=== PATIENT | female | born 1945 | race Caucasian/White ===

== ENCOUNTER → 2020-08-26 02:07 | Outpatient (CLI) | payer MEDICARE, SELFPAY ==
[2020-08-26 19:34] LABS: SARS-CoV-2 RNA PCR Negative
== END ==
PROVIDERS: PCP Internal Medicine; Visit Provider Internal Medicine Gastroenterology
DX: Z01.812 Encounter for preprocedural laboratory examination (principal); Z20.822 Contact with and (suspected) exposure to COVID-19
CPT/HCPCS: C9803; U0003; U0005

== ENCOUNTER 2020-08-30 01:25 | Day surgery (SDC) | payer MEDICARE, SELFPAY ==
[2020-08-25 10:15] VITALS: BMI 32.5
[2020-08-30 09:11] VITALS: BP 139/65; PULSE 84; RESP 20; TEMP 36.4; O2SAT 98; BMI 33.3
[2020-08-30] MEDS: LACTATED RINGERS 1,000 ML 150 ML IV CONT (09:20)
[2020-08-30] MEDS: AMPICILLIN 2 GM/NS 100 ML 2 GM/100 ML BAG IVPB (09:21)
--- NOTE | 2020-08-30 09:25 | P.PNAN_ITS ---
Anes - Initial Pre Proc Eval Procedure: Operation Date: 08/30/20 10:00 Proposed Procedures p Esophagogastroduodenoscopy & Screening Colonoscopy - Jacob Espinoza MD Date/Time: 08/30/20 09:25 Surgeon: Jacob Espinoza MD Pre Op Diagnosis: GI bleed, neoplasm screening Patient Data Age: 74 Gender: F Height: 4 ft 11 in Weight: 74.7 kg Last Vital Signs Temp 97.5 F L 08/30/20 09:11 Pulse 84 08/30/20 09:11 Resp 20 08/30/20 09:11 BP 139/65 08/30/20 09:11 Pulse Ox 98 08/30/20 09:11 Allergies Allergy/AdvReac Type Severity Reaction Status Date / Time adhesive tape Allergy Intermediate Rash Verified 08/30/20 09:09 Home Medications Medication Instructions Recorded Confirmed Type L. gasseri-B. bifidum-B longum 1 cap PO DAILY 08/25/20 08/30/20 History [[facility]] alprazolam 0.25 mg PO TID PRN 08/25/20 08/30/20 History amiloride-hydrochlorothiazide 1 tablet PO DAILY 08/25/20 08/30/20 History atorvastatin 40 mg PO BID 08/25/20 08/30/20 History bupropion HCl 300 mg PO DAILY 08/25/20 08/30/20 History cholecalciferol (vitamin D3) 50 mcg PO DAILY 08/25/20 08/30/20 History [Vitamin D3] whwsuozbfpna-Je-clju-minerals 1 tablet PO DAILY 08/25/20 08/30/20 History [[facility]] omeprazole 20 mg PO BID 08/25/20 08/30/20 History Patient hx anesthesia problems: none Family hx anesthesia problems: none PMFSH Past Medical History Medical History (Updated 08/30/20 @ 09:24 by Shady Call MD) Anxiety CVA (cerebral vascular accident) no residual symptoms GERD (gastroesophageal reflux disease) Hyperlipidemia Hypertension Social History Social History Smoking status: Never smoker Alcohol intake: never Substance use: never Substance use type: does not use Living arrangements: with family Spiritual care concerns: No Anes - Eval Final PreProcedure Day of Procedure 08/30/20 09:25 Patient weight: overweight Heart: regular rate and rhythm Lungs: clear to auscultation Airway: Mallampati scale class II Neurological: alert and oriented Last oral intake: >/= 8 hours ASA classification: III Emergent: no Anesthetic plan: proceed Anesthesia type and monitoring: general GIVS and standard monitoring Informed Consent: The patient's anesthetic plan and its attendant risks and benefits were discussed with the patient/family/POA. Questions were solicited and answers provided to the satisfaction of the patient/family/POA.
--- NOTE | 2020-08-30 09:47 | PM.HPGS ---
History of Present Illness History of Present Illness Consent: Risks, benefits, and alternatives have been discussed and questions answered. Patient agrees to proceed with procedure. Chief complaint: GI bleed, neoplasm screening Narrative: Dipti Núñez is a 74 year old female who had recent knee surgery and then developed melanotic stools and epigastric pain. She is due for colon cancer screening Review of Systems Review of Systems: All systems reviewed & are unremarkable except as noted in HPI and below PMFSH Past Medical History Medical History Anxiety CVA (cerebral vascular accident) no residual symptoms GERD (gastroesophageal reflux disease) Hyperlipidemia Hypertension Social History Social History Smoking status: Never smoker Alcohol intake: never Substance use: never Substance use type: does not use Living arrangements: with family Spiritual care concerns: No Meds Home Medications and Allergies Home Medications Medication Instructions Recorded Confirmed Type L. gasseri-B. bifidum-B longum 1 cap PO DAILY 08/25/20 08/30/20 [facility] alprazolam 0.25 mg PO TID PRN 08/25/20 08/30/20 History amiloride-hydrochlorothiazide 1 tablet PO DAILY 08/25/20 08/30/20 History atorvastatin 40 mg PO BID 08/25/20 08/30/20 History bupropion HCl 300 mg PO DAILY 08/25/20 08/30/20 History cholecalciferol (vitamin D3) 50 mcg PO DAILY 08/25/20 08/30/20 History [Vitamin D3] ssbiyvwfsldq-Vu-klnu-minerals 1 tablet PO DAILY 08/25/20 08/30/20 History [[facility] Multiple [facility]] omeprazole 20 mg PO BID 08/25/20 08/30/20 History Allergies Allergy/AdvReac Type Severity Reaction Status Date / Time adhesive tape Allergy Intermediate Rash Verified 08/30/20 09:09 Vital Signs Vital Signs - 24 hr 08/30/20 09:11 Temperature 36.4 C L Pulse Rate 84 Respiratory Rate 20 Blood Pressure 139/65 Pulse Oximetry 98 Exam Const: General: alert Orientation/consciousness: patient oriented x3 Resp: Auscultation: clear to auscultation bilaterally Cardio: Rhythm: regular rhythm GI: GI Palp: Yes Soft to palpation and No Tenderness to palpation present (GI) Neuro: General: patient oriented x3 Assessment and Plan Assessment and plan (1) Epigastric pain: Code(s): R10.13 - Epigastric pain Status: Acute Assessment and Plan: EGD with possible biopsy or dilatation or cautery. (2) Colon cancer screening: Code(s): Z12.11 - Encounter for screening for malignant neoplasm of colon Status: Acute Assessment and Plan: Colonoscopy with possible biopsy or polypectomy or cautery or injection of substances.
[2020-08-30 10:25] VITALS: BP 102/49; PULSE 77; RESP 20; O2SAT 93
[2020-08-30 10:34] VITALS: BP 98/50; PULSE 78; RESP 20; O2SAT 97
[2020-08-30 10:45] VITALS: BP 128/66; PULSE 76; RESP 20; O2SAT 97
== END 2020-08-30 11:00 | disposition home or self-care (01) ==
PROVIDERS: PCP Internal Medicine; Visit Provider Internal Medicine Gastroenterology
PROC: 0DJ08ZZ Inspection of Upper Intestinal Tract, Via Natural or Artificial Opening Endoscopic (ICD-10-PCS; CPT 43235; principal; 2020-08-30 10:00)
DX: Z12.11 Encounter for screening for malignant neoplasm of colon (principal); R10.13 Epigastric pain; K44.9 Diaphragmatic hernia without obstruction or gangrene; I10 Essential (primary) hypertension; E78.5 Hyperlipidemia, unspecified; K21.9 Gastro-esophageal reflux disease without esophagitis; F41.9 Anxiety disorder, unspecified; Z86.73 Personal history of transient ischemic attack (TIA), and cerebral infarction without residual deficits
CPT/HCPCS: 43235; G0121; J0290; J2704; J7120

== ENCOUNTER → 2020-12-19 10:44 | Outpatient (CLI) | payer MEDICARE, SELFPAY ==
--- NOTE | ~2020-12-19 | MM_ITS ---
EXAMINATION: MM screening angeline BI w beto HISTORY: Screening mammogram TECHNIQUE: Craniocaudal and mediolateral oblique 3-D tomosynthesis images were obtained and synthetic 2-D images were generated. CAD analysis was submitted and interpreted. COMPARISON: 08/10/2018, 06/25/2017, 05/23/2016 bilateral digital screening mammogram examinations BREAST PARENCHYMAL COMPOSITION: The breasts are almost entirely fatty. FINDINGS: There is no evidence of suspicious mass, calcification, or architectural distortion to sugg est malignancy in either breast. There has been no suspicious interval change. IMPRESSION: 1. No mammographic evidence of malignancy. 2. Recommend routine screening mammography in one year. BI-RADS Category 1: Negative Reviewed, dictated and finalized at location A.
== END ==
PROVIDERS: PCP Internal Medicine; Visit Provider Internal Medicine
DX: Z12.31 Encounter for screening mammogram for malignant neoplasm of breast (principal)
CPT/HCPCS: 77063; 77067

== ENCOUNTER 2021-05-14 11:12 | Outpatient (CLI) | payer MEDICARE, SELFPAY ==
[2021-05-14 11:52] LABS: Anion Gap 10 mmol/L (8-16); Blood Urea Nitrogen 19 mg/dL (7-17); Carbon Dioxide 28 mmol/L (22-30); Chloride 102 mmol/L (98-107); Estimated Glomerular Filt Rate 40; Glucose 125 mg/dL (65-110); Potassium 4.2 mmol/L (3.4-5.0); Sodium 140 mmol/L (137-145)
== END 2021-05-14 11:13 | disposition home or self-care (01) ==
LOC: ANHSURGERY 11:16
PROVIDERS: Anesthesiology; PCP Internal Medicine; Visit Provider Plastic Surgery
DX: Z01.812 Encounter for preprocedural laboratory examination (principal); Z51.81 Encounter for therapeutic drug level monitoring; Z79.899 Other long term (current) drug therapy
CPT/HCPCS: 36415; 80048

== ENCOUNTER 2021-05-17 02:24 | Day surgery (SDC) | payer MEDICARE, SELFPAY ==
[2021-05-10 12:03] VITALS: BMI 33.3
--- NOTE | 2021-05-10 12:13 | PC.NURSE ---
Report to the Outpatient Waiting Room, entrance under the green pavilion located off [facility], at time __0600__ on date _05/17/21__. OR Time: __0730 AM__. - You and your visitor will be asked a series of questions to screen for COVID 19 for your protection. - A mask is required within the hospital. - Only one visitor is allowed at this time. Patient visitors will be guided where to wait when not with patient. Preoperative COVID Testing Requirements: No COVID Test needed if: (proof is required; if not received patient will have Rapid Test prior to entry) - Patient has received COVID Vaccine at least 14 days prior to procedure date or - Patient has positive COVID test result within last 90 days of surgery date. COVID Test needed if above criteria is not met If not COVID vaccinated a COVID test must be conducted within 72 hours of surgery and patient is asked to isolate self from time of testing until procedure. You will go to the [facility] for your COVID testing. The [facility] is located at the corner of [address] [facility]. You will only be called if COVID results are positive and your surgeon may reschedule your elective surgery date. Patients may have clear liquids (water, carbonated beverages, clear teas, apple juice) until 3 hours prior to surgery (0430 AM) with a maximum of 20 ounces. - No food from midnight until time of surgery - Infants may have breast milk until 4 hours before surgery, infant formula 6 hours prior to surgery. - Children will be allowed to drink immediately following surgery. If applicable, please bring a bottle or sippy cup to assist with drinking. Juice, water, soda, and popsicles are readily available. For infants on formula, please bring formula the day of surgery. Pacifiers are allowed. Take the following medications with a SIP of water the morning of surgery: __ALPRAZOLAM, BUPROPION____ Medications to discontinue per physician __MULTIVITAMIN Date to take last dose___05/13/21 Please no make-up, nail prydeinig, hairspray, perfume, deodorant, or body powder the day of surgery. No jewelry (including any body piercings) or valuables the day of surgery, leave them at home. Please take a shower or bath the night before, or the morning of, surgery with an antibacterial soap. Wear comfortable, loose fitting clothing. Children are encouraged to wear pajamas. - Jewelry must be removed prior to entering the operating room. Rings and piercings that are not removed may be cut off. - The hospital will not accept responsibility for valuables. - Please leave all valuables, including medications, at home the day of surgery. If you are going home after surgery, a licensed vibratory pile driver must drive you home. - NO public transportation without another adult. - We recommend that an adult stay with you for 24 hours following discharge. - We also recommend that you do not drive, make important decision, drink alcoholic beverages, or take any drugs that were not prescribed by your health care provider for at least 24 hours after your discharge time. For Pediatric surgeries, we recommend two adults accompany the child home (only one inside the building at this time). Follow any additional instructions given to you from your surgeon. Telephone instructions given to ___PT and asked if any additional questions and then verbalized understanding. Patient advised to call surgeon office or pre surgery nurse liaison [phone] if any additional questions.
--- NOTE | 2021-05-16 15:18 | WPDANESEPPF ---
Anes - Initial Pre Proc Eval Procedure: Operation Date: 05/17/21 07:30 Proposed Procedures p Left Open Carpal Tunnel Release, and Excision of Left Volar Wrist Ganglion Cyst - Jan Perez MD Date/Time: 05/16/21 15:18 Surgeon: Jan Perez MD Pre Op Diagnosis: lft carpal tunnel syndrome, left volar wrist gang Patient Data Age: 75 Gender: F Height: 1.5 m Weight: 75 kg Allergies Allergy/AdvReac Type Severity Reaction Status Date / Time adhesive tape Allergy Intermediate Rash Verified 05/10/21 12:00 Home Medications Medication Instructions Recorded Confirmed Type [facility] 1 cap PO DAILY 08/25/20 05/17/21 History alprazolam 0.25 mg PO TID PRN 08/25/20 05/17/21 History amiloride-hydrochlorothiazide 1 tablet PO DAILY 08/25/20 05/17/21 History atorvastatin 40 mg PO BID 08/25/20 05/17/21 History bupropion HCl 300 mg PO DAILY 08/25/20 05/17/21 History axaubuksajzh-Zh-uavt-minerals 1 tablet PO DAILY 08/25/20 05/17/21 History omeprazole 20 mg PO BID 08/25/20 05/17/21 History aspirin [Adult Aspirin EC Low 81 mg PO DAILY 05/17/21 05/17/21 History Strength] Patient hx anesthesia problems: none Family hx anesthesia problems: none Results Review: All pre-operative results and documents have been reviewed as part of the pre-operative evaluation. [facility] Past Medical History Medical History (Updated 05/16/21 @ 15:19 by Josh Giron MD) Anxiety CVA (cerebral vascular accident) no residual symptoms GERD (gastroesophageal reflux disease) Hyperlipidemia Hypertension Obesity Osteoarthritis Ulcerative colitis Social History Social History Smoking status: Never smoker Second hand tobacco smoke exposure: No Alcohol intake: never Substance use: never Substance use type: does not use Living arrangements: with family Spiritual care concerns: No Anes - Eval Final PreProcedure Day of Procedure 05/16/21 15:18 Patient weight: obese Heart: regular rate and rhythm Lungs: clear to auscultation and normal air movement Airway: Mallampati scale class II Neurological: alert and oriented Last oral intake: >/= 8 hours ASA classification: III Emergent: no Anesthetic plan: proceed Anesthesia type and monitoring: general GIVS and LMA Results Review: All pre-operative results and documents have been reviewed as part of the pre-operative evaluation. Informed Consent: The patient's anesthetic plan and its attendant risks and benefits were discussed with the patient/family/POA. Questions were solicited and answers provided to the satisfaction of the patient/family/POA.
[2021-05-17 06:11] VITALS: BP 120/77; PULSE 73; RESP 16; TEMP 36.1; O2SAT 100
[2021-05-17] MEDS: LACTATED RINGERS 1,000 ML 30 ML IV CONT (06:35)
--- NOTE | 2021-05-17 07:08 | WPDHPUPDATE1 ---
History and Physical Update Update Date/Time: 05/17/21 07:08 History and Physical has been reviewed, including an updated exam of the patient. There are NO changes in the patient's condition. Risks, benefits, and alternatives have been discussed and questions answered. Patient agrees to proceed with procedure.
[2021-05-17] MEDS: LIDO 1%/EPINEPHRINE 1:100,000 50 ML VIAL 12 ML INFILTRATE (07:24)
[2021-05-17] MEDS: BACITRACIN OINTMENT 15 GM TUBE 1 APPLIC TOPICAL (07:55)
[2021-05-17 08:23] VITALS: BP 99/45; PULSE 73; RESP 18; O2SAT 93
--- NOTE | 2021-05-17 08:35 | W.PM.PROC2 ---
Procedure Note - Detailed Date of Procedure 05/17/21 Pre-op Diagnosis lft carpal tunnel syndrome, left volar wrist gang Post-op Diagnosis same Procedure Performed Left open carpal tunnel release. Excision of left volar wrist ganglion cyst Surgeon Jan Perez MD Research Recruiter Shyann Theodore Anesthesia MAC Findings As expected Description of Procedure The 2 sites on the patient's left wrist were marked in the holding area she consented. She to the operating placed supine operating table time-out was held confirmed. She was given IV sedation. The left extremity was prepped and draped in usual fashion. The sites were remarked and locally infiltrated with 1% lidocaine with epinephrine. The tourniquet was also inflated to 250 mmHg. The incision was made in the palm 1st blunt dissection through the subcutaneous tissue revealed the palmar aponeurosis. This was divided with scissors and 15 blade. The volar retinaculum was also incised opening the canal. The ligament was divided distally and proximally to completely release it. There was no unusual anatomy noted.. A dog leg incision was then made extending radially over the subcutaneous mass presumed to be a lobulated ganglion cyst. The diagnosis was confirmed. The multiple lobules were carefully dissected off the flexor carpi radialis and followed to the origin at the radiocarpal joint. The entire cyst was removed. A 3-0 Ethibond hpwbkj-xj-xkvni suture was placed at the opening through the capsule. The radial artery was not visualized in this part of the procedure. Did explore adjacent to the site to confirm the presence of the artery. The tourniquet was released and the skin was closed with a running 5 0 nylon after cauterizing bleeding sites. The carpal tunnel incision was closed with interrupted 5 0 nylon. The usual bandage was applied. She is discharged home with instructions care follow-up. She is script for hydrocodone/325 6. Estimated Blood Loss 1 Drains No Packing No Pathology none sent Complications No immediate complications Condition stable Disposition same day
[2021-05-17 08:55] VITALS: BP 123/50; PULSE 69; RESP 16; O2SAT 97
--- NOTE | 2021-05-17 09:07 | SUR.PHASEII ---
0845; PT AWAKE AND ALERT. UP TO RECLINER. GAIT STEADY. DENIES PAIN OR NAUSEA. 0900; PT EATING AND DRINKING
[2021-05-17 09:22] VITALS: BP 128/62; PULSE 68; RESP 18
== END 2021-05-17 09:37 | disposition home or self-care (01) ==
PROVIDERS: PCP Internal Medicine; Visit Provider Plastic Surgery
PROC: (CPT 64721; principal; 2021-05-17 07:30)
DX: G56.02 Carpal tunnel syndrome, left upper limb (principal); M67.432 Ganglion, left wrist; I10 Essential (primary) hypertension; E78.5 Hyperlipidemia, unspecified; K21.9 Gastro-esophageal reflux disease without esophagitis; F41.9 Anxiety disorder, unspecified; Z86.73 Personal history of transient ischemic attack (TIA), and cerebral infarction without residual deficits; M19.90 Unspecified osteoarthritis, unspecified site; Z79.82 Long term (current) use of aspirin; E66.9 Obesity, unspecified; Z68.34 Body mass index [BMI] 34.0-34.9, adult
CPT/HCPCS: 64721; 25111; A9270; J2704; J3010; J7120

== ENCOUNTER → 2022-08-09 13:11 | Outpatient (CLI) | payer MEDICARE, SELFPAY ==
--- NOTE | ~2022-08-09 | MM_ITS ---
EXAMINATION: MM screening angeline BI w beto HISTORY: Screening mammogram TECHNIQUE: Craniocaudal and mediolateral oblique 3-D tomosynthesis images were obtained and synthetic 2-D images were generated. CAD analysis was submitted and interpreted. COMPARISON 12/19/2020, 08/10/2018, 06/25/2017 bilateral screening mammogram examinations: No prior mammo gram is available for comparison at this institution. BREAST PARENCHYMAL COMPOSITION: The breasts are almost entirely fatty. FINDINGS: There is no evidence of suspicious mass, calcification, or architectural distortion to sugg est malignancy in either breast. There has been no suspicious interval change. IMPRESSION: 1. No mammographic evidence of malignancy. 2. Recommend routine screening mammography in one year. BI-RADS Category 1: Negative Reviewed, dictated and finalized at location A.
== END ==
PROVIDERS: PCP Internal Medicine; Visit Provider Internal Medicine
DX: Z12.31 Encounter for screening mammogram for malignant neoplasm of breast (principal)
CPT/HCPCS: 77063; 77067

== ENCOUNTER 2023-01-16 10:26 | Outpatient (RCR) | payer MEDICARE, SELFPAY ==
[2023-01-16 10:45] VITALS: BMI 35.5
== END 2023-02-12 16:26 | disposition home or self-care (01) ==
LOC: ANHDMC 10:26
PROVIDERS: PCP Internal Medicine; Visit Provider Internal Medicine
DX: E11.65 Type 2 diabetes mellitus with hyperglycemia (principal); Z71.3 Dietary counseling and surveillance
CPT/HCPCS: 97802

== ENCOUNTER → 2023-02-10 14:32 | Outpatient (CLI) | payer MEDICARE, SELFPAY ==
--- NOTE | ~2023-02-10 | DEXA_ITS ---
Bone Density Report Name: SKY HENRY Age: 77 Sex: Female Ethnicity: White Date of : 1945 Indication: postmenopausal; screening for osteoporosis; hysterectomy; rheumatoid arthritis; Referring Provider: NINO, DEAN Jaime Study: Bone densitometry was performed. Exam Date: February 10, 2023 Accession number: [id number] Bone Density: Region BMD T-score Z-score Classification AP Spine (L1-L4) 0.972 -0.7 1.8 Normal Femoral Neck (Left) 0.727 -1.1 1.0 Osteopenia Total Hip (Left) 0.923 -0.2 1.7 Normal Femoral Neck (Right) 0.732 -1.1 1.1 Osteopenia Total Hip (Right) 0.969 0.2 2.1 Normal Total Hip Mean 0.946 0.0 1.9 Normal World Health Organization criteria for BMD impression classify patients as: Normal (T-score at or above -1.0), Osteopenia (T-score between -1.0 and -2.5), or Osteoporosis (T-score at or below -2.5). 10-year Fracture Risk(1): Major Osteoporotic Fracture 13% Hip Fracture 2.3% Reported Risk Factors: [place] (), Neck BMD=0.732, BMI=34.2, rheumatoid arthritis (1) FRAX(R) Version 3.08. Fracture probability calculated for an untreated patient. Fracture probability may be lower if the patient has received treatment. Clinical Information Provided by Patient: Has rheumatoid arthritis Has the following medical conditions: Hysterectomy, STAGE 3 KIDNEY DISEASE Patient maximum height was 60 Menopause Age: 41 Does not regularly consume dairy products Onset of menses at age 14 Number of children 3 Impression: The patient has low bone mass, based on the Left Femoral Neck T-score. The patient has an estimated ten-year risk of hip fracture of 2.3% and an estimated ten-year risk of major fracture of 13%, based on the WHO FRAX algorithm. Discussion: BONE DENSITY IS LOW AT ONE OR MORE SKELETAL SITES. This patient's lowest T-score is low at one or more skeletal sites. It meets the World Health Organization's (WHO) criteria for ?low bone mass? (T-score between -1.0 and -2.5). The patient's 10-year risk of fracture as calculated by FRAX is less than the threshold where pharmacological therapy is recommended by the National Osteoporosis Foundation (NOF). However, all treatment decisions require clinical judgment and consideration of individual patient factors, including patient preferences, comorbidities, previous drug use, risk factors not captured in the FRAX model (e.g., frailty, falls, vitamin D deficiency, increased bone turnover, interval significant decline in bone density) and possible under or overestimation of fracture risk by FRAX. The patient should follow a healthful lifestyle (good nutrition with adequate calcium and vitamin D, and appropriate weight-bearing exercise). Follow-Up: Consider repeating this study in 2 to 3 years to reassess this patient's status, or soon
== END ==
PROVIDERS: PCP Internal Medicine; Visit Provider Internal Medicine
DX: M81.0 Age-related osteoporosis without current pathological fracture (principal); M85.89 Other specified disorders of bone density and structure, multiple sites
CPT/HCPCS: 77080

== ENCOUNTER 2023-12-08 08:56 | Day surgery (SDC) | payer MEDICARE, SELFPAY ==
[2023-12-08] VITALS (18 sets, daily range): BP systolic 124–174; BP diastolic 47–142; PULSE 64–95; RESP 14–20; TEMP 36.3–36.6; O2SAT 94–100
--- NOTE | ~2023-12-08 | CT_ITS ---
CT abdomen pelvis w con Ordering provider: Merari Waggoner PA-C History: 78 years Female with . right sided abd/flank pain . Comparison: None. Technique: CT abdomen and pelvis with IV and without oral contrast. Automated exposure control and it erative reconstruction technique were employed. The dose-length product was 982.60 mGy-cm. 100 MLO Om nipaque 350 was given IV. Findings: VISUALIZED LOWER CHEST: Dependent atelectatic changes. UPPER ABDOMINAL ORGANS: Liver: Mild fat infiltration. Minimal dilatation of the central intrahepatic ducts. Dilated CBD measu ring 1.3 cm. Gallbladder: Status post cholecystectomy. Spleen: Normal. Stomach/duodenum: Sliding hiatus hernia. Pancreas: Normal. Adrenals: Normal. Kidneys: Multiple stones in the right kidney lower pole. Multiple stones in the right renal pelvis. D ilated right pelvicalyceal system and upper ureter. Stone in the right upper ureter measuring 0.7 cm. Other smaller stones in the upper ureter are also seen. Possible stone in the left kidney upper pole . Other appearances of the left kidney are unremarkable. PELVIC ORGANS: The bladder is underfilled with thickened wall. BOWEL AND MESENTERY: Colon: No evidence of diverticulitis.. Normal appendix. Small Bowel: Normal. No obstruction. Peritoneum/mesentery: No free air or free fluid. No mesenteric lymphadenopathy. RETROPERITONEUM: Mild atheromatous disease of the abdominal aorta. No retroperitoneal lymphadenopat hy. MUSCULOSKELETAL: Superficial soft tissues: The superficial soft tissues are normal. Bones: Age appropriate degenerative changes of the spine. Pubic symphysitis. IMPRESSION: 1. Mild fat infiltration of the liver with minimal dilatation of the central bile ducts. Dilated CBD . 2. Sliding hiatus hernia. 3. Multiple stones in the right kidney and right renal pelvis with stones in the right upper ureter and the right hydronephrotic changes. Reviewed, dictated and finalized at location A. IMPRESSION: 1. Mild fat infiltration of the liver with minimal dilatation of the central b ile ducts. Dilated CBD. 2. Sliding hiatus hernia. 3. Multiple stones in the right kidney and right renal pelvis with stones in t he right upper ureter and the right hydronephrotic changes.
--- NOTE | ~2023-12-08 | XR_ITS ---
EXAMINATION: XR retrograde pyelo w/stent RT DATE: 12/08/2023 13:25 CDT INDICATION: RIGHT SIDE STENT/RETRO . TECHNIQUE: 3 fluoroscopic images of the right abdomen were obtained during right retrograde pyelograp hy with stent placement, performed by Graeme Barcenas MD. I was not present during the procedu re. Fluoroscopy exposure time was 57.7 seconds. Air Kerma 26.76 mGy. DAP 1.17 mGym2. COMPARISON: CT abdomen pelvis 12/08/2023 FINDINGS/IMPRESSION: Fluoroscopic documentation of right retrograde pyelography with stent placement. Please refer to the operative note for complete procedural details . Reviewed, dictated and finalized at location K.
--- NOTE | ~2023-12-08 | XR_ITS ---
XR abdomen/kub 1V Ordering provider: Merari Waggoner PA-C History: . ureterolithiasis, PAIN IN RIGHT SIDE X2 DAYS . Comparison: None. FINDINGS: BOWEL: Nonobstructive bowel gas pattern. ORGANOMEGALY: None. SIGNIFICANT PATHOLOGIC CALCIFICATIONS: A right hydronephrotic changes with stone in the right upper u reter. Normal left pelvic calyceal system and urinary bladder. OTHER: No free air is seen under the diaphragm. Degenerative changes of the spine. IMPRESSION: Right hydronephrotic changes with stones in the upper ureter. Reviewed, dictated and finalized at location A.
--- NOTE | 2023-12-08 09:31 | ED.ABDPAIN ---
HPI - Abdominal Pain General Chief Complaint: Urogenital-Female <Merari Waggoner PA-C - Last Filed: 12/08/23 12:23> Stated Complaint: KIDNEY STONE/FLANK PAIN <CHARLEY Lopes Last Filed: 12/08/23 12:23> Time Seen by Provider: 12/08/23 09:10 <Merari Waggoner PA-C - Last Filed: 12/08/23 12:23> Source: patient <CHARLEY Lopes Last Filed: 12/08/23 12:23> Mode of arrival: ambulatory <CHARLEY Lopes Last Filed: 12/08/23 12:23> Limitations: no limitations <CHARLEY Lopes Last Filed: 12/08/23 12:23> History of Present Illness HPI narrative: This is a 78-year-old female that presents to the emergency department for right-sided abdominal pain. Ongoing since 4 this morning. Reports she had a lithotripsy last week. She passed a kidney stone yesterday. She had worsening pain again this morning which prompted her to be seen. Denies fevers, vomiting, dysuria, or hematuria. <Merari Waggoner PA-C - Last Filed: 12/08/23 12:23> Related Data Home Medications: Home Medications Medication Instructions Recorded Confirmed Lactobacills gasseri-Bifidobac 1 cap PO DAILY 08/25/20 11/21/21 bifidum,longum 1.5 billion cell capsule (ReferralMD) alprazolam 0.25 mg tablet 0.25 mg PO TID PRN Anxiety 08/25/20 11/21/21 amiloride 5 mg-hydrochlorothiazide 1 tablet PO DAILY 08/25/20 11/21/21 50 mg tablet atorvastatin 80 mg tablet 40 mg PO BID 08/25/20 11/21/21 bupropion HCl 300 mg 24 hr tablet, 300 mg PO DAILY 08/25/20 11/21/21 extended release sokrizxuidaq-Oj-toak-minerals 18 1 tablet PO DAILY 08/25/20 11/21/21 mg-0.4 mg tablet omeprazole 20 mg capsule,delayed 20 mg PO BID 04/02/21 06/29/22 release cetirizine 10 mg capsule (All Day 10 mg PO DAILY PRN 11/21/21 11/21/21 Allergy (cetirizine)) <Merari Waggoner PA-C - Last Filed: 12/08/23 12:23> Allergies/Adverse Reactions: Allergies Allergy/AdvReac Type Severity Reaction Status Date / Time adhesive tape Allergy Intermediate Rash Verified 12/08/23 09:05 <Merari Waggoner PA-C - Last Filed: 12/08/23 12:23> Review of Systems Review of Systems: CONSTITUTIONAL: Denies fever GASTROINTESTINAL: Reports abdominal pain. Denies nausea, vomiting, or diarrhea. GENITOURINARY: Denies dysuria or hematuria. <Merari Waggoner PA-C - Last Filed: 12/08/23 12:23> All systems reviewed & are unremarkable except as noted in HPI and below <Merari Waggoner PA-C - Last Filed: 12/08/23 12:23> PMFSH Past Medical History Medical History: Medical History Anxiety CVA (cerebral vascular accident) no residual symptoms GERD (gastroesophageal reflux disease) Hyperlipidemia Hypertension Obesity Osteoarthritis Ulcerative colitis <Merari Waggoner PA-C - Last Filed: 12/08/23 12:23> Family History Family History: Family History Grandparent Alcoholism Sibling Asthma Cancer Father Cancer Mother Cancer Hypertension <Merari Waggoner PA-C - Last Filed: 12/08/23 12:23> Social History Social History: Social History Smoking status: Never smoker Second hand tobacco smoke exposure: No Alcohol intake: never Substance use: never Substance use type: does not use Living arrangements: with family Spiritual care concerns: No <CHARLEY Lopes Last Filed: 12/08/23 12:23> Exam Narrative: GENERAL: Elderly, well-nourished, and in no acute distress. HEAD: Normocephalic, atraumatic. EYES: EOMI. CHEST: Clear to auscultation. No respiratory distress. No wheezes rales or rhonchi HEART: Regular rate and rhythm. No murmur heard. Normal peripheral pulses. ABDOMEN: Soft, nontender, nondistended, normal active bowel sounds. EXTREMITIES: Normal range of motion. No edema. SKIN: Warm, dry, n
[2023-12-08 09:42] LABS: Basophils Percent Auto 0.4 % (0.2-1.2); Eosinophils Absolute Auto 0.2 K/mm3 (0-0.3); Eosinophils Percent Auto 2.4 % (0-4.4); Hematocrit 40.6 % (37.0-47.0); Hemoglobin 13.6 g/dL (12.0-15.0); Immature Granulocyte Absolute 0.02 K/mm3 (0.00-0.031); Immature Granulocyte Percent A 0.3 % (0-0.5); Lymphocytes Absolute Auto 0.95 K/mm3 (0.9-3.2); Lymphocytes Percent Auto 13.2 % (18.3-44.2); Mean Corpuscular HGB Conc 33.5 g/dl (32-36); Mean Corpuscular Hemoglobin 32.6 pg (26-34); Mean Corpuscular Volume 97.4 fl (80-100); Mean Platelet Volume 11.4 fl (7.4-10.4); Monocytes Absolute Auto 0.6 K/mm3 (0.1-0.6); Monocytes Percent Auto 8.5 % (2.6-8.5); Neutrophils Absolute Auto 5.4 K/mm3 (1.3-6.7); Neutrophils Percent Auto 75.2 % (45.5-73.1); Platelet Count Result 174 k/mm3 (150-375); Red Blood Count 4.17 M/mm3 (4.2-5.4); White Blood Count 7.2 K/mm3 (4.5-10.0)
[2023-12-08] MEDS: ONDANSETRON INJ 4 MG/2 ML VIAL IV PUSH (09:44)
[2023-12-08] MEDS: MORPHINE SULFATE (*CRX) 4 MG/ML INJ IV PUSH (09:44)
[2023-12-08] MEDS: SODIUM CHLORIDE 0.9% IV 500 ML 999 ML IV CONT (09:45)
[2023-12-08 09:53] LABS: Alanine Aminotransferase 41 U/L (6-35); Albumin Level 4.1 g/dL (3.5-5.1); Alkaline Phosphatase 96 U/L (38-126); Anion Gap 11 mmol/L (4-12); Aspartate Amino Transferase 58 U/L (14-36); Bilirubin,Total 0.7 mg/dL (0.2-1.3); Blood Urea Nitrogen 17 mg/dL (7-17); Carbon Dioxide 24 mmol/L (22-30); Chloride 100 mmol/L (98-107); Estimated Glomerular Filt Rate 40; Glucose 208 mg/dL (65-110); Potassium 3.7 mmol/L (3.4-5.0); Sodium 135 mmol/L (137-145)
[2023-12-08 10:04] LABS: Appearance Urine Cloudy (Clear); Bacteria Urine None Seen /hpf; Bilirubin Urine Negative (Negative); Blood Urine 3+ (Negative); Color Urine Yellow (Yellow); Glucose Urine UA Negative (Negative); Ketones Urine Negative (Negative); Leukocyte Esterase Ur 1+ LEU/UL (Negative); Need Manual Microscopic Reviewed; Nitrate Urine Negative (Negative); Non Pathogenic Casts 0-2; Protein Urine 1+ mg/dL (Negative); RBC Urine >100 /hpf (0-2); Specific Grav Ur 1.018 (1.001-1.035); Squamous Epithelial Cell Urine None Seen /hpf (Few); Urobilinogen Urine 0.2 mg/dL (<2.0); WBC Urine 0-5 /hpf (0-3); pH Urine 5.5 (5.0-9.0)
[2023-12-08 10:05] LABS: Add Urine Microscopic? YES
[2023-12-08] MEDS: HYDROmorphone HCL INJ (*CRX) 1 MG/ML SYR 0.5 MG IV PUSH (10:36)
--- NOTE | 2023-12-08 12:22 | PM.IMHP ---
H&P: HPI History of Present Illness Date/Time: 12/08/23 12:22 Chief Complaint: Obstructing proximal right ureteral stones with pain Narrative: Pleasant 78-year-old female who underwent a lithotripsy last week for a presumed 11 mm right renal stone. Patient passed a small fragment but has been in pain since this morning. Evaluation in the emergency room revealed small collection of stones in the proximal ureter measuring up to 7 mm although it looks larger to me. There was also some renal pelvic stones present. She is afebrile with a normal white count. They have been unable to control her pain adequately. Review of Systems Review of Systems: All systems reviewed & are unremarkable except as noted in HPI and below PMFSH Past Medical History Medical History Anxiety CVA (cerebral vascular accident) no residual symptoms GERD (gastroesophageal reflux disease) Hyperlipidemia Hypertension Obesity Osteoarthritis Ulcerative colitis Family History Family History Grandparent Alcoholism Sibling Asthma Cancer Father Cancer Mother Cancer Hypertension Social History Social History Smoking status: Never smoker Second hand tobacco smoke exposure: No Alcohol intake: never Substance use: never Substance use type: does not use Living arrangements: with family Spiritual care concerns: No Meds Home Medications and Allergies Home Medications Medication Instructions Recorded Confirmed Type Lactobacills gasseri-Bifidobac 1 cap PO DAILY 08/25/20 11/21/21 History bifidum,longum 1.5 billion cell capsule ([employer]) alprazolam 0.25 mg tablet 0.25 mg PO TID PRN Anxiety 08/25/20 11/21/21 History amiloride 5 mg-hydrochlorothiazide 1 tablet PO DAILY 08/25/20 11/21/21 History 50 mg tablet atorvastatin 80 mg tablet 40 mg PO BID 08/25/20 11/21/21 History bupropion HCl 300 mg 24 hr tablet, 300 mg PO DAILY 08/25/20 11/21/21 History extended release zrszynunsmmg-Zn-ador-minerals 18 1 tablet PO DAILY 08/25/20 11/21/21 History mg-0.4 mg tablet omeprazole 20 mg capsule,delayed 20 mg PO BID 08/25/20 11/21/21 History release cetirizine 10 mg capsule (All Day 10 mg PO DAILY PRN 11/21/21 11/21/21 History Allergy (cetirizine)) Allergies Allergy/AdvReac Type Severity Reaction Status Date / Time adhesive tape Allergy Intermediate Rash Verified 12/08/23 09:05 Vital Signs Vital Signs - 24 hr 12/08/23 09:01 12/08/23 10:39 12/08/23 10:21 Temperature 36.3 C L Pulse Rate 73 64 Respiratory Rate 17 14 Blood Pressure 158/74 H 166/81 H 174/99 H Pulse Oximetry 95 99 99 Oxygen Delivery Room Air 12/08/23 10:31 12/08/23 10:37 12/08/23 11:00 Temperature Pulse Rate Respiratory Rate Blood Pressure 153/142 H 166/81 H 138/56 L Pulse Oximetry 100 99 96 Oxygen Delivery 12/08/23 11:46 12/08/23 12:00 Temperature Pulse Rate Respiratory Rate Blood Pressure 124/64 139/108 H Pulse Oximetry 94 100 Oxygen Delivery Exam Const: General: cooperative; No comfortable Resp: Effort & Inspection: normal respiratory effort Cardio: Rate: regular rate H&P: Results Labs Labs: Short CBC 12/08/23 Range/Units 09:32 WBC 7.2 (4.5-10.0) K/mm3 Hgb 13.6 (12.0-15.0) g/dL Hct 40.6 (37.0-47.0) % Plt Count 174 (150-375) k/mm3 BMP 12/08/23 09:32 Sodium 135 L Potassium 3.7 Chloride 100 Carbon Dioxide 24 BUN 17 Creatinine 1.30 H Glucose 208 H Calcium 9.0 Liver Function 12/08/23 Range/Units 09:32 Total Bilirubin 0.7 (0.2-1.3) mg/dL AST 58 H (14-36) U/L ALT 41 H (6-35) U/L Alkaline Phosphatase 96 (38-126) U/L Albumin 4.1 (3.5-5.1) g/dL Urine 12/08/23 Range/Units 09:34 Urine Color Yellow (Yellow) Urine
--- NOTE | 2023-12-08 12:25 | WPDHPUPDATE1 ---
History and Physical Update Update Date/Time: 12/08/23 12:25 History and Physical has been reviewed, including an updated exam of the patient. There are NO changes in the patient's condition. Risks, benefits, and alternatives have been discussed and questions answered. Patient agrees to proceed with procedure.
--- NOTE | 2023-12-08 12:38 | WPDANESEPPF ---
Anes - Initial Pre Proc Eval Procedure: Operation Date: 12/08/23 13:00 Proposed Procedures p Cystoscopy, Right Ureteroscopy, Right Retrograde Pyelogram, Possible Right Ureteral Stent Placement, Possible Holmium Laser Lithotripsy, Stone Extraction - Graeme Barcenas MD Date/Time: 12/08/23 12:38 Surgeon: Graeme Barcenas MD Pre Op Diagnosis: KIDNEY STONE/FLANK PAIN Patient Data Age: 78 Gender: F Height: 1.5 m Weight: 76.9 kg Last Vital Signs Temp 97.3 F L 12/08/23 09:01 Pulse 73 12/08/23 12:22 Resp 16 12/08/23 12:22 BP 148/86 H 12/08/23 12:22 Pulse Ox 98 12/08/23 12:22 O2 Del Method Room Air 12/08/23 09:01 Allergies Allergy/AdvReac Type Severity Reaction Status Date / Time adhesive tape Allergy Intermediate Rash Verified 12/08/23 09:05 Home Medications Medication Instructions Recorded Confirmed Type Lactobacills gasseri-Bifidobac 1 cap PO DAILY 08/25/20 11/21/21 History bifidum,longum 1.5 billion cell capsule ([employer]) alprazolam 0.25 mg tablet 0.25 mg PO TID PRN Anxiety 08/25/20 11/21/21 History amiloride 5 mg-hydrochlorothiazide 1 tablet PO DAILY 08/25/20 11/21/21 History 50 mg tablet atorvastatin 80 mg tablet 40 mg PO BID 08/25/20 11/21/21 History bupropion HCl 300 mg 24 hr tablet, 300 mg PO DAILY 08/25/20 11/21/21 History extended release qfjtcvmqmqvp-Ai-pmmx-minerals 18 1 tablet PO DAILY 08/25/20 11/21/21 History mg-0.4 mg tablet omeprazole 20 mg capsule,delayed 20 mg PO BID 08/25/20 11/21/21 History release cetirizine 10 mg capsule (All Day 10 mg PO DAILY PRN 11/21/21 11/21/21 History Allergy (cetirizine)) Laboratory Tests 12/08/23 12/08/23 09:32 09:34 WBC 7.2 K/mm3 (4.5-10.0) RBC 4.17 L M/mm3 (4.2-5.4) Hgb 13.6 g/dL (12.0-15.0) Hct 40.6 % (37.0-47.0) MCV 97.4 fl (80-100) MCH 32.6 pg (26-34) MCHC 33.5 g/dl (32-36) RDW 14.0 % (11.5-14.5) Plt Count 174 k/mm3 (150-375) MPV 11.4 H fl (7.4-10.4) Immature Gran % (Auto) 0.3 % (0-0.5) Neut % (Auto) 75.2 H % (45.5-73.1) Lymph % (Auto) 13.2 L % (18.3-44.2) [place] % (Auto) 8.5 % (2.6-8.5) Eos % (Auto) 2.4 % (0-4.4) Baso % (Auto) 0.4 % (0.2-1.2) Lymph # (Auto) 0.95 K/mm3 (0.9-3.2) [place] # (Auto) 0.6 K/mm3 (0.1-0.6) Eos # (Auto) 0.2 K/mm3 (0-0.3) Baso # (Auto) 0.0 K/mm3 (0.0-0.1) Abs Immat Gran (auto) 0.02 K/mm3 (0.00-0.031) Absolute Neuts (auto) 5.4 K/mm3 (1.3-6.7) Absolute Nucleated RBC 0.000 K/mm3 (0.0-0.012) Nucleated RBC % 0.0 % (0.0-0.2) Sodium 135 L mmol/L (137-145) Potassium 3.7 mmol/L (3.4-5.0) Chloride 100 mmol/L (98-107) Carbon Dioxide 24 mmol/L (22-30) Anion Gap 11 mmol/L (4-12) BUN 17 mg/dL (7-17) Creatinine 1.30 H mg/dL (0.7-1.0) Estim Creat Clear Calc Not Reportable Estimated GFR 40 L (59 - ) Glucose 208 H mg/dL (65-110) Calcium 9.0 mg/dL (8.4-10.2) Total Bilirubin 0.7 mg/dL (0.2-1.3) AST 58 H U/L (14-36) ALT 41 H U/L (6-35) Alkaline Phosphatase 96 U/L (38-126) Total Protein 7.0 g/dL (6.3-8.2) Albumin 4.1 g/dL (3.5-5.1) Urine Color Yellow (Yellow) Urine Appearance Cloudy H (Clear) Urine pH 5.5 (5.0-9.0) Ur Specific [place] 1.018 (1.001-1.035) Urine Protein 1+ H mg/dL (Negative) Urine Glucose (UA) Negative mg/dL (Negative) Urine Ketones Negative mg/dL (Negative) Ur Blood (Man) 3+ H (Negative) Urine Nitrate Negative (Negative) Urine Bilirubin Negative (Negative) Urine Urobilinogen 0.2 mg/dL (<2.0) Add Ur Microanalysis Reviewed Leukocyte Esterase Rfl 1+ H ADRIANA/UL (Negative) Urine R
[2023-12-08] MEDS: ceFAZolin SODIUM 1 GM VIAL 2 GM IVPB (12:59)
[2023-12-08] MEDS: LIDOCAINE HCL 2% GEL UROJET 10 ML PKG MUCOUS MEM (13:13)
--- NOTE | 2023-12-08 13:40 | P.OP_ITS ---
Procedure Note - Detailed Date of Procedure 12/08/23 Pre-op Diagnosis Right ureteral stones with flank pain and hydro Post-op Diagnosis Same Procedure Performed Cystoscopy, right retrograde pyelogram, right ureteroscopy with laser, right ureteral stent placement 4.8 Pan[place]ian contour Surgeon Graeme Barcenas MD Anesthesia General Findings Impacted stones in the proximal tortuous ureter Description of Procedure Patient is taken the operative suite correctly identified. Once anesthesia was obtained she was placed in dorsal lithotomy position and prepped and draped usual sterile fashion. Nineteen Panamanian scope was inserted into the bladder. There were no tumors noted. Right ureteral orifice was cannulated with a guidewire. I was able to manipulate a guidewire up into the renal pelvis. I dilated the orifice with an 8/10 dilator and then placed ureteral access sheath. Mini flexible ureteral scope was inserted. Stone was noted in the proximal ureter. Using a 273 micron fiber I lasered the 1 stone. I could not manipulate the scope in more proximally to laser any further stones due to edema. And tortuosity. At this point time a pyelogram was performed after passing a [place] over the wire. 4.8 [place]ian contour stent was then placed with the proximal end coiled in the renal pelvis and the distal in the bladder. 2% viscous lidocaine was inserted into the urethra patient is taken recovery stable condition. She will be discharged home. She will follow-up with Dr. Dominguez or myself next week with a KUB although she may require a CT to get better visualization. She may require another ureteroscopy if stones are still present. This completes dictation please send a copy of op note to my office. Estimated Blood Loss 0 Drains Yes Packing No Pathology None sent Complications No immediate complications Condition Stable Disposition PACU
[2023-12-08] MEDS: LACTATED RINGERS 1,000 ML 30 ML IV CONT (13:46)
== END 2023-12-08 15:44 | disposition home or self-care (01) ==
LOC: ANHED 12:06 → ANHSURGERY 12:08
PROVIDERS: Emergency Provider Physician Assistant; PCP Internal Medicine; Visit Provider Urology
PROC: (CPT 52352; principal; 2023-12-08 13:00)
DX: N13.2 Hydronephrosis with renal and ureteral calculous obstruction (principal); I10 Essential (primary) hypertension; E78.5 Hyperlipidemia, unspecified; K21.9 Gastro-esophageal reflux disease without esophagitis; Z86.73 Personal history of transient ischemic attack (TIA), and cerebral infarction without residual deficits; E66.9 Obesity, unspecified; Z68.34 Body mass index [BMI] 34.0-34.9, adult
CPT/HCPCS: 52356; 36415; 74018; 74177; 74420; 80053; 81001; 85025; 96361; 96374; 96375; 99285; C1769; C1894; C2617; J0690; J1170; J2270; J2405; J2704; J3010; J7040; J7120; Q9966; Q9967

== ENCOUNTER 2023-12-12 09:33 | Outpatient (CLI) | payer MEDICARE, SELFPAY ==
--- NOTE | ~2023-12-12 | XR_ITS ---
XR abdomen/kub 1V Ordering provider: Adela Denny, HOBBER History: . CALCIUM KIDNEY STONE FOLLOW UP . Comparison: December 08, 2023 FINDINGS: BOWEL: Nonobstructive bowel gas pattern. ORGANOMEGALY: None. SIGNIFICANT PATHOLOGIC CALCIFICATIONS: Right kidney stones with the right double-J stent. OTHER: Degenerative changes of the spine. Levoscoliosis. Pubic symphysitis. No free air is seen under the diaphragm. IMPRESSION: NO ACUTE ABDOMINAL FINDINGS. Reviewed, dictated and finalized at location A.
== END 2023-12-12 09:34 | disposition home or self-care (01) ==
PROVIDERS: PCP Internal Medicine; Visit Provider Nurse Practitioner Family
DX: N20.0 Calculus of kidney (principal)
CPT/HCPCS: 74018

== ENCOUNTER 2024-02-12 10:04 | Outpatient (CLI) | payer MEDICARE, SELFPAY ==
--- NOTE | ~2024-02-12 | XR_ITS ---
XR abdomen/kub 1V Ordering provider: Kay Dominguez MD History: . Calcium kidney stone . Comparison: December 12, 2023 FINDINGS: BOWEL: Nonobstructive bowel gas pattern. ORGANOMEGALY: None. SIGNIFICANT PATHOLOGIC CALCIFICATIONS: Tiny calcifications in the left renal area. Status post remova l of the right double-J stent. OTHER: No free air is seen under the diaphragm. Levoscoliosis. Degenerative changes of the spine. IMPRESSION: NO ACUTE ABDOMINAL FINDINGS. Tiny calcification in the left kidney area. Reviewed, dictated and finalized at location A.
== END 2024-02-12 10:05 | disposition home or self-care (01) ==
LOC: ANHIMG 10:07
PROVIDERS: PCP Internal Medicine; Visit Provider Urology
DX: N20.0 Calculus of kidney (principal)
CPT/HCPCS: 74018

== ENCOUNTER 2024-08-04 10:08 | Outpatient (CLI) | payer MEDICARE, SELFPAY ==
--- NOTE | ~2024-08-04 | CT_ITS ---
EXAMINATION: CT soft tissue neck wo con DATE: 08/04/2024 10:46 INDICATION: Foreign body sensation in throat. TECHNIQUE: Computed tomography (CT) of the neck was performed without intravenous contrast. Automated exposure control and iterative reconstruction technique were employed. The dose-length product was 4 50.71 mGy-cm. COMPARISON: None FINDINGS: There are no pathologically enlarged lymph nodes. The pharynx and larynx are normal. There is no foreign body. There are likely changes of ocular lens replacement surgeries. There is mild muco saturnino thickening in the paranasal sinuses. There is a small right mastoid effusion. There is severe cer vical spondylosis. IMPRESSION: 1. No foreign body. Reviewed, dictated and finalized at location B. IMPRESSION: 1. No foreign body.
--- OUTSIDE RECORDS SUMMARY | 2024-08-04 11:24 | XMS_ITS | Clinical Summary ---
Author Organization [facility] Address [address] [place] [address] Care Team Providers Care Blue Line Operator Name Role Phone Nick Reyes MD Primary Care Provider Allergies Active Allergy Reactions Criticality Noted Date Comments Adhesive Tape-Silicones Rash Medium 01/12/2019 Latex Unknown 01/13/2019 Medications loratadine (CLARITIN) 10 mg tablet Take 10 mg by mouth daily. Active omeprazole (PriLOSEC) 20 mg capsule Take 20 mg by mouth 2 (two) times a day. Active aMILoride-hydroC HLOROthiazide (MODURETIC) 5-50 mg tablet Take 1 tablet by mouth daily. Active buPROPion XL (WELLBUTRIN XL) 300 mg 24 hr tablet Take 300 mg by mouth daily. Active atorvastatin (LIPITOR) 80 mg tablet Take 80 mg by mouth daily. Active Lactobacillus acidophilus 10 billion cell capsule Take by mouth. Activ e ALPRAZolam (XANAX) 0.25 mg tablet Take 0.25 mg by mouth nightly as needed for anxiety. Active ergocalciferol, vitamin D2, 2,000 unit tablet Take by mouth. Activ e multivitamin tablet tabletIndication s:Vitamin Deficiency Prevention Take 1 tablet by mouth. Active naproxen (NAPROSYN,ALEVE) 220 mg tablet Take 1 tablet (220 mg total) by mouth 2 (two) times a day after breakfast and dinner. As needed 7 Active oxyCODONE (ROXICODONE) 5 mg immediate release tabletIndication s:Pain TAKE 1 TO 2 TABLETS EVERY 4 TO 6 HOURS NEEDED FOR PAIN 40 tablet 9 Active indomethacin SR (INDOCIN SR) 75 mg CR capsule Take 1 capsule (75 mg total) by mouth daily with breakfast 14 capsule 9 Active Active Problems Problem Noted Date Diagnosed Date Right elbow pain 01/11/2019 Overview (01/11/2019): Added automatically from request for surgery [id number] 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 Overview (01/11/2019): Added automatically from request for surgery [id number] Cyclic edema 12/03/2016 Hypercholesteremia 12/03/2016 Gastroesophageal reflux disease without esophagi tis 12/03/2016 Depression 12/03/2016 Class 2 obesity with body ma ss index (BMI) 36.0 to 36.9 in adult 12/03/2016 Assessment & Plan (12/03/2016 2:52 PM CDT): An optimal body mass index is between 20 and 25. Encourage weight loss. Each pound of weight lost unloads 3-4 pounds per square inch pressure from weight bearing joints. Diet and exercise are the keys to weight management. Primary osteoarthritis involving multiple joints 12/03/2016 Arthropathies in other speci fied diseases classified elsewhere, right hand 12/03/2016 Overview (12/03/2016): Further therapeutic decisions pend data review. Extensor tenosynovitis of right wrist 12/03/2016 Overview (12/03/2016): Laboratory and xray evaluation (rule out inflammatory arthritis) as per orders. Pseudogout (CPPD) would be a possible diagnosis. Postmenopausal bone loss 12/03/2016 Overview (12/03/2016): Calcium and Vitamin D with lab today. Update bone density likely pend initial data review. Surgical History Surgery Date Site/Laterality Comments RHINOPLASTY 05/26/1970 - 05/25/1971 OTHER SURGICAL HISTORY 05/26/1988 - 05/25/1989 removal of cancer tumor in left eye area--melanoma CATARACT EXTRACTION EXTRACAPSULAR W/ INTRAOCULAR LENS IMPLANTATION 05/26/2008 - 05/25/2009 Bilateral CHOLECYSTECTOMY 05/26/1999 - 05/25/2000 HYSTERECTOMY 05/26/1998 - 05/25/1999 TUBAL LIGATION 05/26/1972 - 05/25/1973 MELANOMA RESECTION 05/26/1988 - 05/25/1989 Left CARPAL TUNNEL RELEASE 05/26/1998 - 05/25/1999 Right BASAL CELL CARCINOMA EXCISION 05/26/2008 - 05/25/2009 Right nose and arm, chest REPLACEMENT TOTAL KNEE 05/26/2016 - 05/25/2017 Right Medical History Medical History Date Comments GERD (gastroesophageal reflux disease) well controlled with meds Ulcerative colitis (HCC) well co ntrolled with meds Hypertension well controlled with meds Hyperlipidemia well controlled woth meds Seasonal allergies Depression well controlled with meds Arthritis all over Stroke (HCC) 1998 no residual. No problems since. sees only PCP Cancer (HCC) 1988 melonma by left eye 1988. basal cell-arm chest and face ---2008 Family History Medical History Relation Name Comments Kidney failure Father Cancer Mother multiple myelom a Stroke Mother Relation Name Status Comments Father (Age 84) Mother (Age 84) Social History Tobacco Use Types Packs/Day Years Used Date Smoking Tobacco: Never Smokeless Tobacco: Never Alcohol Use Standard Drinks/Week Comments Yes 0 (1 standard drink = 0.6 oz pur e alcohol) once a year Comments No Sex and Gender Information Value Date Recorded Sex Assigned at Not on file Legal Sex Female 2:42 PM CDT Gender Identity Not on file Sexual Orientation Not on file Obstetrics History Last Filed Vital Signs Vital Sign Reading Time Taken Comments Blood Pressure 135/68 01/14/2019 10:15 AM CDT Pulse 73 01/14/2019 10:15 AM CDT Temperature 36.1 C (97 F) 01/14/2019 8:51 AM CDT Respiratory Rate 13 01/14/2019 10:15 AM CDT Oxygen Saturation 94% 01/14/2019 10:15 AM CDT Inhaled Oxygen Concentration - - Weight 80 kg (176 lb 4.8 oz) 01/14/2019 5:46 AM CDT Height 149.9 cm (4' 11 ) 01/14/2019 5:46 AM CDT Body Mass Index 35.61 01/14/2019 5:46 AM CDT Plan of Treatment Not on file Medical Devices Implanted Type Area Lunch Truck Operator Device Identifier Shelf Expiration Date Model / Serial / Lot Total Joint Right: Knee Lens Bilateral: Eye Insurance MEDICARE [facility] MEDICARE [facility] Care Teams Blue Line Operator Relationship Specialty Start Date End Date Nick Reyes MD PCP - General 09/02/16
--- OUTSIDE RECORDS SUMMARY | 2024-08-04 11:24 | XMS_ITS | Referral Summary ---
Author Organization [facility] Address [address] [place] [address] Care Team Providers Care Gis Mapping Technician Name Role Phone Nick Reyes MD Primary [...] (01/11/2019): Added automatically from request for surgery [id number] 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 Overview (01/11/2019): Added automatically from request for surgery [id number] Cyclic edema 12/03/2016 Hypercholesteremia 12/03/2016 Gastroesophageal reflux [...] bone density likely pend initial data review. Social History Tobacco Use Types Packs/Day Years [...] on file Sexual Orientation Not on file Last Filed Vital Signs Vital Sign Reading [...] on file Medical Devices Implanted Type Area Operations Planner Device Identifier Shelf Expiration Date Model / Serial / Lot Total Joint Right: Knee Lens Bilateral: [place] [address] MEDICARE Sold [place] [employer] [place] MEDICARE [facility] Care Teams Gis Mapping Technician Relationship Specialty Start Date End Date Nick Reyes MD PCP - General 09/02/16
--- OUTSIDE RECORDS SUMMARY | 2024-08-04 11:26 | XMS_ITS | Data Portability ---
Author Organization [place] [facility] [employer] Main Office Address [address] [place] [address] Care Team Providers Care Director Fundraising Name Role Phone DEAN REYES Primary Care Provider DEAN REYES Referring Provider Assessment Encounter Date Assessment Date Assessment LastModified by Organization Details LastModified Time 07/29/2024 07/29/2024 small external hemorrhoids with skin fold perianally do not recommend surgical treatment at time this may cause some degree of incontinence particularly because of her age. Recommend medical treatment. Follow-up here if Condition worsens [email or web address] Not available 07/29/2024 11:41:41 Plan of Treatment Reminders Order Date Submit Date Provider Last Modified By Organization Details Last Modified Time Details Appointments None recorded . Lab lipid panel, serum 025 07/14/19 25 [facility] ([facility]), [address] [place], [address], 5 10:06:10 CMP, serum or plasma 025 07/14/19 25 [email or web address] [facility] ([facility]), [address] [place], [address], 5 10:06:11 HbA1c (hemoglo bin A1c), blood 025 07/14/[email or web address] ([facility]), [address] [place], [address], 5 10:06:11 TSH, serum or plasma 025 07/14/[address] ([facility]), [address] [place], [address], 5 10:06:11 T4, free, serum 025 07/14/[address] ([facility]), [address] [place], [address], 5 10:06:11 lipid panel, serum 024 03/03/20 24 [facility] ([facility]), [address] [place], [address], 4 14:45:46 CMP, serum or plasma 03/03/20 24 [facility] ([facility]), [address] [place], [address], 4 14:45:56 HbA1c (hemoglo bin A1c), blood 03/03/[address] ([facility]), [address] [place], [address], 4 10:40:28 Referral None recorded . Procedures None recorded . Surgeries None recorded . Imaging None recorded . Medication Orders None recorded . Patient TargetsNo targets recorded. Patient Instructions Encounter Date Encounter Id Patient Instructions Last Modified By Organization Details Last Modified Time 03/03/2024 [id number] dementia rating scale-2* [email or web address] Not available 03/03/2024 17:13:30 alcohol misuse* [email or web address] Not available 03/03/2024 17:13:30 depression screening* [email or web address] Not available 03/03/2024 17:13:30 Timed Up and Go test (TUG)* [email or web address] Not available 03/03/2024 17:13:30 multi-dimensiona health assessment questionnaire* [email or web address] Not available 03/03/2024 17:13:30 [place] Advance Directives [email or web address] Not available 03/03/2024 17:13:30 advance directiv es: care instructions [email or web address] Not available 03/03/2024 17:13:30 advance care planning: care instructions [email or web address] Not available 03/03/2024 17:13:30 Personalized a lt Plan and Screening Recommendations Advance Directives - Do you have one? No Advance Directives - Do we have your advance directive on file in your health record? Primary Prevention/Interven tion (prevents or decreases the chance of common diseases from occurring) Smoking Risk: Non Smoker Alcohol Misuse Screening: Negative Weight: Appropriate Overwei ght continue your current weight loss efforts try to lose 5% of your body weight try to lose 10% of your body weight Physical activity: Need more exercise/physical activity Nutrition: Good Average Fall Risk (screened today): Low Intermediate Refer to attached handout Preventing Falls: After your Visit Recommend regular use of cane or walker Vaccines Pneumococcal: Ordered Recommended today Influenza: Ordered Recommended today Chronic Disease Risks Stroke: Low Risk Intermediate Risk I have no recommendations Act maria teresa diagnosis, Continue current treatment plan Heart Attack: Low risk Intermediate Risk I have no recommendations Act maria teresa diagnosis, Continue current treatment plan Clogging of the Arteries: Low risk Intermediate Risk I have no recommendations Act maria teresa diagnosis, Continue current treatment plan Diabetes: Low Risk Intermediate Risk Active diagnosis, Continue current treatment plan Secondary Prevention/Interven tion (detects treatable diseases before they may cause symptoms, disability, or ) Breast Cancer Screening with mammogram: Cervical/Uterine/Ov juan carlos Cancer Screening: No screening necessary Osteoporosis Screening: Date Screening Last Performed: Colon Cancer Screening: Colonoscopy Fecal Occult Blood Cologuard (DNA stool test) Date Screening Last Performed: ___2022___ Eye Disease Screening: Dementia Risk: Low I have no recommendations Depression Screening: Negative Positive Active diagnosis, Continue current treatment plan [email or web address] Not available 03/03/2024 16:52:42 Medicare wellnes s evaluation risk assessment stable. Follow-up for essential hypertension, hypothyroidism, hyperlipidemia, rheumatoid arthritis, type 2 diabetes, depression as well as some chronic renal dysfunction stage IIIA. Will continue on current Rx will check a hemoglobin A1c and lipid panel. Will await the further evaluation of the middle school guidance counselor. Will also set up with ENT to evaluate the posterior pharyngeal pain and the vertigo. Additional Orders - Directives - Recommendations 1. ENT consult for posterior neck and the pain along with vertigo. Follow Up: 4 Months Approximate Date: 07/01/2024 Portions of the record may have been created with voice recognition software. Occasional wrong-word or xjswy-[id number] substitutions may have occurred due to the inherent limitations of voice recognition software. Read the chart carefully and recognize, using context, where substitutions have occurred. [email or web address] Not available 03/03/2024 17:12:58 03/31/2024 [id number] Follow-up for hypertension, hyperlipidemia, GERD, rheumatoid arthritis and type 2 diabetes all clinically stable. Overall is doing well otherwise. Will stop the Simponi and obtain an MRI of the cervical spine to further assess the cervical discomfort and decrease in pinprick and some muscle strength on the left. Additional Orders - Directives - Recommendations 1. MRI of the lumbar spine without contrast for left arm radiculopathy Keep Appointment: Fri 03:20 PM Todd Follow Up: 4 Months Approximate Date: 07/29/2024 Portions of the record may have been created with voice recognition software. Occasional wrong-word or hidjc-t-xyiq substitutions may have occurred due to the inherent limitations of voice recognition software. Read the chart carefully and recognize, using context, where substitutions have occurred. [email or web address] Not available 03/31/2024 16:37:10 07/14/2024 [id number] Follow-up for essential hypertension, hyperlipidemia, hypothyroidism, type 2 diabetes, GERD, chronic left-sided ulcerative colitis and obesity class one all clinically stable. Will check blood work. Continue on current Rx also set up with surgery for evaluation of a few external hemorrhoids Additional Orders - Directives - Recommendations 1. Surgical consult with Dr. Ibarra regarding hemorrhoids Follow Up: 4 Months Approximate Date: 11/11/2024 Portions of record are template driven. When necessary additional context will be provided. Additionally some portions have been created with voice recognition software. Occasional wrong-word or ptyku-a-jhna substitutions may have occurred due to the inherent limitations of voice recognition software. Read the chart carefully and recognize, using context, where substitutions may have occurred. Created: Dean Reyes M.D. 07.14.2024 03:59 PM [email or web address] Not available 07/14/2024 16:59:23 Reason for Referral None Reported. Results Created Date Observation Date Name Description Value Unit Range Abnormal Flag Note LastModifiedBy Organization Detail LastModifiedTime 10/27/19 24 10/27/2023 URINA LYSIS COMPL ETE/I RIS W/RFX color YELLOW Not Available [facility] (Lab) [address] [place], [address], 10/27/2023 15:09:26 10/27/19 24 10/27/2023 URINA LYSIS COMPL ETE/I RIS W/RFX appear EXTRA TURBID abnormal Not Available [facility] (Lab) [address] [place], [address], 10/27/2023 15:09:26 10/27/19 24 10/27/2023 URINA LYSIS COMPL ETE/I RIS W/RFX specific gravity 1.022 1.001- 1.030 Not Available [facility] (Lab) [address] [place], [address], 10/27/2023 15:09:26 10/27/19 24 10/27/2023 URINA LYSIS COMPL ETE/I RIS W/RFX pH 5.5 pH_un its 5.0-9. 0 Not Available [facility] (Lab) [address] [place], [address], 10/27/2023 15:09:26 10/27/19 24 10/27/2023 URINA LYSIS COMPL ETE/I RIS W/RFX leukocytes 25 erika/u L negati ve- abnormal Not Available [facility] (Lab) [address] [place], [address], 10/27/2023 15:09:26 10/27/19 24 10/27/2023 URINA LYSIS COMPL ETE/I RIS W/RFX nitrite NEGATI VE negati ve- Not Available [facility] (Lab) [address] [place], [address], 10/27/2023 15:09:26 10/27/19 24 10/27/2023 URINA LYSIS COMPL ETE/I RIS W/RFX protein 10 mg/dL negati ve- abnormal Not Available [facility] (Lab) [address] [place], [address], 10/27/2023 15:09:26 10/27/19 24 10/27/2023 URINA LYSIS COMPL ETE/I RIS W/RFX glucose NORMAL mg/dL normal - Not Available [facility] (Lab) [address] [place], [address], 10/27/2023 15:09:26 10/27/19 24 10/27/2023 URINA LYSIS COMPL ETE/I RIS W/RFX ketones NEGATI VE mg/dL negati ve- Not Available [facility] (Lab) [address] [place], [address], 10/27/2023 15:09:26 10/27/19 24 10/27/2023 URINA LYSIS COMPL ETE/I RIS W/RFX urobilinogen NORMAL mg/dL normal - Not Available [facility] (Lab) [address] [place], [address], 10/27/2023 15:09:26 10/27/19 24 10/27/2023 URINA LYSIS COMPL ETE/I RIS W/RFX bilirubin NEGATI VE mg/dL negati ve- Not Available [facility] (Lab) [address] [place], [address], 10/27/2023 15:09:26 10/27/19 24 10/27/2023 URINA LYSIS COMPL ETE/I RIS W/RFX blood NEGATI VE mg/dL negati ve- abnormal Not Available [facility] (Lab) [address] [place], [address], 10/27/2023 15:09:26 10/27/19 24 10/27/2023 URINA LYSIS COMPL ETE/I RIS W/RFX color YELLOW Not Available [facility] (Lab) [address] [place], [address], 10/27/2023 15:09:37 10/27/19 24 10/27/2023 URINA LYSIS COMPL ETE/I RIS W/RFX appear EXTRA TURBID abnormal Not Available [facility] (Lab) [address] [place], [address], 10/27/2023 15:09:37 10/27/19 24 10/27/2023 URINA LYSIS COMPL ETE/I RIS W/RFX specific gravity 1.022 1.001- 1.030 Not Available [facility] (Lab) [address] [place], [address], 10/27/2023 15:09:37 10/27/19 24 10/27/2023 URINA LYSIS COMPL ETE/I RIS W/RFX pH 5.5 pH_un its 5.0-9. 0 Not Available [facility] (Lab) [address] [place], [address], 10/27/2023 15:09:37 10/27/19 24 10/27/2023 URINA LYSIS COMPL ETE/I RIS W/RFX leukocytes 25 erika/u L negati ve- abnormal Not Available [facility] (Lab) [address] [place], [address], 10/27/2023 15:09:37 10/27/19 24 10/27/2023 URINA LYSIS COMPL ETE/I RIS W/RFX nitrite NEGATI VE negati ve- Not Available [facility] (Lab) [address] [place], [address], 10/27/2023 15:09:37 10/27/19 24 10/27/2023 URINA LYSIS COMPL ETE/I RIS W/RFX protein 10 mg/dL negati ve- abnormal Not Available [facility] (Lab) [address] [place], [address], 10/27/2023 15:09:37 10/27/19 24 10/27/2023 URINA LYSIS COMPL ETE/I RIS W/RFX glucose NORMAL mg/dL normal - Not Available [facility] (Lab) [address] [place], [address], 10/27/2023 15:09:37 10/27/19 24 10/27/2023 URINA LYSIS COMPL ETE/I RIS W/RFX ketones NEGATI VE mg/dL negati ve- Not Available [facility] (Lab) [address] [place], [address], 10/27/2023 15:09:37 10/27/19 24 10/27/2023 URINA LYSIS COMPL ETE/I RIS W/RFX urobilinogen NORMAL mg/dL normal - Not Available [facility] (Lab) [address] [place], [address], 10/27/2023 15:09:37 10/27/19 24 10/27/2023 URINA LYSIS COMPL ETE/I RIS W/RFX bilirubin NEGATI VE mg/dL negati ve- Not Available [facility] (Lab) [address] [place], [address], 10/27/2023 15:09:37 10/27/19 24 10/27/2023 URINA LYSIS COMPL ETE/I RIS W/RFX blood NEGATI VE mg/dL negati ve- Not Available [facility] (Lab) [address] [place], [address], 10/27/2023 15:09:37 10/27/19 24 10/27/2023 URINA LYSIS COMPL ETE/I RIS W/RFX white blood cells 9-20 /i??h pfi?? 0-8 abnormal Not Available [facility] (Lab) [address] [place], [address], 10/27/2023 15:09:37 10/27/19 24 10/27/2023 URINA LYSIS COMPL ETE/I RIS W/RFX red blood cells 5-10 /i??h pfi?? 0-4 abnormal Not Available [facility] (Lab) [address] [place], [address], 10/27/2023 15:09:37 10/27/19 24 10/27/2023 URINA LYSIS COMPL ETE/I RIS W/RFX bacteria NONE Not Available [facility] (Lab) [address] [place], [address], 10/27/2023 15:09:37 10/27/19 24 10/27/2023 URINA LYSIS COMPL ETE/I RIS W/RFX mucous OCCASI ONAL /i??l pfi?? abnormal Not Available [facility] (Lab) [address] [place], [address], 10/27/2023 15:09:37 10/27/19 24 10/27/2023 URINA LYSIS COMPL ETE/I RIS W/RFX squamous epithelial OCCASI ONAL /i??l pfi?? abnormal Not Available [facility] (Lab) [address] [place], [address], 10/27/2023 15:09:37 11/12/19 24 11/12/2023 CREAT ININE , I-STA T creatinine 1.4 mg/dL 0.6-1. 3 high Not Available [facility] (Lab) [address] [place], [address], 12/04/2023 10:00:39 03/04/20 24 03/04/2024 LIPID PANEL cholesterol 171 mg/dL 140-19 9 NIH FILEMON NSUS RECOM MENDA TION FOR FOREIGN STERO L: ADULT CHILD LOW RISK: <200 <170 BORDE RLINE : <200- 239 ----- HIGH RISK: >240 >200 Not Available [facility] (Lab) [address] [place], [address], 03/04/2024 14:45:46 03/04/2003/04/2024 LIPID PANEL triglyceride s 265 mg/dL 0-150 high NIH FILEMON NSUS REPOR T RECOM MENDA TION FOR TRIGL YCERI KLAUDIA: ADULT CHILD LOW RISK: <150 ----- BODER LINE: 150-1 99 ----- HIGH RISK: >200 ----- Not Available [facility] (Lab) [address] [place], [address], 03/04/2024 14:45:46 03/04/2003/04/2024 LIPID PANEL HDL cholesterol 51 mg/dL 40- Not Available [facility] (Lab) [address] [place], [address], 03/04/2024 14:45:46 03/04/2003/04/2024 LIPID PANEL LDL cholesterol, calculated 67 mg/dL 0-130 NIH FILEMON NSUS REPOR T RECOM MENDA TIONS FOR LDL: ADULT CHILD LOW RISK <130 <110 (OPTI MAL LDL) <100 ----- NINFADE RLINE : 130-1 59 ----- HIGH RISK: >160 >130 A TRIGL YCERI DE RESUL T >400 INVAL IDATE S THE CALCU LATIO N FOR LDL FRACT IONAT ION - THE LDL RESUL T WILL NOT BE REPOR SAVAGE. Not Available [facility] (Lab) [address] [place], [address], 03/04/2024 14:45:46 03/04/2003/04/2024 COMPR EHENS MARIA TERESA METAB OLIC PANEL sodium 138 mmol/ L 137-14 5 Not Available [facility] (Lab) [address] [place], [address], 03/04/2024 14:45:56 03/04/2003/04/2024 COMPR EHENS MARIA TERESA METAB OLIC PANEL potassium 4.0 mmol/ L 3.5-5. 1 Not Available [facility] (Lab) [address] [place], [address], 03/04/2024 14:45:56 03/04/2003/04/2024 COMPR EHENS MARIA TERESA METAB OLIC PANEL chloride 101 mmol/ L 98-107 Not Available [facility] (Lab) [address] [place], [address], 03/04/2024 14:45:56 03/04/2003/04/2024 COMPR EHENS MARIA TERESA METAB OLIC PANEL carbon dioxide 28 mmol/ L 22-30 Not Available [facility] (Lab) [address] [place], [address], 03/04/2024 14:45:56 03/04/2003/04/2024 COMPR EHENS MARIA TERESA METAB OLIC PANEL anion gap 13.0 mmol/ L 14-22 low Not Available [facility] (Lab) [address] [place], [address], 03/04/2024 14:45:56 03/04/2003/04/2024 COMPR EHENS MARIA TERESA METAB OLIC PANEL glucose 201 mg/dL 70-99 high Not Available [facility] (Lab) [address] [place], [address], 03/04/2024 14:45:56 03/04/2003/04/2024 COMPR EHENS MARIA TERESA METAB OLIC PANEL BUN 29 mg/dL 8-19 high Not Available [facility] (Lab) [address] [place], [address], 03/04/2024 14:45:56 03/04/2003/04/2024 COMPR EHENS MARIA TERESA METAB OLIC PANEL creatinine 1.27 mg/dL 0.66-1 .25 high Not Available [facility] (Lab) [address] [place], [address], 03/04/2024 14:45:56 03/04/2003/04/2024 COMPR EHENS MARIA TERESA METAB OLIC PANEL GFR 41 Refer ence Range : [place] ge GFR Healt hy Adult : >60 mL/mi n/1.7 3 m2 Chron ic Kidne y Disea se: 15-60 mL/mi n/1.7 3 m2 Kidne y Failu re: <15/m L/min /1.73 m2 www.n iddk. [facility].g ov The MDRD study equat ion has not been valid ated in child winnie <18 years of age; pregn ant women ; the elder ly >85 years of age; or in some racia l or ethni c subgr oups, such as Hispa nics. Outsi de the valid ated charles eters , estim ated GFR is less accur ate, requi ring clini gurwinder judgm ent on a case- by-ca se basis . Clini gurwinder inter preta tion for other races and ages must be made by the clini shavonne. The MDRD study equat ion has not been valid ated for the evalu ation of serum creat inine relat ed to nutri marilu l statu s or medic ation usage . For perso ns <18 years of age, a pedia tric GFR calcu lator is avail able on the [facility] websi te: https ://sulma conrad.gaby miguel.o nick/pr caliness ional s/kdo qi/gf r_cal culat or Not Available [facility] (Lab) [address] [place], [address], 03/04/2024 14:45:56 03/04/2003/04/2024 COMPR EHENS MARIA TERESA METAB OLIC PANEL alkaline phosphatase 113 U/L 38-126 Not Available [facility] (Lab) [address] [place], [address], 03/04/2024 14:45:56 03/04/20 24 03/04/2024 COMPR EHENS MARIA TERESA METAB OLIC PANEL alanine aminotransfe rase 47 U/L 0-35 high Not Available [facility] (Lab) [address] [place], [address], 03/04/2024 14:45:56 03/04/2003/04/2024 COMPR EHENS MARIA TERESA METAB OLIC PANEL aspartate aminotransfe rase 67 U/L 15-37 high Not Available [facility] (Lab) [address] [place], [address], 03/04/2024 14:45:56 03/04/2003/04/2024 COMPR EHENS MARIA TERESA METAB OLIC PANEL bilirubin, total 1.10 mg/dL 0.20-1 .30 Not Available [facility] (Lab) [address] [place], [address], 03/04/2024 14:45:56 03/04/2003/04/2024 COMPR EHENS MARIA TERESA METAB OLIC PANEL calcium 10.5 mg/dL 8.4-10 .2 high Not Available [facility] (Lab) [address] [place], [address], 03/04/2024 14:45:56 03/04/2003/04/2024 COMPR EHENS MARIA TERESA METAB OLIC PANEL total protein 7.5 g/dL 6.3-8. 2 Not Available [facility] (Lab) [address] [place], [address], 03/04/2024 14:45:56 03/04/2003/04/2024 COMPR EHENS MARIA TERESA METAB OLIC PANEL albumin 4.5 g/dL 3.0-4. 4 high Not Available [facility] (Lab) [address] [place], [address], 03/04/2024 14:45:56 03/04/2003/04/2024 COMPR EHENS MARIA TERESA METAB OLIC PANEL globulin 3.0 g/dL 2.6-4. 2 Not Available [facility] (Lab) [address] [place], [address], 03/04/2024 14:45:56 03/04/20 24 03/04/2024 COMPR EHENS MARIA TERESA METAB OLIC PANEL A/G ratio 1.5 ratio 1.0-2. 0 Not Available [facility] (Lab) [address] [place], [address], 03/04/2024 14:45:56 03/04/20 24 03/04/2024 HEMOG LOBIN A1C HA1C 6.5 % 4.0-6. 0 high Diabe gianna Scree seamus Crite saloni: <5.7% Consi stent with absen ce of diabe gianna 5.7-6 .4% Consi stent with incre ased risk for diabe iganna (pred iabet es) >OR=6 .5% Consi stent with diabe gianna REFER ENCE: Diabe gianna Care 2016, 39(Norton ppl.1 ):s13 -s22 Not Available [facility] (Lab) [address] [place], [address], 03/04/2024 17:50:07 07/23/19 25 07/24/2024 LIPID PANEL , STAND YANN cholesterol, total 157 mg/dL <200 normal Not Available [facility] [address], [address], 07/24/2024 05:38:37 07/23/19 25 07/24/2024 LIPID PANEL , STAND YANN HDL cholesterol 46 mg/dL > or = 50 low Not Available [facility] [address], [address], 07/24/2024 05:38:37 07/23/19 25 07/24/2024 LIPID PANEL , STAND YANN triglyceride s 210 mg/dL <150 high If a non-f astin g speci men was colle cted, consi richar repea t trigl yceri de testi ng on a fasti ng speci men if clini gilbert indic ated. Pola monae et al. J. of Clin. Lipid ol. 2015; 9:129 -169. Not Available [facility] [address] [place], [address], 07/24/2024 05:38:37 07/23/1907/24/2024 LIPID PANEL , STAND YANN LDL-choleste rol 81 mg/dL _(gurwinder c) normal Refer ence range : <100 Sabine able range <100 mg/dL for prima ry preve ntion ; <70 mg/dL for patie nts with CHD or diabe tic patie nts with > or = 2 CHD risk facto rs. LDL-C is now calcu lated using the Rosalee n-Hop kins calcu latio n, which is a valid ated novel ileneo d roxie worthy r accur acy than the Fried brittnee equat ion in the estim ation of LDL-C . Rosalee abbott SS et al. LYLY. 2013; 310(1 9): 2061- 2068 (http ://ed ucati on.Qu Ania Nubee. com/f aq/FA Q164) Not Available [facility] [address], [place], [address], 07/24/2024 05:38:37 07/23/1907/24/2024 LIPID PANEL , STAND YANN chol/HDLC ratio 3.4 (calc ) <5.0 normal Not Available [facility] [address], [place], [address], 07/24/2024 05:38:37 07/23/1907/24/2024 LIPID PANEL , STAND YANN non HDL cholesterol 111 mg/dL _(gurwinder c) <130 normal For patie nts with diabe gianna plus 1 major ASCVD risk facto r, treat ing to a non-H DL-C goal of <100 mg/dL (LDL- C of <70 mg/dL ) is pete tinsley optio n. Not Available [facility] [address] [place], [address], 07/24/2024 05:38:37 02/07/24/2024 COMPR EHENS MARIA TERESA METAB OLIC PANEL glucose 211 mg/dL 65-99 high Fasti ng refer ence inter francis For someo ne witho ut known diabe gianna, a gluco se value >125 mg/dL indic ates that they may have diabe gianna and this shoul d be confi rmed with a follo w-up test. Not Available [address], [address], 07/24/2024 05:38:39 07/23/1907/24/2024 COMPR EHENS MARIA TERESA METAB OLIC PANEL urea nitrogen (BUN) 20 mg/dL 7-25 normal Not Available [address], [address], 07/24/2024 05:38:39 07/23/19 25 07/24/2024 COMPR EHENS MARIA TERESA METAB OLIC PANEL creatinine 1.19 mg/dL 0.60-1 .00 high Not Available [address], [address], 07/24/2024 05:38:39 07/23/19 25 07/24/2024 COMPR EHENS MARIA TERESA METAB OLIC PANEL eGFR 47 mL/mi n/1.7 3m2 > or = 60 low Not Available [address], [address], 07/24/2024 05:38:39 07/23/19 25 07/24/2024 COMPR EHENS MARIA TERESA METAB OLIC PANEL BUN/creatini ne ratio 17 (calc ) 6-22 normal Not Available [address], [address], 07/24/2024 05:38:39 07/23/19 25 07/24/2024 COMPR EHENS MARIA TERESA METAB OLIC PANEL sodium 139 mmol/ L 135-14 6 normal Not Available [facility] [address], [address], 07/24/2024 05:38:39 07/23/19 25 07/24/2024 COMPR EHENS MARIA TERESA METAB OLIC PANEL potassium 3.7 mmol/ L 3.5-5. 3 normal Not Available [address], [address], 07/24/2024 05:38:39 07/23/19 25 07/24/2024 COMPR EHENS MARIA TERESA METAB OLIC PANEL chloride 100 mmol/ L 98-110 normal Not Available [address], [address], 07/24/2024 05:38:39 07/23/19 25 07/24/2024 COMPR EHENS MARIA TERESA METAB OLIC PANEL carbon dioxide 28 mmol/ L 20-32 normal Not Available [address], [address], 07/24/2024 05:38:39 07/23/19 25 07/24/2024 COMPR EHENS MARIA TERESA METAB OLIC PANEL calcium 9.5 mg/dL 8.6-10 .4 normal Not Available [address], [address], 07/24/2024 05:38:39 07/23/19 25 07/24/2024 COMPR EHENS MARIA TERESA METAB OLIC PANEL protein, total 7.3 g/dL 6.1-8. 1 normal Not Available [address], [address], 07/24/2024 05:38:39 07/23/19 25 07/24/2024 COMPR EHENS MARIA TERESA METAB OLIC PANEL albumin 4.5 g/dL 3.6-5. 1 normal Not Available [address], [address], 07/24/2024 05:38:39 07/23/19 25 07/24/2024 COMPR EHENS MARIA TERESA METAB OLIC PANEL globulin 2.8 g/dL_ (calc ) 1.9-3. 7 normal Not Available [address], [address], 07/24/2024 05:38:39 07/23/19 25 07/24/2024 COMPR EHENS MARIA TERESA METAB OLIC PANEL albumin/glob ulin ratio 1.6 (calc ) 1.0-2. 5 normal Not Available [address], [address], 07/24/2024 05:38:39 07/23/19 25 07/24/2024 COMPR EHENS MARIA TERESA METAB OLIC PANEL bilirubin, total 0.7 mg/dL 0.2-1. 2 normal Not Available [address], [address], 07/24/2024 05:38:39 07/23/19 25 07/24/2024 COMPR EHENS MARIA TERESA METAB OLIC PANEL alkaline phosphatase 103 U/L 37-153 normal Not Available [address], [address], 07/24/2024 05:38:39 07/23/19 25 07/24/2024 COMPR EHENS MARIA TERESA METAB OLIC PANEL AST 60 U/L 10-35 high Not Available [address], [address], 07/24/2024 05:38:39 07/23/19 25 07/24/2024 COMPR EHENS MARIA TERESA METAB OLIC PANEL ALT 32 U/L 6-29 high Not Available [address], [address], 07/24/2024 05:38:39 07/23/19 25 07/24/2024 T4, FREE T4, free 1.0 NG/dL 0.8-1. 8 normal Not Available [address], [address], 07/24/2024 05:38:40 02/28/20 25 07/24/2024 TSH TSH 1.07 mIU/L 0.40-4 .50 normal Not Available [facility] [address] [place], [address], 07/24/2024 05:38:41 07/23/19 25 07/24/2024 HEMOG LOBIN A1C hemoglobin A1C 8.0 %_of_ total _HGB <5.7 high For someo ne witho ut known diabe gianna, a hemog lobin A1c value of 6.5% or great er indic ates that they may have diabe gianna and this shoul d be confi rmed with a follo w-up test. For someo ne with known diabe gianna, a value <7% indic ates that their diabe gianna is well contr olled and a value great er than or equal to 7% indic ates subop timal contr ol. A1c targe ts shoul d be indiv idual ized based on durat ion of diabe gianna, age, comor bid condi tions , and other consi derat ions. Curre ntly, no conse nsus exist s regar ding use of hemog lobin A1c for diagn osis of diabe gianna for child winnie. Not Available [facility] [address] [place], [address], 07/24/2024 05:38:42 11/12/19 24 11/12/2023 MRI, brain , w/wo contr ast [facility] [address] [address] Patien t Name: SKY HENRY Access ion #: [id number] Sex: F : 1945 7 Dictat ed By: Beto Carrero Attend ing Physic rush: ANAYA REYES Orderi Physic rush: ANAYA REYES Exam Date: 2023 07:53 AM Exam Name: MRI BRAIN W/WO Admitt ing Diagno sis(es ): EXAM: MRI BRAIN W/WO CLINIC AL HISTOR Y: dizzin ess and giddin ess COMPAR NOY: None TECHNI QUE: Multip lanar, multis equenc e magnet ic resona nce imagin g of the brain was perfor med after the admini strati on of intrav enous contra st. FINDIN GS: No eviden ce of acute or remote infarc t. No intrac ranial hemorr scot. No mass effect . There is perive ntricu lar/de ep white matter T2/FLA IR hyperi ntensi ty which is nonspe cific, but most common ly associ ated with chroni c microv ascula r diseas e. The ventri cles and sulci are normal in size for age. Flow voids in the major intrac ranial vessel s are mainta ined. No abnorm ality of the orbits . Parana saturnino sinuse s and left mastoi d air cells are clear. Increa sed T2 signal in the right mastoi d air cells. No abnorm ality of the visual ized osseou s struct ures and extrac ranial soft tissue s. No eviden ce of abnorm al enhanc ement after the admini strati on of intrav enous Page 1 [facility] [address] [place] [address] Patien t Name: SKY HENRY Access ion #: [id number] Sex: F : 1945 7 Dictat ed By: Beto Carrero Attend ing Physic rush: [facility]: ANAYA REYES Exam Date: 2023 07:53 AM Exam Name: MRI BRAIN W/WO Admitt ing Diagno sis(es ): contra st. IMPRES EMELI: No eviden ce of acute or subacu te infarc t. No intrac ranial hemorr scot. Mild chroni c microv ascula r diseas e. Right mastoi ditis. Electr onical ly Signed by: Beto Carrero at 2023 09:12: 41 AM Page 2 [email or web address] [facility] (Imaging) [address] [place], [address], 11/12/2023 15:44:10 11/24/19 24 11/12/2023 US, renal arter y No observ ation record ed. [email or web address] Not Available 2023 17:27:05 11/24/19 24 US, duple x, carot id arter y No observ ation record ed. [place] [id number] Not Available 2023 17:27:05 12/08/19 24 12/08/2023 CT, abdom en + pelvi s, w/o contr ast No observ ation record ed. [place] [address], [place], [address], 12/08/2023 12:05:20 12/08/19 24 12/08/2023 XR, abdom en No observ ation record ed. [place] [address], [place], [address], 12/08/2023 14:04:39 12/08/19 24 12/08/2023 XR, urogr am, retro grade No observ ation record ed. [place] [address], [place], [address], 12/08/2023 17:47:08 12/13/19 24 12/12/2023 XR, abdom en No observ ation record ed. [address] [facility], [place], [address], 12/13/2023 08:18:46 02/12/20 24 02/12/2024 XR, abdom en No observ ation record ed. [place] [address], [place], [address], 02/12/2024 17:15:26 04/07/20 24 04/07/2024 MRI, cervi gurwinder spine , w/o contr ast [facility] [address] [place] [address] Patien t Name: SKY HENRY Access ion #: [id number] Sex: F : 1945 0 Dictat ed By: Elizabeth mathur Attend ing Physic rush: ANAYA REYES CE Orderi ng Physic rush: ANAYA REYES CE Exam Date: 2023 14:07 PM Exam Name: MRI C SPINE WO Admitt ing Diagno sis(es ): CLINIC AL INFORM ATION: 78 years old, Female ; cervic al radicu lopath y. TECHNI QUE: Multis equenc e multip lanar MRI images of the cervic al spine were obtain ed withou t contra st. COMPAR NOY: XR L SPINE on DOS: 09/26/22 , MRI IACS WO on DOS: 11/01/21 , MRI BRAIN WO on DOS: 11/01/21 FINDIN GS: Bones: Bursal of the normal cervic al lordos is. Mild grade 1 ghazal listhe sis of C4 on C5. Minima l retrol isthes is of C5 on C6. Mild grade 1 ghazal listhe sis of C7 on T1. Verteb ral body height s are mainta ined. Jewel Hole Rough Opener ior elemen ts are intact . No acute fractu re. No focal suspic ious marrow signal abnorm ality. Spinal cord: Spinal cord is normal in signal intens ity and morpho logy. Parasp inal soft tissue s: Parasp inal and prever tebral soft tissue s are unrema rkable . Other: No other signif icant findin gs. Cervic al disc levels : C2-C3: Disc desicc ation. There is a mild degree of congen ital spinal canal stenos is. Facet and uncina te hypert rophy with mild right and mild-t o-mode rate left neural forami nal stenos es. C3-C4: Disc desicc ation with diffus e disc bulge superi mposed on congen ital spinal canal narrow ing causin g modera te to severe spinal canal stenos is, abutti ng and mildly indent ing the ventra l aspect of the spinal cord. There is Page 1 [facility] [address] [place] [address] Patien t Name: SKY HENRY ion #: [id number] Sex: F : 1945 [facility] #: [id number] Dictat ed By: Elizabeth mathur Attend ing Physic ruhs: JAY SOL Orderi ng Physic rush: ANAYA REYES Exam Date: 2023 14:07 PM Exam Name: MRI C SPINE WO Admitt ing Diagno sis(es ): also infold ing of the ligame ntum flavum contri buting to the spinal canal stenos is. There is efface ment of the latera l recess es. Facet and uncina te hypert rophy with severe bilate ral neural forami nal stenos es. C4-C5: Disc desicc ation with diffus e disc bulge and congen ital spinal canal narrow ing contri buting to modera te to severe spinal canal stenos is, abutti ng and mildly indent ing the ventra l aspect of the spinal cord and effaci ng the latera l recess es. Facet and uncina te hypert rophy with severe left and mild-t o-mode rate right neural forami nal stenos es. C5-C6: Disc desicc ation with severe disc space narrow ing and diffus e disc bulge superi mposed on congen ital spinal canal narrow ing contri buting to modera te to severe spinal canal stenos is and efface ment of the latera l recess es. Facet and uncina te hypert rophy with severe bilate ral neural forami nal stenos es, right greate r than left. C6-C7: Disc desicc ation with modera te to severe disc space narrow ing and diffus e disc bulge superi mposed on congen ital spinal canal narrow ing causin g modera te spinal canal stenos is and efface ment of the latera l recess es. Facet and uncina te hypert rophy with severe bilate ral neural forami nal stenos es. C7-T1: Disc desicc ation with diffus e disc bulge and congen ital spinal canal narrow ing contri buting to mild-t o-mode rate spinal canal stenos is. Facet and uncina te hypert rophy with severe bilate ral neural forami nal stenos es. IMPRES EMELI: 1. Revers al of the normal cervic al lordos is with multil evel spondy lolist hesis as descri bed above. 2. Degene rative disc diseas e and facet diseas e with associ ated spinal canal, subart icular , and neural forami nal stenos es as detail ed above. Electr onical ly Signed by: Elizabeth mathur at 2023 13:24: 26 PM Page 3 [email or web address] [facility] ([facility]) [address] [place], [address], 04/07/2024 16:40:40 Result Notes None recorded. Problems Name Problem SNOMED Code Status Onset Date Resolution Date Notes Provider Name and Address Organization Details Recorded Time Anxiety 75501903 Active 2022 Not Available [facility] 4 09:40:04 Pain of right knee joint 5660720845531 00 Active 2022 Not Available [facility] 4 09:40:04 Senile osteoporos is 83788728 Active 2022 Not Available [facility] 4 09:40:03 Benign essential hypertensi on 8857641 Active Not Available [facility] 4 09:40:03 Hearing loss 62993640 Active Not Available [facility] 4 09:40:03 Acute sinusitis 76945162 Active 2021 Not Available [facility] 4 09:40:03 Blood glucose outside reference range 080210396 Active Not Available [facility] 4 09:40:03 Pleurisy 875679879 Active Not Available [facility] 4 09:40:03 Lumbar sprain 459139164 Active Not Available [facility] 4 09:40:03 Gastroesop hageal reflux disease 893135222 Active Not Available [facility] 4 09:40:03 Gallstone 988519567 Active Not Available [facility] 4 09:40:03 Osteoarthr itis of knee 821215224 Active 2016 Not Available [facility] 4 09:40:03 Screening mammograph y Active 2021 Not Available [facility] 4 09:40:03 Transient cerebral ischemia 403204512 Active Not Available [facility] 4 09:40:03 Dyspnea 743344483 Active Not Available [facility] 4 09:40:03 Pure hyperchole sterolemia 022094052 Active Not Available [facility] 4 09:40:03 Dizziness and giddiness 992356915 Active 2021 Not Available [facility] 4 09:40:03 Localized, primary osteoarthr itis of elbow 564979840 Active Not Available [facility] 4 09:40:03 Vitamin D deficiency 42957633 Active Not Available [facility] 4 09:40:03 Depressive disorder 81451091 Active Not Available [facility] 4 09:40:03 Multiple joint pain 08923310 Active 2016 Not Available [facility] 4 09:40:03 Osteoarthr itis 642082965 Active Not Available [facility] 4 09:40:03 Vertigo 741688724 Active Not Available [facility] 4 09:40:03 Dizziness 305288755 Active 2021 Not Available [facility] 4 09:40:03 Hypothyroi dism 80975213 Active Not Available [facility] 4 09:40:04 Bunion 201662152 Active 2020 Not Available [facility] 4 09:40:04 Chronic left-sided ulcerative colitis 842446501 Active Not Available [facility] 4 09:40:04 Mastoiditi s 16843983 Active 2021 Not Available [facility] 4 09:40:04 Rheumatoid arthritis 49373091 Active 2021 Not Available [facility] 4 09:40:04 COVID-19 988093179 Active 2022 Not Available [facility] 4 09:40:04 Herniation of nucleus pulposus 99526579 Active Not Available [facility] 4 09:40:04 Hyperglyce lance 85909579 Active 2022 Not Available [facility] 4 09:40:04 Type 2 diabetes mellitus 16222644 Active 2022 Not Available [facility] 4 09:40:04 Type 2 diabetes mellitus without complicati on 663785028 Active 2022 Not Available [facility] 4 09:40:03 Diabetes mellitus 23142175 Active 2022 Not Available [facility] 4 09:40:04 Gastroesop hageal reflux disease without esophagiti s 422554384 Active 2022 Not Available [facility] 4 09:40:03 Acute bronchitis 20641974 Active 2023 Dean Reyes MD [address], [place], [address] , [facility] 4 11:58:54 Candidiasi s of vagina 57895858 Active 2023 Dean Reyes MD [address], [place], [address] , [facility] 4 13:31:40 Acute urinary tract infection 310532554 Active 2023 Dean Reyes MD [address], [facility] [address], [place], [address] , [facility] 4 10:20:37 Dysuria 58809583 Active 2023 Shanita ashton, [place] [facility] 4 12:33:37 Cervical radiculopa thy 71326521 Active 2023 Dennise ashton, [place] [facility] 4 16:48:01 Obese class I 2772058811523 07 Active 2024 Dean Reyes MD [address], [place], [address] , [place] [facility] 5 16:58:29 Hemorrhoid s 63976636 Active 2024 Dennise [place], [place] [facility] 17:03:52 Liver enzymes level above reference range 209868096 Active 2024 Skye Pavon CMA null, [facility] 16:23:48 External hemorrhoid s 07363989 Active 2024 Gregorio schwartz MD [address] [facility], [address] [address], [place], [address] , [place] [facility] 13:02:09 Problem Notes None recorded. Procedures Surgical History Date Name Laterality Status Provider Name and Address Organization Details Recorded Time Medicare Wellness CPT Code, subsequent completed Susan Pacheco RN [facility] 03/03/2024 16:43:34 024 Advanced Care Planning completed Susan Pacheco RN [facility] 03/03/2024 16:56:06 023 Medicare Wellness CPT Code, subsequent completed Susan Pacheco RN [facility] 11/06/2022 15:05:16 020 Most Recent Bone Density completed Not Available [facility] 07/24/2022 02:55:04 rhinoseptoplasty completed Not Available [facility] 07/24/2022 02:55:10 Knee Replacement completed Not Available [facility] 07/24/2022 02:55:10 Cholecystectomy completed Not Available [facility] 07/24/2022 02:55:10 Tubal Ligation completed Not Available [facility] 07/24/2022 02:55:10 screening for malignant neoplasm of skin completed Not Available [facility] 07/24/2022 02:55:10 Carpal tunnel surgery completed Not Available [facility] 07/24/2022 02:55:10 Imaging Results Imaging Date Name Status LastModified by [facility] Details LastModified Time 11/12/2023 MRI, brain, w/wo contrast completed [address] (Imaging) [address] [place], [address], 11/12/2023 15:44:10 11/12/2023 US, renal artery [place] [address] Information not available 11/24/2023 17:27:05 11/24/2023 US, duplex, carotid artery [place] [address] Information not available 11/24/2023 17:27:05 12/08/2023 CT, abdomen + pelvis, w/o contrast completed [address], [address], 12/08/2023 12:05:20 12/08/2023 XR, abdomen completed [address], [address], 12/08/2023 14:04:39 12/08/2023 XR, urogram, retrograde completed [address], [address], 12/08/2023 17:47:08 12/12/2023 XR, abdomen completed [address], [address], 12/13/2023 08:18:46 02/12/2024 XR, abdomen completed [address], [address], 02/12/2024 17:15:26 04/07/2024 MRI, cervical spine, w/o contrast completed [address] (Imaging) [address] [place] [address], [address], 04/07/2024 16:40:40 Procedure Notes None recorded. Medical Equipment None Reported. Allergies Allergen ID Allergen Name Allergen Category Reaction Reaction Severity Criticality Documentation Date Start Date Code Code System Note Provider Name and Address Organization Details Recorded Time 5913 cisapride monohydra te medicatio n other Not available Not available 07/24/2022 [address] 7 RxNorm Not Available [facility] 3 03:28:42 5914 codeine medicatio n rash Not available Not available 07/24/2022 2670 RxNorm Not Available [facility] 3 03:28:42 Medications Name Sig Start Date Stop Date Status Note LastModified by Organization Details LastModified Time amoxicillin 500 mg capsule TAKE 1 CAPSULE BY MOUTH THREE TIMES DAILY FOR 10 DAYS 11/25 completed Not Available Not Available Not Available atorvastati n 40 mg tablet Take 2 tablets every day by oral route. 04/16 completed Not Available Not Available Not Available metformin 500 mg tablet Take 1 tablet twice a day by oral route. active Not Available Not Available No t Available atorvastati n 80 mg tablet take one tablet daily active Not Available Not Available No t Available venlafaxine ER 37.5 mg capsule,ext ended release 24 hr Take 1 capsule every day by oral route. active Not Available Not Available No t Available Protonix 40 mg tablet,camilo yed release Take 1 tablet every day by oral route. 10/06 completed Not Available Not Available Not Available amiloride 5 mg-hydrochl orothiazide 50 mg tablet TAKE 1 TABLET DAILY active Not Available Not Available No t Available doxycycline hyclate 100 mg capsule TAKE 1 CAPSULE BY MOUTH TWICE DAILY FOR 7 DAYS WITH FOOD AND WATER 11/06 completed Not Available Not Available Not Available aspirin 325 mg tablet Take 1 tablet every day by oral route. 02/13 completed Not Available Not Available Not Available nystatin 100,000 unit/gram topical ointment APPLY TO THE AFFECTED AREA(S) BY TOPICAL ROUTE 2 TIMES PER DAY active Not Available Not Available No t Available fluconazole 150 mg tablet TAKE 1 TABLET BY MOUTH ONCE DAILY 07/14 completed Not Available Not Available Not Available benzonatate 200 mg capsule Take 1 capsule 3 times a day by oral route. 10/06 completed Not Available Not Available Not Available hydrocodone 5 mg-acetamin ophen 325 mg tablet TAKE 1 TABLET BY MOUTH EVERY 6 HOURS NEEDED 07/14 completed Not Available Not Available Not Available meloxicam 15 mg tablet Take 1 tablet every day by oral route. 04/12 completed Not Available Not Available Not Available phenazopyri dine 200 mg tablet TAKE 1 TABLET BY MOUTH THREE TIMES DAILY 07/14 completed Not Available Not Available Not Available ondansetron HCl 4 mg tablet TAKE 1 TABLET BY MOUTH EVERY 8 HOURS NEEDED FOR NAUSEA 07/14 completed Not Available Not Available Not Available Prilosec 40 mg capsule,del ayed release Take 1 capsule every day by oral route. active Not Available Not Available No t Available prednisone 5 mg tablet TAKE 1 TO 3 TABLETS BY MOUTH ONCE DAILY 03/05 completed Not Available Not Available Not Available Zithromax Z-Jones 250 mg tablet TAKE 2 TABLETS (500 MG) BY ORAL ROUTE ONCE DAILY FOR 1 DAY THEN 1 TABLET (250 MG) BY ORAL ROUTE ONCE DAILY FOR 4 DAYS 10/31 completed Not Available Not Available Not Available Nexium 40 mg capsule,del ayed release Take 1 capsule every day by oral route. active Not Available Not Available No t Available azathioprin e 50 mg tablet take two tablets daily 2024 active Not Available Not Available Not Avai lable Tamiflu 75 mg capsule Take 1 capsule twice a day by oral route. active Not Available Not Available No t Available sulfamethox azole 800 mg-trimetho prim 160 mg tablet TAKE 1 TABLET BY MOUTH TWICE DAILY 07/14 completed Not Available Not Available Not Available leflunomide 20 mg tablet TAKE 1 TABLET BY MOUTH ONCE DAILY 03/05 completed Not Available Not Available Not Available tramadol 50 mg tablet TAKE 1 TABLET BY MOUTH EVERY 6 HOURS NEEDED FOR PAIN 07/14 completed Not Available Not Available Not Available glimepiride 2 mg tablet TAKE 1 TABLET BY MOUTH ONCE DAILY 02/12 completed Not Available Not Available Not Available Nexium 20 mg capsule,del ayed release Take 1 or 2 CAPSULE EVERY DAY by oral route for reflux active Not Available Not Available No t Available alprazolam 0.25 mg tablet TAKE 1 TABLET THREE TIMES A DAY active Not Available Not Available No t Available famotidine 20 mg tablet TAKE 1 TABLET BY MOUTH AT BEDTIME NEEDED active Not Available Not Available No t Available methotrexat e sodium 2.5 mg tablet TAKE 3-6 TABS BY MOUTH IN THE AM ONE DAY PER WEEK 11/06 completed Not Available Not Available Not Available Kenalog 10 mg/mL suspension for injection In office injection administe red by the provider 09/26 completed [facility]: [phone] Not Available Not Available Not Available meclizine 25 mg tablet TAKE 1 TABLET BY MOUTH 4 TIMES DAILY active Not Available Not Available No t Available cephalexin 500 mg capsule TAKE 1 CAPSULE BY MOUTH EVERY 6 HOURS 11/25 completed Not Available Not Available Not Available Compazine 25 mg rectal suppository Insert 1 supposito ry twice a day by rectal route. 10/06 completed Not Available Not Available Not Available Cipro 500 mg tablet Take 1 tablet twice a day by oral route for 10 days. 10/06 completed Not Available Not Available Not Available clotrimazol e-betametha sone 1 %-0.05 % topical cream APPLY TO THE AFFECTED AND SURROUNDI NG AREAS OF SKIN BY TOPICAL ROUTE 2 TIMES PER DAY IN THE MORNING AND EVENING FOR 2 WEEKS active Not Available Not Available No t Available glimepiride 4 mg tablet TAKE 1 TABLET TWICE A DAY active Not Available Not Available No t Available Prevalite 4 gram powder for susp in a packet DISSOLVE DIRECTED 1 PACKET AND TAKE BY ORAL ROUTE DAILY TO ELIMINATE LEFLUNOMI DE 05/15 completed Not Available Not Available Not Available omeprazole 20 mg capsule,del ayed release Take 1 capsule twice a day by oral route. active Not Available Not Available No t Available folic acid 1 mg tablet TAKE 1 TABLET BY MOUTH ONCE DAILY 09/26 completed Not Available Not Available Not Available hydroxyzine HCl 25 mg tablet TAKE 1 TABLET BY MOUTH AT BEDTIME NEEDED FOR SLEEP/ALL ERGIES 10/31 completed Not Available Not Available Not Available levofloxaci n 500 mg tablet TAKE 1 TABLET BY MOUTH EVERY 24 HOURS active Not Available Not Available No t Available scopolamine 1 mg over 3 days transdermal patch APPLY 1 PATCH TOPICALLY EVERY 72 HOURS 07/14 completed Not Available Not Available Not Available methylpredn isolone 4 mg tablets in a dose pack TAKE BY ORAL ROUTE DIRECTED PER PACKAGE INSTRUCTI ONS FOR 6 DAYS 10/31 completed Not Available Not Available Not Available Lomotil 2.5 mg-0.025 mg tablet Take 1 tablet every 4 hours by oral route. 02/13 completed Not Available Not Available Not Available Vitamin D2 1,250 mcg (50,000 unit) capsule Take 1 capsule every week by oral route. active Not Available Not Available No t Available celecoxib 100 mg capsule TAKE 1 CAPSULE BY MOUTH ONCE DAILY 08/24 completed Not Available Not Available Not Available hydroxyzine HCl 10 mg tablet TAKE 1 TABLET BY MOUTH 3 TO 4 TIMES DAILY NEEDED FOR ITCHING 10/31 completed Not Available Not Available Not Available amoxicillin 875 mg-potassiu m clavulanate 125 mg tablet Take 1 tablet every 12 hours by oral route. 11/06 completed Not Available Not Available Not Available oxycodone 5 mg tablet TAKE 1 TABLET BY MOUTH EVERY 4 HOURS active Not Available Not Available No t Available escitalopra m 10 mg tablet TAKE 1 TABLET DAILY active Not Available Not Available No t Available bupropion HCl XL 300 mg 24 hr tablet, extended release Take 1 tablet every day by oral route. 11/06 completed Not Available Not Available Not Available Multivitami n 50 Plus tablet Take 1 tablet every day by oral route. 2021 active Not Available Not Available Not Avai lable lancing device Use to test blood sugar one time daily DX E11.9 active Not Available Not Available No t Available nitrofurant oin monohydrate /macrocryst als 100 mg capsule TAKE 1 CAPSULE BY MOUTH TWICE DAILY 07/14 completed Not Available Not Available Not Available multivitami n 07/20 completed Not Available Not Available Not Available lidocaine (PF) 10 mg/mL (1 %) injection solution In office injection administe red by the provider 06/29 completed [facility]: [phone]- [phone] Not Available Not Available Not Available vitamin B comp and C no.3 10/31 completed Not Available Not Available Not Available Probiotic 10/31 completed Not Available Not Available Not Available Contour Test Strips 02/10 completed Not Available Not Available Not Available ropivacaine (PF) 5 mg/mL (0.5 %) injection solution Take 20 mg by injection route. 09/26 completed Not Available Not Available Not Available OneTouch Verio test strips USE 1 STRIP TO CHECK GLUCOSE ONCE DAILY active Not Available Not Available No t Available Eliquis 2.5 mg tablet TAKE 1 TABLET BY MOUTH EVERY 12 HOURS 08/10 completed Not Available Not Available Not Available Simponi ARIA 12.5 mg/mL intravenous solution INFUSE 2 MG/KG OVER 30 MINUTE(S) BY INTRAVENO US ROUTE EVERY 8 WEEKS 07/14 completed Not Available Not Available Not Available Contour Meter 02/10 completed Not Available Not Available Not Available mesalamine 400 mg capsule (with delayed release tablets inside) Take 1 capsule 3 times a day by oral route. 07/05 completed Not Available Not Available Not Available OneTouch Delica Plus Lancet 33 gauge USE 1 TO CHECK GLUCOSE ONCE DAILY 02/10 completed Not Available Not Available Not Available OneTouch Delica Plus Lancet 30 gauge Use to test blood sugar one time daily DX E11.9 2023 active Not Available Not Available Not Avai lable Contour Next Glucose Meter kit 04/06 completed Not Available Not Available Not Available Contour Next Glucose Meter 02/10 completed Not Available Not Available Not Available Paxlovid 150 mg-100 mg tablets in a dose pack (Renal Dose) Take one 150 mg and one 100 mg tablet twice daily for five days 09/26 completed Not Available Not Available Not Available Vitals Date Recorded Body height Body mass index (BMI) Body weight Heart rate Body temperature Oxygen saturation Oxygen saturation in Arterial blood by Pulse oximetry Systolic blood pressure Diastolic blood pressure Provider Name and Address Organization Details Last Updated DateTime 4 149.86 cm 34.5 kg/m2 48598.3 g 81 /min 97.2 [degF] 97 % 97 % 126 mm[Hg] 76 mm[Hg] CECY Rosario [facility] 4 14:20:23 Date Recorded Body height Body weight Heart rate Body temperature Oxygen saturation Oxygen saturation in Arterial blood by Pulse oximetry Systolic blood pressure Diastolic blood pressure Provider Name and Address Organization Details Last Updated DateTime 4 149.86 cm 58910.7 g 75 /min 97 [degF] 96 % 96 % 122 mm[Hg] 72 mm[Hg] CECY Rosario [facility] Hers [facility] 4 16:33:05 Date Recorded Pain severity - 0-10 verbal numeric rating [Score] - Reported Provider Name and Address Organization Details Last Updated DateTime 03/03/2024 5 Susan Pacheco RN [facility] Hers [facility] 03/03/2024 16:43:58 Date Recorded Body height Body mass index (BMI) Body weight Heart rate Body temperature Oxygen saturation Oxygen saturation in Arterial blood by Pulse oximetry Systolic blood pressure Diastolic blood pressure Provider Name and Address Organization Details Last Updated DateTime 4 149.86 cm 35.1 kg/m2 36434.0 7 g 73 /min 97 [degF] 96 % 96 % 128 mm[Hg] 74 mm[Hg] LiliaCECY Watts [employer] 4 16:15:38 Date Recorded Body height Body mass index (BMI) Body weight Heart rate Body temperature Oxygen saturation Oxygen saturation in Arterial blood by Pulse oximetry Systolic blood pressure Diastolic blood pressure Provider Name and Address Organization Details Last Updated DateTime 5 149.86 cm 34.4 kg/m2 96229.5 g 83 /min 97 [degF] 97 % 97 % 120 mm[Hg] 68 mm[Hg] Shanita Munoz [employer] 5 16:23:04 Date Recorded Body height Body mass index (BMI) Body weight Body temperature Respiratory rate Heart rate Oxygen saturation Oxygen saturation in Arterial blood by Pulse oximetry Systolic blood pressure Diastolic blood pressure Provider Name and Address Organization Details Last Updated DateTime 5 149.86 cm 34.3 kg/m2 52861.7 g 97.6 [degF] 14 /min 86 /min 97 % 97 % 120 mm[Hg] 80 mm[Hg] Dennise Kim [employer] 5 11:11:19 Social History Question Answer Notes LastModified by Organization Details LastModified Time Tobacco Smoking Status Never Smoker Not Available [facility] 07/24/2022 02:42:45 Do You Have An Advance Directive? No Info Given [email or web address] Information not available 03/03/2024 What Is Your Level Of Alcohol Consumption? None MIGRATION.0301 [id number] Information not available 07/24/2022 Do You Wear A Helmet When Biking? No Na Information not available 11/06/2022 Are You Blind Or Do You Have Difficulty Seeing? No MIGRATION.0301 [id number] Information not available 07/24/2022 In The 14 Days Before Symptom Onset, Have You Had Close Contact With A Laboratory-confi rmed COVID-19 While That Case Was Ill? No MIGRATION.0301 [id number] Information not available 07/24/2022 In The 14 Days Before Symptom Onset, Have You Had Close Contact With A Person Who Is Under Investigation For COVID-19 While That Person Was Ill? No MIGRATION.0301 [id number] Information not available 07/24/2022 Are You Deaf Or Do You Have Serious Difficulty Hearing? No MIGRATION.0301 [id number] Information not available 07/24/2022 What Type Of Diet Are You Following? REGULAR MIGRATION.0301 [id number] Information not available 07/24/2022 Do You Or Have You Ever Used E-cigarettes Or Vape? Never Used Electronic Cigarettes MIGRATION.0301 501673 Information not available 07/24/2022 Have There Been Any Changes To Your Family Or Social Situation? No MIGRATION.0301 213353 Information not available 07/24/2022 What Is The Fluoride Status Of Your Home? Unknown MIGRATION.0301 [id number] Information not available 07/24/2022 Are There Any Guns Present In Your Home? Yes MIGRATION.0301 017842 Information not available 07/24/2022 Do You Use Insect Repellent Routinely? Yes MIGRATION.0301 [id number] Information not available 07/24/2022 Where Do You Live? SingleLevelHouse [email or web address] Information not available 11/06/2022 Advance Directive- Providers Has Reviewed Directive And Consents To Follow Them (insert Provider Name With Any Objectives In Notes Field) No MIGRATION.0301 [id number] Information not available 07/24/2022 Are You Able To Care For Yourself? Yes [email or web address] Information not available 11/06/2022 Are You Blind Or Do Yo Have Difficulty Seeing? No [email or web address] Information not available 11/06/2022 Are You Deaf Or Do You Have Serious Difficulty Hearing? No [email or web address] Information not available 11/06/2022 Live Alone Of With Others? With Others [email or web address] Information not available 11/06/2022 Do You Have A Medical Power Of Director Pharmacology? No [email or web address] Information not available 03/03/2024 What Was The Date Of Your Most Recent Tobacco Screening? 03/03/2024 Information not available 03/03/2024 Do You Have Any Pets? Yes [email or web address] Information not available 11/06/2022 What Is Your Relationship Status? MIGRATION.0301 [id number] Information not available 07/24/2022 Do You Use Your Seat Belt Or Car Seat Routinely? Yes MIGRATION.0301 162314 Information not available 07/24/2022 Do You Have Smoke And Carbon Monoxide Detectors In Your Home? Yes MIGRATION.030 143269 Information not available 07/24/2022 Are You Passively Exposed To Smoke? No MIGRATION.030 622285 Information not available 07/24/2022 Do You Or Have You Ever Used Smokeless Tobacco? Never Used Smokeless Tobacco MIGRATION.030 144240 Information not available 07/24/2022 Are There Any Smokers In Your House? No MIGRATION.030 046713 Information not available 07/24/2022 Do You Feel Stressed (tense, Restless, Nervous, Or Anxious, Or Unable To Sleep At Night)? [id number] MIGRATION.030 867068 Information not available 07/24/2022 Do You Use Sunscreen Routinely? Yes MIGRATION.030 169542 Information not available 07/24/2022 Have You Recently Traveled Abroad? No MIGRATION.030 781673 Information not available 07/24/2022 Sex: Female Functional Status Question Answer Note LastModified by Organizat ion Details LastModified Time Do you have difficulty walking or climbing stairs? No MIGRATION.0134111 026 Information not available 07/24/2022 Do you have transportation difficulties? No [email or web address] Information not available 11/06/2022 Are you able to walk? YESWOREST [email or web address] Information not available 11/06/2022 Do you have difficulty doing errands alone? No MIGRATION.3502843 026 Information not available 07/24/2022 Are you able to care for yourself? Yes MIGRATION.6274209 026 Information not available 07/24/2022 Do you have difficulty dressing or bathing? No MIGRATION.6242690 026 Information not available 07/24/2022 What is your exercise level? None MIGRATION.5385735 026 Information not available 07/24/2022 Mental Status Question Answer Note LastModified by Organizat ion Details LastModified Time Do you have difficulty concentrating, remembering or making decisions? No MIGRATION.[id number] 6 Information not available 07/24/2022 Family History Relationship Description Onset Age of this Age Resolved Age Notes LastModified by Organization Details LastModified Time Mother Complication of anesthesia MIGRATION.239 [id number] Not available 07/24/2022 02:55:13 Mother Family history of stroke MIGRATION.175 [id number] Not available 07/24/2022 02:55:13 Mother Arthritis MIGRATION.945 [id number] Not available 07/24/2022 02:55:13 Father Kidney disease MIGRATION.693 [id number] Not available 07/24/2022 02:55:13 Brother Kidney disease MIGRATION.257 [id number] Not available 07/24/2022 02:55:13 Maternal Grandmother Arthritis MIGRATION.064 [id number] Not available 07/24/2022 02:55:14 Paternal Grandmother Arthritis MIGRATION.466 [id number] Not available 07/24/2022 02:55:14 Notes:Mother 82 hyp ertension and multiple myeloma. Father is 80 has CRF, [place] prostate and malignant melanoma. Has two brothers is good health and one sister that has cirrhosis and some kind of heart problem. Medical History Condition Response NERVE DISEASE N BLINDNESS N RHEUMATIC FEVER N KIDNEY STONES N BLADDER PROBLEMS N MRSA N OTHER # 1 N POLIO N LUNG DISEASE/DISORDER N HISTORY OF DRUG ABUSE N COPD N RADIATION / CHEMOTHERAPY N Other # 2 N BLOOD DISEASES N EAR OR HEARING PROBLEMS N MUMPS N SHINGLES N BOWEL PROBLEMS N DEPRESSION (INCLUDING POST ) Y STROKE/TIA Y ULCERS Y BENIGN PROSTATIC HYPERPLASIA N MEASLES N HYPOTENSION N MYOCARDIAL INFARCTION N OBESITY N GERD/NAUSEA N ANEURYSM N URINARY/BLADDER/KIDNEY PROBLEMS N CORONARY ARTERY DISEASE (CAD) N ADDICTION CONCERNS N Impotence N ENDOMETRIOSIS N USE OF BLOOD THINNERS N SKIN PROBLEMS N GASTROINTESTINAL DISORDER N PERIPHERAL VASCULAR DISEASE N MUSCLE,JOINT OR BONE PROBLEMS N GASTROINTESTINAL BLEEDING N BLOOD CLOTS N ASTHMA N CATARACTS N ERECTILE DYSFUNCTION N VARICOSITIES N GI PROBLEMS N Low Testosterone N INFERTILITY N AIDS/HIV N CHEMOTHERAPY / RADIATION N LIVER DISEASE N MALE HYPOGONADISM N HYPERTENSION Y Deficiency N TOURETTE'S N ANXIETY DISORDER N BLOOD TRANSFUSION N ANEMIA/BLOOD DISORDER N CHRONIC EAR INFECTIONS N BRONCHITIS N TUBERCULOSIS N GLAUCOMA N FOOT PROBLEM N DIVERTICULITIS N SLEEP APNEA N CHICKENPOX N INFECTIOUS DISEASE N PROSTATE N HEART ARRHYTHMIA N INSOMNIA N HIGH CHOLESTEROL / HYPERLIPIDEMIA N EYE PROBLEMS N HYPERTHYROIDISM N EDEMA N CHRONIC PAIN SYNDROME N HYPOTHYROIDISM Y CONSTIPATION N CAROTID BLOCKAGE N BACK / NECK PROBLEMS Y HAVE YOU BEEN HOSPITALIZED OR SEEN IN [facility] IN THE PAST YEAR ? N ATHEROSCLEROSIS N BREAST PROBLEMS N DIALYSIS N ECZEMA N OSTEOPOROSIS N ARTHRITIS N NO SIGNIFICANT PAST MEDICAL HISTORY N APPENDICITIS N DIABETES, TYPE N BAD TEETH N ENT N HEARTBURN / REFLUX Y AUTISM SPECTRUM DISORDER (ASD) N HEPATITIS / LIVER DISEASE N GOUT N SLEEP DISORDER N ALZHEIMER'S DISEASE N Brain Problems N DEMENTIA N HERPES N SEIZURES/EPILEPSY N HEADACHES/MIGRAINES N VASCULAR DISEASE N PACEMAKER N Blood Disorder N DIZZINESS N HEART DISEASE/HEART PROBLEMS N KIDNEY DISEASE N MULTIPLE SCLEROSIS N CANCER: SPECIFY Y CARDIAC ARRHYTHMIA N ATRIAL FIBRILLATION N Gall Stones N PULMONARY EMBOLISM N AUTOIMMUNE DISEASE N Gynecological History Statement/Question Response Date of Last Mammogram 08/10/2018 Date of Last Colonoscopy Most Recent Bone Density 10/20/2019 Obstetrics History GPAL:G 0 P 0 0 0 0 Immunizations Vaccine Type Date Status Note Provider Nam e and Address Organization Details Recorded Time Influenza, split virus, trivalent, preservative 3 completed Not Available [facility] 06/19/2023 09:40:04 SARS-COV-2 (COVID-19) vaccine, UNSPECIFIED 1 completed Not Available [facility] 06/19/2023 09:40:04 SARS-COV-2 (COVID-19) vaccine, UNSPECIFIED 1 completed Not Available [facility] hospital 06/19/2023 09:40:04 SARS-COV-2 (COVID-19) vaccine, UNSPECIFIED 1 completed Not Available [facility] hospital 06/19/2023 09:40:04 Influenza, high-dose, quadrivalent, PF 1 completed Not Available [facility] access hospital 06/19/2023 09:40:04 Influenza, high-dose, quadrivalent, PF 2 completed Not Available [facility] hospital 06/19/2023 09:40:04 Influenza, high-dose, quadrivalent, PF 0 completed Not Available [facility] hospital 06/19/2023 09:40:04 Influenza, high-dose, trivalent, PF 9 completed Not Available [facility] access hospital 06/19/2023 09:40:04 Influenza, high-dose, trivalent, PF 8 completed Not Available Critical access hospital 06/19/2023 09:40:04 pneumococcal polysaccharide PPV23 9 completed Not Available [facility] access hospital 06/19/2023 09:40:04 Influenza, split virus, quadrivalent, PF 7 completed Not Available Critical access hospital 06/19/2023 09:40:04 Pneumococcal conjugate PCV 13 7 completed Not Available [facility] 06/19/2023 09:40:04 Pneumococcal conjugate PCV 13 5 completed Not Available Critical access hospital 06/19/2023 09:40:04 Influenza, high-dose, quadrivalent, PF 3 completed Dean Reyes MD [address], [place], [address], [employer] 03/05/2023 12:59:22 Influenza, high-dose, trivalent, PF 4 completed Dean Reyes MD [address], [place], [address], [employer] 03/03/2024 17:13:31 Past Encounters Encounter ID Performer Location Encounter Start Date Encounter Closed Date Diagnosis/Indication Diagnosis SNOMED-CT Code Diagnosis ICD10 Code Diagnosis Note [id number] [facility] [address] [address] 08/10/2020 00:00:00 08/10/2020 11:50:21 [id number] [facility] Internal Med [place] [address] [place] [address] 08/22/2020 00:00:00 08/22/2020 15:57:53 [id number] [facility] [address] [address] 08/24/2020 00:00:00 08/24/2020 11:38:32 [id number] [facility] [place] [address] [facility] [address] [place] [address] 11/06/2020 00:00:00 11/06/2020 15:03:48 [id number] [facility] Internal Med [place] [address] [place] [address] 11/21/2020 00:00:00 11/21/2020 15:32:53 [id number] [facility] [address] [place] [address] 12/07/2020 00:00:00 12/07/2020 11:59:36 [id number] [facility] Internal Med [facility] [address], [address] [address] 01/10/2021 00:00:00 01/10/2021 12:11:20 [id number] [facility] [place] [address] [facility], [facility] 4 [place] [address] 02/13/2021 00:00:00 02/14/2021 10:26:13 [id number] [facility] [place] [address] [facility], [address] [address] 03/15/2021 00:00:00 03/16/2021 09:12:17 [id number] [facility] Internal Med [place] [address] [place] [address] 03/23/2021 00:00:00 03/23/2021 11:14:31 [id number] [facility] Internal Med [place] [address] [place] [address] 07/20/2021 00:00:00 07/20/2021 11:58:05 [id number] [facility] Internal Med [facility] [address] [address] 10/31/2021 00:00:00 10/31/2021 16:05:18 [id number] [facility] Internal Med [place] [address] [place] [address] 01/18/2022 00:00:00 01/18/2022 11:31:02 [id number] [facility] [place] [address] [facility] [address] [place] [address] 05/15/2022 00:00:00 05/15/2022 17:05:36 [id number] JULIO C Hughes [facility] [place] [address] [place] [address] 09/26/2022 11:06:30 09/26/2022 12:50:29 Pain of right knee joint 1050577300 45216 M25.561 [id number] Dean Reyes MD [facility] Internal Med [facility] [address] [address] 11/06/2022 14:43:28 11/06/2022 15:26:50 Adult health examination 025864572 Z00.00 Screening for disorder 977995354 Z13.9 Benign ess ential hypertension 4953126 I10 Hypothyroidism 24331244 E03.9 Pure hypercholesterolemia 556847452 E78.00 Depressive disorder 3548 9007 F32.9 Rheumatoid arthritis 698 55122 M06.9 Vitamin D deficiency 347 60740 E55.9 [id number] Dean Reyes MD [facility] Internal Med [facility] [address] [place] [address] 03/05/2023 11:22:53 03/05/2023 13:07:26 Diabetes mellitus 51109055 E11.9 Gastroesop hageal reflux disease 580164782 K21.9 Hypothyroidism 04726212 E03.9 Pure hypercholesterolemia 832983292 E78.00 Type 2 shakira betes mellitus without complication 121224514 E11.9 Administra tion of influenza vaccine 39681804 Z23 [id number] Dean Reyes MD [facility] Internal Med [facility] [address] [address] 07/09/2023 11:06:53 07/09/2023 11:56:56 Benign essential hypertension 3074696 I10 Hypothyroidism 54945872 E03.9 Pure hypercholesterolemia 315809272 E78.00 Type 2 shakira betes mellitus without complication 168216778 E11.9 Rheumatoid arthritis 698 19800 M06.9 Anxiety 40026099 F41.9 [id number] Dean Reyes MD [facility] Internal Med [facility] [address] [address] 11/05/2023 11:13:30 11/05/2023 12:05:34 Vertigo 878675930 R42 Benign ess ential hypertension 7062469 I10 Hypothyroidism 76711493 E03.9 Type 2 sahkira betes mellitus without complication 982690031 E11.9 Pure hypercholesterolemia 338740271 E78.00 [id number] Dean Reyes MD [facility] Internal Med [facility] [address] [place] [address] 11/26/2023 14:14:51 11/26/2023 14:35:23 [id number] Dean Reyes MD [facility] Internal [place] [address] [address] [place] [address] 03/03/2024 16:17:02 03/03/2024 17:20:31 Adult health examination 528060768 Z00.00 Screening for disorder 514597289 Z13.9 Benign ess ential hypertension 6899773 I10 Hypothyroidism 94266057 E03.9 Pure hypercholesterolemia 686766808 E78.00 Rheumatoid arthritis 698 27778 M06.9 Depressive disorder 3548 9007 F32.9 Type 2 shakira betes mellitus without complication 377921182 E11.9 Administra tion of influenza vaccine 75001867 Z23 [id number] Dean Reyes MD [facility] Internal Med [facility] [address] [address] 03/31/2024 16:10:51 03/31/2024 16:50:35 Benign essential hypertension 3770132 I10 Gastroesop hageal reflux disease 848911288 K21.9 Pure hypercholesterolemia 137185370 E78.00 Rheumatoid arthritis 698 01690 M06.9 Type 2 shakira betes mellitus without complication 091356932 E11.9 [id number] Dean Reyes MD [facility] Internal Med [facility] [address] [address] 07/14/2024 16:05:41 07/14/2024 17:02:07 Benign essential hypertension 3057176 I10 Chronic le ft-sided ulcerative colitis 461685610 K51.50 Gastroesop hageal reflux disease 261571848 K21.9 Hypothyroidism 28354514 E03.9 Pure hypercholesterolemia 085194374 E78.00 Type 2 shakira betes mellitus without complication 232289119 E11.9 Obese class I 3209440451 55318 E66.380 [id number] Gregorio schwartz MD [facility] General [facility] [address] [facility] [place] [address] 07/29/2024 11:06:24 07/29/2024 11:41:47 External hemorrhoids 51107617 K64.4 Health Concerns Section Related Observation LastModified by Organization Detai ls LastModified Time None Recorded Concern Status LastModified by Organization Details LastModified Time None Recorded Advance Directives Directive N: Info given Payers Encounter Date Sequence Insurance Name Policy Number Policy Quiroga Covered Member ID Quiroga Member ID Guarantor Name 11/26/2023 1 [place] Sky J Wilton [id number] Sky J Wilton 11/26/2023 2 [id number] Sky J Wilton [id number] Sky J Wilton 03/03/2024 1 [place] Sky J Wilton [id number] Sky J Wilton 03/03/2024 2 [id number] Sky J Wilton [id number] Sky J Wilton 03/31/2024 1 [place] Sky J Wilton [id number] Sky J Wilton 03/31/2024 2 [id number] Sky J Wilton [id number] Sky J Wilton 07/14/2024 1 [place] Sky J Wilton [id number] Sky J Wilton 07/14/2024 2 [id number] Sky J Wilton [id number] Sky J Wilton 07/29/2024 1 [place] Sky J Wilton [id number] Sky J Wilton 07/29/2024 2 [id number] Sky J Wilton [id number] Sky Henry Notes Date Note Type Note Provider Name and Address Organization Details Recorded Time 4 text/html Patient Name: Sky Webbte Of Service: Friday ( 03.03.2024 ): 1945 Age: 78 Vital Signs:Blood Pressure: Sitting Rt. Arm 122/72Pulse: Sitting 75 /min and RegularRespiratory Rate: 16Height 59 in or 1.5 mWeight 170 lb or 77.1 kgBMI 34.3Temperature: 97 F or 36.1 CPulse Oximetry: 96 % at rest on no oxygen Chief Complaint: Addressed in HPI Problems or conditions discussed in the HPI were the only ones reviewed during the encounter.Only social and family history addressed in the HPI were reviewed during this encounter. A significant, separate E/M service was performed to evaluate the current and new problems. Attendant(s): NoneConstitutional and Systemic Symptoms:none Medication Reconciliation: from medication list. [id number]: MRI of the brain with and without contrast does not demonstrate any significant abnormalities that might be causing the vertigo. Some age-related white matter changes are noted 11-24-2023: Carotid Doppler showed less than 50% internal carotid stenosis bilaterally with normal antegrade flow through the vertebral arteries. No evidence of any type of vertebral artery insufficiency. 12-08-2023: CT scan of the abdomen and pelvis fatty infiltration the liver with minimal dilatation of the central bile ducts. Sliding hiatus hernia. Multiple stones in the right kidney and right renal pelvis stones in the right upper ureter and right hydronephrotic changes noted History of Present Illness Reviewed the findings of the preventative health visit. Addressed all areas with the patient, patient's family or caregivers. Preventative examinations and testing immunizations - vaccinations, colonic neoplasm screening, mammograms and DEXA Scan all reviewed and ordered where patient was amenable to the recommendations. Cognitive function was normal. Depression addressed and where necessary medications were adjusted or instituted. End of life and living will briefly discussed with patient and where these can be filled out and legally executed. Other blood and imaging studies were ordered if considered necessary. Other recommendations may be found in the encounter note. #1. Essential Hypertension: Stage: normal Interval Neurological Complaints no headaches, dizziness, weakness, visual changes, ataxia, aphasia and apraxia. No shortness of breath, orthopnea or cardiovascular symptoms. No other symptoms related to end organ damage. Pressure has been under excellent control. Currently normal. No other end organ symptoms or findings. Therapy reviewed regarding management of hypertension and includes salt restriction and Moduretic. #2. Type II Hypercholesterolaemia: Currently stopped medication against advice. No interval complaints of any muscle pain or arthralgia. No significant liver changes with medications. Last lipid panel: fair control. Therapy reviewed regarding treatment of cholesterol management and include diet and Lipitor. #3. Hx of hypothyroidism currently stable. Heat intolerance: no Fatigue: no Weight gain: no Difficulty concentrating: yes Muscle Symptoms: none Skin Texture: normal Skin Color: normal Currently taking synthroid. #4. Type II Diabetes: Has had no polyuria polyphagia or polydipsia. Has had no hypoglycemic like responses. No new history of any numbness, tingling, weakness or visual problems. No nausea, anorexia or other constitutional symptoms. There has been no foot problems or non healing lesions. The last HAIC was DCCT HAIC: 6.2 Calculated MB mg%. CGM: No. Average blood sugars 125-150 mg%. Checking sugars : several times a week. Medication Types Include: Sulfonylureas Secondary complications include nephropathy. Macro-vascular complications include none. Therapy reviewed regarding diabetic management and include Glimepiride Compliance: good Renal Protection: not required at this stage Lipid management: statins Urinary microalbumin: A1 . Ophthalmological: has seen eye doctor within the last year. Control: Good Control 6.2 - 7.0 #5. Hx of rheumatoid arthritis. Currently stable. No additional joint swelling or deformities noted. Synovial thickening as noted below. Physical activity status unchanged. Followed by Aircraft Engineer: Yes. Tolerating medications well. Medications currently consistent of Azathioprine and Simponi Aria. #6. Hx of depression currently stable. Pharmacological treatment : Escitalopram . Suicidal thoughts or ideas: None Loss of appetite: No Sleep Disturbance: Yes Hallucinations: No Is currently seeing no one. Discussed possibility of decreasing and weaning off medication. Feels that current regimen is working fine and wishes not to change the current treatment regimen. No contraindication to continue current therapy. Active Medication ListMultivitamin DailySimponi Aria 50 MG/4 ML (INJECTABLE - INJECTION) RaLipitor 80 MG (TABLET - ORAL) DailyXanax 0.25 MG (TABLET - ORAL) One Three Times A DayAspirin 325 MG One DailyModuretic 5/50MG Once DailyGlimepiride 4 MG TABLET One Twice DailyPrilosec 20 MG (CAPSULE, DELAYED REL PELLETS - ORAL) One Twice A DayZyrtec 10 MG TABLET, FILM COATED DailyAzathioprine 50 MG TABLET Two Once DailyEscitalopram 10 MG TABLET One Daily Adverse Drug Reactions ReviewedPropulsid Take Off MarketCodeine Rash Vaccination and Immunization( ) 2024-02 INFLUENZA( ) 2008- H1N1( ) 2014-09 PREVNAR 13 GC(X) 2018-09 PNEUMOVAX PREVNAR 20 Needed( ) 2020-08 COVID MODERNA( ) 2024-02 COVID BOOSTER MODERNA( ) 2024-02 RSV Surgical [id number] Left CTS - Omesytka3503-43 Lt. [id number] Rt. [id number] Left Liosvhoo9329-44 Right Ehwodkqt0802-92 Lap Cholecystectomy Preventative Testing( ) 07/15/2023 Albumin 4.4 G/DL N( ) 07/15/2023 Micro Albumin 1.9 MG/DL N( ) 07/15/2023 HAIC 6.2 % OF TOTAL HGB H( ) 02/10/2023 DEXA Scan 02/10/2025( ) 11/18/2022 Cologuard 11/18/2025( ) 08/09/2022 Mammogram 08/09/2024( ) 05/11/2007 Upper Endoscopy Social HistoryDoes not smoke or drink. Family HistoryMother 82 hypertension and multiple myeloma. Father is 80 has CRF, [place] prostate and malignant melanoma. Has two brothers is good health and one sister that has cirrhosis and some kind of heart problem. Dean Reyes MD [address] [place] [address], [facility] [address], [place], [address], [facility] [employer] 03/03/2024 17:13:40 4 text/html Patient Name: Sky Regalado Of Service: Friday ( 03.31.2024 ): 1945 Age: 78 There has been approximately a 4 lb weight gain since 03/03/2024. This represents approximately a 2.4% change in weight. Weight change attributable to lifestyle changes. Vital Signs:Blood Pressure: Sitting Rt. Arm 128/74Pulse: Sitting 73 /min and RegularRespiratory Rate: 16Height 59 in or 1.5 mWeight 174 lb or 78.9 kgBMI 35.1Temperature: 97 F or 36.1 CDCCT HAIC: 6.5 Calculated MB mg%Pulse Oximetry: 96 % at rest on no oxygen Chief Complaint: Addressed in HPI Problems or conditions discussed in the HPI were the only ones reviewed during the encounter.Only social and family history addressed in the HPI were reviewed during this encounter. Attendant(s): HusbandConstitutional and Systemic Symptoms:none Medication Reconciliation: from medication list. [id number]: MRI of the brain with and without contrast does not demonstrate any significant abnormalities that might be causing the vertigo. Some age-related white matter changes are noted 11-24-2023: Carotid Doppler showed less than 50% internal carotid stenosis bilaterally with normal antegrade flow through the vertebral arteries. No evidence of any type of vertebral artery insufficiency. 12-08-2023: CT scan of the abdomen and pelvis fatty infiltration the liver with minimal dilatation of the central bile ducts. Sliding hiatus hernia. Multiple stones in the right kidney and right renal pelvis stones in the right upper ureter and right hydronephrotic changes noted History of Present Illness #1. Essential Hypertension: Stage: normal Interval Neurological Complaints no headaches. No shortness of breath, orthopnea or cardiovascular symptoms. No other symptoms related to end organ damage. Pressure has been under excellent control. Currently normal. No other end organ symptoms or findings. Therapy reviewed regarding management of hypertension and includes salt restriction and Moduretic. #2. Type II Hypercholesterolaemia: Currently taking medication and tolerating well. No interval complaints of any muscle pain or arthralgia. No significant liver changes with medications. Last lipid panel: fair control. Therapy reviewed regarding treatment of cholesterol management and include diet and Lipitor. #3. Hx of esophageal reflux currently stable. Hx of Complications: none The severity, duration and intensity of symptoms have improved. Frequency: most meals Treatment consists medications taken on intermittent basis. Current therapy includes Prilosec. There has been no nausea, eructation, vomiting, hematemesis, dysphagia, velopharyngeal insufficiency and odynophagia. No change in he frequency or intensity of symptoms. Has had no melena. Has had no . Discussed use of H2 antagonists and the possibility of trying to reduce the frequency of the use of any PPI inhibitors and try H2 antagonists to see if symptoms can be controlled with lease intensive therapy since a number of complications are associated with chronic prolonged use of PPI inhibitors. #4. Hx of rheumatoid arthritis. Currently stable. No additional joint swelling or deformities noted. Synovial thickening as noted below. Physical activity status unchanged. Followed by Aircraft Engineer: Yes. Tolerating medications well. Medications currently consistent of Tested can not discontinue the Simponi. #5. Type II Diabetes: Has had no polyuria polyphagia or polydipsia. Has had no hypoglycemic like responses. No new history of any numbness, tingling, weakness or visual problems. No nausea, anorexia or other constitutional symptoms. There has been no foot problems or non healing lesions. The last HAIC was DCCT HAIC: 6.5 Calculated MB mg%. CGM: No. Average blood sugars 116-125 mg%. Checking sugars : several times a week. Medication Types Include: Sulfonylureas Secondary complications include none. Macro-vascular complications include none. Therapy reviewed regarding diabetic management and include Glimepiride Compliance: good Renal Protection: not required at this stage Lipid management: statins Urinary microalbumin: A1 . Ophthalmological: has seen eye doctor within the last year. Control: Good Control 6.2 - 7.0 Active Medication ListMultivitamin DailyLipitor 80 MG (TABLET - ORAL) DailyXanax 0.25 MG (TABLET - ORAL) One Three Times A DayAspirin 325 MG One DailyModuretic 5/50MG Once DailyGlimepiride 4 MG TABLET One Twice DailyPrilosec 20 MG (CAPSULE, DELAYED REL PELLETS - ORAL) One Twice A DayZyrtec 10 MG TABLET, FILM COATED DailyAzathioprine 50 MG TABLET Two Once DailyEscitalopram 10 MG TABLET One Daily Adverse Drug Reactions ReviewedPropulsid Take Off MarketCodeine Rash Vaccination and Immunization( ) 2024-02 INFLUENZA( ) 2009-12 H1N1( ) 2014-09 PREVNAR 13 GC(X) 2018-09 PNEUMOVAX PREVNAR 20 Needed( ) 2020-08 COVID MODERNA( ) 2024-02 COVID BOOSTER MODERNA( ) 2023- RSV Surgical [id number] Left CTS - [id number] Lt. [id number] Rt. [id number] Left Xfclikwz1290-47 Right Ubnbnmat4029-70 Lap Cholecystectomy Preventative Testing( ) 03/04/2024 Albumin 4.5 G/DL H( ) 03/04/2024 HAIC 6.5 % H( ) 02/18/2024 Ophthalmology( ) 07/15/2023 Micro Albumin 1.9 MG/DL N( ) 02/10/2023 DEXA Scan 02/10/2025( ) 11/18/2022 Cologuard 11/18/2025( ) 08/09/2022 Mammogram 08/09/2024(X) 05/11/2007 Upper Endoscopy 05/11/2009 Social HistoryDoes not smoke or drink. Family HistoryMother 82 hypertension and multiple myeloma. Father is 80 has CRF, [place] prostate and malignant melanoma. Has two brothers is good health and one sister that has cirrhosis and some kind of heart problem. TEST RESULT RANGE UNITSCOMPREHENSIVE METABOLIC PANEL Date: 03/04/2024SODIUM 138 137-145 MMOL/LPOTASSIUM 4.0 3.5-5.1 MMOL/LGLUCOSE 201 70-99 MG/DLBUN 29 8-19 MG/DLCREATININE 1.27 0.66-1.25 MG/DLGFR 41ALKALINE PHOSPHATASE 113 38-126 U/LALANINE AMINOTRANSFERASE 47 0-35 U/LASPARTATE AMINOTRANSFERASE 67 15-37 U/LCALCIUM 10.5 8.4-10.2 MG/DLHEMOGLOBIN A1C Date: 03/04/2024HA1C 6.5 4.0-6.0 %LIPID PANEL Date: 03/04/2024HOLESTEROL 171 140-199 MG/DLTRIGLYCERIDES 265 0-150 MG/DLHDL CHOLESTEROL 51 40- MG/DLLDL CHOLESTEROL, CALCULATED 67 0-130 MG/DL Dean Reyes MD [address] [facility], [facility] [address], [place], [address], [place] [facility] [employer] 03/31/2024 16:37:24 5 text/html Patient Name: Sky Webbzoraida Of Service: Friday ( 07.14.2024 ): 1945 Age: 78 There has been approximately a 3.5 lb weight loss since 03/31/2024. This represents approximately a 2.0% change in weight. Weight change attributable to lifestyle changes. Vital Signs:Blood Pressure: Sitting Rt. Arm 120/68Pulse: Sitting 83 /min and RegularRespiratory Rate: 16Height 59 in or 1.5 mWeight 170.5 lb or 77.3 kgBMI 34.4Temperature: 97 F or 36.1 CPulse Oximetry: 97 % at rest on no oxygen Chief Complaint: Addressed in HPI Problems or conditions discussed in the HPI were the only ones reviewed during the encounter.Only social and family history addressed in the HPI were reviewed during this encounter. Attendant(s): HusbandConstitutional and Systemic Symptoms:none Medication Reconciliation: from medication list. [id number]: MRI of the brain with and without contrast does not demonstrate any significant abnormalities that might be causing the vertigo. Some age-related white matter changes are noted 11-24-2023: Carotid Doppler showed less than 50% internal carotid stenosis bilaterally with normal antegrade flow through the vertebral arteries. No evidence of any type of vertebral artery insufficiency. 12-08-2023: CT scan of the abdomen and pelvis fatty infiltration the liver with minimal dilatation of the central bile ducts. Sliding hiatus hernia. Multiple stones in the right kidney and right renal pelvis stones in the right upper ureter and right hydronephrotic changes noted History of Present Illness #1. Essential Hypertension: Stage: Stage I Interval Neurological Complaints no headaches, dizziness, weakness, visual changes, ataxia, aphasia and apraxia. No shortness of breath, orthopnea or cardiovascular symptoms. No other symptoms related to end organ damage. Pressure has been under fair control. Currently normal. No other end organ symptoms or findings. Therapy reviewed regarding management of hypertension and includes salt restriction and Moduretic. #2. Type II Hypercholesterolaemia: Currently taking medication and tolerating well. No interval complaints of any muscle pain or arthralgia. No significant liver changes with medications. Last lipid panel: fair control. Therapy reviewed regarding treatment of cholesterol management and include diet and Lipitor. #3. Hx of hypothyroidism currently stable. Heat intolerance: no Fatigue: no Weight gain: no Difficulty concentrating: no Muscle Symptoms: none Skin Texture: normal Skin Color: normal Currently taking synthroid. #4. Type II Diabetes: Has had no polyuria polyphagia or polydipsia. Has had no hypoglycemic like responses. No new history of any numbness, tingling, weakness or visual problems. No nausea, anorexia or other constitutional symptoms. There has been no foot problems or non healing lesions. [facility] Calculated MB mg%. CGM: No. Average blood sugars unknown. Checking sugars : several times a week. Medication Types Include: Sulfonylureas Secondary complications include nephropathy. Macro-vascular complications include none. Therapy reviewed regarding diabetic management and include Glimepiride Compliance: good Renal Protection: not required at this stage Lipid management: statins Urinary microalbumin: A1 . Ophthalmological: has seen eye doctor within the last year. Control: Good Control 6.2 - 7.0 #5. Hx of esophageal reflux currently stable. Hx of Complications: none The severity, duration and intensity of symptoms have improved. Frequency: most meals Treatment consists medications taken on intermittent basis. Current therapy includes Prilosec. There has been no nausea, eructation, vomiting, hematemesis, dysphagia, velopharyngeal insufficiency and odynophagia. No change in he frequency or intensity of symptoms. Has had no melena. Has had no . Discussed use of H2 antagonists and the possibility of trying to reduce the frequency of the use of any PPI inhibitors and try H2 antagonists to see if symptoms can be controlled with lease intensive therapy since a number of complications are associated with chronic prolonged use of PPI inhibitors. #6. Hx of inflammatory bowel disease in the form of ulcerative colitis and has remained stable. No interval complaints of any change in frequency or consistency of stool. No hematochezia or blood in the stool. No cutaneous drainage. No fever, chills, weight loss or other constitutional symptoms. Current medication: Azathioprine. #7. Hx of obesity. Currently Class 1 Obesity BMI 30-34.99. Has tried numerous dietary support and supplements with no benefit. Instructed on the health consequences of the obese status particularly cancer - diabetes and heart disease. Discussed other modalities of weight loss no . Potential candidate for bariatric surgery: No. Wishes to be evaluated by Dietary: No and was offered to be evaluated and instructed by intake assessor on weight loss diet. Active Medication ListEffexor 37.5 MG CAPSULE, EXTENDED RELEASE One DailyMultivitamin DailyLipitor 80 MG (TABLET - ORAL) DailyXanax 0.25 MG (TABLET - ORAL) One Three Times A DayAspirin 325 MG One DailyModuretic 5/50MG Once DailyGlimepiride 4 MG TABLET One Twice DailyPrilosec 20 MG (CAPSULE, DELAYED REL PELLETS - ORAL) One Twice A DayZyrtec 10 MG TABLET, FILM COATED DailyAzathioprine 50 MG TABLET Two Once Daily Adverse Drug Reactions ReviewedPropulsid Take Off MarketCodeine Rash Vaccination and Immunization( ) 2024-02 INFLUENZA( ) 2008- H1N1( ) 2014-09 PREVNAR 13 GC(X) 2018-09 PNEUMOVAX PREVNAR 20 Needed( ) 2020-08 COVID MODERNA( ) 2024-02 COVID BOOSTER MODERNA( ) 2024-02 RSV Surgical [id number] Left CTS - Eiqhgyhl8557-96 Lt. [id number] Rt. [id number] Left Jrvfxeei1629-56 Right Fgyuarbw5668-30 Lap Cholecystectomy Preventative Testing( ) 03/04/2024 Albumin 4.5 G/DL H( ) 03/04/2024 HAIC 6.5 % H( ) 02/18/2024 Ophthalmology( ) 07/15/2023 Micro Albumin 1.9 MG/DL N( ) 02/10/2023 DEXA Scan 02/10/2025( ) 11/18/2022 Cologuard 11/18/2025( ) 08/09/2022 Mammogram 08/09/2024(X) 05/11/2007 Upper Endoscopy 05/11/2009 Social HistoryDoes not smoke or drink. Family HistoryMother 82 hypertension and multiple myeloma. Father is 80 has CRF, Ca prostate and malignant melanoma. Has two brothers is good health and one sister that has cirrhosis and some kind of heart problem. TEST RESULT RANGE UNITSCOMPREHENSIVE METABOLIC PANEL Date: 03/04/2024SODIUM 138 137-145 MMOL/LPOTASSIUM 4.0 3.5-5.1 MMOL/LGLUCOSE 201 70-99 MG/DLBUN 29 8-19 MG/DLCREATININE 1.27 0.66-1.25 MG/DLGFR 41ALKALINE PHOSPHATASE 113 38-126 U/LALANINE AMINOTRANSFERASE 47 0-35 U/LASPARTATE AMINOTRANSFERASE 67 15-37 U/LBILIRUBIN, TOTAL 1.10 0.20-1.30 MG/DLCALCIUM 10.5 8.4-10.2 MG/DLHEMOGLOBIN A1C Date: 03/04/2024HA1C 6.5 4.0-6.0 %LIPID PANEL Date: 4CHOLESTEROL 171 140-199 MG/DLTRIGLYCERIDES 265 0-150 MG/DLHDL CHOLESTEROL 51 40- MG/DLLDL CHOLESTEROL, CALCULATED 67 0-130 MG/DL Dean Reyes MD [address], [facility] [address], [place], [address], [employer] 07/14/2024 16:59:43 5 text/html patient complains of having trouble cleaning up her anal area after bowel movement. has had. This issue for many many years . Denies pain, itching, burning. Rarely she has some bleeding if she becomes constipated. Gregorio Ibarra MD [address], [address], [place], [address], [employer] 07/29/2024 13:02:37 OBGyn Episode No OBEpisode recorded.
--- OUTSIDE RECORDS SUMMARY | 2024-08-04 11:26 | XMS_ITS | Referral Summary ---
Author Organization [facility] Address [address] [place] [address] Care Team Providers Care Vp Revenue Cycle Name Role Phone Nick Reyes MD Primary Care Provider [phone] Source Comments [facility],non-owned Affiliates and Associated Physician Practices is amultiple site organization consisting of ambulatory clinics and hospital sitesin [place], [place], [place] and [place]. This disclosure is being madepursuant to the Care Everywhere program and may not contain all information available regarding this patient. Last updated 18.[facility] Allergies Active Allergy Reactions Criticality Noted Date Comments Latex Unknown 01/13/2019 Medications * Be aware that medications may not be up to date on this document. Alwaysverify current medications with the patient. Medication Sig Dispensed Refills Start Date End Date Status omeprazole (PRILOSEC) 20 MG capsule Take 20 mg by mouth Ac tive aMILoride-hydroCHLORO thiazide (MODURETIC) 5-50 MG tablet amiloride 5 mg-hydrochlorothiaz ryan 50 mg tablet Active atorvastatin (LIPITOR) 80 MG tablet Take 80 mg by mouth Half tablets twice a day Active buPROPion XL 24hr (WELLBUTRIN-XL) 300 MG tablet Take 300 mg by mouth once daily Active ALPRAZolam (XANAX) 0.25 MG tablet Take 0.25 mg by mouth as needed Active Multiple Vitamin (MULTI-VITAMINS) TABS Take 1 tablet by mouth Active PROBIOTIC PRODUCT PO Acti ve Multiple Vitamins-Minerals (CENTRUM SILVER) TABS Take 1 tablet by mouth daily with food Active Active Problems Problem Noted Date Diagnosed Date Benign essential hypertension 12/25/2021 Blood glucose abnormal 12/25/2021 Chronic left-sided ulcerative colitis 12/25/2021 Dyspnea 12/25/2021 Gallstone 12/25/2021 Hearing loss 12/25/2021 Herniation of nucleus pulposus 12/25/2021 Hypothyroidism 12/25/2021 Localized, primary osteoarthritis of elbow 12/25 Lumbar sprain 12/25/2021 Pleurisy 12/25/2021 Transient ischemic attack 12/25/2021 Vitamin D deficiency 12/25/2021 Mastoiditis 11/16/2021 Rheumatoid arthritis 10/31/2021 Dizziness 08/27/2021 Other screening mammogram 07/20/2021 Bunion 02/13/2021 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 Overview (12/25/2021): Added automatically from request for surgery [id number] Right elbow pain 01/11/2019 Overview (12/25/2021): Added automatically from request for surgery [id number] Multiple joint pain 12/04/2016 Arthropathies in other speci fied diseases classified elsewhere, right hand 12/03/2016 Overview (12/25/2021): Further therapeutic decisions pend data review. Class 2 obesity with body ma ss index (BMI) of 36.0 to 36.9 in adult 12/03/2016 Overview (12/25/2021): Last Assessment & Plan: An optimal body mass index is between 20 and 25. Encourage weight loss. Each pound of weight lost unloads 3-4 pounds per square inch pressure from weight bearing joints. Diet and exercise are the keys to weight management. Cyclic edema 12/03/2016 Depression 12/03/2016 Extensor tenosynovitis of right wrist 12/03/2016 Overview (12/25/2021): Laboratory and xray evaluation (rule out inflammatory arthritis) as per orders. Pseudogout (CPPD) would be a possible diagnosis. Gastroesophageal reflux disease without esophagi tis 12/03/2016 Hypercholesteremia 12/03/2016 Postmenopausal bone loss 12/03/2016 Overview (12/25/2021): Calcium and Vitamin D with lab today. Update bone density likely pend initial data review. Primary osteoarthritis involving multiple joints 12/03/2016 Resolved Problems Problem Noted Date Diagnosed Date Resolved Date Acute sinusitis 10/16/2021 01/22/2022 Immunizations Name Administration Dates Next Due INFLUENZA VACCINE, TRIV. (AF LURIA, FLUZONE TRIVALENT; 6MO+) (IIV3) 04/19/2013 INFLUENZA VACCINE, HIGH-DOSE , QUADR. (FLUZONE HIGH-DOSE QUADRIVALENT; 65Y+), 0.7 ML (HD-IIV4) 04/12/2019,04/22/2018 INFLUENZA VACCINE, QUADR. (F LUZONE; FLULAVAL; FLUARIX; AFLURIA QUADRIVALENT; 6MO+), 0.5 ML (IIV4) 06/06/2016 Pneumococcal Pcv13 Conj 06/06/2016,10/10/2014 Social History Tobacco Use Types Packs/Day Years Used Date Smoking Tobacco: Never Smokeless Tobacco: Never Alcohol Use Standard Drinks/Week Comments Never 0 (1 standard drink = 0.6 oz pur e alcohol) Sex and Gender Information Value Date Recorded Sex Assigned at Not on file Gender Identity Not on file Sexual Orientation Not on file Last Filed Vital Signs Vital Sign Reading Time Taken Comments Blood Pressure 131/84 12/25/2021 12:46 PM CDT Pulse 79 12/25/2021 12:46 PM CDT Temperature 36.6 C (97.8 F) 12/25/2021 12:46 PM CDT Respiratory Rate - - Oxygen Saturation 96% 12/25/2021 12:46 PM CDT Inhaled Oxygen Concentration - - Weight 81.6 kg (180 lb) 12/25/2021 12:46 PM CDT Height 152.4 cm (5') 12/25/2021 12:46 PM CDT Body Mass Index 35.15 12/25/2021 12:46 PM CDT Plan of Treatment Not on file Care Teams Vp Revenue Cycle Relationship Specialty Start Date End Date Nick Reyes MD [address] [place] [address] [address] [place] [address] PCP - General 03/31/08
--- OUTSIDE RECORDS SUMMARY | 2024-08-04 11:26 | XMS_ITS | CONTINUITY OF CARE DOCUMENT ---
Author Name dilshad, dilshad Address Unknown Organization [facility] Address [address] [place] [address] Phone [phone] Care Team Providers Care Pl Sql Programmer Name Role Phone Robert Mcgrath MD Unavailable [phone] DEAN THOMPSON MD Unavailable DEAN THOMPSON MD Unavailable PROBLEMS Condition Status Date Provider Notes CKD active Robert Mcgrath MD Diabetes mellitus active Robert Mcgrath MD Profuse Sweating active Robert Mcgrath MD Shortness of breath active Robert Mcgrath MD Cardiology examination active Robert Mcgrath MD ENCOUNTERS Date Type Provider Location Encounter Diag nosis - In-person encounter Office Visit Robert Mcgrath MD [facility] - In-person encounter Office Visit Robert Mcgrath MD [facility] Diabetes mellitusCKD - In-person encounter Office Visit Robert Mcgrath MD [facility] Cardiology examinationShortness of breathProfuse Sweating VITAL SIGNS Date Observation Value Provider Body Mass Index (Ratio) 34.13 kg/m2 Shilpa Mcgrath MD blood pressure, cuff size regular Ja rret blood pressure, diastolic 76 mm[Hg] Ja rret blood pressure, systolic 136 mm[Hg] Jar ret pulse rate 72 /min Ian respiratory rate E&M 12 /min Ian oxygen saturation, oximetry 97 % Ian weight E&M 169 [lb_av] Ian height E&M 59 [in_i] Ian y Body Mass Index (Ratio) 35.26 kg/m2 Shilpa Mcgrath MD blood pressure, diastolic 81 mm[Hg] nico Marroquin blood pressure, systolic 130 mm[Hg] She abimael Marroquin weight E&M 174.6 [lb_av] Ember Marroquin respiratory rate E&M 20 /min Ember Marroquin pulse rate 75 /min Ember Marroquin oxygen saturation, oximetry 98 % Ember Marroquin blood pressure, cuff size regular nico Marroquin height E&M 59 [in_i] Ember Marroquin weight E&M 174 [lb_av] Merari pruitt Body Mass Index (Ratio) 35.14 kg/m2 Shilpa Mcgrath MD blood pressure, diastolic 85 mm[Hg] Karen nkLogmolina blood pressure, systolic 125 mm[Hg] Shweta kLog pulse rate 79 /min Ian y blood pressure, cuff size regular César rret blood pressure, diastolic 85 mm[Hg] Ja rret blood pressure, systolic 125 mm[Hg] Jar ret oxygen saturation, oximetry 97 % Ina respiratory rate E&M 12 /min Ian weight E&M 174 [lb_av] Ian Luis y height E&M 59 [in_i] Ian Easterda y ALLERGIES Allergy Name Onset Date Reaction Criticality Status SEASONAL Low Criticality active HISTORY OF MEDICATION USE Medication Status Instructions Dates Provider Indications Com ments glimepiride 4 mg tablet active Robert Mcgrath MD escitalopram oxalate 10 mg tablet active Robert Mcgrath MD amiloride-hydroch lorothiazide 5-50 mg tablet active Robert Mcgrath MD omeprazole 20 mg capsule,delayed release(DR/EC) active meclizine 25 mg tablet active Ian atorvastatin 80 mg tablet active Ian bupropion HCl unspecified unspecified active Ian amiloride 5 mg tablet completed - Robert Mcgrath MD alprazolam 0.25 mg tablet active azathioprine 50 mg tablet active aspirin unspecified unspecified active SOCIAL HISTORY Date Observation Value Provider drug use no Robert Mcgrath MD alcohol use no Robert Mcgrath MD smoking status Never smoker Robert Mcgrath MD social history reviewed E&M revi ewed - no changes required Robert Mcgrath MD social history E&M S moking History: P ann marieeren has never smoked. Robert Mcgrath MD smoking status Never smoker Robert Mcgrath MD drug use no Robert Mcgrath MD alcohol use no Robert Mcgrath MD social history E&M S moking History: P ann marieeren has never smoked. Robert Mcgrath MD social history reviewed E&M revi ewed - no changes required Robert Mcgrath MD smoking status Never smoker Ian INSURANCE PROVIDERS Payer name Policy type / Coverage type Jayna red alliance party ID BLUE [facility] Blue [facility] [id number] [place] Medicare [id number] ADVANCE DIRECTIVES Name Date DISCUSSED - NO DECISION MADE TREATMENT PLAN Date Name Performer [id number],C,stage 3 Robert Mcgrath MD [id number],C,E cho was unremarkable S tress test was negative for ischemia Robert Mcgrath MD [id number],C,Managed by PC P Robert Mcgrath MD [id number],C,o ccurs upon excertion but also when resting. although much more profuse during excertion. Robert Mcgrath MD [id number],C,c ould be secondary to cardiac or pulmonary issue will check stress test, echo, and lung function test. get labs from 's office Robert Mcgrath MD Cardiology:per PCP Robert Mcgrath MD Cardiology Robert Mcgrath MD Cardiology Robert Mcgrath MD Cardiology:no SOB. A ble to complete routine tasks without discomfort Robert Mcgrath MD Cardiology:stage 3 Robert Mcgrath MD Cardiology:Echo was unremarkable S tress test was negative for ischemia Robert Mcgrath MD Cardiology:Managed by PCP Robert Mcgrath MD Cardiology:occurs up on excertion but also when resting. although much more profuse during excertion. Robert Mcgrath MD Cardiology:could be secondary to cardiac or pulmonary issue will check stress test, echo, and lung function test. get labs from 's office Robert Mcgrath MD Date Name Stress Routine Complete Echo HISTORY OF PROCEDURES Procedure Date Procedure Name Provider Procedure Notes S tatus EKG Robert Mcgrath MD completed
--- OUTSIDE RECORDS SUMMARY | 2024-08-04 11:26 | XMS_ITS | Encounter Summary ---
Author Organization [facility] Address [address] [place] [address] Care Team Providers Care Survey Research Analyst Name Role Phone Nick Reyes MD Primary Care Provider [phone] Encounter Details Date Type Department Care Team (Late st Contact Info) Description 02/06/2018 Lab Requisition [facility] [address] [place] [id number] [place] [address] Social History Tobacco Use Types Packs/Day Years Used Date Smoking Tobacco: Never Assessed Sex and Gender Information Value Date Recorded Sex Assigned at Not on file Gender Identity Not on file Sexual Orientation Not on file documented as of this encounter Plan of Treatment Not on file documented as of this encounter Procedures Procedure Name Priority Date/Time Associated Diagnosis Comments DERMATOPATHOLOGY Routine 02/05/2018 12:0 0 AM CDT documented in this encounter Results * DERMATOPATHOLOGY (02/05/2018 12:00 AM CDT) Case Report Dermatopathology Report Case: [id number] Authorizing Provider: Twan Fox MD Collected: 02/05/2018 12:00 AM Pathologist: Mariana Mullins MD Received: 02/06/2018 11:58 AM Specimen: Skin, left sup breast 8 3:52 PM CDT DERMATOPATHOLOGY LABORATORY Final Diagnosis Specimen A. SKIN, left sup breast: HEALING SKIN CHANGES (L90.5) 8 3:52 PM CDT DERMATOPATHOLOGY LABORATORY Clinical History R/O BCC, SCC, ISK, HAK. 8 3:52 PM CDT DERMATOPATHOLOGY LABORATORY Gross Description Specimen A: Received is one formalin filled container labeled with the patient's name and designated left sup breast. The specimen consists of a shave biopsy measuring [id number]. Jar 0. 3:52 PM CDT DERMATOPATHOLOGY LABORATORY Microscopic Description Specimen A. SKIN, left sup breast: There is epidermal hyperplasia beneath which there are vascular proliferation, fibroblasts, and an edematous stroma. 3:52 PM CDT DERMATOPATHOLOGY LABORATORY Disclaimer An external and internal positive and negative controls are appropriate for the histochemical, immunohistochemical and immunofluorescence stain(s) in this case (if any), except where stated explicitly. The performance characteristics of the stain(s) cited in this report were developed and its performance characteristic determined by the Dermatopathology Laboratory at [facility]. These tests need not be, and therefore are not, approved by the [place] Food and Drug Administration. The tests are used for clinical purposes. Billing Codes Specimen Charges Stain Charges 20906 1 8 3:52 PM CDT DERMATOPATHOLOGY LABORATORY Embedded Images 3:52 PM CDT DERMATOPATHOLOGY LABORATORY Pathology/Cytolog y TISSUE SPECIMEN FROM SKIN / Unknown 02/05/2018 02/06/2018 11:58 AM CDT Twan Fox MD LAB - PATHOLOGY/CYTO LOGY ORDERABLES DERMATOPATHOLOGY LABORATORY [facility] - Department of Dermatology [address] [place] [address], [address] [place] [address], [facility] [phone] documented in this encounter Visit Diagnoses Not on filedocumented in this encounter Care Teams Survey Research Analyst Relationship Specialty Start Date End Date Nick Reyes MD [address] [place] [address] [address] [place] [address] PCP - General 03/31/08 documented as of this encounter
--- OUTSIDE RECORDS SUMMARY | 2024-08-04 11:26 | XMS_ITS | Data Portability ---
Author Organization [facility] [place] Address [address] [place] [address] Care Team Providers Care Kieselguhr Regenerator Operator Name Role Phone DEAN THOMPSON Primary Care Provider Assessment No assessment recorded. Plan of Treatment Reminders Order Date Submit Date Provider Last Modified By Organization Details Last Modified Time Details Appointments None recorded. Lab None recorded. Referral None recorded. Procedures None recorded. Surgeries None recorded. Imaging US, pelvis 2023 [address]24 [address], [address], [place], [address], 21:01:04 US, transvagina l 2023 024 [email or web address] [facility], [address], [place], [address], 4 21:01:04 Medication Orders None recorded. Patient TargetsNo targets recorded. Patient InstructionsNo instructions recorded. Reason for Referral None Reported. Results Created Date Observation Date Name Description Value Unit Range Abnormal Flag Note LastModifiedBy Organization Detail LastModifiedTime 10/13/1910/13/2023 US, pelvi s No observ ation record ed. [email or web address] [facility] [address], [place], [address], 10/13/2023 18:14:33 10/13/19 24 10/13/2023 US, trans vagin al No observ ation record ed. [email or web address] [facility] [address], [place], [address], 10/13/2023 18:14:24 10/13/19 24 10/13/2023 US, angel s No observ ation record ed. [email or web address] [address], [place], [address], 10/16/2023 10:11:30 Result Notes None recorded. 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 LEUKOCYTOS IS NOS;Record ed Elsewhere: No Locatio n: [facility] rce: EHR Chroni c: N Practice ID: 0001 Billa ble Time: 01:00:00 PM Not Available [facility] 0 17:41:45 Pruritus of genital organs 769360753 Active 2014 Vaginal itching;Re corded Elsewhere: No Locatio n: [facility] rce: EHR Chroni c: N Practice ID: 0001 Billa ble Time: 10:45:00 AM Not Available [facility] 0 17:41:45 Vaginolab ial hernia Active 2016 Other specified noninflamm atory disorders of vagina;Rec orded Elsewhere: No Locatio n: [facility] rce: EHR Chroni c: N Practice ID: 0001 Billa ble Time: 09:00:00 AM Not Available [facility] 0 17:41:45 Specializ ed medical examinati on Active 2011 Gynecologi gurwinder Examinatio n;Recorded Elsewhere: No Locatio n: [facility] rce: EHR Chroni c: N Practice ID: 0001 Billa ble Time: 01:00:00 PM Not Available [facility] 0 17:41:45 Acute vaginitis 62980336 Active 2016 Acute vaginitis; Recorded Elsewhere: No Locatio n: [facility] rce: EHR Chroni c: N Practice ID: 0001 Billa ble Time: 09:00:00 AM Not Available [facility] 0 17:41:46 Screening for malignant neoplasm of rectum Active 2011 Screening for malignant neoplasms of the rectum;Rec orded Elsewhere: No Locatio n: [facility] rce: EHR Chroni c: N Practice ID: 0001 Billa ble Time: 01:00:00 PM Not [facility] 0 17:41:46 Increased frequency of urination 414661998 Active 2016 Frequency of micturitio n;Recorded Elsewhere: No Locatio n: [facility] rce: EHR Chroni c: N Practice ID: 0001 Billa ble Time: 09:00:00 AM Not Available [facility] 0 17:41:46 Urinary tract infectiou s disease 95144719 Active 2016 Urinary tract infection, site not specified; Recorded Elsewhere: No Locatio n: [facility] rce: EHR Chroni c: N Practice ID: 0001 Billa ble Time: 09:00:00 AM Not Available [facility] 0 17:41:46 Microscop ic hematuria 612560856 Active 2014 MICROSCOPI C HEMATURIA; Recorded Elsewhere: No Locatio n: [facility] rce: EHR Chroni c: N Practice ID: 0001 Billa ble Time: 10:45:00 AM Not Available [facility] 0 17:41:46 Problem Notes None recorded. Procedures Surgical History None recorded. Imaging Results Imaging Date Name Status LastModified by Organization Details LastModified Time 10/13/2023 US, pelvis completed [email or web address] [facility] [address], [place], [address], 10/13/2023 18:14:33 10/13/2023 US, transvaginal completed [email or web address] [facility] [address], [place], [address], 10/13/2023 18:14:24 10/13/2023 US, pelvis completed [email or web address] [address], [place], [address], 10/16/2023 10:11:30 Procedure Notes None recorded. Medical Equipment None Reported. Allergies Allergen ID Allergen Name Allergen Category Reaction Reaction Severity Criticality Documentation Date Start Date Code Code System Note Provider Name and Address Organization Details Recorded Time 02928 codeine medicatio n Not available Not available Not available 05/12/2020 5070 RxNorm Comme nt: Locat ion: [facility]; Not Available [facility] 14:20:48 Medications Name Sig Start Date Stop Date Status Note LastModified by Organization Details LastModified Time amoxicill in 500 mg capsule TAKE 1 CAPSULE BY MOUTH THREE TIMES DAILY FOR 10 DAYS 10/07 completed Not Available Not Available Not Available metformin 500 mg tablet TAKE 1 TABLET BY MOUTH TWICE DAILY active Not Available Not Available No t Available aspirin 300 mg rectal supposito ry 10/07 completed Prescrib ed Elsewher e: Yes Loca tion: [facility] odify By: gabriel small DateTime : 12/13/19 10:45:00 AM Not Available Not Available Not Available atorvasta tin 80 mg tablet active Not Available Not Available Not Available amiloride 5 mg-hydroc hlorothia zide 50 mg tablet active Not Available Not Available No t Available doxycycli ne hyclate 100 mg capsule TAKE 1 CAPSULE BY MOUTH TWICE DAILY FOR 7 DAYS WITH FOOD AND WATER 10/07 completed Not Available Not Available Not Available nystatin 100,000 unit/gram topical ointment apply by topical route 2 times every day to the affected area(s) 2014 active Prescrib ed Elsewher e: No Locat ion: [facility] odify By: bennett Guevara er DateTime : 12/13/19 10:45:00 AM Not Available Not Available Not Available fluconazo le 150 mg tablet TAKE 1 TABLET BY MOUTH ONCE DAILY 10/07 completed Not Available Not Available Not Available azathiopr ine 50 mg tablet TAKE 2 TABLETS BY MOUTH ONCE DAILY active Not Available Not Available No t Available glimepiri de 2 mg tablet TAKE 1 TABLET BY MOUTH ONCE DAILY active Not Available Not Available No t Available Macrobid 100 mg capsule take 1 capsule by oral route every 12 hours with food 06/22 completed Prescrib ed Elsewher e: No Locat ion: [facility] odify By: elise Martita ncounter DateTime : 09/19/19 17 09:00:00 AM Not Available Not Available Not Available alprazola m 0.25 mg tablet active Not Available Not Available Not Available omeprazol e 10 mg capsule,d elayed release take 2 capsule (20MG) by oral route every day before a meal 2011 active Prescrib ed Elsewher e: No Locat ion: [facility] odify By: annie Mccarthy nter DateTime : 09/22/19 12 06:44:01 PM Not Available Not Available Not Available Flagyl 500 mg tablet take 1 tablet by oral route every 12 hours 09/18 completed Prescrib ed Elsewher e: No Locat ion: [facility] odify By: terrence z Orion ter DateTime : 12/13/19 15 10:45:00 AM Not Available Not Available Not Available meclizine 25 mg tablet TAKE 1 TABLET BY MOUTH 4 TIMES DAILY active Not Available Not Available No t Available simvastat in 5 mg tablet take 1 tablet by oral route every day in the evening 09/23 completed Prescrib ed Elsewher e: Yes [facility] By: marcella aguilera DateTime : 09/22/19 12 06:44:01 PM Not Available Not Available Not Available cephalexi n 500 mg capsule TAKE 1 CAPSULE BY MOUTH EVERY 6 HOURS active Not Available Not Available No t Available glimepiri de 4 mg tablet TAKE 1 TABLET BY MOUTH TWICE DAILY active Not Available Not Available No t Available Wellbutri n 75 mg tablet take 1 tablet by oral route 3 times every day active Prescrib ed Elsewher e: Yes Loca tion: [facility] odify By: annie Mccarthy nter DateTime : 09/22/19 12 06:44:01 PM Not Available Not Available Not Available omeprazol e 20 mg capsule,d elayed release active Not Available Not Available Not Available amiloride HCl (bulk) powder active Prescrib ed Elsewher e: Yes Loca tion: Deanne anders [facility] odify By: annie Mccarthy nter DateTime : 09/22/19 12 06:44:01 PM Not Available Not Available Not Available Vitamin D2 1,250 mcg (50,000 unit) capsule take 1 capsule by oral route every week active Prescrib ed Elsewher e: Yes [facility] By: gabriel Gregory r DateTime : 12/13/19 15 10:45:00 AM Not Available Not Available Not Available escitalop daniela 10 mg tablet TAKE 1 TABLET BY MOUTH ONCE DAILY 10/07 completed Not Available Not Available Not Available Vytorin 10 mg-10 mg tablet take 1 tablet by oral route every day 09/23 completed Prescrib ed Elsewher e: Yes Loca tion: [facility] odify By: marcella aguilera DateTime : 09/22/19 12 06:44:01 PM Not Available Not Available Not Available Senior Moment 150 mg-50 mg capsule active Prescrib ed Elsewher e: Yes [facility] By: gabriel Gregory r DateTime : 12/13/19 15 10:45:00 AM Not Available Not Available Not Available OneTouch Verio test strips USE 1 STRIP TO CHECK GLUCOSE ONCE DAILY active Not Available Not Available No t Available OneTouch Verio Flex Meter USE 1 TO CHECK GLUCOSE ONCE DAILY active Not Available Not Available No t Available OneTouch Delica Plus Lancet 33 gauge USE 1 TO CHECK GLUCOSE ONCE DAILY active Not Available Not Available No t Available Vitals Date Recorded Body height Body mass index (BMI) Body weight Systolic blood pressure Diastolic blood pressure Provider Name and Address Organization Details Last Updated DateTime 10/22/2023 160.02 cm 30.3 kg/m2 30009.3 g 109 mm[Hg] 74 mm[Hg] Imelda Glass [facility] 14:53:55 Social History None recorded. Functional Status None recorded. Mental Status None recorded. Family History Nothing Reported Notes:Father: Melanoma Mater nal grandmother: Cancer, breast Mother: Anemia, MULTIPLE MYLOMA Paternal aunt: Cancer, breast Sister: Anemia, Hepatitis Medical History Condition Response Allergies (Food, seasonal, environmental ) N Other N Breast Cancer N Drug/Latex Allergies/Reactions N Blood Transfusion N Dermatologic Disorders N Lung Disease N Defects or Inherited Disease N Breast Problem N Gestational Diabetes N Hematologic disorders N Anesthesia Complications N History of STI N Deep Vein Thrombosis N Polycystic ovary syndrome N Anxiety Disorder N Autoimmune disease N Arthritis N Infertility N Polyps N Acid Reflux (GERD) N History of abnormal pap N Cancer N Stroke N Varicosities N Neurologic/Epilepsy N Endometriosis N High Cholesterol N Headaches N Fibromyalgia N Kidney Disease N Heart Problems N Kidney or Bladder Problems N Thyroid Problems N GI Problems N Eating Disorder N Anemia N Art (IVF or FET) N Psychiatric Illness N Ovarian Cancer N Diabetes N Pulmonary (TB, Asthma) N Hepatitis/Liver Disease N No Past Medical History N Eczema N Urinary Tract Infection N Abuse/Domestic Violence N Asthma N Trauma/Violence N Depression/ depression N Heart Disease N Pre-Eclampsia N Hypertension N Osteoporosis N Thrombophilias N Gynecological History Statement/Question Response Abnormal Pap N Sexually Active? N STIs/STDs N HPV Vaccine N Date of Last Pap Smear Sexual Problems? N Current Control Method None Desired Control Method None Obstetrics History GPAL:G 3 P 3 0 0 3 Type Value Full Term 3 Living 3 Total 3 Past Encounters Encounter ID Performer Location Encounter Start Date Encounter Closed Date Diagnosis/Indication Diagnosis SNOMED-CT Code Diagnosis ICD10 Code Diagnosis Note [id number] DYAN ANN MD [facility] [address] [address] 10/08/2023 13:52:28 10/09/2023 11:32:52 Pain in pelvis 58546401 R10.2 - pelvic pressure x2 months- midline, reproduced with suprapubic palpation- no inciting factors- will order pelvic US to r/o well flow operator etiology, however patient reports supracervi gurwinder hysterecto my with likely BSO- if no etiology on pelvic US, recommend urology evaluation given suprapubic pain [id number] Mana Hadley [facility] [address] [address] 10/13/2023 15:14:10 10/13/2023 16:06:37 Pain in pelvis 54873439 R10.2 [id number] DYAN ANN MD [facility] [address] [address] 10/22/2023 14:32:47 10/22/2023 15:46:25 Pain in pelvis 60937043 R10.2 - pelvic pressure x2 months, now improved s/p abx- no inciting factors- pelvic US demonstrat es surgically absent uterus and adnexa- discussed estrogen cream if UTIs are recurrent for possible [facility] Concerns Section Related Observation LastModified by Organization Detai ls LastModified Time None Recorded Concern Status LastModified by Organization Details LastModified Time None Recorded Advance Directives Directive None Recorded Payers Encounter Date Sequence Insurance Name Policy Number Policy Quiroga Covered Member ID Quiroga Member ID Guarantor Name 10/08/2023 2 [id number] Dipti Wilton [id number] Dipti Wilton 10/08/2023 1 [place] Dipti J Wilton [id number] Dipti Wilton 10/13/2023 2 [id number] Dipti Wilton [id number] Dipti Wilton 10/13/2023 1 [place] Dipti J Wilton [id number] Dipti Wilton 10/22/2023 2 [id number] Dipti Wilton [id number] Dipti Wilton 10/22/2023 1 [place] Dipti J Wilton [id number] Dipti Wilton Notes Date Note Type Note Provider Name and Address Organization Details Recorded Time 10/08/2023 text/html Presents to disc uss pelvic pressure. Had yeast infection 4 weeks ago, was given medications with no improvement in symptoms. Then went to , was diagnosed with UTI and was treated with improvement in symptoms. She reports pressure x2 months, intermittent. No aggravating or relieving symptoms. No PMB. Does report urge incontinence. No issues with bowel movement. Hx of supracervical hysterectomy at age 37; believes she had ovaries removed at that time but is unsure. DYAN ANN MD [address], [place], [address], [facility] 10/09/2023 00:41:22 10/22/2023 text/html Patient presents for ultrasound follow up. Was previously seen for pelvic pressure. Now reports pressure is improved after second round of antibiotics for a UTI. No bleeding or other new symptoms. DYAN ANN MD [address], [place], [address], [facility] 10/22/2023 15:34:40 OBGyn Episode Ob Episode Information Episode Created Date Number of Fetuses Patient Bloodtype Patient rh Status Prepregnancy Weight lbs Domestic Partner Domestic Partner Phone Father Name Coal Chemist Status 10/08/19 24 1 CLOSED Fetus Data First Name Last Name Admitted to NICU Weight (g) Sex Living Outcome Pediatric Complications Fetus ID Race Codes Race Delivery Type 2919.77 1704 Full Term 20330 Vaginal Delivery Frederick Calculation Initial Frederick Date Initial Exam Date Initial Exam Provider Initial Ultrasound Date Last Menstrual Period Date Ultra Sound Weeks Gestation 0 Eighteen To Twenty Week Frederick Update Ultra Sound Date Fundal Height At Umbil Quickening Date Ultra Sound Latest Weeks Gestation Final Frederick Confirmed By Final Ferderick Confirmed Date Final Frederick Date Ultra Sound Latest Days Gestation 0 0 Menstrual History Last Menstrual Date Menses Monthly On Bcp Conception Prior Menses Frequency Hcg Plus Date Menarche Onset Age Delivery Information Delivery Date Delivery Type Labor Anesthesia Weeks Gestation Incision Type Labor Labor Length Hrs Delivered By Post Complications Tubal Sterilization Discharge Date Comments 7 Discharge Information Feeding Method Contraceptive Method Maternal HG B and HCT Levels Ob Episode Information Episode Created Date Number of Fetuses Patient Bloodtype Patient rh Status Prepregnancy Weight lbs Domestic Partner Domestic Partner Phone Father Name Coal Chemist Status 10/08/19 24 1 CLOSED Fetus Data First Name Last Name Admitted to NICU Weight (g) Sex Living Outcome Pediatric Complications Fetus ID Race Codes Race Delivery Type 6321.71 1704 Full Term [address]0801 Vaginal Delivery Frederick Calculation Initial Frederick Date Initial Exam Date Initial Exam Provider Initial Ultrasound Date Last Menstrual Period Date Ultra Sound Weeks Gestation 0 Eighteen To Twenty Week Frederick Update Ultra Sound Date Fundal Height At Umbil Quickening Date Ultra Sound Latest Weeks Gestation Final Frederick Confirmed By Final Frederick Confirmed Date Final Frederick Date Ultra Sound Latest Days Gestation 0 0 Menstrual History Last Menstrual Date Menses Monthly On Bcp Conception Prior Menses Frequency Hcg Plus Date Menarche Onset Age Delivery Information Delivery Date Delivery Type Labor Anesthesia Weeks Gestation Incision Type Labor Labor Length Hrs Delivered By Post Complications Tubal Sterilization Discharge Date Comments 9 Discharge Information Feeding Method Contraceptive Method Maternal HG B and HCT Levels Ob Episode Information Episode Created Date Number of Fetuses Patient Bloodtype Patient rh Status Prepregnancy Weight lbs Domestic Partner Domestic Partner Phone Father Name Coal Chemist Status 10/08/19 24 1 CLOSED Fetus Data First Name Last Name Admitted to NICU Weight (g) Sex Living Outcome Pediatric Complications Fetus ID Race Codes Race Delivery Type 3118.44 5 Full Term 07422 Vaginal Delivery Frederick Calculation Initial Frederick Date Initial Exam Date Initial Exam Provider Initial Ultrasound Date Last Menstrual Period Date Ultra Sound Weeks Gestation 0 Eighteen To Twenty Week Frederick Update Ultra Sound Date Fundal Height At Umbil Quickening Date Ultra Sound Latest Weeks Gestation Final Frederick Confirmed By Final Frederick Confirmed Date Final Frederick Date Ultra Sound Latest Days Gestation 0 0 Menstrual History Last Menstrual Date Menses Monthly On Bcp Conception Prior Menses Frequency Hcg Plus Date Menarche Onset Age Delivery Information Delivery Date Delivery Type Labor Anesthesia Weeks Gestation Incision Type Labor Labor Length Hrs Delivered By Post Complications Tubal Sterilization Discharge Date Comments 1 Discharge Information Feeding Method Contraceptive Method Maternal HG B and HCT Levels
--- OUTSIDE RECORDS SUMMARY | 2024-08-04 11:26 | XMS_ITS | Encounter Summary ---
Author Organization [facility] Address [address] [place] [address] Phone Care Team Providers Care Shell Grader Name Role Phone Nick Reyes MD Primary Care Provider Encounter Details Date Type Department Care Team (Late st Contact Info) Description 06/17/2019 Orders Only [facility] [phone] Scanning, Provider Social History Tobacco Use Types Packs/Day Years [...] Procedure Name Priority Date/Time Associated Diagnosis Comments SCAN - RADIOLOGY/IMAGING 06/17/2019 documented in this encounter Results * SCAN - RADIOLOGY/IMAGING (06/17/2019) Anatomical Region Laterality Modality Other us Provider Scanning Final Result documented in this encounter Visit Diagnoses Not on filedocumented in this encounter Care Teams Shell Grader Relationship Specialty Start Date End Date Nick Reyes MD PCP - General 09/02/16 documented as of this encounter
--- OUTSIDE RECORDS SUMMARY | 2024-08-04 11:26 | XMS_ITS | Clinical Summary ---
Author Organization [facility] Address [address] [place] [address] Care Team Providers Care Enrollment Manager Name Role Phone Nick Reyes MD Primary Care Provider [phone] Source Comments [facility],non-owned Affiliates and Associated Physician Practices is amultiple site organization consisting of ambulatory clinics and hospital sitesin [place], [place], [place] and [place]. This disclosure is being madepursuant to the Care Everywhere program and may not contain all information available regarding this patient. Last updated 18.[facility] Allergies Active Allergy Reactions Criticality Noted Date [...] (12/25/2021): Added automatically from request for surgery [id number] Right elbow pain 01/11/2019 Overview (12/25/2021): Added automatically from request for surgery [id number] Multiple joint pain 12/04/2016 Arthropathies in other [...] 12/25/2021 12:46 PM CDT Plan of Treatment Health Maintenance Due Date Last Done Comments BONE DENSITY TESTING 1945 MEDICARE AWV 12 MONTHS 1945 HEPATITIS C SCREENING 09/02/1964 DTAP/TDAP/TD VACCINES (1 - Tdap) 1965 ZOSTER VACCINE (1 of 2) 1996 PNEUMOCOCCAL VACCINE 50+ (2 of 2 - PPSV23) 06/06/2017 06/06/2016, 10/10/2014 Respiratory Syncytial Virus (RSV) Vaccine Pt: or over 60 yrs (1 - 1-dose 75+ series) 2021 COVID-19 VACCINE (1 - 2023- season) 2024 INFLUENZA VACCINE (#1) 2024 9, 04/22/2018, 06/06/2016, Additional history exists DEPRESSION SCREENING 05/26/2024 HEPATITIS B VACCINE Aged Out No longe r eligible based on patient's age to complete this topic HIB VACCINE Aged Out No longer eligi ble based on patient's age to complete this topic HPV VACCINE Aged Out No longer eligi ble based on patient's age to complete this topic MENINGOCOCCAL (Group B) VACCINE SHARED DECISION-MAKING Aged Out No longer eligible based on patient's age to complete this topic MENINGOCOCCAL GROUPS A/C/Y/W VACCINE Aged Out No longer eligible based on patient's age to complete this topic Care Teams Enrollment Manager Relationship Specialty Start Date End Date Nick Reyes MD [address] [place] [address] [address] [place] [address] PCP - General 03/31/08
--- OUTSIDE RECORDS SUMMARY | 2024-08-04 11:26 | XMS_ITS | Continuity of Care Document ---
Author Organization [facility] Address [address] [place] [address] Phone Care Team Providers Care Registered Associate Name Role Phone Ashley Parisi Unavailable Unavailable Procedures Procedure Date Post-op Follow-up Visit Post-op Follow-up Visit Post-op Follow-up Visit Post-op Follow-up Visit Post-op Follow-up Visit Remove Cataract, Insert Lens Office/outpatient Visit, Est Echo Exam Of Eye-Professional 0 Post-op Follow-up Visit Post-op Follow-up Visit Post-op Follow-up Visit Remove Cataract, Insert Lens Cataract Kit SEC [facility] Tax - Medical Eye Exam & Treatment Echo Exam Of Eye Eye Exam & Treatment Refraction Advance Directives Directive Yes / No Effective Date File Name No Information Encounters Encounter Description Practice Location Reason(s) For Visit Diagnoses Date Provider Providers Copied on Encounter [facility], [address], [place], [place], [id number], [place] tel:[phone] [facility] No Information 0 Ailin Ramirez. [address] , [address], [place], [address], [place]. tel:[phone] [facility], [address], [place], [place], [address], [place] tel:[phone] [facility] No Information Feb- 8-201 0 Simon Strong. [address] , [address], [place], [place], [facility], [place]. tel:[phone] [facility], [address], [place], [place], [address], [place] tel:[phone] [facility] No Information Sep-2 3-201 0 Parisi Ashley. [address] , [address], [place], [facility], [place]. tel:[phone] [facility], [address] [place] [address] [address], [place], [place], [address], [place] tel:[phone] [facility] No Information Sep-0 2-201 0 Ailin Adairn. [address] , [address], [place], [facility], [place]. tel:[phone] [facility], [address] [place] [address] [address], [place], [place], [address], [place] tel:[phone] [facility] No Information Dec-2 6-201 0 Ailin Adairn. [address] , [address], [place], [facility], [place]. tel:[phone] [facility], [address] [place] [address] [address], [place], [place], [address], [place] tel:[phone] [facility] No Information Dec-2 5-201 0 Ailin Adairn. [address] , [address], [place], [facility], [place]. tel:[phone] Office/outpat ient Visit, Est [facility], [address] [place] [address] [address], [place], [place], [address], [place] tel:[phone] [facility] No Information 9-201 0 Ailin Adairn. [address] , [address], [place], [facility], [place]. tel:[phone] Referring Provider: Ashley Morales, [address], [place], [facility]. tel:[phone] [facility], [address] [place] [address] [address], [place], [place], [address], [place] tel:[phone] [facility] No Information 6-200 9 Ailin Adairn. [address] [facility] [address] [facility] , [address], [place], [facility], [place]. tel:[phone] [facility], [address] [place] [address] [address], [place], [place], [address], [place] tel:[phone] [facility] No Information 6200 9 Ailin Ramirez. [address] [facility] [address] , [address], [place], [facility], [place]. tel:[phone] [facility], [address] [place] [address] [address], [place], [place], [address], [place] tel:[phone] [facility] No Information 0 9-200 9 Ailin Adairn. [address] [facility] , [address], [place], [facility], [place]. tel:[phone] [facility], [address] [place] [address] [address], [place], [place], [address], [place] tel:[phone] [facility] No Information 0 8-200 9 Ailin Adairn. [address] , [address], [place], [facility], [place]. tel:[phone] [facility], [address], [place], [place], [address], [place] tel:[phone] [facility] No Information Jose-0 8-200 9 Ailin Ramirez. [address] [facility] , [address], [place], [facility], . tel:[phone] Referring Provider: Isabel Miles [facility] [address], [place], [facility]. tel:[phone] [facility], [address] [place] [address] [address], [place], [place], [address], tel:[phone] [facility] No Information Josesito-2 5-200 9 Ailin Ramirez. [address] [facility] [address], [place], [facility], . tel:[phone] Referring Provider: Isabel Miles [facility] [address], [place], [facility]. tel:[phone] [facility], [address] [place] [address] [address], [place], [place], [address], tel:[phone] [facility] No Information Jul-0 6-200 8 Ailin Ramirez. [address] [place] [address] , [address], [place], [facility], . tel:[phone] Family History Family Member Type Diagnosis Age At Onset No Information Payers Payer name Insurance type Covered constitution party ID Anthonya racheal(s) [facility] Commercial CI [id number] Social History Type Description Quantity Date Captured Comments Sex Female Smoking Status No Information Chief Complaint And Reason For Visit No Information Reason For Referral Reason For Referral No Information History Of Present Illness Encounter Date Complaint History Of Prese nt Illness No Information Functional Status Date Functional Assessmen t No Information Instructions Date Instruction Additional Infor mation No Information Assessments Type Assessment Date No Information Patient Care Teams Name Effective Dates (start - stop) Status Members No Information
--- OUTSIDE RECORDS SUMMARY | 2024-08-04 11:26 | XMS_ITS | Patient Health Summary ---
Author Organization [facility] Address [address] [place] [address] Care Team Providers Care Basting Cleaner Name Role Phone Nick Reyes MD Primary Care Provider [phone] Note from [facility],non-owned Affiliates and Associated Physician Practices is amultiple site organization consisting of ambulatory clinics and hospital sitesin [place], [place], [place] and [place]. This disclosure is being madepursuant to the Care Everywhere program and may not contain all information available regarding this patient. Last updated 18.[facility] Allergies * Latex(Unknown) Medications * Be aware that medications may not be up to date on this document. Alwaysverify current medications with the patient. * omeprazole (PRILOSEC) 20 MG capsule Take 20 mg by mouth * aMILoride-hydroCHLOROthiazide (MODURETIC) 5-50 MG tablet amiloride 5 mg-hydrochlorothiazide 50 mg tablet * atorvastatin (LIPITOR) 80 MG tablet Take 80 mg by mouth Half tablets twice a day * buPROPion XL 24hr (WELLBUTRIN-XL) 300 MG tablet Take 300 mg by mouth once daily * ALPRAZolam (XANAX) 0.25 MG tablet Take 0.25 mg by mouth as needed * Multiple Vitamin (MULTI-VITAMINS) TABS Take 1 tablet by mouth * PROBIOTIC PRODUCT PO * Multiple Vitamins-Minerals (CENTRUM SILVER) TABS Take 1 tablet by mouth daily with food Active Problems Problem Noted Date Diagnosed Date [...] Bunion 02/13/2021 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 Right elbow pain 01/11/2019 Multiple joint pain 12/04/2016 Arthropathies in other speci fied diseases classified elsewhere, right hand 12/03/2016 Class 2 obesity with body ma ss index (BMI) of 36.0 to 36.9 in adult 12/03/2016 Cyclic edema 12/03/2016 Depression 12/03/2016 Extensor tenosynovitis of right wrist 12/03/2016 Gastroesophageal reflux disease without esophagi tis 12/03/2016 Hypercholesteremia 12/03/2016 Postmenopausal bone loss 12/03/2016 Primary osteoarthritis involving multiple joints 12/03/2016 Resolved Problems Problem Noted Date Diagnosed Date Resolved Date Acute sinusitis 10/16/2021 01/22/2022 Immunizations * INFLUENZA VACCINE, TRIV. (AFLURIA, FLUZONE TRIVALENT; 6MO+) (IIV3)(Given 04/19/2013) * INFLUENZA VACCINE, HIGH-DOSE, QUADR. (FLUZONE HIGH-DOSE QUADRIVALENT; 65Y+), 0.7 ML (HD-IIV4)(Given 04/12/2019, 04/22/2018) * INFLUENZA VACCINE, QUADR. (FLUZONE; FLULAVAL; FLUARIX; AFLURIA QUADRIVALENT; 6MO+), 0.5 ML (IIV4)(Given 06/06/2016) * Pneumococcal Pcv13 Conj(Given 06/06/2016, 10/10/2014) Social History Tobacco Use Types Packs/Day Years [...] Mass Index 35.15 12/25/2021 12:46 PM CDT Procedures * MRI CERVICAL SPINE WO CONTRAST(Performed 01/06/2022) Performed for Vertigo, Rheumatoid arthritis of other site, unspecified whether rheumatoid factor present (HCC) * ACETYLCHOLINE RECEPTOR BINDING ANTIBODY(Performed 12/25/2021) Performed for Vertigo * C-REACTIVE PROTEIN(Performed 12/25/2021) Performed for Vertigo * PURKINJE CELL ANTIBODY TITER(Performed 12/25/2021) Performed for Vertigo * PARANEOPLASTIC AUTOANTIBODY EVALUATION(Performed 12/25/2021) Performed for Vertigo * ERYTHROCYTE SEDIMENTATION RATE(Performed 12/25/2021) Performed for Vertigo * DERMATOPATHOLOGY(Performed 02/05/2018) * DERMATOPATHOLOGY(Performed 04/05/2013) * DERMATOPATHOLOGY(Performed 01/29/2013) Results * MRI CERVICAL SPINE WO CONTRAST (01/06/2022 11:56 AM CDT) Anatomical Region Laterality Modality Pelvis Magnetic Resonan ce 01/08/2022 10:3 3 AM CDT Impressions 01/08/2022 10:57 AM CDT IMPRESSION: 1.Multilevel degenerative disc and joint disease as detailed [id number] above, worst at C5-C6, where there is moderate spinal canal and neural foraminal stenosis and mild cord abutment as outlined. Varying degrees of neural foraminal stenosis are noted. 8 x 5 mm left perineural cyst at C7-T1. 2.Partially imaged fluid signal in the right mastoid air cells. > Interpreting Provider: Sotero Vasquez MD on 01/08/2022 10:57 AM Narrative 01/08/2022 10:57 AM CDT MRI CERVICAL SPINE WO CONTRAST DATE: 01/06/2022 11:56 AM EXAMINATION: Magnetic resonance imaging (MRI) of the cervical spine without contrast HISTORY: R42: Vertigo M06.9: Rheumatoid arthritis of other site, unspecified whether rheumatoid factor present TECHNIQUE: MRI of the cervical spine was performed without contrast according to standard protocol. COMPARISON: No prior study is available for comparison at the time of this dictation. FINDINGS: Reversal of the cervical lordosis centered at C5 level. Approximately 2 mm anterolisthesis of C3 on C4 and C4 on C5. Approximately 3-4 mm anterolisthesis of C7 on T1. Mild retrolisthesis of C5 on C6 and trace anterolisthesis of C6 on C7. Vertebral bodies are normal in height without evidence of compression fractures. Marrow signal intensity is normal. Mild degenerative changes involving the middle atlantoaxial joint. The craniocervical junction and visualized portions of the posterior fossa appear otherwise grossly unremarkable. Mild cord flattening and questionable abnormal T2 cord signal at the level of C5-C6 concerning for cord edema and/or early myelomalacia. The anterior and posterior longitudinal ligaments as well as the posterior ligamentous complex appear intact. There is mild disc height loss at multiple levels. No soft tissue abnormality is identified. Normal flow voids are identified in the vertebral arteries. The right vertebral artery is dominant. Partially imaged fluid signal in the right mastoid air cells. C2-3: There is no disc bulge. There is no central canal stenosis. There is mild facet osteoarthritis. There is no uncovertebral joint osteoarthritis. There is no neural foraminal stenosis. C3-4: There is diffuse disc bulge. There is hypertrophy of the ligamentum flavum. There is mild central canal stenosis. There is mild facet osteoarthritis. There is mild to moderate uncovertebral joint osteoarthritis. There is severe right and mild left neural foraminal stenosis. C4-5: There is diffuse disc bulge. There is mild hypertrophy of the ligamentum flavum. There is a mild central canal stenosis. There is mild right and moderate left facet osteoarthritis. There is mild uncovertebral joint osteoarthritis. There is mild left neural foraminal stenosis. C5-6: There is diffuse disc bulge. There is hypertrophy of the ligamentum flavum. There is moderate central canal stenosis. There is mild bilateral facet osteoarthritis. There is mild bilateral uncovertebral joint osteoarthritis. There is moderate bilateral neural foraminal stenosis. C6-7: There is mild disc bulge. There is mild hypertrophy of the ligamentum flavum. There is mild central canal stenosis. There is mild facet osteoarthritis. There is mild uncovertebral joint osteoarthritis. There is moderate right and mild left neural foraminal stenosis. C7-T1: There is mild disc bulge. Mild or mild ligamentum flavum. There is no sign central canal stenosis. There is mild facet osteoarthritis. There is mild to moderate uncovertebral joint osteoarthritis. There is moderate right and mild left neural foraminal stenosis. There is 8 x 5 mm left perineural cyst. Procedure Note Sotero Vasquez MD - 01/08/2022 MRI CERVICAL SPINE WO CONTRAST DATE: 01/06/2022 11:56 AM EXAMINATION: Magnetic resonance imaging (MRI) of the cervical spinewithout contrast HISTORY: R42: Vertigo M06.9: Rheumatoid arthritis of other site, unspecified whetherrheumatoid factor present TECHNIQUE: MRI of the cervical spine was performed without contrast according to standard protocol. COMPARISON: No prior study is available for comparison at the time ofthis dictation. FINDINGS: Reversal of the cervical lordosis centered at C5 level. Approximately 2mm anterolisthesis of C3 on C4 and C4 on C5. Approximately 3-4 mm anterolisthesis of C7 on T1. Mild retrolisthesis of C5 on C6 and trace anterolisthesis of C6 on C7. Vertebral bodies are normal in heightwithout evidence of compression fractures. Marrow signal intensity is normal.Mild degenerative changes involving the middle atlantoaxial joint. The craniocervical junction and visualized portions of the posterior fossa appear otherwise grossly unremarkable. Mild cord flattening and questionable abnormal T2 cord signal at the level of C5-C6 concerningfor cord edema and/or early myelomalacia. The anterior and posterior longitudinal ligaments as well as the posterior ligamentous complexappear intact. There is mild disc height loss at multiple levels. No softtissue abnormality is identified. Normal flow voids are identified in the vertebral arteries. The right vertebral artery is dominant. Partially imaged fluid signal in the right mastoid air cells. C2-3: There is no disc bulge. There is no central canal stenosis. Thereis mild facet osteoarthritis. There is no uncovertebral jointosteoarthritis. There is no neural foraminal stenosis. C3-4: There is diffuse disc bulge. There is hypertrophy of theligamentum flavum. There is mild central canal stenosis. There is mild facet osteoarthritis. There is mild to moderate uncovertebral joint osteoarthritis. There is severe right and mild left neural foraminal stenosis. C4-5: There is diffuse disc bulge. There is mild hypertrophy of the ligamentum flavum. There is a mild central canal stenosis. There is mild right and moderate left facet osteoarthritis. There is milduncovertebral joint osteoarthritis. There is mild left neural foraminal stenosis. C5-6: There is diffuse disc bulge. There is hypertrophy of theligamentum flavum. There is moderate central canal stenosis. There is mildbilateral facet osteoarthritis. There is mild bilateral uncovertebral joint osteoarthritis. There is moderate bilateral neural foraminal stenosis. C6-7: There is mild disc bulge. There is mild hypertrophy of theligamentum flavum. There is mild central canal stenosis. There is mild facet osteoarthritis. There is mild uncovertebral joint osteoarthritis. Thereis moderate right and mild left neural foraminal stenosis. C7-T1: There is mild disc bulge. Mild or mild ligamentum flavum. Thereis no sign central canal stenosis. There is mild facet osteoarthritis.There is mild to moderate uncovertebral joint osteoarthritis. There ismoderate right and mild left neural foraminal stenosis. There is 8 x 5 mm left perineural cyst. IMPRESSION: 1.Multilevel degenerative disc and joint disease as [id number] above, worst at C5-C6, where there is moderate spinal canal and neural foraminal stenosis and mild cord abutment as outlined. Varying degreesof neural foraminal stenosis are noted. 8 x 5 mm left perineural cyst at C7-T1. 2.Partially imaged fluid signal in the right mastoid air cells. > Interpreting Provider: Sotero Vasquez MD on 01/08/2022 10:57 AM Ling Etienne MD MR ORDERABLES * PARANEOPLASTIC AUTOANTIBODY EVALUATION (12/25/2021 3:10 PM CDT) See Scanned Document See Scanned Report 01/03/2022 10:36 AM CDT [facility] NON INTERF Blood BLOOD SPECIMEN / Unknown Lab Venipuncture / Unknown 12/25/2021 3:10 PM CDT 12/25/2021 4:03 PM CDT Ling Etienne MD LAB - CHEMISTRY JIMMIE BOTELLO Performing Organization Address City/[facility]/ZIP Co de Phone Number [facility] REF [facility] NON INTERF [address] [place] [address], [facility] [phone] * PURKINJE CELL ANTIBODY TITER (12/25/2021 3:10 PM CDT) Purkinje Cell Antibody Titer IgG CSF SSR 12/29/2021 1:01 PM CDT [facility] ([facility]) Blood BLOOD SPECIMEN / Unknown Lab Venipuncture / Unknown 12/25/2021 3:10 PM CDT 12/25/2021 4:03 PM CDT Ling Etienne MD LAB - CHEMISTRY JIMMIE BOTELLO Performing Organization Address [facility] Co de Phone Number [facility] ([facility]) [address] [place], [place] [id number] [place] [address] * ACETYLCHOLINE RECEPTOR BINDING ANTIBODY (12/25/2021 3:10 PM CDT) Pathologist [facility] Acetylcholine Binding Antibody 0.04 0.00 - 0.24 nmol/L 12/28/2021 2:10 PM CDT [facility] ([facility]) Comment: Negative: 0.00 - 0.24 Borderline: 0.25 - 0.40 Positive: >0.40 Blood BLOOD SPECIMEN / Unknown Lab Venipuncture / Unknown 12/25/2021 3:10 PM CDT 12/25/2021 4:03 PM CDT Narrative [facility] ([facility]) - 12/28/2021 2:10 PM CDT Performed at: [address] [facility] [id number] Branch Lending Manager: Chloé Beck MD, Phone: [phone] Ling Etienne MD LAB - SEROLOGY ORDER PETTY Performing Organization Address City/[facility]/ZIP Co de Phone Number [facility] ([facility]) [address] [place] [address] * (ABNORMAL) C-REACTIVE PROTEIN (12/25/2021 3:10 PM CDT) C-Reactive Protein 0.7(H) <=0.5 mg/dL 12/25/2021 4:24 PM CDT [facility] Blood BLOOD SPECIMEN / Unknown Lab Venipuncture / Unknown 12/25/2021 3:10 PM CDT 12/25/2021 4:03 PM CDT Ling Etienne MD LAB - CHEMISTRY ORDE RABLES [address] [address], [facility] [phone] * ERYTHROCYTE SEDIMENTATION RATE (12/25/2021 3:10 PM CDT) [facility] Erythrocyte Sedimentation Rate Westergren 25 0 - 30 MM/HR 12/25/2021 4:13 PM CDT [facility] Blood BLOOD SPECIMEN / Unknown Lab Venipuncture / Unknown 12/25/2021 3:10 PM CDT 12/25/2021 4:06 PM CDT Ling Etienne MD LAB - HEMATOLOGY ORD ERABLES [address] [address], [facility] [phone] * DERMATOPATHOLOGY (02/05/2018 12:00 AM CDT) Only the most recent of3 resultswithin the time period is included. Pathologist [facility] Case Report Dermatopathology Report Case: [id number] Authorizing Provider: Twan Fox MD Collected: 02/05/2018 12:00 AM Pathologist: Mariana Mullins MD Received: 02/06/2018 11:58 AM Specimen: Skin, left sup breast 8 3:52 PM CDT DERMATOPATHOLOGY LABORATORY Final Diagnosis Specimen A. SKIN, left sup breast: HEALING SKIN CHANGES (L90.5) 3:52 PM CDT DERMATOPATHOLOGY LABORATORY Clinical History R/O BCC, SCC, ISK, HAK. 3:52 PM CDT DERMATOPATHOLOGY LABORATORY Gross Description Specimen A: Received is one formalin filled container labeled with the patient's name and designated left sup breast. The specimen consists of a shave biopsy measuring [id number]. Jar 0. 3:52 PM CDT DERMATOPATHOLOGY LABORATORY [...] characteristic determined by the Dermatopathology Laboratory at [facility]. These tests need not be, and therefore are not, approved by the [place] Food and Drug Administration. The tests are used for clinical purposes. Billing Codes Specimen Charges Stain Charges 88087 1 3:52 PM CDT DERMATOPATHOLOGY LABORATORY Embedded Images 3:52 PM CDT DERMATOPATHOLOGY LABORATORY Pathology/Cytolog y TISSUE SPECIMEN FROM SKIN / Unknown 02/05/2018 02/06/2018 11:58 AM CDT Twan Fox MD LAB - PATHOLOGY/CYTO LOGY ORDERABLES DERMATOPATHOLOGY LABORATORY [facility] - Department of Dermatology [address] [place] [address], [address] [place] [address], [facility] [phone] Care Teams Basting Cleaner Relationship Specialty Start Date End Date Nick Reyes MD [facility] [address] [address] [place] [id number] PCP - General 03/31/08
== END 2024-08-04 10:09 | disposition home or self-care (01) ==
PROVIDERS: PCP Internal Medicine; Visit Provider Otolaryngology
DX: R09.A2 Foreign body sensation, throat (principal)
CPT/HCPCS: 70490

== ENCOUNTER 2024-12-01 14:45 | Emergency (ER) | payer MEDICARE, SELFPAY ==
[2024-12-01] VITALS (12 sets, daily range): BP systolic 109–138; BP diastolic 55–62; PULSE 66–78; RESP 16–20; TEMP 36.4–37.1; O2SAT 95–100
--- NOTE | ~2024-12-01 | XR_ITS ---
EXAMINATION: XR chest 1V DATE: 12/01/2024 16:48 INDICATION: Shortness of breath and weakness TECHNIQUE: frontal view of the chest was obtained. COMPARISON: None FINDINGS: The lungs are clear with no focal airspace opacities, pulmonary edema, pleural effusion or pneumothor ax. The cardiomediastinal silhouette is normal. Cholecystectomy clips in right upper quadrant. Thorac olumbar dextrocurvature with moderate spondylosis. IMPRESSION: 1. No acute cardiopulmonary disease. Reviewed, dictated and finalized at location A.
--- NOTE | ~2024-12-01 | CT_ITS ---
CT abdomen pelvis w con Ordering provider: Aliya Rockwell History: 79 years Female with . LLQ abd pain . Comparison: December 08, 2023 Technique: CT abdomen and pelvis with IV and without oral contrast. Automated exposure control and it erative reconstruction technique were employed. The dose-length product was 665.65 mGy-cm. 100 mL Omn ipaque 350 was given IV. Findings: VISUALIZED LOWER CHEST: Dependent atelectatic changes. UPPER ABDOMINAL ORGANS: Liver: Normal. Gallbladder: Status post cholecystectomy. Prominent CBD measuring 1 cm. Spleen: Normal. Stomach/duodenum: Sliding hiatus hernia. Pancreas: Normal. Adrenals: Left adrenal adenoma measuring 1 cm. No follow-up advised unless clinically warranted. Kidneys: 4 mm stone is seen in the right upper ureter with mild right hydronephrotic changes. Tiny stone in the left kidney upper pole. lobation is seen bilaterally. PELVIC ORGANS: The bladder is underfilled with thickened wall. Evaluation for cystitis advised. BOWEL AND MESENTERY: Colon: No evidence of diverticulitis. The appendix is not demonstrated. Small Bowel: Normal. No obstruction. Peritoneum/mesentery: No free air or free fluid. No mesenteric lymphadenopathy. RETROPERITONEUM: Mild atheromatous disease of the abdominal aorta. No retroperitoneal lymphadenopat hy. MUSCULOSKELETAL: Superficial soft tissues: The superficial soft tissues are normal. Bones: Age appropriate degenerative changes of the spine. Bilateral hip osteoarthritic changes. Levos coliosis. IMPRESSION: 1. Right upper ureteric stone with mild right hydronephrotic changes. 2. Tiny left kidney stone in the upper pole. 3. No evidence of appendicitis, diverticulitis or intestinal obstruction. 4. Sliding hiatus hernia. Reviewed, dictated and finalized at location A.
--- OUTSIDE RECORDS SUMMARY | 2024-12-01 14:48 | XMS_ITS | Clinical Summary ---
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 Overview (01/11/2019): Added automatically from request for surgery [id number] Cyclic edema 12/03/2016 Hypercholesteremia 12/03/2016 Gastroesophageal reflux [...] 5:46 AM CDT Height 149.9 cm (4' 11) 01/14/2019 5:46 AM CDT Body Mass Index 35.61 01/14/2019 5:46 AM CDT Plan of Treatment Not on file Medical Devices Implanted Type Area [employer] P[employer] Inspector Device Identifier Shelf Expiration Date Model / Serial / Lot Total Joint Right: Knee Lens Bilateral: Eye Insurance [place]IC[place] [employer] [place] [employer] [place] MED[place]ARE [facility], [facility] Care Teams Can Intake Worker Relationship Specialty Start Date End Date Nick Reyes MD PCP - General 09/02/16
--- OUTSIDE RECORDS SUMMARY | 2024-12-01 14:48 | XMS_ITS | Referral Summary ---
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
--- OUTSIDE RECORDS SUMMARY | 2024-12-01 14:49 | XMS_ITS | Data Portability ---
Author Organization [place] - [facility], Main Office Address [address] [place] [address] Care Team Providers Care Belly Dump Driver Name Role Phone DEAN REYES Primary Care Provider DEAN REYES Referring Provider [phone] Assessment Encounter Date Assessment Date Assessment LastModified [...] Organization Details Last Modified Time Details Appointments New Patient 15 2024 02:45P Alexander England DPM Not available Not available Not available Lab hepatic function panel, serum 2024 025 [facility] ([facility]), [address] [place], [address], 11/10/2024 03:27:43 glycohemo globin, total, blood 2024 025 [id number] [facility] ([facility] Scheduling), [address] [place], [address], 11/10/2024 09:00:09 lipid panel, serum 2024 025 [id number] [facility] ([facility]uling), [address] [place], [address], 07/21/2024 10:06:10 CMP, serum or plasma [address] ([facility] Scheduling), [address] [place], [address], 07/21/2024 10:06:11 HbA1c (hemoglob in A1c), blood [address] ([facility] Scheduling), [address] [place], [address], 07/21/2024 10:06:11 TSH, serum or plasma [address] ([facility] Scheduling), [address] [place], [address], 07/21/2024 10:06:11 T4, free, serum [address] ([facility] Scheduling), [address] [place], [address], 07/21/2024 10:06:11 lipid panel, serum 2023 024 [facility] ([facility] Scheduling), [address] [place], [address], 03/04/2024 14:45:46 CMP, serum or plasma 2023 024 [facility] ([facility] Scheduling), [address] [place], [address], 03/04/2024 14:45:56 HbA1c (hemoglob in A1c), blood [address] ([facility] Call Scheduling), [address] [place], [address], 03/12/2024 10:40:28 Referral None recorded. Procedures None recorded. Surgeries None recorded. Imaging None recorded. Medication Orders None recorded. Patient TargetsNo targets recorded. Patient Instructions Encounter Date Encounter Id Patient Instructions Last Modified By Organization Details Last Modified Time 03/03/2024 [id number] dementia rating scale-2* [email or web address] Not available 03/03/2024 17:13:30 alcohol misuse* Not available 03/03/2024 17:13:30 depression screening* [email or web address] Not available 03/03/2024 17:13:30 Timed Up and Go test (TUG)* [email or web address] Not available 03/03/2024 17:13:30 multi-dimensiona health assessment questionnaire* [email or web address] Not available 03/03/2024 17:13:30 [place] Advance Directives [email or web address] Not available 03/03/2024 17:13:30 advance directiv es: care instructions [email or web address] Not available 03/03/2024 17:13:30 advance care planning: care instructions [email or web address] Not available 03/03/2024 17:13:30 Personalized Hea lth Plan and Screening Recommendations Advance Directives - Do you have one? No Information given Advance Directives - Do we have your advance directive on file in your health record? Primary Prevention/Interven tion (prevents or decreases the chance of common diseases from occurring) Smoking Risk: Non Smoker Alcohol Misuse Screening: Negative Weight: Overweight try to lose 10% of your body weight Physical activity: Need more exercise/physical activity Nutrition: Average Eat heart healthy diet Fall Risk (screened today): Intermediate Recommend regular use of cane or walker Vaccines Pneumococcal: Recommended today Influenza: Recommended today Chronic Disease Risks Stroke: Intermediate Risk Active diagnosis, Continue current treatment plan Heart Attack: Intermediate Risk Active diagnosis, Continue current treatment plan Clogging of the Arteries: Intermediate Risk Active diagnosis, Continue current treatment plan Diabetes: Intermediate Risk Active diagnosis, Continue current treatment plan Secondary Prevention/Interven tion (detects treatable diseases before they may cause symptoms, disability, or ) Breast Cancer Screening with mammogram: states is up to date Cervical/Uterine/Ov juan carlos Cancer Screening: No screening necessary Osteoporosis Screening: up to date Date Screening Last Performed: Colon Cancer Screening: Cologuard (DNA stool test) due 2025 Date Screening Last Performed: ___2022___ Eye Disease Screening: Your next exam in: goes yearly Dementia Risk: Low I have no recommendations Depression Screening: Positive Active diagnosis, Continue current treatment plan Not available 03/03/2024 16:52:42 Medicare wellnes s evaluation risk assessment stable. Follow-up for essential hypertension, hypothyroidism, hyperlipidemia, rheumatoid arthritis, type 2 diabetes, depression as well as some chronic renal dysfunction stage IIIA. Will continue on current Rx will check a hemoglobin A1c and lipid panel. 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 Will also set up with ENT to evaluate the posterior pharyngeal pain and the vertigo. Additional Orders - Directives - Recommendations 1. ENT consult for posterior neck and the pain along with vertigo. Follow Up: 4 Months Approximate Date: 07/01/2024 Portions of the record may have been created with voice recognition software. Occasional wrong-word or gdkzr-g-whjf substitutions may have occurred due to the inherent limitations of voice recognition software. Read the chart carefully and recognize, using context, where substitutions have occurred. [email or web address] Not available 03/03/2024 17:12:58 03/31/2024 [id number] Follow-up for hypertension, hyperlipidemia, GERD, rheumatoid arthritis [...] arm radiculopathy Keep Appointment: Fri 03:20 PM [place] Follow Up: 4 Months Approximate Date: 07/29/2024 Portions of the record may have been created with voice recognition software. Occasional wrong-word or ylxhp-c-uqvj substitutions may have occurred due to the inherent limitations of voice recognition software. Read the chart carefully and recognize, using context, where substitutions have occurred. [email or web address] Not available 03/31/2024 16:37:10 07/14/2024 [id number] Follow-up for essential hypertension, hyperlipidemia, hypothyroidism, type [...] with voice recognition software. Occasional wrong-word or htpce-o-mxnb substitutions may have occurred due to the inherent limitations of voice recognition software. Read the chart carefully and recognize, using context, where substitutions may have occurred. Created: Dean Reyes M.D. 07.14.2024 03:59 PM [email or web address] Not available 07/14/2024 16:59:23 11/03/2024 [id number] Follow-up essent ial hypertension, hyperlipidemia, type 2 diabetes, ulcerative colitis and obesity class one all clinically stable. Will check a hemoglobin A1c and a hepatic panel. Otherwise is clinically stable at this time. Need to make adjustments up where it is on her insulin medication. Otherwise is clinically doing well. Follow-up in four months Follow Up: 4 Months Approximate Date: 03/03/2025 Portions of record are template driven. When necessary additional context will be provided. Additionally some portions have been created with voice recognition software. Occasional wrong-word or ipyqa-i-omhz substitutions may have occurred due to the inherent limitations of voice recognition software. Read the chart carefully and recognize, using context, where substitutions may have occurred. Created: Dean Reyes M.D. 11.03.2024 04:17 PM Not available 11/03/2024 17:17:03 Reason for Referral None Reported. Results Created Date Observation Date Name Description Value Unit Range Abnormal Flag Note LastModifiedBy Organization Detail LastModifiedTime 03/04/20 24 03/04/2024 LIPID PANEL cholesterol 171 mg/dL 140-19 9 NIH FILEMON NSUS RECOM MENDA TION FOR FOREIGN STERO L: ADULT CHILD LOW RISK: <200 <170 BORDE RLINE : <200- 239 ----- HIGH RISK: >240 >200 Not Available [facility] (Lab) [address] [place], [address], 03/04/2024 14:45:46 03/04/20 24 03/04/2024 LIPID PANEL triglyceride s 265 mg/dL 0-150 high NIH FILEMON NSUS REPOR T RECOM MENDA TION FOR TRIGL YCERI KLAUDIA: ADULT CHILD LOW RISK: <150 ----- BODER LINE: 150-1 99 ----- HIGH RISK: >200 ----- Not Available [facility] (Lab) [address] [place], [address], 03/04/2024 14:45:46 03/04/2003/04/2024 LIPID PANEL HDL cholesterol 51 mg/dL 40- Not Available [facility] (Lab) [address] [place], [address], 03/04/2024 14:45:46 03/04/2003/04/2024 LIPID PANEL LDL cholesterol, calculated 67 mg/dL 0-130 NIH FILEMON NSUS REPOR T RECOM MENDA TIONS FOR LDL: ADULT CHILD LOW RISK <130 <110 (OPTI MAL LDL) <100 ----- BORDE RLINE : 130-1 59 ----- HIGH RISK: >160 >130 A TRIGL YCERI DE RESUL T >400 INVAL IDATE S THE CALCU LATIO N FOR LDL FRACT IONAT ION - THE LDL RESUL T WILL NOT BE REPOR SAVAGE. Not Available [facility] (Lab) [address] [place], [address], 03/04/2024 14:45:46 03/04/2003/04/2024 COMPR EHENS MARIA TERESA METAB OLIC PANEL sodium 138 mmol/ L 137-14 5 Not Available [facility] (Lab) [address] [place], [address], 03/04/2024 14:45:56 03/04/2003/04/2024 COMPR EHENS MARIA TERESA METAB OLIC PANEL potassium 4.0 mmol/ L 3.5-5. 1 Not Available [facility] (Lab) [address] [place], [address], 03/04/2024 14:45:56 03/04/2003/04/2024 COMPR EHENS MARIA TERESA METAB OLIC PANEL chloride 101 mmol/ L 98-107 Not Available [facility] (Lab) [address] [place], [address], 03/04/2024 14:45:56 03/04/20 24 03/04/2024 COMPR EHENS MARIA TERESA METAB OLIC PANEL carbon dioxide 28 mmol/ L 22-30 Not Available [facility] (Lab) [address] [place], [address], 03/04/2024 14:45:56 03/04/20 24 03/04/2024 COMPR EHENS MARIA TERESA METAB OLIC PANEL anion gap 13.0 mmol/ L 14-22 low Not Available [facility] (Lab) [address] [place], [address], 03/04/2024 14:45:56 03/04/2003/04/2024 COMPR EHENS MARIA TERESA METAB OLIC PANEL glucose 201 mg/dL 70-99 high Not Available [facility] (Lab) [address] [place], [address], 03/04/2024 14:45:56 03/04/2003/04/2024 COMPR EHENS MARIA TERESA METAB OLIC PANEL BUN 29 mg/dL 8-19 high Not Available [facility] (Lab) [address] [place], [address], 03/04/2024 14:45:56 03/04/20 24 03/04/2024 COMPR EHENS MARIA TERESA METAB OLIC PANEL creatinine 1.27 mg/dL 0.66-1 .25 high Not Available [facility] (Lab) [address] [place], [address], 03/04/2024 14:45:56 03/04/2003/04/2024 COMPR EHENS MARIA TERESA METAB OLIC PANEL GFR 41 Refer ence Range : [place]lyn ge GFR Healt hy Adult : >60 mL/mi n/1.7 3 m2 Chron ic Kidne y Disea se: 15-60 mL/mi n/1.7 3 m2 Kidne y Failu re: <15/m L/min /1.73 m2 www.n iddk. nih.g ov The MDRD study equat ion has [...] calcu lator is avail able on the [facility] websi te: https ://sulma w.gaby miguel.o rg/pr ofess ional s/kdo qi/gf r_cal culat or Not Available [facility] (Lab) [address] [place], [address], 03/04/2024 14:45:56 03/04/2003/04/2024 COMPR EHENS MARIA TERESA METAB OLIC PANEL alkaline phosphatase 113 U/L 38-126 Not Available [facility] (Lab) [address] [place], [address], 03/04/2024 14:45:56 03/04/2003/04/2024 COMPR EHENS MARIA TERESA METAB OLIC PANEL alanine aminotransfe rase 47 U/L 0-35 high Not Available [facility] (Lab) [address] [place], [address], 03/04/2024 14:45:56 03/04/2003/04/2024 COMPR EHENS MARIA TERESA METAB OLIC PANEL aspartate aminotransfe rase 67 U/L 15-37 high Not Available [facility] (Lab) [address] [place], [address], 03/04/2024 14:45:56 03/04/20 24 03/04/2024 COMPR EHENS MARIA TERESA METAB OLIC PANEL bilirubin, total 1.10 mg/dL 0.20-1 .30 Not Available [facility] (Lab) [address] [place], [address], 03/04/2024 14:45:56 03/04/2003/04/2024 COMPR EHENS MARIA TERESA METAB OLIC PANEL calcium 10.5 mg/dL 8.4-10 .2 high Not Available [facility] (Lab) [address] [place], [address], 03/04/2024 14:45:56 03/04/2003/04/2024 COMPR EHENS MARIA TERESA METAB OLIC PANEL total protein 7.5 g/dL 6.3-8. 2 Not Available [facility] (Lab) [address] [place], [address], 03/04/2024 14:45:56 03/04/2003/04/2024 COMPR EHENS MARIA TERESA METAB OLIC PANEL albumin 4.5 g/dL 3.0-4. 4 high Not Available [facility] (Lab) [address] [place], [address], 03/04/2024 14:45:56 03/04/2003/04/2024 COMPR EHENS MARIA TERESA METAB OLIC PANEL globulin 3.0 g/dL 2.6-4. 2 Not Available [facility] (Lab) [address] [place], [address], 03/04/2024 14:45:56 03/04/2003/04/2024 COMPR EHENS MARIA TERESA METAB OLIC PANEL A/G ratio 1.5 ratio 1.0-2. 0 Not Available [facility] (Lab) [address] [place], [address], 03/04/2024 14:45:56 03/04/2018 0303/04/2024 HEMOG LOBIN A1C HA1C 6.5 % 4.0-6. 0 high Diabe gianna Scree seamus Crite saloni: <5.7% Consi stent with absen ce of diabe gianna 5.7-6 .4% Consi stent with incre ased risk for diabe gianna (pred iabet es) >OR=6 .5% Consi stent with diabe gianna REFER ENCE: Diabe gianna Care 2016, 39(Norton ppl.1 ):s13 -s22 Not Available [facility] (Lab) [address] [place], [address], 03/04/2024 17:50:07 07/23/1907/24/2024 LIPID PANEL , STAND YANN cholesterol, total 157 mg/dL <200 normal Not Available [facility] [place] [address] [place], [address], 07/24/2024 05:38:37 07/23/19 25 07/24/2024 LIPID PANEL , STAND YANN HDL cholesterol 46 mg/dL > or = 50 low Not Available [facility] [address] [place], [address], 07/24/2024 05:38:37 07/23/19 25 07/24/2024 LIPID PANEL , STAND YANN triglyceride s 210 mg/dL <150 high If a non-f astin g speci men was colle cted, consi richar repea t trigl yceri de testi ng on a fasti ng speci men if clini gilbert indic ated. Pola monae et al. J. of Clin. Lipid ol. 2015; 9:129 -169. Not Available [employer] [address] [place], [place] [address], [address], 07/24/2024 05:38:37 07/23/19 25 07/24/2024 LIPID PANEL , STAND YANN LDL-choleste rol 81 mg/dL _(gurwinder c) normal Refer ence range : <100 Sabine able range <100 mg/dL for prima ry preve ntion ; <70 mg/dL for patie nts with CHD or diabe tic patie nts with > or = 2 CHD risk facto rs. LDL-C is now calcu lated using the Rosalee n-Hop kins les almendarez n, which is a valid ated novel metho d margaritai gretchen rodriguezte r accur acy than the Fried brittnee equat ion in the estim ation of LDL-C . Rosalee abbott SS et al. LYLY. 2013; 310(1 9): 2061- 206 (http ://ed ucati on.Qu estDi [employer]. com/f aq/FA Q164) Not Available [facility] [address], [address], 07/24/2024 05:38:37 07/23/1907/24/2024 LIPID PANEL , STAND YANN chol/HDLC ratio 3.4 (calc ) <5.0 normal Not Available [facility] [address] [place], [address], 07/24/2024 05:38:37 07/23/1907/24/2024 LIPID PANEL , STAND YANN non HDL cholesterol 111 mg/dL _(gurwinder c) <130 normal For patie nts with diabe gianna plus 1 major ASCVD risk facto r, treat ing to a non-H DL-C goal of <100 mg/dL (LDL- C of <70 mg/dL ) is consi dered a thera peevangelina c optio n. Not Available [facility] [place] [address] [facility] [place], [address], 07/24/2024 05:38:37 07/23/1907/24/2024 COMPR EHENS MARIA TERESA METAB OLIC PANEL glucose 211 mg/dL 65-99 high Fasti ng refer ence inter francis For someo ne witho ut known diabe gianna, a gluco se value >125 mg/dL indic ates that they may have diabe gianna and this shoul d be confi rmed with a follo w-up test. Not Available [facility] [address] [place], [address], 07/24/2024 05:38:39 07/23/19 25 07/24/2024 COMPR EHENS MARIA TERESA METAB OLIC PANEL urea nitrogen (BUN) 20 mg/dL 7-25 normal Not Available [address], [address], 07/24/2024 05:38:39 07/23/19 25 07/24/2024 COMPR EHENS MARIA TERESA METAB OLIC PANEL creatinine 1.19 mg/dL 0.60-1 .00 high Not Available [address], [address], 07/24/2024 05:38:39 07/23/19 25 07/24/2024 COMPR EHENS MARIA TERESA METAB OLIC PANEL eGFR 47 mL/mi n/1.7 3m2 > or = 60 low Not Available [address], [address], 07/24/2024 05:38:39 07/23/19 25 07/24/2024 COMPR EHENS MARIA TERESA METAB OLIC PANEL BUN/creatini ne ratio 17 (calc ) 6-22 normal Not Available [address], [address], 07/24/2024 05:38:39 07/23/19 25 07/24/2024 COMPR EHENS MARIA TERESA METAB OLIC PANEL sodium 139 mmol/ L 135-14 6 normal Not Available [address], [address], 07/24/2024 05:38:39 07/23/19 25 07/24/2024 COMPR EHENS MARIA TERESA METAB OLIC PANEL potassium 3.7 mmol/ L 3.5-5. 3 normal Not Available [address], [address], 07/24/2024 05:38:39 07/23/19 25 07/24/2024 COMPR EHENS MARIA TERESA METAB OLIC PANEL chloride 100 mmol/ L 98-110 normal Not Available [address], [address], 07/24/2024 05:38:39 07/23/19 25 07/24/2024 COMPR EHENS MARIA TERESA METAB OLIC PANEL carbon dioxide 28 mmol/ L 20-32 normal Not Available [address], [address], 07/24/2024 05:38:39 07/23/19 25 07/24/2024 COMPR EHENS MARIA TERESA METAB OLIC PANEL calcium 9.5 mg/dL 8.6-10 .4 normal Not Available [address], [address], 07/24/2024 05:38:39 07/23/19 25 07/24/2024 COMPR EHENS MARIA TERESA METAB OLIC PANEL protein, total 7.3 g/dL 6.1-8. 1 normal Not Available [address], [address], 07/24/2024 05:38:39 07/23/19 25 07/24/2024 COMPR EHENS MARIA TERESA METAB OLIC PANEL albumin 4.5 g/dL 3.6-5. 1 normal Not Available [address], [address], 07/24/2024 05:38:39 07/23/19 25 07/24/2024 COMPR EHENS MARIA TERESA METAB OLIC PANEL globulin 2.8 g/dL_ (calc ) 1.9-3. 7 normal Not Available [address], [address], 07/24/2024 05:38:39 07/23/19 25 07/24/2024 COMPR EHENS MARIA TERESA METAB OLIC PANEL albumin/glob ulin ratio 1.6 (calc ) 1.0-2. 5 normal Not Available [address] [place], [address], 07/24/2024 05:38:39 07/23/19 25 07/24/2024 COMPR EHENS MARIA TERESA METAB OLIC PANEL bilirubin, total 0.7 mg/dL 0.2-1. 2 normal Not Available [address], [address], 07/24/2024 05:38:39 07/23/19 25 07/24/2024 COMPR EHENS MARIA TERESA METAB OLIC PANEL alkaline phosphatase 103 U/L 37-153 normal Not Available [address], [address], 07/24/2024 05:38:39 07/23/19 25 07/24/2024 COMPR EHENS MARIA TERESA METAB OLIC PANEL AST 60 U/L 10-35 high Not Available [address], [address], 07/24/2024 05:38:39 07/23/19 25 07/24/2024 COMPR EHENS MARIA TERESA METAB OLIC PANEL ALT 32 U/L 6-29 high Not Available [address], [address], 07/24/2024 05:38:39 07/23/19 25 07/24/2024 T4, FREE T4, free 1.0 NG/dL 0.8-1. 8 normal Not Available [address], [address], 07/24/2024 05:38:40 07/23/19 25 07/24/2024 TSH TSH 1.07 mIU/L 0.40-4 .50 normal Not Available [address], [address], 07/24/2024 05:38:41 07/23/19 25 07/24/2024 HEMOG LOBIN [...] diabe gianna for child winnie. Not Available [address], [address], 07/24/2024 05:38:42 11/10/19 25 11/10/2024 HEPAT IC FUNCT ION PANEL protein, total 7.4 g/dL 6.1-8. 1 normal Not Available [address], [address], 11/10/2024 03:27:43 11/10/19 25 11/10/2024 HEPAT IC FUNCT ION PANEL albumin 4.4 g/dL 3.6-5. 1 normal Not Available [facility] [address], [address], 11/10/2024 03:27:43 11/10/19 25 11/10/2024 HEPAT IC FUNCT ION PANEL globulin 3.0 g/dL_ (calc ) 1.9-3. 7 normal Not Available [facility] [address], [address], 11/10/2024 03:27:43 11/10/19 25 11/10/2024 HEPAT IC FUNCT ION PANEL albumin/glob ulin ratio 1.5 (calc ) 1.0-2. 5 normal Not Available [facility] [address] [place], [address], 11/10/2024 03:27:43 11/10/1911/10/2024 HEPAT IC FUNCT ION PANEL bilirubin, total 0.8 mg/dL 0.2-1. 2 normal Not Available [address], [address], 11/10/2024 03:27:43 11/10/19 25 11/10/2024 HEPAT IC FUNCT ION PANEL bilirubin, direct 0.2 mg/dL < or = 0.2 normal Not Available [address], [address], 11/10/2024 03:27:43 11/10/19 25 11/10/2024 HEPAT IC FUNCT ION PANEL bilirubin, indirect 0.6 mg/dL _(gurwinder c) 0.2-1. 2 normal Not Available [address], [address], 11/10/2024 03:27:43 11/10/19 25 11/10/2024 HEPAT IC FUNCT ION PANEL alkaline phosphatase 94 U/L 37-153 normal Not Available [place] [address] [place], [address], 11/10/2024 03:27:43 11/10/1911/10/2024 HEPAT IC FUNCT ION PANEL AST 96 U/L 10-35 high Not Available [address], [address], 11/10/2024 03:27:43 11/10/1911/10/2024 HEPAT IC FUNCT ION PANEL ALT 49 U/L 6-29 high Not Available [place] [address] [place], [address], 11/10/2024 03:27:43 11/10/19 25 11/10/2024 HEMOG LOBIN A1C hemoglobin A1C 7.3 %_of_ total _HGB <5.7 high For someo [...] Curre ntly, no conse nsus exist s kellie godinez use of hemog lobin A1c for diagn osis of diabe gianna for child winnie. Not Available [place] [address] [address] [place], [address], 11/10/2024 03:27:44 02/12/20 24 02/12/2024 XR, abdom en No observ ation record ed. [place] [id number] [facility] [address], [place], [address], 02/12/2024 17:15:26 04/07/20 24 04/07/2024 MRI, cervi gurwinder spine , w/o contr ast [facility] [address] [place] [address] [phone] [phone] Patien t Name: SKY HENRY Access ion #: [id number] Sex: F : 1945 0 Dictat ed By: Elizabeth mathur Attend ing Physic rush: ANAYA REYES Orderi Physic rush: ANAYA REYES CE Exam Date: [...] ral body height s are mainta ined. Bolt Cutter ior elemen ts are intact . No [...] the spinal cord. There is Page 1 [facility] [address] [address] Patien t Name: SKY HENRY Access ion #: [id number] Sex: F : 1945 0 Dictat ed By: Elizabeth mathur Attend ing Physic rush: JAY SOL Physic rush: ANAYA REYES Exam Date: 2023 [...] at 2023 13:24: 26 PM Page 3 [email or web address] [facility] ([facility]) [address] [place], [address], 04/07/2024 16:40:40 08/05/19 25 08/04/2024 CT, neck, soft tissu e, w/o contr ast No observ ation record ed. [address] [facility] [address], [place], [address], 08/04/2024 17:08:15 Result Notes Documentation Provider Name and Address Organization Details Recorded Time Mri, Cervical Spine, W/o Contrast : [facility] [address] [place] [address] Patient Name: SKY HENRY Sex: F : 1945 Dictated By: Alpesh Leonard Attending Physician: DEAN REYES Ordering Physician: DEAN REYES Exam Date: 04/07/2024 14:07 PM Exam Name: MRI C SPINE WO Admitting Diagnosis(es): CLINICAL INFORMATION: 78 years old, Female; cervical radiculopathy. TECHNIQUE: Multisequence multiplanar MRI images of the cervical spine were obtained without contrast. COMPARISON: XR L SPINE on DOS: 09/26/22, MRI IACS WO on DOS: 11/01/21, MRI BRAIN WO on DOS: 11/01/21 FINDINGS: Bones: Bursal of the normal cervical lordosis. Mild grade 1 anterolisthesis of C4 on C5. Minimal retrolisthesis of C5 on C6. Mild grade 1 anterolisthesis of C7 on T1. Vertebral body heights are maintained. Posterior elements are intact. No acute fracture. No focal suspicious marrow signal abnormality. Spinal cord: Spinal cord is normal in signal intensity and morphology. Paraspinal soft tissues: Paraspinal and prevertebral soft tissues are unremarkable. Other: No other significant findings. Cervical disc levels: C2-C3: Disc desiccation. 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 Facet and uncinate hypertrophy with mild right and ytud-kq-wvdvmuwh left neural foraminal stenoses. C3-C4: Disc desiccation with diffuse disc bulge superimposed on congenital spinal canal narrowing causing moderate to severe spinal canal stenosis, abutting and mildly indenting the ventral aspect of the spinal cord. There is Page 1 [facility] [address] [place] [address] Patient Name: SKY HENRY Sex: F : 1945 Dictated By: Alpesh Leonard Attending Physician: JAY MORAN Ordering Physician: DEAN REYES Exam Date: 04/07/2024 14:07 PM Exam Name: MRI C SPINE WO Admitting Diagnosis(es): also infolding of the ligamentum flavum contributing to the spinal canal stenosis. There is effacement of the lateral recesses. Facet and uncinate hypertrophy with severe bilateral neural foraminal stenoses. C4-C5: Disc desiccation with diffuse disc bulge and congenital spinal canal narrowing contributing to moderate to severe spinal canal stenosis, abutting and mildly indenting the ventral aspect of the spinal cord and effacing the lateral recesses. Facet and uncinate hypertrophy with severe left and nlam-pt-xwkyloit right neural foraminal stenoses. C5-C6: Disc desiccation with severe disc space narrowing and diffuse disc bulge superimposed on congenital spinal canal narrowing contributing to moderate to severe spinal canal stenosis and effacement of the lateral recesses. Facet and uncinate hypertrophy with severe bilateral neural foraminal stenoses, right greater than left. C6-C7: Disc desiccation with moderate to severe disc space narrowing and diffuse disc bulge superimposed on congenital spinal canal narrowing causing moderate spinal canal stenosis and effacement of the lateral recesses. Facet and uncinate hypertrophy with severe bilateral neural foraminal stenoses. C7-T1: Disc desiccation with diffuse disc bulge and congenital spinal canal narrowing contributing to [id number]-[id number] spinal canal stenosis. Facet and uncinate hypertrophy with severe bilateral neural foraminal stenoses. IMPRESSION: 1. Reversal of the normal cervical lordosis with multilevel spondylolisthesis as described above. 2. Degenerative disc disease and facet disease with associated spinal canal, subarticular, and neural foraminal stenoses as detailed above. Page 3 Dean Reyes MD [address] [place] [address], [place], [address], [facility] [facility] 04/07/2024 16:40:40 Problems Name Problem SNOMED Code Status Onset Date Resolution Date Notes Provider Name and Address Organization Details Recorded Time Anxiety 48995393 Active 2022 Not Available [facility] 4 09:40:04 Pain of right knee joint 3095138813729 00 Active 2022 Not Available [facility] 4 09:40:04 Senile osteoporos is 98813617 Active 2022 Not Available [facility] 4 09:40:03 Benign essential hypertensi on 8017839 Active Not Available [facility] 4 09:40:03 Hearing loss 68037077 Active Not Available [facility] 4 09:40:03 Acute sinusitis 11982394 Active 2021 Not Available [facility] 4 09:40:03 Blood glucose outside reference range 399854866 Active Not Available [facility] 4 09:40:03 Pleurisy 096786902 Active Not Available [facility] 4 09:40:03 Lumbar sprain 761047375 Active Not Available [facility] 4 09:40:03 Gastroesop hageal reflux disease 079392862 Active Not Available [facility] 4 09:40:03 Gallstone 971100052 Active Not Available [facility] 4 09:40:03 Osteoarthr itis of knee 111775323 Active 2016 Not Available [facility] 4 09:40:03 Screening mammograph y Active 2021 Not Available [facility] 4 09:40:03 Transient cerebral ischemia 129934000 Active Not Available [facility] 4 09:40:03 Dyspnea 068133300 Active Not Available [facility] 4 09:40:03 Pure hyperchole sterolemia 070834872 Active Not Available [facility] 4 09:40:03 Dizziness and giddiness 630604554 Active 2021 Not Available [facility] 4 09:40:03 Localized, primary osteoarthr itis of elbow 097380821 Active Not Available [facility] 4 09:40:03 Vitamin D deficiency 49987321 Active Not Available [facility] 4 09:40:03 Depressive disorder 18949272 Active Not Available [facility] 4 09:40:03 Pain of multiple joints 31991874 Active 2016 Not Available [facility] 4 09:40:03 Osteoarthr itis 435059295 Active Not Available [facility] 4 09:40:03 Vertigo 684955813 Active Not Available [facility] 4 09:40:03 Dizziness 490786748 Active 2021 Not Available [facility] 4 09:40:03 Hypothyroi dism 90533949 Active Not Available [facility] 4 09:40:04 Bunion 919395405 Active 2020 Not Available [facility] 4 09:40:04 Chronic left-sided ulcerative colitis 918723634 Active Not Available [facility] 4 09:40:04 Mastoiditi s 87415148 Active 2021 Not Available [facility] 4 09:40:04 Rheumatoid arthritis 20307673 Active 2021 Not Available [facility] 4 09:40:04 COVID-19 189530330 Active 2022 Not Available [facility] 4 09:40:04 Herniation of nucleus pulposus 27536161 Active Not Available [facility] 4 09:40:04 Hyperglyce lance 05652748 Active 2022 Not Available [facility] 4 09:40:04 Type 2 diabetes mellitus 50776483 Active 2022 Not Available [facility] 4 09:40:04 Type 2 diabetes mellitus without complicati on 957543657 Active 2022 Not Available [facility] 4 09:40:03 Diabetes mellitus 79532879 Active 2022 Not Available [facility] 4 09:40:04 Gastroesop hageal reflux disease without esophagiti s 107598709 Active 2022 Not Available [facility] 4 09:40:03 Acute bronchitis 85533635 Active 2023 Dean Reyes MD [address], [address], [place], [address] , [facility] 4 11:58:54 Candidiasi s of vagina 45367791 Active 2023 Dean Reyes MD [address], [address], [place], [address] , [facility] 4 13:31:40 Acute urinary tract infection 418683365 Active 2023 Dean Reyes MD [address], [place], [address] , [facility] 4 10:20:37 Dysuria 39154073 Active 2023 Shanita Munoz null, [place] [facility] [place] [facility] 4 12:33:37 Cervical radiculopa thy 65244649 Active 2023 Dennise Mayes null, [facility] 4 16:48:01 Obese class I 7615813902553 07 Active 2024 Dean Reyes MD [address], [address], [place], [address] , [facility] 5 16:58:29 Hemorrhoid s 99025915 Active 2024 Dennise Mayes null, [place] - [facility] 5 17:03:52 Liver enzymes level above reference range 114710546 Active 2024 Skye Pavon CMA null, [facility] 5 16:23:48 External hemorrhoid s 71511436 Active 2024 Gregorio schwartz MD [address], [address], [place], [address] , [facility] 5 13:02:09 Problem Notes None recorded. Procedures Surgical History Date Name Laterality Status Provider Name and Address Organization Details Recorded Time 024 Medicare Wellness CPT Code, subsequent completed Susan Pacheco RN [facility] 03/03/2024 16:43:34 024 Advanced Care Planning completed KENAN Treviño Ankur [place] [facility] 03/03/2024 16:56:06 023 Medicare Wellness CPT Code, subsequent completed KENAN Treviño Ankur [place] [facility] 11/06/2022 15:05:16 020 Most Recent Bone Density completed Not Available [facility] 07/24/2022 02:55:04 rhinoseptoplasty completed Not Available [facility] 07/24/2022 02:55:10 Knee Replacement completed Not Available [facility] 07/24/2022 02:55:10 Cholecystectomy completed Not Available [facility] 07/24/2022 02:55:10 Tubal Ligation completed Not Available [facility] 07/24/2022 02:55:10 screening for malignant neoplasm of skin completed Not Available [facility] 07/24/2022 02:55:10 Carpal tunnel surgery completed Not Available [facility] 07/24/2022 02:55:10 Imaging Results None recorded. Procedure Notes None recorded. Medical Equipment None Reported. Allergies Allergen ID Allergen Name Allergen Category Reaction Reaction Severity Criticality Documentation Date Start Date Code Code System Note Provider Name and Address Organization Details Recorded Time 5913 cisapride monohydra te medicatio n other Not available Not available 07/24/2022 47092 7 RxNorm Not Available [facility] 3 03:28:42 5914 codeine medicatio n rash Not available Not available 07/24/2022 2670 RxNorm Not Available [facility] 3 03:28:42 Medications Name Sig Start Date [...] tablet twice a day by oral route. 09/09 completed Not Available Not Available Not Available atorvastati n 80 mg tablet take [...] t Available azathioprin e 50 mg tablet TAKE 2 TABLETS BY MOUTH EVERY DAY active Not Available Not Available No t Available Tamiflu 75 mg capsule Take 1 capsule [...] t Available alprazolam 0.25 mg tablet TAKE ONE TABLET BY MOUTH THREE TIMES DAILY 2024 active Not Available Not Available Not Avai lable famotidine 20 mg tablet TAKE 1 TABLET BY MOUTH AT BEDTIME NEEDED active Not Available Not Available No t Available methotrexat e sodium 2.5 mg tablet TAKE 3-6 TABS BY MOUTH IN THE AM ONE DAY PER WEEK 11/06 completed Not Available Not Available Not Available Kenalog 10 mg/mL suspension for injection In office injection administe red by the provider 09/26 completed [facility]: 0003- 0494- 20 Not Available Not [...] t Available Prevalite 4 gram powder for suspension in a packet DISSOLVE DIRECTED 1 PACKET [...] 1 tablet every day by oral route. 02/25/ 2022 active Not Available Not Available Not Avai [...] administe red by the provider 06/29 completed [facility]: 0409- 4276- 17 Not Available Not [...] completed Not Available Not Available Not Available TRUEplus Pen Needle 29 gauge x 1/2 USE DIRECTED active Not Available Not Available No t Available Toujeo Max U-300 SoloStar 300 unit/mL (3 mL) subcutaneou s insulin pen Inject 32 units every day by subcutane ous route at bedtime. 2024 active Not Available Not Available Not Avai lable OneTouch Delica Plus Lancet 33 gauge USE 1 TO CHECK GLUCOSE ONCE DAILY 02/10 completed Not Available Not Available Not Available OneTouch Delica Plus Lancet 30 gauge USE 1 TO CHECK GLUCOSE ONCE DAILY active Not Available Not Available No t Available Contour Next Glucose Meter kit 04/06 completed Not Available Not Available Not Available Contour Next Glucose Meter 02/10 completed Not Available Not Available Not Available Paxlovid 150 mg-100 mg tablets in a dose pack (Moderate Renal Dose) Take one 150 mg and one 100 mg tablet twice daily for five days 09/26 completed Not Available Not Available Not Available Vitals Date Recorded Body height Body mass index (BMI) Body weight Heart rate Body temperature Oxygen saturation Oxygen saturation in Arterial blood by Pulse oximetry Systolic And Diastolic Provider Name and Address Organization Details Last Updated DateTime 5 149.86 cm 34.4 kg/m2 87929.5 g 83 /min 97 [degF] 97 % 97 % 120/68 mm[Hg] [email or web address] [employer] [facility] [employer] 5 16:23:04 Date Recorded Body height Body mass index (BMI) Body weight Body temperature Respiratory rate Heart rate Oxygen saturation Oxygen saturation in Arterial blood by Pulse oximetry Systolic And Diastolic Provider Name and Address Organization Details Last Updated DateTime 5 149.86 cm 34.3 kg/m2 65810.7 g 97.6 [degF] 14 /min 86 /min 97 % 97 % 120/80 mm[Hg] Dennise Alvarez [place] [employer] [facility] [employer] 5 11:11:19 Date Recorded Body height Body mass index (BMI) Body weight Heart rate Body temperature Oxygen saturation Oxygen saturation in Arterial blood by Pulse oximetry Systolic And Diastolic Provider Name and Address Organization Details Last Updated DateTime 5 149.86 cm 34.3 kg/m2 61993.7 g 80 /min 97 [degF] 97 % 97 % 142/74 mm[Hg] [facility] [employer] [facility] [employer] 5 16:31:52 Date Recorded Body height Body weight Heart rate Body temperature Oxygen saturation Oxygen saturation in Arterial blood by Pulse oximetry Systolic And Diastolic Provider Name and Address Organization Details Last Updated DateTime 4 149.86 cm 26244.7 g 75 /min 97 [degF] 96 % 96 % 122/72 mm[Hg] [facility] [place] [email or web address] [facility] 4 16:33:05 Date Recorded Body height Body mass index (BMI) Body weight Heart rate Body temperature Oxygen saturation Oxygen saturation in Arterial blood by Pulse oximetry Systolic And Diastolic Provider Name and Address Organization Details Last Updated DateTime 4 149.86 cm 35.1 kg/m2 46187.0 7 g 73 /min 97 [degF] 96 % 96 % 128/74 mm[Hg] CECY Rosario [place] [email or web address] [facility] 4 16:15:38 Social History Question Answer Notes LastModified by Organizat ion Details LastModified Time Tobacco Smoking Status Never Smoker Not Available [facility] 07/24/2022 02:42:45 Do You Have An Advance Directive? No Info Given [email or web address] Information not available 03/03/2024 Do You Wear A Helmet When Biking? No Na [email or web address] Information not available 11/06/2022 Are You Blind Or Do You Have Difficulty Seeing? No MIGRATION.24185 01798 Information not available 07/24/2022 In The 14 Days Before Symptom Onset, Have You Had Close Contact With A Laboratory-confi rmed COVID-19 While That Case Was Ill? No MIGRATION.25190 05392 Information not available 07/24/2022 In The 14 Days Before Symptom Onset, Have You Had Close Contact With A Person Who Is Under Investigation For COVID-19 While That Person Was Ill? No MIGRATION.95299 89923 Information not available 07/24/2022 Are You Deaf Or Do You Have Serious Difficulty Hearing? No MIGRATION.19527 59862 Information not available 07/24/2022 What Type Of Diet Are You Following? REGULAR MIGRATION.65269 60508 Information not available 07/24/2022 Have There Been Any Changes To Your Family Or Social Situation? No MIGRATION.02335 50995 Information not available 07/24/2022 What Is The Fluoride Status Of Your Home? Unknown MIGRATION.61520 28319 Information not available 07/24/2022 Are There Any Guns Present In Your Home? Yes MIGRATION.80794 52109 Information not available 07/24/2022 Do You Use Insect Repellent Routinely? Yes MIGRATION.06477 40635 Information not available 07/24/2022 Where Do You Live? SingleLevelHouse [email or web address] Information not available 11/06/2022 Advance Directive- Providers Has Reviewed Directive And Consents To Follow Them (insert Provider Name With Any Objectives In Notes Field) No MIGRATION.91961 32120 Information not available 07/24/2022 Are You Able To Care For Yourself? Yes [email or web address] Information not available 11/06/2022 Are You Blind Or Do Yo Have Difficulty Seeing? No [email or web address] Information not available 11/06/2022 Are You Deaf Or Do You Have Serious Difficulty Hearing? No [email or web address] Information not available 11/06/2022 Live Alone Of With Others? With Others [email or web address] Information not available 11/06/2022 Do You Have A Medical Power Of Inspector Mechanical? No [email or web address] Information not available 03/03/2024 What Was The Date Of Your Most Recent Tobacco Screening? 03/03/2024 [email or web address] Information not available 03/03/2024 Do You Have Any Pets? Yes [email or web address] Information not available 11/06/2022 What Is Your Relationship Status? MIGRATION.76264 99797 Information not available 07/24/2022 Do You Use Your Seat Belt Or Car Seat Routinely? Yes MIGRATION.43966 26427 Information not available 07/24/2022 Do You Have Smoke And Carbon Monoxide Detectors In Your Home? Yes MIGRATION.39778 49709 Information not available 07/24/2022 Are You Passively Exposed To Smoke? No MIGRATION.81460 77090 Information not available 07/24/2022 Are There Any Smokers In Your House? No MIGRATION.06124 74672 Information not available 07/24/2022 Do You Use Sunscreen Routinely? Yes MIGRATION.66904 74128 Information not available 07/24/2022 Have You Recently Traveled Abroad? No MIGRATION.73187 42809 Information not available 07/24/2022 Do You Have Difficulty Walking Or Climbing Stairs? No MIGRATION.65880 74996 Information not available 07/24/2022 Sex: Female Functional Status Question Answer Note LastModified by Organizat ion Details LastModified Time What is your level of alcohol consumption? None MIGRATION.202212 7127 Information not available 07/24/2022 Do you or have you ever used smokeless tobacco? Never used smokeless tobacco MIGRATION.048224 2684 Information not available 07/24/2022 Do you have transportation difficulties? No [email or web address] Information not available 11/06/2022 Are you able to walk? YESWOREST [email or web address] Information not available 11/06/2022 Do you have difficulty doing errands alone? No MIGRATION.774246 7687 Information not available 07/24/2022 Are you able to care for yourself? Yes MIGRATION.571016 2089 Information not available 07/24/2022 Do you have difficulty dressing or bathing? No MIGRATION.713119 5739 Information not available 07/24/2022 Do you or have you ever used e-cigarettes or vape? Never used electronic cigarettes MIGRATION.650289 2124 Information not available 07/24/2022 What is your exercise level? None MIGRATION.585218 6920 Information not available 07/24/2022 Mental Status Question Answer Note LastModified by Organizat ion Details LastModified Time Do you feel stressed (tense, restless, nervous, or anxious, or unable to sleep at night)? [id number] MIGRATION.55730836 26 Information not available 07/24/2022 Do you have difficulty concentrating, remembering or making decisions? No MIGRATION.16737176 26 Information not available 07/24/2022 Family History Relationship Description Onset Age of this Age Resolved Age Notes LastModified by Organization Details LastModified Time Mother Complication of anesthesia MIGRATION.424 [id number] Not available 07/24/2022 02:55:13 Mother Family history of stroke MIGRATION.758 6407005 Not available 07/24/2022 02:55:13 Mother Arthritis MIGRATION.465 9333390 Not available 07/24/2022 02:55:13 Father Kidney disease MIGRATION.615 9823671 Not available 07/24/2022 02:55:13 Brother Kidney disease MIGRATION.209 2843878 Not available 07/24/2022 02:55:13 Maternal Grandmother Arthritis MIGRATION.175 7751443 Not available 07/24/2022 02:55:14 Paternal Grandmother Arthritis MIGRATION.939 5807509 Not available 07/24/2022 02:55:14 Notes:Mother 82 hyp [...] DISEASE/DISORDER N HISTORY OF DRUG ABUSE N RADIATION / CHEMOTHERAPY N COPD N Other # 2 N BLOOD DISEASES N EAR OR HEARING PROBLEMS N MUMPS N SHINGLES N DEPRESSION (INCLUDING POST ) Y BOWEL PROBLEMS N STROKE/TIA Y ULCERS Y BENIGN PROSTATIC HYPERPLASIA [...] INSOMNIA N HIGH CHOLESTEROL / HYPERLIPIDEMIA N HYPERTHYROIDISM N EYE PROBLEMS N EDEMA N CHRONIC PAIN SYNDROME N HYPOTHYROIDISM Y CONSTIPATION N CAROTID BLOCKAGE N BACK / NECK PROBLEMS Y HAVE YOU BEEN HOSPITALIZED OR SEEN IN [facility] IN THE PAST YEAR ? N ATHEROSCLEROSIS N BREAST PROBLEMS N DIALYSIS N ECZEMA N OSTEOPOROSIS N ARTHRITIS N NO SIGNIFICANT PAST MEDICAL HISTORY N APPENDICITIS N DIABETES, TYPE N BAD TEETH N ENT N HEARTBURN / REFLUX Y AUTISM SPECTRUM DISORDER (ASD) N HEPATITIS / LIVER DISEASE N GOUT N SLEEP DISORDER N ALZHEIMER'S DISEASE N Brain Problems N HERPES N DEMENTIA N SEIZURES/EPILEPSY N HEADACHES/MIGRAINES N VASCULAR DISEASE N PACEMAKER N Blood Disorder N DIZZINESS N KIDNEY DISEASE N HEART DISEASE/HEART PROBLEMS N MULTIPLE SCLEROSIS N CARDIAC ARRHYTHMIA N CANCER: SPECIFY Y Gall Stones N ATRIAL FIBRILLATION N PULMONARY EMBOLISM N AUTOIMMUNE DISEASE N Gynecological History Statement/Question Response Date of Last Mammogram 08/10/2018 Date of Last Colonoscopy Most Recent Bone Density 10/20/2019 Obstetrics History GPAL:G 0 P 0 0 0 0 Immunizations Vaccine Type Date Status Note Provider Nam e and Address Organization Details Recorded Time Influenza, split virus, trivalent, preservative 3 completed Not Available [facility] 06/19/2023 09:40:04 SARS-COV-2 (COVID-19) vaccine, UNSPECIFIED 1 completed Not Available [facility] 06/19/2023 09:40:04 SARS-COV-2 (COVID-19) vaccine, UNSPECIFIED 1 completed Not Available [facility] 06/19/2023 09:40:04 SARS-COV-2 (COVID-19) vaccine, UNSPECIFIED 1 completed Not Available [facility] 06/19/2023 09:40:04 Influenza, high-dose, quadrivalent, PF 1 completed Not Available [facility] 06/19/2023 09:40:04 Influenza, high-dose, quadrivalent, PF 2 completed Not Available [facility] 06/19/2023 09:40:04 Influenza, high-dose, quadrivalent, PF 0 completed Not Available [facility] 06/19/2023 09:40:04 Influenza, high-dose, trivalent, PF 9 completed Not Available [facility] 06/19/2023 09:40:04 Influenza, high-dose, trivalent, PF 8 completed Not Available [facility] 06/19/2023 09:40:04 pneumococcal polysaccharide PPV23 9 completed Not Available [facility] 06/19/2023 09:40:04 Influenza, split virus, quadrivalent, PF 7 completed Not Available [facility] 06/19/2023 09:40:04 Pneumococcal conjugate PCV 13 7 completed Not Available [facility] 06/19/2023 09:40:04 Pneumococcal conjugate PCV 13 5 completed Not Available [facility] 06/19/2023 09:40:04 Influenza, high-dose, quadrivalent, PF 3 completed MD Rajesh Borjas, [address], [place], [address], [facility] [employer] 03/05/2023 12:59:22 Influenza, high-dose, trivalent, PF 4 completed MD Rajesh Borjas, [address], [place], [address], [facility] [place] [facility] 03/03/2024 17:13:31 Past Encounters Encounter ID Performer Location Encounter Start Date Encounter Closed Date Diagnosis/Indication Diagnosis SNOMED-CT Code Diagnosis ICD10 Code Diagnosis Note [id number] Jared Harvey MD [facility] [address] [address] 08/10/2020 00:00:00 08/10/2020 11:50:21 [id number] Dean Reyes MD [facility] [place] [address] [facility] [place] [address] 08/22/2020 00:00:00 08/22/2020 15:57:53 [id number] Jared Harvey MD S_[address] [address] 08/24/2020 00:00:00 08/24/2020 11:38:32 [id number] Jared Harvey MD S_[address] [place] [address] 11/06/2020 00:00:00 11/06/2020 15:03:48 [id number] Dean Reyes MD [facility] [place] [address] [place] [address] [place] [address] 11/21/2020 00:00:00 11/21/2020 15:32:53 [id number] Jared Harvey MD S_[address] [address] 12/07/2020 00:00:00 12/07/2020 11:59:36 [id number] MD ANGEL BorjasS_[facility]G Internal Med [facility] [address] [facility] [address] [place] [address] 01/10/2021 00:00:00 01/10/2021 12:11:20 [id number] Pola England DPM [facility] [place] [address] [place] [address] 02/13/2021 00:00:00 02/14/2021 10:26:13 [id number] Pola England DPM [facility] [place] [address] [address] 03/15/2021 00:00:00 03/16/2021 09:12:17 [id number] Dean Reyes MD [facility] [place] [address] , [place] [address] 03/23/2021 00:00:00 03/23/2021 11:14:31 [id number] Dean Reyes MD [facility] [place] [address] [facility] [address] , [place] [address] 07/20/2021 00:00:00 07/20/2021 11:58:05 [id number] Dean Reyes MD [facility] Internal [facility] [address] [address] 10/31/2021 00:00:00 10/31/2021 16:05:18 [id number] Dean Reyes MD [facility] [place] [address] [facility] [address] , [place] [address] 01/18/2022 00:00:00 01/18/2022 11:31:02 [id number] Jan Arreola MD [facility] [place] [address] [facility] [address] [place] [address] 05/15/2022 00:00:00 05/15/2022 17:05:36 [id number] Jared Harvey MD [facility] [place] [address] [place] [address] 09/26/2022 11:06:30 09/26/2022 12:50:29 Pain of right knee joint 2190884310 40397 M25.561 [id number] Dean Reyes MD [facility] [place] [address] [address] 11/06/2022 14:43:28 11/06/2022 15:26:50 Adult health examination 613247650 Z00.00 Screening for disorder 946392573 Z13.9 Benign ess ential hypertension 0896954 I10 Hypothyroidism 42122227 E03.9 Pure hypercholesterolemia 679328747 E78.00 Depressive disorder 3548 9007 F32.9 Rheumatoid arthritis 698 95410 M06.9 Vitamin D deficiency 347 03608 E55.9 [id number] Dean Reyes MD [facility] Internal Med [facility] [address] [place] [address] 03/05/2023 11:22:53 03/05/2023 13:07:26 Diabetes mellitus 78209580 E11.9 Gastroesop hageal reflux disease 578868882 K21.9 Hypothyroidism 19668949 E03.9 Pure hypercholesterolemia 900679847 E78.00 Type 2 shakira betes mellitus without complication 886610688 E11.9 Administra tion of influenza vaccine 14467122 Z23 [id number] Dean Reyes MD [facility] Internal Med [facility] [address] [place] [address] 07/09/2023 11:06:53 07/09/2023 11:56:56 Benign essential hypertension 4258629 I10 Hypothyroidism 03331360 E03.9 Pure hypercholesterolemia 206624534 E78.00 Type 2 shakira betes mellitus without complication 787663169 E11.9 Rheumatoid arthritis 698 91659 M06.9 Anxiety 66435763 F41.9 [id number] Dean Reyes MD [facility] Internal Med [facility] [address] [address] 0 11/05/2023 11:13:30 11/05/2023 12:05:34 Vertigo [id number] R42 Benign ess ential hypertension 3998164 I10 Hypothyroidism 12902433 E03.9 Type 2 shakira betes mellitus without complication 815854992 E11.9 Pure hypercholesterolemia 981475875 E78.00 [id number] Dean Reyes MD [facility] Internal Med [facility] [address] [address] 0 11/26/2023 14:14:51 11/26/2023 14:35:23 [id number] Dean Reyes MD [facility] Internal Med [facility] [address] [address] 03/03/2024 16:17:02 03/03/2024 17:20:31 Adult health examination [id number] Z00.00 Screening for disorder 762073360 Z13.9 Benign ess ential hypertension 7437338 I10 Hypothyroidism 88250666 E03.9 Pure hypercholesterolemia 657449382 E78.00 Rheumatoid arthritis 698 11360 M06.9 Depressive disorder 3548 9007 F32.9 Type 2 shakira betes mellitus without complication 944081858 E11.9 Administra tion of influenza vaccine 67754024 Z23 [id number] Dean Reyes MD [facility] Internal Med [facility] [address] [address] 03/31/2024 16:10:51 03/31/2024 16:50:35 Benign essential hypertension 8221693 I10 Gastroesop hageal reflux disease 734751841 K21.9 Pure hypercholesterolemia 419673513 E78.00 Rheumatoid arthritis 698 02397 M06.9 Type 2 shakira betes mellitus without complication 393130344 E11.9 [id number] Dean Reyes MD [facility] Internal Med [facility] [address] [address] 07/14/2024 16:05:41 07/14/2024 17:02:07 Benign essential hypertension 1618590 I10 Chronic le ft-sided ulcerative colitis 713447090 K51.50 Gastroesop hageal reflux disease 493814810 K21.9 Hypothyroidism 09132176 E03.9 Pure hypercholesterolemia 174545317 E78.00 Type 2 shakira betes mellitus without complication 129263661 E11.9 Obese class I [id number] 35717 E66.739 [id number] Gregorio schwartz MD [facility] [address] [facility], [address] [address] 07/29/2024 11:06:24 08/16/2024 16:15:24 External hemorrhoids 32753597 K64.4 [id number] Dean Reyes MD [facility] [place] Med [facility] [address] [address] 11/03/2024 16:18:11 11/03/2024 17:21:55 Benign essential hypertension 0041852 I10 Chronic le ft-sided ulcerative colitis 280459850 K51.50 Diabetes mellitus 949953 09 E11.9 Pure hypercholesterolemia 450270306 E78.00 Obese class I 1963031612 43045 E66.811 Health Concerns Section Related Observation LastModified by Organization Detai ls LastModified Time None Recorded Concern Status LastModified by Organization Details LastModified Time None Recorded Advance Directives Directive N: Info given Payers Insurance Date Sequence Insurance Name Policy Number Policy Quiroga Covered Member ID Quiroga Member ID Guarantor Name 06/15/2024 [facility] Sky J Wilton BCBS BCBS Sky J Wilton 11/02/2024 1 [place] Sky J Wilton [id number] Sky J Wilton 11/02/2024 2 [place] [id number] Sky J Wilton [id number] Sky J Wilton Notes Date Note Type Note Provider Name and Address Organization Details Recorded Time 4 text/html Patient Name: Sky Gloria CruseDate Of Service: Friday ( 03.03.2024 ): 1945 [...] Systemic Symptoms:none Medication Reconciliation: from medication list. Hqevbpoquld57-88-0836: MRI of the brain with and without [...] non healing lesions. [facility]: [facility].2 Calculated MB mg%. CGM: No. [...] below. Physical activity status unchanged. Followed by Supervisor Stave Finishing: Yes. Tolerating medications well. Medications currently consistent [...] Vaccination and Immunization( ) 2024-02 INFLUENZA( ) 2009- H1N1( ) 2014-09 PREVNAR 13 GC(X) 2018- PNEUMOVAX PREVNAR 20 Needed( ) 2020- COVID MODERNA( ) 2024-02 COVID BOOSTER MODERNA( ) 2024-02 RSV Surgical Lnjabhq8405-78 Left CTS - Kkaafmdw8074-55 Lt. MPA1904-04 Rt. HLD8019-07 Left Wtcyzbrk0630-40 Right Kbrlugqz9403-53 Lap Cholecystectomy Preventative Testing( ) 07/15/2023 Albumin [...] kind of heart problem. Dean Reyes MD [address] [place] [address], [facility] [address], [place], [address], [place] [facility] 03/03/2024 17:13:40 4 text/html Patient Name: Sky [...] Systemic Symptoms:none Medication Reconciliation: from medication list. [id number]: MRI of the brain with and without [...] below. Physical activity status unchanged. Followed by Supervisor Stave Finishing: Yes. Tolerating medications well. Medications currently consistent [...] Vaccination and Immunization( ) 2024-02 INFLUENZA( ) 2009-04 H1N1( ) 2014-09 PREVNAR 13 GC(X) 2018-09 PNEUMOVAX PREVNAR 20 Needed( ) 2020-08 COVID MODERNA( ) 2024-02 COVID BOOSTER MODERNA( ) 2024-02 RSV Surgical Qszaquf3574-30 Left CTS - Cxhobley5695-04 Lt. DHM7344-60 Rt. FRU4838-12 Left Gymupmwi5774-68 Right Elzadwox1413-30 Lap Cholecystectomy Preventative Testing( ) 03/04/2024 Albumin [...] 67 0-130 MG/DL Dean Reyes MD [address] [facility], [facility] [address], [place], [address], [facility] 03/31/2024 16:37:24 5 text/html Patient Name: Sky Regalado Of Service: Friday ( 07.14.2024 ): 1945 [...] Systemic Symptoms:none Medication Reconciliation: from medication list. [id number]: MRI of the brain with and without [...] non healing lesions. [facility]: 6.5 Calculated MB mg%. CGM: No. [...] offered to be evaluated and instructed by materials inspector on weight loss diet. Active Medication ListEffexor [...] Vaccination and Immunization( ) 2024-02 INFLUENZA( ) 2009- H1N1( ) 2014-09 PREVNAR 13 GC(X) 2018- PNEUMOVAX PREVNAR 20 Needed( ) 2020- COVID MODERNA( ) 2024-02 COVID BOOSTER MODERNA( ) 2024-02 RSV Surgical Yfbodkn2582-56 Left CTS - Rbgvkipb1845-55 Lt. RMA7926-83 Rt. BRW4366-96 Left Htmerfyp6889-00 Right Evplocoy4209-22 Lap Cholecystectomy Preventative Testing( ) 03/04/2024 Albumin [...] 0-130 MG/DL Dean Reyes MD [address], [address], [place], [address], [employer] 07/14/2024 16:59:43 5 text/html patient complains of having trouble cleaning up her anal area after bowel movement. has had. This issue for many many years . Denies pain, itching, burning. Rarely she has some bleeding if she becomes constipated. Gregorio Ibarra MD [address], [address], [place], [address], [employer] 07/29/2024 13:02:37 5 text/html Patient Name: Sky Webbte Of Service: Friday ( 11.03.2024 ): 1945 Age: 79 Vital Signs:Blood Pressure: Sitting Rt. Arm 142/80Pulse: Sitting 80 /min and RegularRespiratory Rate: 16Height 59 in or 1.5 mWeight 170 lb or 77.1 kgBMI 34.3Temperature: 97 F or 36.1 CPulse Oximetry: 97 % at rest on no oxygen Chief Complaint: Addressed in HPI Problems or conditions discussed in the HPI were the only ones reviewed during the encounter.Only social and family history addressed in the HPI were reviewed during this encounter. Attendants(s) + NoneConstitutional and Systemic Symptoms:none Medication Reconciliation: from medication list. [id number]: MRI of the brain with and without [...] upper ureter and right hydronephrotic changes noted 08-04-2024: CT of the soft tissues of the neck without contrast foreign body. No evidence of any pathologically enlarged lymph nodes. Pharynx and larynx appear to be normal History of Present Illness #1. Essential Hypertension: Stage: Stage I Interval Neurological Complaints no headaches, dizziness, weakness, visual changes, ataxia and aphasia. No shortness of breath, orthopnea or cardiovascular [...] management and include diet and Lipitor. #3. Type II Diabetes: Has had no polyuria polyphagia or polydipsia. Has had no hypoglycemic like responses. No new history of any numbness, tingling, weakness or visual problems. No nausea, anorexia or other constitutional symptoms. There has been no foot problems or non healing lesions. The last HAIC was [facility] HAIC: 8.0 Calculated MB mg%. CGM: No. Average blood sugars 125-150 mg%. Checking sugars : several times a week. Medication Types Include: Sulfonylureas and Insulin Secondary complications include none. Macro-vascular complications include none. Therapy reviewed regarding diabetic management and include Glimepiride and Toujeo Compliance: good Renal Protection: not required at this stage Lipid management: statins Urinary microalbumin: A1 . Ophthalmological: has seen eye doctor within the last year. Control: Intermediate Control 7.1 - 8.0 #4. Hx of inflammatory bowel disease in the form of ulcerative colitis and has remained stable. No interval complaints of any change in frequency or consistency of stool. No hematochezia or blood in the stool. No cutaneous drainage. No fever, chills, weight loss or other constitutional symptoms. Current medication: Azathioprine. #5. Hx of obesity. Currently Class 1 Obesity [...] offered to be evaluated and instructed by materials inspector on weight loss diet. Active Medication ListEffexor 37.5 MG CAPSULE, EXTENDED RELEASE One DailyMultivitamin DailyLipitor 80 MG (TABLET - ORAL) DailyXanax 0.25 MG (TABLET - ORAL) One Three Times A DayAspirin 325 MG One DailyModuretic 5/50MG Once DailyGlimepiride 4 MG TABLET One Twice DailyToujeo 300 U/ML INJECTION, SOLUTION 36 Units DailyPrilosec 20 MG (CAPSULE, DELAYED REL PELLETS - ORAL) One Twice A DayZyrtec 10 MG TABLET, FILM COATED DailyAzathioprine 50 MG TABLET Two Once Daily Adverse Drug Reactions ReviewedPropulsid Take Off MarketCodeine Rash Vaccination and Immunization ( ) 2023- INFLUENZA( ) 2009- H1N1( ) 2014- PREVNAR 13 GC(X) 2018-09 PNEUMOVAX PREVNAR 20 Needed( ) 2020- COVID MODERNA( ) 2024-02 COVID BOOSTER MODERNA( ) 2024-02 RSVImmunizations and Vaccinations Discussed and Implemented if feasible In the Office. Else referred to pharmacies. Surgical History 2021-03 Left CTS - Jmkrxqgt1011-72 Lt. HQP2306-82 Rt. OPF9793-79 Left Ljwyfirk9776-14 Right Icrsjjjb5574-74 Lap Cholecystectomy Preventative Testing ( ) 07/23/2024 Albumin 4.5 G/DL N( ) 07/23/2024 HAIC 8.0 % OF TOTAL HGB H( ) 02/18/2024 Ophthalmology( ) 07/15/2023 Micro Albumin 1.9 MG/DL N( ) 02/10/2023 DEXA Scan 02/10/2025( ) 11/18/2022 Cologuard 11/18/2025(X) 08/09/2022 Mammogram 08/09/2024( ) 05/11/2007 Upper EndoscopyPreventative Testing Discussed and Scheduled if Acceptable to Patient Social HistoryDoes not smoke or drink. Family HistoryMother 82 hypertension and multiple myeloma. Father is 80 has CRF, [place] prostate and malignant melanoma. Has two brothers is good health and one sister that has cirrhosis and some kind of heart problem. TEST RESULT RANGE UNITSCOMPREHENSIVE METABOLIC PANEL Date: 07/23/2024SODIUM 139 135-146 MMOL/LPOTASSIUM 3.7 3.5-5.3 MMOL/LGLUCOSE 211 65-99 MG/DLUREA NITROGEN (BUN) 20 7-25 MG/DLCREATININE 1.19 0.60-1.00 MG/DLEGFR 47 > OR = 60 ML/MIN/1.14C2YIG 60 10-35 U/LALT 32 6-29 U/LALKALINE PHOSPHATASE 103 37-153 U/LHEMOGLOBIN A1C Date: 07/23/2024HEMOGLOBIN A1C 8.0 <5.7 % OF TOTAL HGBLIPID PANEL, STANDARD Date: 07/23/2024HOLESTEROL, TOTAL 157 <200 MG/DLHDL CHOLESTEROL 46 > OR = 50 MG/DLTRIGLYCERIDES 210 <150 MG/DLLDL-CHOLESTEROL 81 MG/DL (CALC)T4, FREE Date: 07/23/2024T4, FREE 1.0 0.8-1.8 NG/DLTSH Date: 07/23/2024TSH 1.07 0.40-4.50 MIU/L Dean Reyes MD [address] [address], [place], [address], [place] [facility] 11/03/2024 17:17:32 OBGyn Episode No OBEpisode recorded.
--- OUTSIDE RECORDS SUMMARY | 2024-12-01 14:49 | XMS_ITS | Clinical Summary ---
Author Organization [facility] Address [address] [place] [address] Care Team Providers Care Digital Librarian Name Role Phone Nick Reyes MD Primary Care Provider [phone] Source Comments [facility],non-owned Affiliates and Associated Physician Practices is amultiple site organization consisting of ambulatory clinics and hospital sitesin [place], [place], [place] and [place]. This disclosure is being madepursuant to the Care Everywhere program and may not contain all information available regarding this patient. Last updated 18.[facility] Allergies Active Allergy Reactions Criticality Noted Date Comments Latex Unknown 01/13/2019 Medications * Be aware that medications may not be up to date on this document. Alwaysverify current medications with the patient. omeprazole (PRILOSEC) 20 MG capsule Take 20 mg by mouth Active aMILoride-hydro CHLOROthiazide (MODURETIC) 5-50 MG tablet amiloride 5 mg-hydrochloro thiazide 50 mg tablet Active atorvastatin (LIPITOR) 80 MG tablet Take 80 mg by mouth Half tablets twice a day Active buPROPion XL 24hr (WELLBUTRIN-XL) 300 MG tablet Take 300 mg by mouth once daily Active ALPRAZolam (XANAX) 0.25 MG tablet Take 0.25 mg by mouth as needed Active Multiple Vitamin (MULTI-VITAMINS ) TABS Take 1 tablet by mouth Active PROBIOTIC PRODUCT PO Active Multiple Vitamins-Minera ls (CENTRUM SILVER) TABS Take 1 tablet by [...] (12/25/2021): Added automatically from request for surgery [id number] Right elbow pain 01/11/2019 Overview (12/25/2021): Added automatically from request for surgery [id number] Multiple joint pain 12/04/2016 Arthropathies in other [...] Resolved Date Acute sinusitis 10/16/2021 01/22/2022 Immunizations Immunization Administration Dates Next Due INFLUENZA VACCINE, TRIV. [...] drink = 0.6 oz pur e alcohol) Comments Unknown Sex and Gender Information Value Date Recorded Sex Assigned at Not on file Legal Sex Female 6:41 PM [employer]ING [employer] Gender Identity Not on file Sexual Orientation [...] PNEUMOCOCCAL VACCINE 50+ (2 of 2 - PCV20 or PCV21) 06/06/2017 06/06/2016, 10/10/2014 Respiratory Syncytial Virus (RSV) Vaccine Pt: or over 60 yrs (1 - 1-dose 75+ series) 2021 COVID-19 VACCINE ( - season) 2024 DEPRESSION SCREENING 05/26/2024 INFLUENZA VACCINE (Season Ended) 2025 04/12/2019, 04/22/2018, 06/06/2016, Additional history exists HEPATITIS B VACCINE Aged Out No longe [...] on patient's age to complete [place] [address] MEDICARE FORMERLY [facility] MEDICARE FORMERLY [facility] Care Teams Digital Librarian Relationship Specialty Start Date End Date Nick Reyes MD [address] [place] [address] [address] [place] [address] PCP - General 03/31/08
--- OUTSIDE RECORDS SUMMARY | 2024-12-01 14:49 | XMS_ITS | Encounter Summary ---
Author Organization [facility] Address [address] [place] [address] Phone Care Team Providers Care Head Teacher Name Role Phone Nick Reyes MD Primary Care Provider Encounter Details Date Type Department Care Team (Late st Contact Info) Description 06/17/2019 Orders Only [facility] [phone] Scanning, Provider Social History Tobacco Use Types [...] on filedocumented in this encounter Care Teams Head Teacher Relationship Specialty Start Date End Date Nick Reyes MD PCP - General 09/02/16 documented as of this encounter
--- OUTSIDE RECORDS SUMMARY | 2024-12-01 14:49 | XMS_ITS | Continuity of Care Document ---
Author Organization [facility] Address [address] [place] [address] Phone Care Team Providers Care Application Support Developer Name Role Phone Ashley Parisi Unavailable Unavailable [...] Diagnoses Date Provider Providers Copied on Encounter [facility], [address], [place], [place], [address], [place] tel:[phone] [facility] No Information 0 Ailin Ramirez. [address] , [address], [place], [address], [place]. tel:[phone] [facility], [address], [place], [place], [address], [place] tel:[phone] [facility] No Information Feb- 8-201 0 Simon Strong. [address] , [address], [place], [place], [facility], [place]. tel:[phone] [facility], [address], [place], [place], [address], [place] tel:[phone] [facility] No Information Sep-2 3-201 0 Parisi Ashley. [address] , [address], [place], [place], [facility], [place]. tel:[phone] [facility], [address] [place] [address] [address], [place], [place], [address], [place] tel:[phone] [facility] No Information Sep-0 2-201 0 Ailin Adairn. [address] , [address], [place], [place], [facility], [place]. tel:[phone] [facility], [address] [place] [address] [address], [place], [place], [address], [place] tel:[phone] [facility] No Information Dec-2 6-201 0 Ailin Adairn. [address] , [address], [place], [place], [facility], [place]. tel:[phone] [facility], [address] [place] [address] [address], [place], [place], [address], [place] tel:[phone] [facility] No Information Dec-2 5-201 0 Ailin Adairn. [address] , [address], [place], [facility], [place]. tel:[phone] Office/outpat ient Visit, Est [facility], [address] [place] [address] [address], [place], [place], [address], [place] tel:[phone] [facility] No Information 9-201 0 Ailin Adairn. [address] , [address], [place], [facility], [place]. tel:[phone] Referring Provider: Ashley Morales, [address], [place], [facility]. tel:[phone] [facility], [address] [place] [address] [address], [place], [place], [address], [place] tel:[phone] [facility] No Information 6-200 9 Ailin Adairn. [address] [facility] [address] [facility] [address] [address] , [address], [place], [facility], [place]. tel:[phone] [facility], [address] [place] [address] [address], [place], [place], [address], [place] tel:[phone] [facility] No Information 6200 9 Ailin Ramirez. [address] [facility] [address] , [address], [place], [facility], [place]. tel:[phone] [facility], [address] [place] [address] [address], [place], [place], [address], [place] tel:[phone] [facility] [place] No Information 0 9-200 9 Ailin Adairn. [address] [facility] [address] , [address], [place], [facility], [place]. tel:[phone] [facility], [address] [place] [address] [address], [place], [place], [address], [place] tel:[phone] [facility] No Information 0 8-200 9 Ailin Adairn. [address] , [address], [place], [facility], [place]. tel:[phone] [facility], [address], [place], [place], [address], [place] tel:[phone] [facility] No Information Jose-0 8-200 9 Ailin Ramirez. [address] [facility] , [address], [place], [facility], . tel:[phone] Referring Provider: Isabel Miles [facility] [place] [address], [place], [facility]. tel:[phone] [facility], [address] [place] [address] [address], [place], [place], [address], tel:[phone] [facility] No Information Josesito-2 5-200 9 Ailin Ramirez. [address] [facility] [address], [place], [facility], . tel:[phone] Referring Provider: Isabel Miles [facility] [address], [place], [facility]. tel:[phone] [facility], [address] [place] [address] [address], [place], [place], [address], tel:[phone] [facility] No Information Jul-0 6-200 8 Ailin Ramirez. [address] [place] [address] , [address], [place], [facility], . tel:[phone] Family History Family Member Type Diagnosis Age At Onset No Information Payers Payer name Insurance type Covered democrat ID Anthonya racheal(s) [facility] Commercial CI [id number] Social History Type Description Quantity Date Captured [...]
--- OUTSIDE RECORDS SUMMARY | 2024-12-01 14:49 | XMS_ITS | Encounter Summary ---
Author Organization [facility] Address [address] [place] [address] Care Team Providers Care Progress Clerk Name Role Phone Nick Reyes MD Primary Care Provider [phone] Encounter Details Date Type Department Care Team (Late st Contact Info) Description 02/06/2018 Lab Requisition [facility] Care DermPath Lab [address] [place] [address] [place] [address] Social History Tobacco Use Types Packs/Day Years Used Date Smoking Tobacco: Never Assessed Comments Unknown Sex and Gender Information Value Date Recorded Sex Assigned at Not on file Legal 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 Gender Identity Not on file Sexual Orientation Not on file documented as of this encounter Plan of Treatment Not on file documented as of this encounter Procedures Procedure Name Priority Date/Time Associated Diagnosis Comments DERMATOPATHOLOGY Routine 02/05/2018 12:0 0 AM CDT documented in this encounter Results * DERMATOPATHOLOGY (02/05/2018 12:00 AM CDT) Case Report Dermatopathology Report Case: [id number] Authorizing Provider: Twan Fox MD Collected: 02/05/2018 12:00 AM Pathologist: Mariana Mullins MD Received: 02/06/2018 11:58 AM Specimen: Skin, left sup breast 8 3:52 PM CDT DERMATOPATHOLOGY LABORATORY Final Diagnosis Specimen A. SKIN, left sup breast: HEALING SKIN CHANGES (L90.5) 8 3:52 PM CDT DERMATOPATHOLOGY LABORATORY at 1552 CDT Clinical History R/O BCC, SCC, ISK, HAK. 8 3:52 PM CDT DERMATOPATHOLOGY LABORATORY Gross Description Specimen A: Received is one formalin filled container labeled with the patient's name and designated left sup breast. The specimen consists of a shave biopsy measuring [id number]. Jar 0. 3:52 PM CDT DERMATOPATHOLOGY LABORATORY [...] characteristic determined by the Dermatopathology Laboratory at [facility]. These tests need not be, and therefore are not, approved by the [place] Food and Drug Administration. The tests are used for clinical purposes. Billing Codes Specimen Charges Stain Charges 58419 1 8 3:52 PM CDT DERMATOPATHOLOGY LABORATORY Embedded Images 3:52 PM CDT DERMATOPATHOLOGY LABORATORY Pathology/Cytolog y TISSUE SPECIMEN FROM SKIN / Unknown 02/05/2018 02/06/2018 11:58 AM CDT us Twan Fox MD LAB - PATHOLOGY/CYTOLOGY ORD ERABLES Final Result DERMATOPATHOLOGY LABORATORY [facility] - Department of Dermatology [facility] [facility], [address] [place] [address], [facility] [phone] documented in this encounter Visit Diagnoses Not on filedocumented in this encounter Care Teams Progress Clerk Relationship Specialty Start Date End Date Nick Reyes MD [address] [place] [address] [address] [place] [address] PCP - General 03/31/08 documented as of this encounter
--- OUTSIDE RECORDS SUMMARY | 2024-12-01 14:49 | XMS_ITS | Data Portability ---
Author Organization [facility] [place] Address [address] [place] [address] Care Team Providers Care Manager Fiber Name Role Phone DEAN THOMPSON Primary Care Provider [phone] Assessment No assessment recorded. Plan of Treatment Reminders Order Date Submit Date Provider Last Modified By Organization Details Last Modified Time Details Appointments None recorded. Lab None recorded. Referral None recorded. Procedures None recorded. Surgeries None recorded. Imaging US, pelvis 2023 024 [email or web address] [place], [address], [place], [address], 21:01:04 US, transvagina l 2023 024 [email or web address] [place], [address], [place], [address], 21:01:04 Medication Orders None recorded. Patient TargetsNo targets recorded. Patient InstructionsNo instructions recorded. Reason for Referral None Reported. Results Created Date Observation Date Name Description Value Unit Range Abnormal Flag Note LastModifiedBy Organization Detail LastModifiedTime 10/13/1910/13/2023 US, pelvi s No observ ation record ed. [email or web address] [place] [address], [place], [address], 10/13/2023 18:14:33 10/13/19 24 10/13/2023 US, trans vagin al No observ ation record ed. [email or web address] [place] [address], [place], [address], 10/13/2023 18:14:24 10/13/19 24 10/13/2023 US, angel s No observ ation record ed. Samantha [address], [place], [address], 10/16/2023 10:11:30 Result Notes None recorded. 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 LEUKOCYTOS IS NOS;Record ed Elsewhere: No Locatio n: [facility] rce: EHR Chroni c: N Practice ID: 0001 Billa ble Time: 01:00:00 PM Not Available [facility] 0 17:41:45 Pruritus of genital organs 121305739 Active 2014 Vaginal itching;Re corded Elsewhere: No Locatio n: [facility] rce: EHR Chroni c: N Practice ID: 0001 Billa ble Time: 10:45:00 AM Not Available [facility] 0 17:41:45 Vaginolab ial hernia Active 2016 Other specified noninflamm atory disorders of vagina;Rec orded Elsewhere: No Locatio n: [facility] rce: EHR Chroni c: N Practice ID: 0001 Billa ble Time: 09:00:00 AM Not Available [facility] 0 17:41:45 Specializ ed medical examinati on Active 2011 Gynecologi gurwinder Examinatio n;Recorded Elsewhere: No Locatio n: [facility] rce: EHR Chroni c: N Practice ID: 0001 Billa ble Time: 01:00:00 PM Not Available [facility] 0 17:41:45 Acute vaginitis 79154892 Active 2016 Acute vaginitis; Recorded Elsewhere: No Locatio n: [facility] rce: EHR Chroni c: N Practice ID: 0001 Billa ble Time: 09:00:00 AM Not Available [facility] 0 17:41:46 Screening for malignant neoplasm of rectum Active 2011 Screening for malignant neoplasms of the rectum;Rec orded Elsewhere: No Locatio n: [facility] rce: EHR Chroni c: N Practice ID: 0001 Billa ble Time: 01:00:00 PM Not Available [facility] 0 17:41:46 Increased frequency of urination 209117967 Active 2016 Frequency of micturitio n;Recorded Elsewhere: No Locatio n: [facility] rce: EHR Chroni c: N Practice ID: 0001 Billa ble Time: 09:00:00 AM Not Available [facility] 0 17:41:46 Urinary tract infectiou s disease 63984324 Active 2016 Urinary tract infection, site not specified; Recorded Elsewhere: No Locatio n: [facility] rce: EHR Chroni c: N Practice ID: 0001 Billa ble Time: 09:00:00 AM Not Available [facility] 0 17:41:46 Microscop ic hematuria 361965291 Active 2014 MICROSCOPI C HEMATURIA; Recorded Elsewhere: No Locatio n: [facility] rce: EHR Chroni c: N Practice ID: 0001 Billa ble Time: 10:45:00 AM Not Available [facility] 0 17:41:46 Problem Notes None recorded. Medical Equipment None Reported. Allergies Allergen ID Allergen Name Allergen Category Reaction Reaction Severity Criticality Documentation Date Start Date Code Code System Note Provider Name and Address Organization Details Recorded Time 43688 codeine medicatio n Not available Not available Not available 05/12/2020 7910 RxNorm Comme nt: [facility]at [facility]; Not Available [facility] 0 14:20:48 Medications Name Sig Start Date Stop [...] Prescrib ed Elsewher e: Yes [facility] By: gabriel small DateTime : 12/13/19 [...] Prescrib ed Elsewher e: No Locat ion: [facility]ify By: bennett petersen DateTime : 12/13/19 10:45:00 AM Not Available [...] Prescrib ed Elsewher e: No Locat ion: [facility] odify By: elise espinoza DateTime : 09/19/19 09:00:00 AM Not Available Not Available Not Available alprazola m 0.25 mg tablet active Not Available Not Available Not Available omeprazol e 10 mg capsule,d elayed release take 2 capsule (20MG) by oral route every day before a meal 2011 active Prescrib ed Elsewher e: No Locat ion: [facility] odify By: annie duke Encou nter DateTime : 09/22/19 12 06:44:01 PM Not Available Not Available Not Available Flagyl 500 mg tablet take 1 tablet by oral route every 12 hours 09/18 completed Prescrib ed Elsewher e: No Locat ion: [facility] odify By: terrence Sears ter DateTime : 12/13/19 15 10:45:00 AM Not Available Not Available Not Available meclizine 25 mg tablet TAKE 1 TABLET BY MOUTH 4 TIMES DAILY active Not Available Not Available No t Available simvastat in 5 mg tablet take 1 tablet by oral route every day in the evening 09/23 completed Prescrib ed Elsewher e: Yes Loca tion: [facility] odify By: mareclla aguilera DateTime : 09/22/19 12 06:44:01 PM [...] Elsewher e: Yes Loca tion: [facility] odify By: annie duke Encou nter DateTime : 09/22/19 12 06:44:01 PM Not Available Not Available Not Available omeprazol e 20 mg capsule,d elayed release active Not Available Not Available Not Available amiloride HCl (bulk) powder active Prescrib ed Elsewher e: Yes Loca tion: [facility] odify By: annie tz Encou nter DateTime : 09/22/19 12 06:44:01 PM Not Available Not Available Not Available Vitamin D2 1,250 mcg (50,000 unit) capsule take 1 capsule by oral route every week active Prescrib ed Elsewher e: Yes Loca tion: [facility] odify By: gabriel small DateTime : 12/13/19 15 10:45:00 AM Not Available Not Available Not Available escitalop daniela 10 mg tablet TAKE 1 TABLET BY MOUTH ONCE DAILY 10/07 completed Not Available Not Available Not Available Vytorin 10 mg-10 mg tablet take 1 tablet by oral route every day 09/23 completed Prescrib ed Elsewher e: Yes Loca tion: [facility] odify By: marcella aguilera DateTime : 09/22/19 12 06:44:01 PM Not Available Not Available Not Available Senior Moment 150 mg-50 mg capsule active Prescrib ed Elsewher e: Yes Loca tion: [facility] odify By: gabriel small DateTime : 12/13/19 15 10:45:00 AM Not [...] Body mass index (BMI) Body weight Systolic And Diastolic Provider Name and Address Organization Details Last Updated DateTime 10/22/2023 160.02 cm 30.3 kg/m2 56842.3 g 109/74 mm[Hg] Imelda Glass [facility] 10/22/2023 14:53:55 Social History None recorded. Functional Status [...] SNOMED-CT Code Diagnosis ICD10 Code Diagnosis Note [id number] DYAN ANN MD [place] [address],[facility] [place] [address] 10/08/2023 13:52:28 10/09/2023 11:32:52 Pain in pelvis 78637087 R10.2 - pelvic pressure x2 months- midline, reproduced with suprapubic palpation- no inciting factors- will order pelvic US to r/o reel assembler etiology, however patient reports supracervi gurwinder hysterecto my with likely BSO- if no etiology on pelvic US, recommend urology evaluation given suprapubic pain [id number] Shant Caba MD [place] [address] [address] 10/13/2023 15:14:10 10/13/2023 16:06:37 Pain in pelvis 91069861 R10.2 [id number] DYAN ANN MD [place] [address] [address] 10/22/2023 14:32:47 10/22/2023 15:46:25 Pain in pelvis 85989651 R10.2 - pelvic pressure x2 months, now improved s/p abx- no inciting factors- pelvic US demonstrat es surgically absent uterus and adnexa- discussed estrogen cream if UTIs are recurrent for possible [facility] Concerns Section Related Observation LastModified by Organization Detai ls LastModified Time None Recorded Concern Status LastModified by Organization Details LastModified Time None Recorded Advance Directives Directive None Recorded Payers Insurance Date Sequence Insurance Name Policy Number Policy Quiroga Covered Member ID Quiroga Member ID Guarantor Name 10/25/2024 2 [place] Dipti Wilton [id number] Dipti Wilton 10/25/2024 1 [place] Dipti Wilton [id number] Dipti Wilton 10/25/2024 2 [place] [id number] Dipti Wilton [id number] Dipti Wilton 10/08/2023 1 *SELF PAY* Pe ggy Wilton 10/25/2024 1 [place] Dipti J Wilton [id number] Dipti Wilton Notes Date Note Type Note Provider Name and Address Organization Details Recorded Time 10/08/2023 text/html Presents to checo ramirez pelvic pressure. Had yeast infection 4 weeks [...] unsure. DYAN ANN MD [address], [place], [address], [facility] 10/09/2023 00:41:22 10/22/2023 text/html Patient presents for ultrasound follow up. Was previously seen for pelvic pressure. Now reports pressure is improved after second round of antibiotics for a UTI. No bleeding or other new symptoms. DYAN ANN MD [address], [place], [address], [facility] 10/22/2023 15:34:40 OBGyn Episode Ob Episode Information Episode Created Date Number of Fetuses Patient Bloodtype Patient rh Status Prepregnancy Weight lbs Domestic Partner Domestic Partner Phone Father Name Supervisor Weaving Status 10/08/19 24 1 CLOSED Fetus Data First Name Last Name Admitted to NICU Weight (g) Sex Living Outcome Pediatric Complications Fetus ID Race Codes Race Delivery Type 2919.77 1704 Full Term 28818 Vaginal Delivery Frederick Calculation Initial Frederick Date Initial Exam Date Initial Exam Provider Initial Ultrasound Date Last Menstrual Period Date Ultra Sound Weeks Gestation 0 Eighteen To Twenty Week Fredercik Update Ultra Sound Date Fundal Height At [...] Domestic Partner Domestic Partner Phone Father Name Supervisor Weaving Status 10/08/19 24 1 CLOSED Fetus Data First Name Last Name Admitted to NICU Weight (g) Sex Living Outcome Pediatric Complications Fetus ID Race Codes Race Delivery Type 6321.71 1704 Full Term 11015 Vaginal Delivery Frederick Calculation Initial Frederick Date [...] Domestic Partner Domestic Partner Phone Father Name Supervisor Weaving Status 10/08/19 24 1 CLOSED Fetus Data First Name Last Name Admitted to NICU Weight (g) Sex Living Outcome Pediatric Complications Fetus ID Race Codes Race Delivery Type 3118.44 5 Full Term 36391 Vaginal Delivery Frederick Calculation Initial Frederick Date [...]
--- NOTE | 2024-12-01 16:01 | ECG_ITS ---
Test Date: 2024-12-01 18:52:46 Measurements Intervals Combs Rate: 69 P: 2 AK: 141 QRS: -4 QRSD: 134 T: 5 QT: 426 QTc: 459 Interpretive Statements SINUS RHYTHM RIGHT BUNDLE BRANCH BLOCK [120+ ms QRS DURATION, UPRIGHT V1, 40+ ms S IN I/aVL/V4/V5/V6] No previous ECG available for comparison Electronically Signed On 12-02-2024 11:46:02 CDT by Juan Miguel Ann M.D.
--- NOTE | 2024-12-01 16:01 | ED.GENADULT ---
HPI - General Adult General Chief complaint: Unspecified <Aliya Rockwell PA-C - Last Filed: 12/01/24 16:04> Stated complaint: L sided groin pain <Aliya Rockwell PA-C - Last Filed: 12/01/24 16:04> Time Seen by Provider: 12/01/24 18:13 <Aliya Rockwell PA-C - Last Filed: 12/01/24 16:04> Focused HPI: 79-year-old female presents emergency department for left lower quadrant abdominal pain for the past 2 days. Patient states over the past week she has developed generalized weakness, fatigue, shortness of breath, nausea. Two days ago she began developing pain or left lower quadrant. She reports associated dysuria and left low back pain. Patient denies any chest pain, cough, congestion, diarrhea, hematuria. GENERAL: Well-appearing, well-nourished, and in no acute distress. HEAD: Normocephalic, atraumatic. CHEST: Clear to auscultation. ?No respiratory distress. ABD: Tenderness to the left lower quadrant on palpation with no rebound, guarding or rigidity. No CVA tenderness HEART: Regular rate and rhythm.? NEURO: ?Alert and oriented x3. Patient screened in triage and initial orders placed.? ?Additional care and disposition to be based upon?diagnostic testing and treatment. <Aliya Rockwell PA-C - Last Filed: 12/01/24 16:04> History of Present Illness HPI narrative: I agree with evaluation <Sean Edward MD - Last Filed: 12/10/24 13:17> Related Data Home medications: Home Medications ?Medication ?Instructions ?Recorded ?Confirmed ?Last Taken ?Type Lactobacills gasseri-Bifidobac 1 cap PO DAILY 08/25/20 11/21/21 05/14/21 History bifidum,longum 1.5 billion cell capsule ([employer]) alprazolam 0.25 mg tablet 0.25 mg PO TID PRN Anxiety 08/25/20 11/21/21 05/17/21 History amiloride 5 mg-hydrochlorothiazide 1 tablet PO DAILY 08/25/20 11/21/21 05/14/21 History 50 mg tablet atorvastatin 80 mg tablet 40 mg PO BID 0411/21/21 05/14/21 History bupropion HCl 300 mg 24 hr tablet, 300 mg PO DAILY 08/25/20 11/21/21 05/17/21 History extended release hnrhcjdqskxl-Tz-niwd-minerals 18 1 tablet PO DAILY 08/25/20 11/21/21 05/14/21 History mg-0.4 mg tablet omeprazole 20 mg capsule,delayed 20 mg PO BID 08/25/20 11/21/21 05/17/21 History release cetirizine 10 mg capsule (All Day 10 mg PO DAILY PRN 11/21/21 11/21/21 Unknown History Allergy (cetirizine)) <Aliya Rockwell PA-C - Last Filed: 12/01/24 16:04> Allergies/adverse reactions: Allergies Allergy/AdvReac Type Severity Reaction Status Date / Time adhesive tape Allergy Intermediate Rash Verified 12/03/24 16:16 <Aliya Rockwell PA-C - Last Filed: 12/01/24 16:04> Review of Systems Review of Systems: All systems reviewed & are unremarkable except as noted in HPI and below <Sean Edward MD - Last Filed: 12/10/24 13:17> PMFSH Past Medical History Medical History: Medical History Obesity Osteoarthritis Ulcerative colitis Anxiety GERD (gastroesophageal reflux disease) CVA (cerebral vascular accident) no residual symptoms Hypertension Hyperlipidemia <Aliya Rockwell PA-C - Last Filed: 12/01/24 16:04> Family History Family History: Family History Grandparent Alcoholism Sibling Asthma Cancer Father Cancer Mother Cancer Hypertension <Aliya Rockwell PA-C - Last Filed: 12/01/24 16:04> Social History Social History: Social History Smoking status: Never smoker Second hand tobacco smoke exposure: No Alcohol intake: never Substance use: never Substance use type: does not use Living arrangements: with family Spiritual care concerns: No <Aliya Rockwell PA-C - Last Filed: 12/01/24 16:04> Exam Narrative: APPEARANCE: Well appearing, no pain, no distress, well-nourished. HEAD: normocephalic, atraumatic. EYES: PERRLA/EOMI, conjunctivae clear. NOSE: Normal no drainage EARS:TMS clear with good light reflex. THROAT: Pharynx clear, no exudate. NECK: Supple. No adenopathy, no masses. RESPIRATORY: Airway patent, respirations nonlabored. Clear to auscultation bilaterally, no rales, rhonchi, wheezing. CARDIOVASCULAR: Regular rate and rhythm without murmurs rubs or gallops. ABDOMINAL: Soft, nontender, nondistended, normal bowel sounds MUSCULOSKELETAL: Moves all extremities. Strength/ROM intact, No edema, No calf tenderness. NEURO: Alert. Cranial nerves II through XII intact. Good gait. Good coordination SKIN: Warm, dry. Normal Color <Sean Edward MD - Last Filed: 12/10/24 13:17> Course Vital Signs Vital signs: Vital Signs Temperature 97.5 F L 12/01/24 15:11 Pulse Rate 77 12/01/24 15:11 Respiratory Rate 16 12/01/24 15:11 Blood Pressure 126/57 L 12/01/24 15:11 Pulse Oximetry 100 12/01/24 15:11 Temperature 97.9 F 12/01/24 20:26 Pulse Rate 78 12/01/24 21:32 Respiratory Rate 16 12/01/24 21:32 Blood Pressure 109/56 L 12/01/24 21:32 Pulse Oximetry 96 12/01/24 22:00 <Aliya Rockwell PA-C - Last Filed: 12/01/24 16:04> Vital Signs Temperature 97.5 F L 12/01/24 15:11 Pulse Rate 77 12/01/24 15:11 Respiratory Rate 16 12/01/24 15:11 Blood Pressure 126/57 L 12/01/24 15:11 Pulse Oximetry 100 12/01/24 15:11 Temperature 97.9 F 12/01/24 20:26 Pulse Rate 78 12/01/24 21:32 Respiratory Rate 16 12/01/24 21:32 Blood Pressure 109/56 L 12/01/24 21:32 Pulse Oximetry 96 12/01/24 22:00 <Sean Edward MD - Last Filed: 12/10/24 13:17> Medical Decision Making MDM Narrative Medical decision making narrative: 71-year-old female presented emergency department for evaluation for flank pain. Patient did feel improved with treatment. CT scan showed 4 mm stone is seen in the right upper ureter with mild right hydronephrotic changes. Patient was comfortable with plan for discharge and close follow-up. All questions concerns were addressed. <Sean Edward MD - Last Filed: 12/10/24 13:17> Differential Diagnosis Differential Diagnosis: Urinary tract infection, ureteral calculi, colitis, diverticulitis, appendicitis <Sean Edward MD - Last Filed: 12/10/24 13:17> Vital Signs Vital Signs: Vital Signs Temperature 97.5 F L 12/01/24 15:11 Pulse Rate 77 12/01/24 15:11 Respiratory Rate 16 12/01/24 15:11 Blood Pressure 126/57 L 12/01/24 15:11 Pulse Oximetry 100 12/01/24 15:11 Temperature 97.9 F 12/01/24 20:26 Pulse Rate 78 12/01/24 21:32 Respiratory Rate 16 12/01/24 21:32 Blood Pressure 109/56 L 12/01/24 21:32 Pulse Oximetry 96 12/01/24 22:00 <Aliya Rockwell PA-C - Last Filed: 12/01/24 16:04> Vital Signs Temperature 97.5 F L 12/01/24 15:11 Pulse Rate 77 12/01/24 15:11 Respiratory Rate 16 12/01/24 15:11 Blood Pressure 126/57 L 12/01/24 15:11 Pulse Oximetry 100 12/01/24 15:11 Temperature 97.9 F 12/01/24 20:26 Pulse Rate 78 12/01/24 21:32 Respiratory Rate 16 12/01/24 21:32 Blood Pressure 109/56 L 12/01/24 21:32 Pulse Oximetry 96 12/01/24 22:00 <Sean Edward MD - Last Filed: 12/10/24 13:17> Lab Data Lab results reviewed: Yes I reviewed the patient's lab results. <Sean Edward MD - Last Filed: 12/10/24 13:17> Result diagrams: 12/01/24 18:48 07/09/25 18:48 <Aliya Rockwell PA-C - Last Filed: 12/01/24 16:04> Labs: Lab Results 12/01/24 12/01/24 12/01/24 Range/Units 18:37 18:48 19:10 WBC 6.1 (4.5-10.0) K/mm3 RBC 4.72 (4.2-5.4) M/mm3 Hgb 14.8 (12.0-15.0) g/dL Hct 44.2 (37.0-47.0) % MCV 93.6 (80-100) fl MCH 31.4 (26-34) pg MCHC 33.5 (32-36) g/dl RDW 14.4 (11.5-14.5) % Plt Count 221 (150-375) k/mm3 MPV 11.2 H (7.4-10.4) fl Immature Gran % (Auto) 0.2 (0-0.5) % Neut % (Auto) 72.0 (45.5-73.1) % Lymph % (Auto) 17.9 L (18.3-44.2) % Emanuel % (Auto) 7.6 (2.6-8.5) % Eos % (Auto) 1.5 (0-4.4) % Baso % (Auto) 0.8 (0.2-1.2) % Lymph # (Auto) 1.08 (0.9-3.2) K/mm3 Emanuel # (Auto) 0.5 (0.1-0.6) K/mm3 Eos # (Auto) 0.1 (0-0.3) K/mm3 Baso # (Auto) 0.1 (0.0-0.1) K/mm3 Abs Immat Gran (auto) 0.01 (0.00-0.031) K/mm3 Absolute Neuts (auto) 4.4 (1.3-6.7) K/mm3 Absolute Nucleated RBC 0.000 (0.0-0.012) K/mm3 Nucleated RBC % 0.0 (0.0-0.2) % PT 12.8 (11.1-14.7) Seconds INR 1.0 APTT 27.2 (22.3-36.8) Seconds Sodium 138 (137-145) mmol/L Potassium 3.2 L (3.4-5.0) mmol/L Chloride 101 (98-107) mmol/L Carbon Dioxide 24 (22-30) mmol/L Anion Gap 13 H (4-12) mmol/L BUN 26 H (7-17) mg/dL Creatinine 1.29 H (0.7-1.0) mg/dL Estim Creat Clear Calc Not Reportable Estimated GFR 40 L (59 - ) Glucose 134 H (65-110) mg/dL Lactic Acid 2.6 H (0.7-2.0) mmol/L Calcium 9.8 (8.4-10.2) mg/dL Magnesium 1.7 (1.6-2.3) mg/dL Total Bilirubin 0.7 (0.2-1.3) mg/dL AST 70 H (14-36) U/L ALT 47 H (6-35) U/L Alkaline Phosphatase 87 (38-126) U/L Troponin I < 0.012 (0.000-0.034) ng/mL NT-Pro-B Natriuret Pep < 20 (19.9-100) pg/mL Total Protein 8.3 H (6.3-8.2) g/dL Albumin 4.5 (3.5-5.1) g/dL Lipase 137 (23-300) U/L Urine Color Dark yellow (Yellow) Urine Appearance Clear (Clear) Urine pH 5.0 (5.0-9.0) Ur Specific [place] 1.034 (1.001-1.035) Urine Protein Trace (Negative) mg/dL Urine Glucose (UA) Negative (Negative) mg/dL Urine Ketones Trace H (Negative) mg/dL Ur Blood (Man) Negative (Negative) Urine Nitrate Negative (Negative) Urine Bilirubin 1+ H (Negative) Urine Urobilinogen 1.0 (<2.0) mg/dL Leukocyte Esterase Rfl Trace H (Negative) ADRIANA/UL Urine RBC 0-2 (0-2) /hpf Urine WBC 0-5 (0-3) /hpf Ur Squamous Epith Cells None seen (Few) /hpf Urine Bacteria None seen /hpf Urine Casts 11-20 Hyaline Casts Present (None) /lpf Influenza A (RT-PCR) Negative (Negative) Influenza B (RT-PCR) Negative (Negative) RSV (RT-PCR) Negative (Negative) SARS-CoV-2 RNA (RT-PCR) Negative (Negative) 12/01/24 Range/Units 21:29 WBC (4.5-10.0) K/mm3 RBC (4.2-5.4) M/mm3 Hgb (12.0-15.0) g/dL Hct (37.0-47.0) % MCV (80-100) fl MCH (26-34) pg MCHC (32-36) g/dl RDW (11.5-14.5) % Plt Count (150-375) k/mm3 MPV (7.4-10.4) fl Immature Gran % (Auto) (0-0.5) % Neut % (Auto) (45.5-73.1) % Lymph % (Auto) (18.3-44.2) % Emanuel % (Auto) (2.6-8.5) % Eos % (Auto) (0-4.4) % Baso % (Auto) (0.2-1.2) % Lymph # (Auto) (0.9-3.2) K/mm3 Emanuel # (Auto) (0.1-0.6) K/mm3 Eos # (Auto) (0-0.3) K/mm3 Baso # (Auto) (0.0-0.1) K/mm3 Abs Immat Gran (auto) (0.00-0.031) K/mm3 Absolute Neuts (auto) (1.3-6.7) K/mm3 Absolute Nucleated RBC (0.0-0.012) K/mm3 Nucleated RBC % (0.0-0.2) % PT (11.1-14.7) Seconds INR APTT (22.3-36.8) Seconds Sodium (137-145) mmol/L Potassium (3.4-5.0) mmol/L Chloride (98-107) mmol/L Carbon Dioxide (22-30) mmol/L Anion Gap (4-12) mmol/L BUN (7-17) mg/dL Creatinine (0.7-1.0) mg/dL Estim Creat Clear Calc Estimated GFR (59 - ) Glucose (65-110) mg/dL Lactic Acid 1.2 (0.7-2.0) mmol/L Calcium (8.4-10.2) mg/dL Magnesium (1.6-2.3) mg/dL Total Bilirubin (0.2-1.3) mg/dL AST (14-36) U/L ALT (6-35) U/L Alkaline Phosphatase (38-126) U/L Troponin I (0.000-0.034) ng/mL NT-Pro-B Natriuret Pep (19.9-100) pg/mL Total Protein (6.3-8.2) g/dL Albumin (3.5-5.1) g/dL Lipase (23-300) U/L Urine Color (Yellow) Urine Appearance (Clear) Urine pH (5.0-9.0) Ur Specific [place] (1.001-1.035) Urine Protein (Negative) mg/dL Urine Glucose (UA) (Negative) mg/dL Urine Ketones (Negative) mg/dL Ur Blood (Man) (Negative) Urine Nitrate (Negative) Urine Bilirubin (Negative) Urine Urobilinogen (<2.0) mg/dL Leukocyte Esterase Rfl (Negative) ADRIANA/UL Urine RBC (0-2) /hpf Urine WBC (0-3) /hpf Ur Squamous Epith Cells (Few) /hpf Urine Bacteria /hpf Urine Casts Hyaline Casts (None) /lpf Influenza A (RT-PCR) (Negative) Influenza B (RT-PCR) (Negative) RSV (RT-PCR) (Negative) SARS-CoV-2 RNA (RT-PCR) (Negative) <Aliya Rockwell PA-C - Last Filed: 12/01/24 16:04> Lab Results 12/01/24 12/01/24 12/01/24 Range/Units 18:37 18:48 19:10 WBC 6.1 (4.5-10.0) K/mm3 RBC 4.72 (4.2-5.4) M/mm3 Hgb 14.8 (12.0-15.0) g/dL Hct 44.2 (37.0-47.0) % MCV 93.6 (80-100) fl MCH 31.4 (26-34) pg MCHC 33.5 (32-36) g/dl RDW 14.4 (11.5-14.5) % Plt Count 221 (150-375) k/mm3 MPV 11.2 H (7.4-10.4) fl Immature Gran % (Auto) 0.2 (0-0.5) % Neut % (Auto) 72.0 (45.5-73.1) % Lymph % (Auto) 17.9 L (18.3-44.2) % Emanuel % (Auto) 7.6 (2.6-8.5) % Eos % (Auto) 1.5 (0-4.4) % Baso % (Auto) 0.8 (0.2-1.2) % Lymph # (Auto) 1.08 (0.9-3.2) K/mm3 Emanuel # (Auto) 0.5 (0.1-0.6) K/mm3 Eos # (Auto) 0.1 (0-0.3) K/mm3 Baso # (Auto) 0.1 (0.0-0.1) K/mm3 Abs Immat Gran (auto) 0.01 (0.00-0.031) K/mm3 Absolute Neuts (auto) 4.4 (1.3-6.7) K/mm3 Absolute Nucleated RBC 0.000 (0.0-0.012) K/mm3 Nucleated RBC % 0.0 (0.0-0.2) % PT 12.8 (11.1-14.7) Seconds INR 1.0 APTT 27.2 (22.3-36.8) Seconds Sodium 138 (137-145) mmol/L Potassium 3.2 L (3.4-5.0) mmol/L Chloride 101 (98-107) mmol/L Carbon Dioxide 24 (22-30) mmol/L Anion Gap 13 H (4-12) mmol/L BUN 26 H (7-17) mg/dL Creatinine 1.29 H (0.7-1.0) mg/dL Estim Creat Clear Calc Not Reportable Estimated GFR 40 L (59 - ) Glucose 134 H (65-110) mg/dL Lactic Acid 2.6 H (0.7-2.0) mmol/L Calcium 9.8 (8.4-10.2) mg/dL Magnesium 1.7 (1.6-2.3) mg/dL Total Bilirubin 0.7 (0.2-1.3) mg/dL AST 70 H (14-36) U/L ALT 47 H (6-35) U/L Alkaline Phosphatase 87 (38-126) U/L Troponin I < 0.012 (0.000-0.034) ng/mL NT-Pro-B Natriuret Pep < 20 (19.9-100) pg/mL Total Protein 8.3 H (6.3-8.2) g/dL Albumin 4.5 (3.5-5.1) g/dL Lipase 137 (23-300) U/L Urine Color Dark yellow (Yellow) Urine Appearance Clear (Clear) Urine pH 5.0 (5.0-9.0) Ur Specific [place] 1.034 (1.001-1.035) Urine Protein Trace (Negative) mg/dL Urine Glucose (UA) Negative (Negative) mg/dL Urine Ketones Trace H (Negative) mg/dL Ur Blood (Man) Negative (Negative) Urine Nitrate Negative (Negative) Urine Bilirubin 1+ H (Negative) Urine Urobilinogen 1.0 (<2.0) mg/dL Leukocyte Esterase Rfl Trace H (Negative) ADRIANA/UL Urine RBC 0-2 (0-2) /hpf Urine WBC 0-5 (0-3) /hpf Ur Squamous Epith Cells None seen (Few) /hpf Urine Bacteria None seen /hpf Urine Casts 11-20 Hyaline Casts Present (None) /lpf Influenza A (RT-PCR) Negative (Negative) Influenza B (RT-PCR) Negative (Negative) RSV (RT-PCR) Negative (Negative) SARS-CoV-2 RNA (RT-PCR) Negative (Negative) 12/01/24 Range/Units 21:29 WBC (4.5-10.0) K/mm3 RBC (4.2-5.4) M/mm3 Hgb (12.0-15.0) g/dL Hct (37.0-47.0) % MCV (80-100) fl MCH (26-34) pg MCHC (32-36) g/dl RDW (11.5-14.5) % Plt Count (150-375) k/mm3 MPV (7.4-10.4) fl Immature Gran % (Auto) (0-0.5) % Neut % (Auto) (45.5-73.1) % Lymph % (Auto) (18.3-44.2) % Emanuel % (Auto) (2.6-8.5) % Eos % (Auto) (0-4.4) % Baso % (Auto) (0.2-1.2) % Lymph # (Auto) (0.9-3.2) K/mm3 Emanuel # (Auto) (0.1-0.6) K/mm3 Eos # (Auto) (0-0.3) K/mm3 Baso # (Auto) (0.0-0.1) K/mm3 Abs Immat Gran (auto) (0.00-0.031) K/mm3 Absolute Neuts (auto) (1.3-6.7) K/mm3 Absolute Nucleated RBC (0.0-0.012) K/mm3 Nucleated RBC % (0.0-0.2) % PT (11.1-14.7) Seconds INR APTT (22.3-36.8) Seconds Sodium (137-145) mmol/L Potassium (3.4-5.0) mmol/L Chloride (98-107) mmol/L Carbon Dioxide (22-30) mmol/L Anion Gap (4-12) mmol/L BUN (7-17) mg/dL Creatinine (0.7-1.0) mg/dL Estim Creat Clear Calc Estimated GFR (59 - ) Glucose (65-110) mg/dL Lactic Acid 1.2 (0.7-2.0) mmol/L Calcium (8.4-10.2) mg/dL Magnesium (1.6-2.3) mg/dL Total Bilirubin (0.2-1.3) mg/dL AST (14-36) U/L ALT (6-35) U/L Alkaline Phosphatase (38-126) U/L Troponin I (0.000-0.034) ng/mL NT-Pro-B Natriuret Pep (19.9-100) pg/mL Total Protein (6.3-8.2) g/dL Albumin (3.5-5.1) g/dL Lipase (23-300) U/L Urine Color (Yellow) Urine Appearance (Clear) Urine pH (5.0-9.0) Ur Specific [place] (1.001-1.035) Urine Protein (Negative) mg/dL Urine Glucose (UA) (Negative) mg/dL Urine Ketones (Negative) mg/dL Ur Blood (Man) (Negative) Urine Nitrate (Negative) Urine Bilirubin (Negative) Urine Urobilinogen (<2.0) mg/dL Leukocyte Esterase Rfl (Negative) ADRIANA/UL Urine RBC (0-2) /hpf Urine WBC (0-3) /hpf Ur Squamous Epith Cells (Few) /hpf Urine Bacteria /hpf Urine Casts Hyaline Casts (None) /lpf Influenza A (RT-PCR) (Negative) Influenza B (RT-PCR) (Negative) RSV (RT-PCR) (Negative) SARS-CoV-2 RNA (RT-PCR) (Negative) <Sean Edward MD - Last Filed: 12/10/24 13:17> Discharge Plan Discharge Clinical Impression: Calculus, ureteral <Aliya Rockwell PA-C - Last Filed: 12/01/24 16:04> Patient Disposition: Home <Aliya Rockwell PA-C - Last Filed: 12/01/24 16:04> Condition: Stable <Aliya Rockwell PA-C - Last Filed: 12/01/24 16:04> Instructions: Antibiotic Form, Kidney Stones (ED), How to Strain Your Urine (ED), Flank Pain (ED) <Aliya Rockwell PA-C - Last Filed: 12/01/24 16:04> Additional Instructions: [place] for pain control. Flomax as directed to help you pass the stone. Zofran as needed for nausea control. Have close follow-up with Urology. If you have any worsening symptoms then please call or return to the emergency department. <Aliya Rockwell PA-C - Last Filed: 12/01/24 16:04> Patient Language: Ukrainian <CHARLEY Gilbert Last Filed: 12/01/24 16:04> Prescriptions: New hydrocodone-acetaminophen 5-325 mg tablet 1 tablet PO Q12H PRN (Reason: pain) Qty: 14 0RF tamsulosin [Flomax] 0.4 mg capsule 0.4 mg PO DAILY 14 Days Qty: 14 0RF ondansetron 4 mg tablet,disintegrating 4 mg PO Q8H PRN (Reason: nausea and vomiting) Qty: 14 0RF No Action All Day Allergy (cetirizine) 10 mg capsule 10 mg PO DAILY PRN atorvastatin 80 mg tablet 40 mg PO BID amiloride-hydrochlorothiazide 5-50 mg tablet 1 tablet PO DAILY alprazolam 0.25 mg tablet 0.25 mg PO TID PRN (Reason: Anxiety) omeprazole 20 mg capsule,delayed release(DR/EC) 20 mg PO BID bupropion HCl 300 mg tablet extended release 24 hr 300 mg PO DAILY qufgutorsggz-Nw-vdse-minerals 18-0.4 mg Tablet 1 tablet PO DAILY [employer] 1.5 billion cell Capsule 1 cap PO DAILY sulfamethoxazole-trimethoprim [Bactrim DS] 800-160 mg tablet 1 tablet PO Q12H Qty: 6 0RF tramadol 50 mg tablet 50 mg PO Q6H PRN (Reason: pain) Qty: 20 0RF cephalexin 500 mg capsule 500 mg PO Q12H 5 Days Qty: 10 0RF <Aliya Rockwell PA-C - Last Filed: 12/01/24 16:04> Follow-up/Referrals: Kay Dominguez MD [Physician] - Reyes,Nick Jaime MD [Primary Care Provider] - <Aliya Rockwell PA-C - Last Filed: 12/01/24 16:04>
[2024-12-01] MEDS: ONDANSETRON INJ 4 MG/2 ML VIAL IV PUSH ×2 (18:47→20:59)
--- OUTSIDE RECORDS SUMMARY | 2024-12-01 18:58 | XMS_ITS | Referral Summary ---
Author Organization [facility] Address [address] [place] [address] Care Team Providers Care Drupal Web Developer Name Role Phone Nick Reyes MD Primary [...] (01/11/2019): Added automatically from request for surgery [id number] 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 Overview (01/11/2019): Added automatically from request for surgery [id number] Cyclic edema 12/03/2016 Hypercholesteremia 12/03/2016 Gastroesophageal reflux [...] on file Medical Devices Implanted Type Area Game Manager Device Identifier Shelf Expiration Date Model / Serial / Lot Total Joint Right: Knee Lens Bilateral: [place] [address] MEDICARE [employer] [place] [employer] [place] MED[place] COUNTS INCLUDE 234 BEDS AT THE [facility] Care Teams Drupal Web Developer Relationship Specialty Start Date End Date Nick Reyes MD PCP - General 09/02/16
--- OUTSIDE RECORDS SUMMARY | 2024-12-01 18:58 | XMS_ITS | Encounter Summary ---
Author Organization [facility] Address [address] [place] [address] Phone Care Team Providers Care Drapery Rod Assembler Name Role Phone Nick Reyes MD Primary Care Provider Encounter Details Date Type Department Care Team (Late st Contact Info) Description 06/17/2019 Orders Only [facility]R [phone] Scanning, Provider Social History Tobacco Use Types [...] on filedocumented in this encounter Care Teams Drapery Rod Assembler Relationship Specialty Start Date End Date Nick Reyes MD PCP - General 09/02/16 documented as of this encounter
--- OUTSIDE RECORDS SUMMARY | 2024-12-01 18:58 | XMS_ITS | Clinical Summary ---
Author Organization [facility] Address [address] [place] [address] Care Team Providers Care Human Resources Records Clerk Name Role Phone Nick Reyes MD Primary Care Provider [phone] Source Comments [facility],non-owned Affiliates and Associated Physician Practices is amultiple site organization consisting of ambulatory clinics and hospital sitesin [place], [place], [place] and [place]. This disclosure is being madepursuant to the Care Everywhere program and may not contain all information available regarding this patient. 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
--- OUTSIDE RECORDS SUMMARY | 2024-12-01 18:58 | XMS_ITS | Clinical Summary ---
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
--- OUTSIDE RECORDS SUMMARY | 2024-12-01 18:58 | XMS_ITS | Encounter Summary ---
Author Organization [facility] Address [address] [place] [address] Care Team Providers Care Top Icer Name Role Phone Nick Reyes MD Primary Care Provider [phone] Encounter Details Date Type Department Care Team (Late st Contact Info) Description 02/06/2018 Lab Requisition [facility] [address] [place] [id number] [place] [address] Social History Tobacco Use Types Packs/Day Years Used Date Smoking Tobacco: Never Assessed Comments Unknown Sex and Gender Information Value Date Recorded Sex Assigned at Not on file 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 Jar 0. 3:52 PM CDT DERMATOPATHOLOGY LABORATORY [...] characteristic determined by the Dermatopathology Laboratory at [facility]. These tests need not be, and therefore are not, approved by the [place] Food and Drug Administration. The tests are used for clinical purposes. Billing Codes Specimen Charges Stain Charges 50214 1 8 3:52 PM CDT DERMATOPATHOLOGY LABORATORY Embedded Images 3:52 PM CDT DERMATOPATHOLOGY LABORATORY Pathology/Cytolog y TISSUE SPECIMEN FROM SKIN / Unknown 02/05/2018 02/06/2018 11:58 AM CDT us Twan Fox MD LAB - PATHOLOGY/CYTOLOGY ORD ERABLES Final Result DERMATOPATHOLOGY LABORATORY [facility] - Department of Dermatology [facility] [facility], [address] [place] [address], [facility] [phone] documented in this encounter Visit Diagnoses Not on filedocumented in this encounter Care Teams Top Icer Relationship Specialty Start Date End Date Nick Reyes MD [address] [place] [address] [address] [place] [id number] PCP - General 03/31/08 documented as of this encounter
--- OUTSIDE RECORDS SUMMARY | 2024-12-01 18:58 | XMS_ITS | Continuity of Care Document ---
Author Organization [facility] Address [address] [place] [address] Phone Care Team Providers Care Molder Bench Name Role Phone Ashley Parisi Unavailable Unavailable [...] Diagnoses Date Provider Providers Copied on Encounter [facility], [address], [place], [place], [id number], [place] tel:[phone] [facility] No Information 0 Ailin Ramirez. [address] , [address], [place], [address], [place]. tel:[phone] [facility], [address], [place], [place], [address], [place] tel:[phone] [facility] No Information Feb- 8-201 0 Simon Strong. [address] , [address], [place], [place], [facility], [place]. tel:[phone] [facility], [address], [place], [place], [address], [place] tel:[phone] [facility] No Information Sep-2 3-201 0 Parisi Ashley. [address] , [address], [place], [place], [facility], [place]. tel:[phone] [facility], [address] [place] [address] [address], [place], [place], [address], [place] tel:[phone] [facility] No Information Sep-0 2-201 0 Ailin Adairn. [address] , [address], [place], [facility], [place]. tel:[phone] [facility], [address] [place] [address] [address], [place], [place], [address], [place] tel:[phone] [facility] No Information Dec-2 6-201 0 Ailin Adairn. [address] , [address], [place], [facility], [place]. tel:[phone] [facility], [address] [place] [address] [address], [place], [place], [address], [place] tel:[phone] [facility] No Information Dec-2 5-201 0 Ailin Adairn. [address] , [address], [place], [facility], [place]. tel:[phone] Office/outpat ient Visit, Est [facility], [address] [place] [address] [address], [place], [place], [address], [place] tel:[phone] [facility] No Information 9-201 0 Ailin Adairn. [address] , [address], [place], [facility], [place]. tel:[phone] Referring Provider: Ashley Morales, [address], [place], [facility]. tel:[phone] [facility], [address] [place] [address] [address], [place], [place], [address], [place] tel:[phone] [facility] No Information 6-200 9 Ailin Adairn. [address] , [address], [place], [facility], [place]. tel:[phone] [facility], [address] [place] [address] [address], [place], [place], [address], [place] tel:[phone] [facility] No Information 6200 9 Ailin Ramirez. [address] , [address], [place], [facility], [place]. tel:[phone] [facility], [address] [place] [address] [address], [place], [place], [address], [place] tel:[phone] [facility] No Information 0 9-200 9 Ailin Adairn. [address] , [address], [place], [facility], [place]. tel:[phone] [facility], [address] [place] [address] [address], [place], [place], [address], [place] tel:[phone] [facility] No Information 0 8-200 9 Ailin Adairn. [address] , [address], [place], [facility], [place]. tel:[phone] [facility], [address], [place], [place], [address], [place] tel:[phone] [facility] No Information Jose-0 8-200 9 Ailin Ramirez. [address] [facility] , [address], [place], [facility], . tel:[phone] Referring Provider: Isabel Miles [facility] [address], [place], [facility]. tel:[phone] [facility], [address] [place] [address] [address], [place], [place], [address], tel:[phone] [facility] No Information Josesito-2 5-200 9 Ailin Ramirez. [address] [facility] [address], [place], [facility], . tel:[phone] Referring Provider: Isabel Miles [facility] [address], [place], [facility]. tel:[phone] [facility], [address] [place] [address] [address], [place], [place], [address], tel:[phone] [facility] No Information Jul-0 6-200 8 Ailin Ramirez. [address] [place] [address] , [address], [place], [facility], . tel:[phone] Family History Family Member Type Diagnosis Age At Onset No Information Payers Payer name Insurance type Covered constitution party ID Anthonya racheal(s) [facility] Commercial CI [id number] Social History Type Description Quantity Date Captured [...]
[2024-12-01 19:01] LABS: Hematocrit 44.2 % (37.0-47.0); Hemoglobin 14.8 g/dL (12.0-15.0); Immature Granulocyte Percent A 0.2 % (0-0.5); Lymphocytes Absolute Auto 1.08 K/mm3 (0.9-3.2); Mean Corpuscular HGB Conc 33.5 g/dl (32-36); Mean Corpuscular Hemoglobin 31.4 pg (26-34); Mean Corpuscular Volume 93.6 fl (80-100); Nucleated Red Blood Cells Absolute Auto 0.000 K/mm3 (0.0-0.012); Nucleated Red Blood Cells Perc 0.0 % (0.0-0.2); Platelet Count Result 221 k/mm3 (150-375); Red Blood Count 4.72 M/mm3 (4.2-5.4); White Blood Count 6.1 K/mm3 (4.5-10.0)
[2024-12-01 19:06] LABS: INR 1.0; Prothrombin Time 12.8 Seconds (11.1-14.7)
[2024-12-01 19:07] LABS: Partial Thromboplastin Time 27.2 Seconds (22.3-36.8)
--- NOTE | 2024-12-01 19:10 | PC.NURSE ---
Received report from KENAN Rucker for cont. of care. Pt taken to bathroom in W/C x1 assist for urine sample.
[2024-12-01 19:13] LABS: Alanine Aminotransferase 47 U/L (6-35); Albumin Level 4.5 g/dL (3.5-5.1); Alkaline Phosphatase 87 U/L (38-126); Anion Gap 13 mmol/L (4-12); Aspartate Amino Transferase 70 U/L (14-36); Bilirubin,Total 0.7 mg/dL (0.2-1.3); Blood Urea Nitrogen 26 mg/dL (7-17); Calcium 9.8 mg/dL (8.4-10.2); Carbon Dioxide 24 mmol/L (22-30); Chloride 101 mmol/L (98-107); Estimated Glomerular Filt Rate 40; Glucose 134 mg/dL (65-110); Lipase 137 U/L (23-300); Magnesium 1.7 mg/dL (1.6-2.3); Potassium 3.2 mmol/L (3.4-5.0); Sodium 138 mmol/L (137-145); Total Protein 8.3 g/dL (6.3-8.2)
[2024-12-01 19:18] LABS: Influenza A QL RT-PCR Negative (Negative); Influenza B QL RT-PCR Negative (Negative); RSV RNA, RT-PCR Negative (Negative); SARS-CoV-2 RNA PCR Negative (Negative)
[2024-12-01 19:24] LABS: NT Pro B Type Natriuretic Pept < 20 pg/mL (19.9-100); Troponin I < 0.012 ng/mL (0.000-0.034)
[2024-12-01 20:28] LABS: Add Urine Microscopic? YES; Appearance Urine Clear (Clear); Glucose Urine UA Negative (Negative); Leukocyte Esterase Ur Trace LEU/UL (Negative); Nitrate Urine Negative (Negative); Specific Grav Ur 1.034 (1.001-1.035)
[2024-12-01] MEDS: TAMSULOSIN HCL 0.4 MG CAPSULE PO (20:58)
[2024-12-01] MEDS: KETOROLAC 15 MG/ML VIAL (*BKC) IV PUSH (21:00)
[2024-12-01] MEDS: fentaNYL CITRATE INJ (*CRX) 100 MCG/2 ML VIAL 50 MCG IV PUSH (21:02)
== END 2024-12-01 22:10 | disposition home or self-care (01) ==
PROVIDERS: Physician Assistant; Emergency Provider Emergency Medicine; PCP Internal Medicine
DX: N13.2 Hydronephrosis with renal and ureteral calculous obstruction (principal); I45.10 Unspecified right bundle-branch block; R06.02 Shortness of breath; F41.9 Anxiety disorder, unspecified; Z86.73 Personal history of transient ischemic attack (TIA), and cerebral infarction without residual deficits; K21.9 Gastro-esophageal reflux disease without esophagitis; E78.5 Hyperlipidemia, unspecified; I10 Essential (primary) hypertension; M19.90 Unspecified osteoarthritis, unspecified site
CPT/HCPCS: 36415; 71045; 74177; 80053; 81001; 83605; 83690; 83735; 83880; 84484; 85025; 85610; 85730; 87637; 93005; 96374; 96375; 96376; 99284; A9270; J1885; J2405; J3010; Q9967

== ENCOUNTER 2024-12-03 16:10 | Emergency (ER) | payer MEDICARE, SELFPAY ==
[2024-12-03] VITALS (19 sets, daily range): BP systolic 108–155; BP diastolic 45–125; PULSE 69–83; RESP 16–71; TEMP 36.4–36.7; O2SAT 92–100
--- NOTE | ~2024-12-03 | CT_ITS ---
CT abdomen pelvis wo con Ordering provider: Aliya Rockwell PA-C History: 79 years Female with . LLQ abd pain . Comparison: None. Technique: CT abdomen and pelvis without IV and without oral contrast. Automated exposure control and iterative reconstruction technique were employed. The dose-length product was 293.51 mGy-cm. Findings: VISUALIZED LOWER CHEST: Dependent atelectatic changes. UPPER ABDOMINAL ORGANS: Liver: Normal. Calcified granulomas. Gallbladder: Status post cholecystectomy. Prominent CBD measuring 1.2 cm. Spleen: Normal. Calcified granulomas. Stomach/duodenum: Large sliding hiatus hernia. Pancreas: Normal. Adrenals: Normal. Kidneys: Stone is seen in the right upper ureter measuring 3 mm. No significant hydronephrosis seen. 2 stones seen in the left kidney upper pole with the largest measures 4 mm. Tiny stone in the right kidney lower pole. PELVIC ORGANS: The bladder is underfilled with hyperdense material which may indicate hemorrhage vers us contrast from previous study. BOWEL AND MESENTERY: Colon: No evidence of diverticulitis. Contrast material is seen in the colon. Normal appendix. Small Bowel: Normal. No obstruction. Peritoneum/mesentery: No free air or free fluid. No mesenteric lymphadenopathy. RETROPERITONEUM: Mild atheromatous disease of the abdominal aorta. No retroperitoneal lymphadenopat hy. MUSCULOSKELETAL: Superficial soft tissues: The superficial soft tissues are normal. Bones: Age appropriate degenerative changes of the spine. Levoscoliosis. Bilateral hip osteoarthritic changes. IMPRESSION: 1. Stone in the right upper ureter with no significant hydronephrosis. 2. Bilateral kidney stones. 3. Hyperdense material in the urinary bladder which may be blood or residual contrast from previous study. Clinical correlation advised. 4. Sliding hiatus hernia. Reviewed, dictated and finalized at location A. IMPRESSION: 1. Stone in the right upper ureter with no significant hydronephrosis. 2. Bilateral kidney stones. 3. Hyperdense material in the urinary bladder which may be blood or residual c ontrast from previous study. Clinical correlation advised. 4. Sliding hiatus hernia.
--- OUTSIDE RECORDS SUMMARY | 2024-12-03 16:13 | XMS_ITS | Encounter Summary ---
Author Organization [facility] Address [address] [place] [address] Phone Care Team Providers Care Lumber Mover Name Role Phone Nick Reyes MD Primary Care Provider Encounter Details Date Type Department Care Team (Late st Contact Info) Description 06/17/2019 Orders Only [facility]R [phone] Scanning, Provider Social History Tobacco Use Types [...] on filedocumented in this encounter Care Teams Lumber Mover Relationship Specialty Start Date End Date Nick Reyes MD PCP - General 09/02/16 documented as of this encounter
--- OUTSIDE RECORDS SUMMARY | 2024-12-03 16:13 | XMS_ITS | Data Portability ---
Author Organization [place] - [facility] [employer], Main Office Address [address] [place] [address] Care Team Providers Care Peer Financial Counselor Name Role Phone DEAN REYES Primary Care Provider DEAN REYES Referring Provider [phone] Assessment Encounter Date Assessment Date Assessment LastModified [...] hepatic function panel, serum 2024 025 [facility] ([facility] Scheduling), [address] [place], [address], 11/10/2024 03:27:43 glycohemo globin, total, blood 2024 025 [email or web address] [facility] ([facility] Call Scheduling), [address] [place], [address], 11/10/2024 09:00:09 lipid panel, serum 2024 025 [email or web address] [facility] ([facility] Call Scheduling), [address] [place], [address], 07/21/2024 10:06:10 CMP, serum or plasma [address] (One Call Scheduling), [address] [place], [address], 07/21/2024 10:06:11 HbA1c (hemoglob in A1c), blood [address] (One Call Scheduling), [address] [place], [address], 07/21/2024 10:06:11 TSH, serum or plasma [address] (One Call Scheduling), [address] [place], [address], 07/21/2024 10:06:11 T4, free, serum [address] (One Call Scheduling), [address] [place], [address], 07/21/2024 10:06:11 lipid panel, serum 2023 024 [facility] ([facility] Scheduling), [address] [place], [address], 03/04/2024 14:45:46 CMP, serum or plasma 2023 024 [facility] ([facility] Call Scheduling), [address] [place], [address], 03/04/2024 14:45:56 HbA1c (hemoglob in A1c), blood [address] (One Call Scheduling), [address] [place], [address], 03/12/2024 10:40:28 Referral None recorded. Procedures None recorded. Surgeries None recorded. Imaging None recorded. Medication Orders None recorded. Patient TargetsNo targets recorded. Patient Instructions Encounter Date Encounter Id Patient Instructions Last Modified By Organization Details Last Modified Time 03/03/2024 [id number] dementia rating scale-2* [email or web address] Not available 03/03/2024 17:13:30 alcohol misuse* [email or web address] Not available 03/03/2024 17:13:30 depression screening* [email or web address] Not available 03/03/2024 17:13:30 Timed Up and Go test (TUG)* [email or web address] Not available 03/03/2024 17:13:30 multi-dimensiona health assessment questionnaire* [email or web address] Not available 03/03/2024 17:13:30 [place] Advance Directives [email or web address] Not available 03/03/2024 17:13:30 advance directiv es: care instructions [email or web address] Not available 03/03/2024 17:13:30 advance care planning: care instructions [email or web address] Not available 03/03/2024 17:13:30 Personalized Hea lth [...] Positive Active diagnosis, Continue current treatment plan [email or web address] Not available 03/03/2024 16:52:42 Medicare wellnes s evaluation risk assessment stable. Follow-up for essential hypertension, hypothyroidism, hyperlipidemia, rheumatoid arthritis, type 2 diabetes, depression as well as some chronic renal dysfunction stage IIIA. Will continue on current Rx will check a hemoglobin A1c and lipid panel. Will await the further evaluation of the security support analyst. Will also set up with ENT to evaluate the posterior pharyngeal pain and the vertigo. Additional Orders - Directives - Recommendations 1. ENT consult for posterior neck and the pain along with vertigo. Follow Up: 4 Months Approximate Date: 07/01/2024 Portions of the record may have been created with voice recognition software. Occasional wrong-word or wmwpt-g-lxcu substitutions may have occurred due to the inherent limitations of voice recognition software. Read the chart carefully and recognize, using context, where substitutions have occurred. [email or web address] Not available 03/03/2024 17:12:58 03/31/2024 [id number] Follow-up for hypertension, hyperlipidemia, GERD, rheumatoid arthritis [...] arm radiculopathy Keep Appointment: Fri 03:20 PM [place] Follow Up: 4 Months Approximate Date: 07/29/2024 Portions of the record may have been created with voice recognition software. Occasional wrong-word or qglks-u-bpuc substitutions may have occurred due to the inherent limitations of voice recognition software. Read the chart carefully and recognize, using context, where substitutions have occurred. [email or web address] Not available 03/31/2024 16:37:10 07/14/2024 [id number] Follow-up for essential hypertension, hyperlipidemia, hypothyroidism, type [...] with voice recognition software. Occasional wrong-word or rcfrn-j-wrpn substitutions may have occurred due to the inherent limitations of voice recognition software. Read the chart carefully and recognize, using context, where substitutions may have occurred. Created: Dean Reyes M.D. 07.14.2024 03:59 PM [email or web address] Not available 07/14/2024 16:59:23 11/03/2024 [id number] Follow-up essent ial hypertension, hyperlipidemia, type 2 [...] with voice recognition software. Occasional wrong-word or igkmj-q-dmzc substitutions may have occurred due to the inherent limitations of voice recognition software. Read the chart carefully and recognize, using context, where substitutions may have occurred. Created: Dean Reeys M.D. 11.03.2024 04:17 PM [email or web address] Not available 11/03/2024 17:17:03 Reason for Referral [...] ----- HIGH RISK: >240 >200 Not Available [facility] (Lab) [address] [place], [address], 03/04/2024 14:45:46 03/04/20 24 03/04/2024 LIPID PANEL triglyceride s 265 mg/dL 0-150 high NIH FILEMON NSUS REPOR T RECOM MENDA TION FOR TRIGL YCERI KLAUDIA: ADULT CHILD LOW RISK: <150 ----- BODER LINE: 150-1 99 ----- HIGH RISK: >200 ----- Not Available [facility] (Lab) [address] [place], [address], 03/04/2024 14:45:46 03/04/2003/04/2024 LIPID PANEL HDL cholesterol 51 mg/dL 40- Not Available [facility] (Lab) [address] [place], [address], 03/04/2024 14:45:46 03/04/2003/04/2024 LIPID PANEL LDL cholesterol, [...] REPOR SAVAGE. Not Available [facility] (Lab) [address] [place], [address], 03/04/2024 14:45:46 03/04/2003/04/2024 COMPR EHENS MARIA TERESA METAB OLIC PANEL sodium 138 mmol/ L 137-14 5 Not Available [facility] (Lab) [address] [place], [address], 03/04/2024 14:45:56 03/04/2003/04/2024 COMPR EHENS MARIA TERESA METAB OLIC PANEL potassium 4.0 mmol/ L 3.5-5. 1 Not Available [facility] (Lab) [address] [place], [address], 03/04/2024 14:45:56 03/04/2003/04/2024 COMPR EHENS MARIA TERESA METAB OLIC PANEL chloride 101 mmol/ L 98-107 Not Available [facility] (Lab) [address] [place], [address], 03/04/2024 14:45:56 03/04/20 24 03/04/2024 COMPR EHENS MARIA TERESA METAB OLIC PANEL carbon dioxide 28 mmol/ L 22-30 Not Available [facility] (Lab) [address] [place], [address], 03/04/2024 14:45:56 03/04/20 24 03/04/2024 COMPR EHENS MRAIA TERESA METAB OLIC PANEL anion gap 13.0 mmol/ L 14-22 low Not Available [facility] (Lab) [address] [place], [address], 03/04/2024 14:45:56 03/04/2003/04/2024 COMPR EHENS MARIA TERESA METAB OLIC PANEL glucose 201 mg/dL 70-99 high Not Available [facility] (Lab) [address] [place], [address], 03/04/2024 14:45:56 03/04/2003/04/2024 COMPR EHENS MARIA TERESA METAB OLIC PANEL BUN 29 mg/dL 8-19 high Not Available [facility] (Lab) [address] [place], [address], 03/04/2024 14:45:56 03/04/20 24 03/04/2024 COMPR EHENS MARIA TERESA METAB OLIC PANEL creatinine 1.27 mg/dL 0.66-1 .25 high Not Available [facility] (Lab) [address] [place], [address], 03/04/2024 14:45:56 03/04/2003/04/2024 COMPR EHENS MARIA TERESA METAB OLIC PANEL GFR 41 Refer ence Range : [place] ge GFR Healt hy Adult : >60 [...] calcu lator is avail able on the [facility] websi te: https ://sulma w.gaby miguel.o rg/pr ofess ional s/kdo qi/gf r_cal culat or Not Available [facility] (Lab) [address] [place], [address], 03/04/2024 14:45:56 03/04/2003/04/2024 COMPR EHENS MARIA TERESA METAB OLIC PANEL alkaline phosphatase 113 U/L 38-126 Not Available [facility] (Lab) [address] [place], [address], 03/04/2024 14:45:56 03/04/2003/04/2024 COMPR EHENS MARIA TERESA METAB OLIC PANEL alanine aminotransfe rase 47 U/L 0-35 high Not Available [facility] (Lab) [address] [place], [address], 03/04/2024 14:45:56 03/04/2003/04/2024 COMPR EHENS MARIA TERESA METAB OLIC PANEL aspartate aminotransfe rase 67 U/L 15-37 high Not Available [facility] (Lab) [address] [place], [address], 03/04/2024 14:45:56 03/04/20 24 03/04/2024 COMPR EHENS MARIA TERESA METAB OLIC PANEL bilirubin, total 1.10 mg/dL 0.20-1 .30 Not Available [facility] (Lab) [address] [place], [address], 03/04/2024 14:45:56 03/04/2003/04/2024 COMPR EHENS MARIA TERESA METAB OLIC PANEL calcium 10.5 mg/dL 8.4-10 .2 high Not Available [facility] (Lab) [address] [place], [address], 03/04/2024 14:45:56 03/04/2003/04/2024 COMPR EHENS MARIA TERESA METAB OLIC PANEL total protein 7.5 g/dL 6.3-8. 2 Not Available [facility] (Lab) [address] [place], [address], 03/04/2024 14:45:56 03/04/2003/04/2024 COMPR EHENS MARIA TERESA METAB OLIC PANEL albumin 4.5 g/dL 3.0-4. 4 high Not Available [facility] (Lab) [address] [place], [address], 03/04/2024 14:45:56 03/04/2003/04/2024 COMPR EHENS MARIA TERESA METAB OLIC PANEL globulin 3.0 g/dL 2.6-4. 2 Not Available [facility] (Lab) [address] [place], [address], 03/04/2024 14:45:56 03/04/2003/04/2024 COMPR EHENS MARIA TERESA METAB OLIC PANEL A/G ratio 1.5 ratio 1.0-2. 0 Not Available [facility] (Lab) [address] [place], [address], 03/04/2024 14:45:56 03/04/2018 0303/04/2024 HEMOG LOBIN A1C HA1C 6.5 % 4.0-6. 0 high Diabe gianna Scree seamus Crite saloni: <5.7% Consi stent with absen ce of diabe gianna 5.7-6 .4% Consi stent with incre ased risk for diabe gianna (pred iabet es) >OR=6 .5% Consi stent with diabe gianna REFER ENCE: Diabe gianna Care 2016, 39(Norton ppl.1 ):s13 -s22 Not Available [facility] (Lab) [address] [place], [address], 03/04/2024 17:50:07 07/23/1907/24/2024 LIPID PANEL , STAND YANN cholesterol, total 157 mg/dL <200 normal Not Available [facility] [address] [address] [place], [address], 07/24/2024 05:38:37 07/23/19 25 07/24/2024 LIPID PANEL , STAND YANN HDL cholesterol 46 mg/dL > or = 50 low Not Available [facility] [address] [place], [address], 07/24/2024 05:38:37 07/23/19 25 07/24/2024 LIPID PANEL , STAND YANN triglyceride s 210 mg/dL <150 high If a non-f astin g speci men was colle cted, consi richar repea t trigl yceri de testi ng on a fasti ng speci men if clini gilbert indic ated. Pola monae et al. J. of Clin. Lipid ol. 2015; 9:129 -169. Not Available [facility] [address] [place], [place] [address], [address], 07/24/2024 05:38:37 07/23/19 25 07/24/2024 LIPID PANEL [...] 2061- 206 (http ://ed ucati on.Qu estDi FashionFreax GmbHs. com/f aq/FA Q164) Not Available [facility] [address], [address], 07/24/2024 05:38:37 07/23/1907/24/2024 LIPID PANEL , STAND YANN chol/HDLC ratio 3.4 (calc ) <5.0 normal Not Available [facility] [address] [place], [address], 07/24/2024 05:38:37 07/23/1907/24/2024 LIPID PANEL , STAND YANN non HDL cholesterol 111 mg/dL _(gurwinder c) <130 normal For patie nts with diabe gianna plus 1 major ASCVD risk facto r, treat ing to a non-H DL-C goal of <100 mg/dL (LDL- C of <70 mg/dL ) is consi dered a thera peevangelina c optio n. Not Available [facility] [address] [address] [address] [place], [address], 07/24/2024 05:38:37 07/23/1907/24/2024 COMPR EHENS MARIA TERESA METAB OLIC PANEL glucose 211 mg/dL 65-99 high Fasti ng refer ence inter francis For someo ne witho ut known diabe gianna, a gluco se value >125 mg/dL indic ates that they may have diabe gianna and this shoul d be confi rmed with a follo w-up test. Not Available [facility] [address] [place], [address], 07/24/2024 05:38:39 07/23/19 25 07/24/2024 COMPR EHENS MARIA TERESA METAB OLIC PANEL urea nitrogen (BUN) 20 mg/dL 7-25 normal Not Available [address], [address], 07/24/2024 05:38:39 07/23/19 25 07/24/2024 COMPR EHENS MARIA TERESA METAB OLIC PANEL creatinine 1.19 mg/dL 0.60-1 .00 high Not Available [address], [address], 07/24/2024 05:38:39 07/23/19 25 07/24/2024 COMPR EHENS MARIA TERESA METAB OLIC PANEL eGFR 47 mL/mi n/1.7 3m2 > or = 60 low Not Available [address], [address], 07/24/2024 05:38:39 07/23/19 25 07/24/2024 COMPR EHENS MARIA TERESA METAB OLIC PANEL BUN/creatini ne ratio 17 (calc ) 6-22 normal Not Available [address], [address], 07/24/2024 05:38:39 07/23/19 25 07/24/2024 COMPR EHENS MARIA TERESA METAB OLIC PANEL sodium 139 mmol/ L 135-14 6 normal Not Available [address], [address], 07/24/2024 05:38:39 07/23/19 25 07/24/2024 COMPR EHENS MARIA TERESA METAB OLIC PANEL potassium 3.7 mmol/ L 3.5-5. 3 normal Not Available [address], [address], 07/24/2024 05:38:39 07/23/19 25 07/24/2024 COMPR EHENS MARIA TERESA METAB OLIC PANEL chloride 100 mmol/ L 98-110 normal Not Available [address], [address], 07/24/2024 05:38:39 07/23/19 25 07/24/2024 COMPR EHENS MARIA TERESA METAB OLIC PANEL carbon dioxide 28 mmol/ L 20-32 normal Not Available [address], [address], 07/24/2024 05:38:39 07/23/19 25 07/24/2024 COMPR EHENS MARIA TERESA METAB OLIC PANEL calcium 9.5 mg/dL 8.6-10 .4 normal Not Available [address], [address], 07/24/2024 05:38:39 07/23/19 25 07/24/2024 COMPR EHENS MARIA TERESA METAB OLIC PANEL protein, total 7.3 g/dL 6.1-8. 1 normal Not Available [address], [address], 07/24/2024 05:38:39 07/23/19 25 07/24/2024 COMPR EHENS MARIA TERESA METAB OLIC PANEL albumin 4.5 g/dL 3.6-5. 1 normal Not Available [address], [address], 07/24/2024 05:38:39 07/23/19 25 07/24/2024 COMPR EHENS MARIA TERESA METAB OLIC PANEL globulin 2.8 g/dL_ (calc ) 1.9-3. 7 normal Not Available [address], [address], 07/24/2024 05:38:39 07/23/19 25 07/24/2024 COMPR EHENS MARIA TERESA METAB OLIC PANEL albumin/glob ulin ratio 1.6 (calc ) 1.0-2. 5 normal Not Available [address] [place], [address], 07/24/2024 05:38:39 07/23/19 25 07/24/2024 COMPR EHENS MARIA TERESA METAB OLIC PANEL bilirubin, total 0.7 mg/dL 0.2-1. 2 normal Not Available [address], [address], 07/24/2024 05:38:39 07/23/19 25 07/24/2024 COMPR EHENS MARIA TERESA METAB OLIC PANEL alkaline phosphatase 103 U/L 37-153 normal Not Available [address], [address], 07/24/2024 05:38:39 07/23/19 25 07/24/2024 COMPR EHENS MARIA TERESA METAB OLIC PANEL AST 60 U/L 10-35 high Not Available [address], [address], 07/24/2024 05:38:39 07/23/19 25 07/24/2024 COMPR EHENS MARIA TERESA METAB OLIC PANEL ALT 32 U/L 6-29 high Not Available [address], [address], 07/24/2024 05:38:39 07/23/19 25 07/24/2024 T4, FREE T4, free 1.0 NG/dL 0.8-1. 8 normal Not Available [address], [address], 07/24/2024 05:38:40 07/23/19 25 07/24/2024 TSH TSH 1.07 mIU/L 0.40-4 .50 normal Not Available [address], [address], 07/24/2024 05:38:41 07/23/19 25 07/24/2024 HEMOG LOBIN [...] diabe gianna for child winnie. Not Available [address], [address], 07/24/2024 05:38:42 11/10/19 25 11/10/2024 HEPAT IC FUNCT ION PANEL protein, total 7.4 g/dL 6.1-8. 1 normal Not Available [address], [address], 11/10/2024 03:27:43 11/10/19 25 11/10/2024 HEPAT IC FUNCT ION PANEL albumin 4.4 g/dL 3.6-5. 1 normal Not Available [facility] [address], [address], 11/10/2024 03:27:43 11/10/19 25 11/10/2024 HEPAT IC FUNCT ION PANEL globulin 3.0 g/dL_ (calc ) 1.9-3. 7 normal Not Available [facility] [address], [address], 11/10/2024 03:27:43 11/10/19 25 11/10/2024 HEPAT IC FUNCT ION PANEL albumin/glob ulin ratio 1.5 (calc ) 1.0-2. 5 normal Not Available [facility] [address] [place], [address], 11/10/2024 03:27:43 11/10/1911/10/2024 HEPAT IC FUNCT ION PANEL bilirubin, total 0.8 mg/dL 0.2-1. 2 normal Not Available [address], [address], 11/10/2024 03:27:43 11/10/19 25 11/10/2024 HEPAT IC FUNCT ION PANEL bilirubin, direct 0.2 mg/dL < or = 0.2 normal Not Available [address], [address], 11/10/2024 03:27:43 11/10/19 25 11/10/2024 HEPAT IC FUNCT ION PANEL bilirubin, indirect 0.6 mg/dL _(gurwinder c) 0.2-1. 2 normal Not Available [address], [address], 11/10/2024 03:27:43 11/10/19 25 11/10/2024 HEPAT IC FUNCT ION PANEL alkaline phosphatase 94 U/L 37-153 normal Not Available [address] [address] [place], [address], 11/10/2024 03:27:43 11/10/1911/10/2024 HEPAT IC FUNCT ION PANEL AST 96 U/L 10-35 high Not Available [address], [address], 11/10/2024 03:27:43 11/10/1911/10/2024 HEPAT IC FUNCT ION PANEL ALT 49 U/L 6-29 high Not Available [address] [address] [place], [address], 11/10/2024 03:27:43 11/10/19 25 11/10/2024 HEMOG LOBIN [...] diabe gianna for child winnie. Not Available [address] [address] [place], [address], 11/10/2024 03:27:44 02/12/20 24 02/12/2024 XR, abdom en No observ ation record ed. [place] [address] [facility] [address], [place], [address], 02/12/2024 17:15:26 04/07/20 24 04/07/2024 MRI, cervi gurwinder spine , w/o contr ast [facility] [address] [place] [address] [phone] Patien t Name: SKY HENRY Access ion #: [id number] Sex: F : 1945 0 Dictat ed By: Elizabeth mathur Attend ing Physic ursh: ANAYA REYES Orderi Physic rush: ANAYA REYES [...] ral body height s are mainta ined. Business Intelligence Administrator ior elemen ts are intact . No [...] the spinal cord. There is Page 1 [facility] [address] [facility] [address] [address] Patien t Name: SKY HENRY Access ion #: [id number] Sex: F : 1945 0 Dictat [...] at 2023 13:24: 26 PM Page 3 [email or web address] [facility] [address] [place], [address], 04/07/2024 16:40:40 08/05/19 25 08/04/2024 CT, neck, soft tissu e, w/o contr ast No observ ation record ed. [email or web address] [address], [place], [address], 08/04/2024 17:08:15 12/02/19 25 12/01/2024 XR, chest No observ ation record ed. [email or web address], [place], [address], 12/02/2024 08:47:16 12/02/19 25 12/01/2024 CT, abdom en + pelvi s, w/o contr ast No observ ation record ed. [address], [place], [address], 12/02/2024 08:48:14 Result Notes Documentation Provider Name and Address Organization Details Recorded Time Mri, Cervical Spine, W/o Contrast : [address] [address] Patient Name: SKY HENRY Sex: F : [...] and uncinate hypertrophy with mild right and kyra-vm-yvqxnlio left neural foraminal stenoses. C3-C4: Disc desiccation with diffuse disc bulge superimposed on congenital spinal canal narrowing causing moderate to severe spinal canal stenosis, abutting and mildly indenting the ventral aspect of the spinal cord. There is Page [address] [address] Patient Name: SKY HENRY Sex: F : [...] and uncinate hypertrophy with severe left and dkyo-ai-wefarrya right neural foraminal stenoses. C5-C6: Disc desiccation [...] and congenital spinal canal narrowing contributing to wxdz-eh-sfkxclam spinal canal stenosis. Facet and uncinate hypertrophy with severe bilateral neural foraminal stenoses. IMPRESSION: 1. Reversal of the normal cervical lordosis with multilevel spondylolisthesis as described above. 2. Degenerative disc disease and facet disease with associated spinal canal, subarticular, and neural foraminal stenoses as detailed above. Page 3 Dean Reyes MD [address] [facility], [facility] [address], [place], [address], [facility] [employer] [facility] 04/07/2024 16:40:40 Problems Name Problem SNOMED Code Status Onset Date Resolution Date Notes Provider Name and Address Organization Details Recorded Time Anxiety 48944216 Active 2022 Not Available [facility] 4 09:40:04 Pain of right knee joint 6822951776122 00 Active 2022 Not Available [facility] 4 09:40:04 Senile osteoporos is 18829564 Active 2022 Not Available [facility] 4 09:40:03 Benign essential hypertensi on 8927726 Active Not Available [facility] 4 09:40:03 Hearing loss 18854190 Active Not Available [facility] 4 09:40:03 Acute sinusitis 49146640 Active 2021 Not Available [facility] 4 09:40:03 Blood glucose outside reference range 202432262 Active Not Available [facility] 4 09:40:03 Pleurisy 820364502 Active Not Available [facility] 4 09:40:03 Lumbar sprain 852946243 Active Not Available [facility] 4 09:40:03 Gastroesop hageal reflux disease 798786889 Active Not Available [facility] 4 09:40:03 Gallstone 843564750 Active Not Available [facility] 4 09:40:03 Osteoarthr itis of knee 800964796 Active 2016 Not Available [facility] 4 09:40:03 Screening mammograph y Active 2021 Not Available [facility] 4 09:40:03 Transient cerebral ischemia 917077193 Active Not Available [facility] 4 09:40:03 Dyspnea 814543137 Active Not Available [facility] 4 09:40:03 Pure hyperchole sterolemia 227217112 Active Not Available [facility] 4 09:40:03 Dizziness and giddiness 886261159 Active 2021 Not Available [facility] 4 09:40:03 Localized, primary osteoarthr itis of elbow 405377773 Active Not Available [facility] 4 09:40:03 Vitamin D deficiency 60802900 Active Not Available [facility] 4 09:40:03 Depressive disorder 36860172 Active Not Available [facility] 4 09:40:03 Pain of multiple joints 27506844 Active 2016 Not Available [facility] 4 09:40:03 Osteoarthr itis 431607928 Active Not Available [facility] 4 09:40:03 Vertigo 936777228 Active Not Available [facility] 4 09:40:03 Dizziness 953120142 Active 2021 Not Available [facility] 4 09:40:03 Hypothyroi dism 25449472 Active Not Available [facility] 4 09:40:04 Bunion 711569321 Active 2020 Not Available [facility] 4 09:40:04 Chronic left-sided ulcerative colitis 628154722 Active Not Available [facility] 4 09:40:04 Mastoiditi s 87723616 Active 2021 Not Available [facility] 4 09:40:04 Rheumatoid arthritis 82406765 Active 2021 Not Available [facility] 4 09:40:04 COVID-19 173769639 Active 2022 Not Available [facility] 4 09:40:04 Herniation of nucleus pulposus 24917395 Active Not Available [facility] 4 09:40:04 Hyperglyce lance 47197329 Active 2022 Not Available [facility] 4 09:40:04 Type 2 diabetes mellitus 95788157 Active 2022 Not Available [facility] 4 09:40:04 Type 2 diabetes mellitus without complicati on 144297701 Active 2022 Not Available [facility] 4 09:40:03 Diabetes mellitus 45366257 Active 2022 Not Available [facility] 4 09:40:04 Gastroesop hageal reflux disease without esophagiti s 333995001 Active 2022 Not Available [facility] 4 09:40:03 Acute bronchitis 89414836 Active 2023 Dean Reyes MD [address], [place], [address] , [place] [facility] 4 11:58:54 Candidiasi s of vagina 99408522 Active 2023 Dean Reyes MD [address], [place], [address] , [place] [facility] 4 13:31:40 Acute urinary tract infection 654280347 Active 2023 Dean Reyes MD [address], [place], [address] , [place] [facility] 4 10:20:37 Dysuria 04640510 Active 2023 Shanita Munoz null, [place] [facility] 4 12:33:37 Cervical radiculopa thy 82018896 Active 2023 Dennise Mayes null, [place] [facility] 4 16:48:01 Obese class I 7656200455371 07 Active 2024 Dean Reyes MD [address], [place], [address] , [place] [facility] 5 16:58:29 Hemorrhoid s 59351097 Active 2024 Dennise Mayes null, [place] [facility] 5 17:03:52 Liver enzymes level above reference range 307607571 Active 2024 Skye Pavon CMA null, [place] [facility] [employer] [facility] AND [facility]INIC 5 16:23:48 External hemorrhoid s [id number] Active 2024 Gregorio schwartz MD [address] [place] [address], [place] [address], [place], [address] , [facility] [employer] [facility] 13:02:09 Problem Notes None recorded. Procedures Surgical History Date Name Laterality Status Provider Name and Address Organization Details Recorded Time 024 Medicare Wellness CPT Code, subsequent completed Susan Pacheco RN [facility] [employer] [facility] 03/03/2024 16:43:34 024 Advanced Care Planning completed Susan Pacheco RN [facility] [employer] [facility] 03/03/2024 16:56:06 023 Medicare Wellness CPT Code, subsequent completed Susan Pacheco RN [facility] [employer] 11/06/2022 15:05:16 020 Most Recent Bone Density completed Not Available [facility] 07/24/2022 02:55:04 rhinoseptoplasty completed Not Available [facility] 07/24/2022 02:55:10 Knee Replacement completed Not Available [facility] 07/24/2022 02:55:10 Cholecystectomy completed Not Available [facility] 07/24/2022 02:55:10 Tubal Ligation completed Not Available [facility] 07/24/2022 02:55:10 screening for malignant neoplasm of skin completed Not Available [facility] 07/24/2022 02:55:10 Carpal tunnel surgery completed Not Available [facility] 07/24/2022 02:55:10 Imaging Results None recorded. Procedure Notes None recorded. Medical Equipment None Reported. Allergies Allergen ID Allergen Name Allergen Category Reaction Reaction Severity Criticality Documentation Date Start Date Code Code System Note Provider Name and Address Organization Details Recorded Time 5913 cisapride monohydra te medicatio n other Not available Not available 07/24/2022 55342 7 RxNorm Not Available [facility] 3 03:28:42 5914 codeine medicatio n rash Not available Not available 07/24/2022 2670 RxNorm Not Available [facility] 3 03:28:42 Medications Name Sig Start Date [...] administe red by the provider 09/26 completed [facility]: [phone]- [phone] Not Available Not Available [...] administe red by the provider 06/29 completed [facility]: [phone]- [phone] Not Available Not Available [...] Not Available Not Available No t Available Alessandra Max U-300 SoloStar 300 unit/mL (3 mL) [...] Updated DateTime 5 149.86 cm 34.4 kg/m2 12212.5 g 83 /min 97 [degF] 97 % 97 % 120/68 mm[Hg] Shanita Munoz [facility] [employer] 5 16:23:04 Date Recorded Body height Body mass index (BMI) Body weight Body temperature Respiratory rate Heart rate Oxygen saturation Oxygen saturation in Arterial blood by Pulse oximetry Systolic And Diastolic Provider Name and Address Organization Details Last Updated DateTime 5 149.86 cm 34.3 kg/m2 36393.7 g 97.6 [degF] 14 /min 86 /min 97 % 97 % 120/80 mm[Hg] Dennise Alvarez MD [employer] [facility] [employer] 5 11:11:19 Date Recorded Body height Body mass index (BMI) Body weight Heart rate Body temperature Oxygen saturation Oxygen saturation in Arterial blood by Pulse oximetry Systolic And Diastolic Provider Name and Address Organization Details Last Updated DateTime 5 149.86 cm 34.3 kg/m2 88105.7 g 80 /min 97 [degF] 97 % 97 % 142/74 mm[Hg] Shanita Munoz [facility] [employer] [facility] 5 16:31:52 Date Recorded Body height Body weight Heart rate Body temperature Oxygen saturation Oxygen saturation in Arterial blood by Pulse oximetry Systolic And Diastolic Provider Name and Address Organization Details Last Updated DateTime 4 149.86 cm 40033.7 g 75 /min 97 [degF] 96 % 96 % 122/72 mm[Hg] [facility] [employer] [facility] [employer] [facility] 4 16:33:05 Date Recorded Body height Body mass index (BMI) Body weight Heart rate Body temperature Oxygen saturation Oxygen saturation in Arterial blood by Pulse oximetry Systolic And Diastolic Provider Name and Address Organization Details Last Updated DateTime 4 149.86 cm 35.1 kg/m2 52196.0 7 g 73 /min 97 [degF] 96 % 96 % 128/74 mm[Hg] [facility] [employer] [facility] [employer] [facility] 4 16:15:38 Social History Question Answer Notes LastModified by Organizat ion Details LastModified Time Tobacco Smoking Status Never Smoker Not Available [facility] 07/24/2022 02:42:45 Do You Have An Advance Directive? No Info Given [email or web address] Information not available 03/03/2024 Do You Wear A Helmet When Biking? No Na [email or web address] Information not available 11/06/2022 Are You Blind Or Do You Have Difficulty Seeing? No MIGRATION.18031 64229 Information not available 07/24/2022 In The 14 Days Before Symptom Onset, Have You Had Close Contact With A Laboratory-confi rmed COVID-19 While That Case Was Ill? No MIGRATION.41582 56376 Information not available 07/24/2022 In The 14 Days Before Symptom Onset, Have You Had Close Contact With A Person Who Is Under Investigation For COVID-19 While That Person Was Ill? No MIGRATION.59869 43512 Information not available 07/24/2022 Are You Deaf Or Do You Have Serious Difficulty Hearing? No MIGRATION.50036 21275 Information not available 07/24/2022 What Type Of Diet Are You Following? REGULAR MIGRATION.02462 83249 Information not available 07/24/2022 Have There Been Any Changes To Your Family Or Social Situation? No MIGRATION.84429 66965 Information not available 07/24/2022 What Is The Fluoride Status Of Your Home? Unknown MIGRATION.86324 79867 Information not available 07/24/2022 Are There Any Guns Present In Your Home? Yes MIGRATION.84705 02207 Information not available 07/24/2022 Do You Use Insect Repellent Routinely? Yes MIGRATION.60369 65294 Information not available 07/24/2022 Where Do You Live? SingleLevelHouse [email or web address] Information not available 11/06/2022 Advance Directive- Providers Has Reviewed Directive And Consents To Follow Them (insert Provider Name With Any Objectives In Notes Field) No MIGRATION.13896 09260 Information not available 07/24/2022 Are You Able To Care For Yourself? Yes [email or web address] Information not available 11/06/2022 Are You Blind Or Do Yo Have Difficulty Seeing? No [email or web address] Information not available 11/06/2022 Are You Deaf Or Do You Have Serious Difficulty Hearing? No [email or web address] Information not available 11/06/2022 Live Alone Of With Others? With Others Information not available 11/06/2022 Do You Have A Medical Power Of Export Agent? No [email or web address] Information not available 03/03/2024 What Was The Date Of Your Most Recent Tobacco Screening? 03/03/2024 [email or web address] Information not available 03/03/2024 Do You Have Any Pets? Yes [email or web address] Information not available 11/06/2022 What Is Your Relationship Status? MIGRATION.12097 12027 Information not available 07/24/2022 Do You Use Your Seat Belt Or Car Seat Routinely? Yes MIGRATION.41364 53186 Information not available 07/24/2022 Do You Have Smoke And Carbon Monoxide Detectors In Your Home? Yes MIGRATION.51429 69871 Information not available 07/24/2022 Are You Passively Exposed To Smoke? No MIGRATION.21285 45192 Information not available 07/24/2022 Are There Any Smokers In Your House? No MIGRATION.02072 28625 Information not available 07/24/2022 Do You Use Sunscreen Routinely? Yes MIGRATION.63197 31256 Information not available 07/24/2022 Have You Recently Traveled Abroad? No MIGRATION.87925 10697 Information not available 07/24/2022 Do You Have Difficulty Walking Or Climbing Stairs? No MIGRATION.73733 33815 Information not available 07/24/2022 Sex: Female Functional Status Question Answer Note LastModified by [employer] Details LastModified Time What is your level of alcohol consumption? None MIGRATION.055964 3947 Information not available 07/24/2022 Do you or have you ever used smokeless tobacco? Never used smokeless tobacco MIGRATION.476418 6247 Information not available 07/24/2022 Do you have transportation difficulties? No [email or web address] Information not available 11/06/2022 Are you able to walk? YESWOREST [email or web address] Information not available 11/06/2022 Do you have difficulty doing errands alone? No MIGRATION.174665 5931 Information not available 07/24/2022 Are you able to care for yourself? Yes MIGRATION.344667 0245 Information not available 07/24/2022 Do you have difficulty dressing or bathing? No MIGRATION.810649 2210 Information not available 07/24/2022 Do you or have you ever used e-cigarettes or vape? Never used electronic cigarettes MIGRATION.588056 0907 Information not available 07/24/2022 What is your exercise level? None MIGRATION.654663 1642 Information not available 07/24/2022 Mental Status Question Answer Note LastModified by Organizat ion Details LastModified Time Do you feel stressed (tense, restless, nervous, or anxious, or unable to sleep at night)? [id number] MIGRATION.25421614 26 Information not available 07/24/2022 Do you have difficulty concentrating, remembering or making decisions? No MIGRATION.30963682 26 Information not available 07/24/2022 Family History Relationship Description Onset Age of this Age Resolved Age Notes LastModified by Organization Details LastModified Time Mother Complication of anesthesia MIGRATION.441 [id number] Not available 07/24/2022 02:55:13 Mother Family history of stroke MIGRATION.832 [id number] Not available 07/24/2022 02:55:13 Mother Arthritis MIGRATION.391 [id number] Not available 07/24/2022 02:55:13 Father Kidney disease MIGRATION.015 [id number] Not available 07/24/2022 02:55:13 Brother Kidney disease MIGRATION.723 [id number] Not available 07/24/2022 02:55:13 Maternal Grandmother Arthritis MIGRATION.648 3744750 Not available 07/24/2022 02:55:14 Paternal Grandmother Arthritis MIGRATION.429 [id number] Not available 07/24/2022 02:55:14 Notes:Mother 82 hyp [...] ARTERY DISEASE (CAD) N ADDICTION CONCERNS N ENDOMETRIOSIS N Impotence N USE OF BLOOD THINNERS N SKIN [...] GLAUCOMA N FOOT PROBLEM N DIVERTICULITIS N CHICKENPOX N SLEEP APNEA N INFECTIOUS DISEASE N HEART ARRHYTHMIA N PROSTATE N INSOMNIA N HIGH CHOLESTEROL / HYPERLIPIDEMIA N HYPERTHYROIDISM N EYE PROBLEMS N EDEMA N CHRONIC PAIN SYNDROME N HYPOTHYROIDISM Y CAROTID BLOCKAGE N CONSTIPATION N BACK / NECK PROBLEMS Y HAVE YOU BEEN HOSPITALIZED OR SEEN IN [facility] IN THE PAST YEAR ? N [...] Brain Problems N HERPES N DEMENTIA N HEADACHES/MIGRAINES N SEIZURES/EPILEPSY N VASCULAR DISEASE N PACEMAKER N Blood Disorder N DIZZINESS N HEART DISEASE/HEART PROBLEMS N KIDNEY DISEASE N MULTIPLE SCLEROSIS N CARDIAC ARRHYTHMIA N CANCER: SPECIFY Y ATRIAL FIBRILLATION N Gall Stones N PULMONARY EMBOLISM N AUTOIMMUNE DISEASE N Gynecological History Statement/Question Response Date of Last Mammogram 08/10/2018 Date of Last Colonoscopy Most Recent Bone Density 10/20/2019 Obstetrics History GPAL:G 0 P 0 0 0 0 Immunizations Vaccine Type Date Status Note Provider Nam e and Address Organization Details Recorded Time Influenza, split virus, trivalent, preservative 3 completed Not Available [facility] 06/19/2023 09:40:04 SARS-COV-2 (COVID-19) vaccine, UNSPECIFIED 1 completed Not Available [facility] 06/19/2023 09:40:04 SARS-COV-2 (COVID-19) vaccine, UNSPECIFIED 1 completed Not Available [facility] 06/19/2023 09:40:04 SARS-COV-2 (COVID-19) vaccine, UNSPECIFIED 1 completed Not Available [facility] 06/19/2023 09:40:04 Influenza, high-dose, quadrivalent, PF 1 completed Not Available [facility] 06/19/2023 09:40:04 Influenza, high-dose, quadrivalent, PF 2 completed Not Available [facility] 06/19/2023 09:40:04 Influenza, high-dose, quadrivalent, PF 0 completed Not Available [facility] 06/19/2023 09:40:04 Influenza, high-dose, trivalent, PF 9 completed Not Available [facility] 06/19/2023 09:40:04 Influenza, high-dose, trivalent, PF 8 completed Not Available [facility] 06/19/2023 09:40:04 pneumococcal polysaccharide PPV23 9 completed Not Available [facility] 06/19/2023 09:40:04 Influenza, split virus, quadrivalent, PF 7 completed Not Available [facility] 06/19/2023 09:40:04 Pneumococcal conjugate PCV 13 7 completed Not Available [facility] 06/19/2023 09:40:04 Pneumococcal conjugate PCV 13 5 completed Not Available [facility] 06/19/2023 09:40:04 Influenza, high-dose, quadrivalent, PF 3 completed Dean Reyes MD [address], [place], [address], [place] [employer] 03/05/2023 12:59:22 Influenza, high-dose, trivalent, PF 4 completed Dean Reyes MD [address], [place], [address], [place] [employer] 03/03/2024 17:13:31 Past Encounters Encounter ID Performer Location Encounter Start Date Encounter Closed Date Diagnosis/Indication Diagnosis SNOMED-CT Code Diagnosis ICD10 Code Diagnosis Note [id number] Jared Harvey MD [facility] [address] 08/10/2020 00:00:00 08/10/2020 11:50:21 [id number] Dean Reyes MD [facility] [place] llmartita [address] [place] [address] y , [place] [address] 08/22/2020 00:00:00 08/22/2020 15:57:53 [id number] Jared Harvey MD [facility] [address] 08/24/2020 00:00:00 08/24/2020 11:38:32 [id number] [facility] MD [facility] [address] [facility] [address] [place] [address] 11/06/2020 00:00:00 11/06/2020 15:03:48 [id number] Dean Reyes MD [facility] [place] [address] [facility] [place] [address] 11/21/2020 00:00:00 11/21/2020 15:32:53 [id number] Jared Harvey MD S_[address] [place] [address] 12/07/2020 00:00:00 12/07/2020 11:59:36 [id number] Dean Reyes MD [facility] Internal [facility] [address] [address] 01/10/2021 00:00:00 01/10/2021 12:11:20 [id number] Pola England DPM [facility] [place] [address] [address] 02/13/2021 00:00:00 02/14/2021 10:26:13 [id number] Pola England DPM [facility] [place] [address] [address] 03/15/2021 00:00:00 03/16/2021 09:12:17 [id number] Dean Reyes MD [facility] Internal Med [place] [address] [place] [address] [place] [address] 03/23/2021 00:00:00 03/23/2021 11:14:31 [id number] Dean Reyes MD [facility] [place] [address] [place] [address] [place] [address] 07/20/2021 00:00:00 07/20/2021 11:58:05 [id number] Dean Reyes MD [facility] Internal Med [facility] [address] [address] 10/31/2021 00:00:00 10/31/2021 16:05:18 [id number] Dean Reyes MD [facility] Internal Med Ralph [place]lazar [address] [place] [address] [place] [address] 01/18/2022 00:00:00 01/18/2022 11:31:02 [id number] Jan Arreola MD [facility] [place] [address] [facility] [address] [place] [address] 05/15/2022 00:00:00 05/15/2022 17:05:36 [id number] Jared Harvey MD [facility] [address] [place] [address] 09/26/2022 11:06:30 09/26/2022 12:50:29 Pain of right knee joint 7287826540 85819 M25.561 [id number] Dean Reyes MD [facility] Internal Med [facility] [address] [address] 11/06/2022 14:43:28 11/06/2022 15:26:50 Adult health examination 965662854 Z00.00 Screening for disorder 630354338 Z13.9 Benign ess ential hypertension 7122317 I10 Hypothyroidism 12213340 E03.9 Pure hypercholesterolemia 219612391 E78.00 Depressive disorder 3548 9007 F32.9 Rheumatoid arthritis 698 79681 M06.9 Vitamin D deficiency 347 25443 E55.9 [id number] Dean Reyes MD [facility] Internal Med [facility] [address] [address] 03/05/2023 11:22:53 03/05/2023 13:07:26 Diabetes mellitus 76218776 E11.9 Gastroesop hageal reflux disease 977984576 K21.9 Hypothyroidism 93529374 E03.9 Pure hypercholesterolemia 644368455 E78.00 Type 2 shakira betes mellitus without complication 281330094 E11.9 Administra tion of influenza vaccine 31557889 Z23 [id number] Dean Reyes MD [facility] Internal Med [facility] [address] [address] 07/09/2023 11:06:53 07/09/2023 11:56:56 Benign essential hypertension 7769413 I10 Hypothyroidism 59503952 E03.9 Pure hypercholesterolemia 151447651 E78.00 Type 2 shakira betes mellitus without complication 028572381 E11.9 Rheumatoid arthritis 698 78951 M06.9 Anxiety 24600104 F41.9 [id number] Dean Reyes MD [facility] Internal Med [facility] [address] [address] 11/05/2023 11:13:30 11/05/2023 12:05:34 Vertigo 613398958 R42 Benign ess ential hypertension 8146196 I10 Hypothyroidism 79345222 E03.9 Type 2 shakira betes mellitus without complication 234408877 E11.9 Pure hypercholesterolemia 496963290 E78.00 [id number] Dean Reyes MD [facility] Internal Med [facility] [address] [address] 11/26/2023 14:14:51 11/26/2023 14:35:23 [id number] Dean Reyes MD [facility] Internal Med [facility] [address] [address] 03/03/2024 16:17:02 03/03/2024 17:20:31 Adult health examination 606245102 Z00.00 Screening for disorder 505195334 Z13.9 Benign ess ential hypertension 3588471 I10 Hypothyroidism 53311960 E03.9 Pure hypercholesterolemia 176590523 E78.00 Rheumatoid arthritis 698 20188 M06.9 Depressive disorder 3548 9007 F32.9 Type 2 shakira betes mellitus without complication 017723587 E11.9 Administra tion of influenza vaccine 67951289 Z23 [id number] Dean Reyes MD [facility] Internal Med [facility] [address] [address] 03/31/2024 16:10:51 03/31/2024 16:50:35 Benign essential hypertension 7013623 I10 Gastroesop hageal reflux disease 515881467 K21.9 Pure hypercholesterolemia 189419970 E78.00 Rheumatoid arthritis 698 88186 M06.9 Type 2 shakira betes mellitus without complication 854962846 E11.9 [id number] Dean Reyes MD [facility] Internal Med [facility] [address] [address] 07/14/2024 16:05:41 07/14/2024 17:02:07 Benign essential hypertension 7531289 I10 Chronic le ft-sided ulcerative colitis 122365036 K51.50 Gastroesop hageal reflux disease 653436849 K21.9 Hypothyroidism 52826489 E03.9 Pure hypercholesterolemia 439701376 E78.00 Type 2 shakira betes mellitus without complication 288967138 E11.9 Obese class I 5024750132 75021 E66.236 [id number] Gregorio schwartz MD [facility] [address] [place] [address] 07/29/2024 11:06:24 08/16/2024 16:15:24 External hemorrhoids 08252338 K64.4 [id number] Dean Reyes MD [facility] Internal Med [place] [address] [facility], [address] [place] [address] 11/03/2024 16:18:11 11/03/2024 17:21:55 Benign essential hypertension 0921276 I10 Chronic le ft-sided ulcerative colitis 213021423 K51.50 Diabetes mellitus 992394 09 E11.9 Pure hypercholesterolemia 063454960 E78.00 Obese class I 3302940790 78599 E66.811 Health Concerns Section Related Observation LastModified by Organization Detai ls LastModified Time None Recorded Concern Status LastModified by Organization Details LastModified Time None Recorded Advance Directives Directive N: Info given Payers Insurance Date Sequence Insurance Name Policy Number Policy Quiroga Covered Member ID Quiroga Member ID Guarantor Name 06/15/2024 [facility] Sky J Wilton BS BCBS Sky J Wilton 11/02/2024 1 [place] Sky J Wilton [id number] Sky J Wilton 11/02/2024 2 [place] [id number] Sky J Wilton [id number] Sky J Wilton Notes Date Note Type Note Provider Name and Address Organization Details Recorded Time 4 text/html Patient Name: Sky J CruseDate Of Service: Friday ( 03.03.2024 ): [...] Systemic Symptoms:none Medication Reconciliation: from medication list. [id number]: MRI of the brain with and without [...] non healing lesions. The last [facility]: 6.2 Calculated MB mg%. CGM: No. [...] below. Physical activity status unchanged. Followed by Traffic Incident Management Manager: Yes. Tolerating medications well. Medications currently consistent [...] Off [employer] Rash Vaccination and Immunization( ) 2023- INFLUENZA( ) 2009-12 H1N1( ) 2014- PREVNAR 13 GC(X) 2018-09 PNEUMOVAX PREVNAR 20 Needed( ) 2020- COVID MODERNA( ) 2024-02 COVID BOOSTER MODERNA( ) 2024-02 RSV Surgical Dsbpoti1222-30 Left CTS - Jwdvssco4824-18 Lt. GVY8654-30 Rt. CJR7296-21 Left Kqpxopie6841-14 Right Uobqyosv6039-71 Lap Cholecystectomy Preventative Testing( ) 07/15/2023 Albumin [...] kind of heart problem. Dean Reyes MD [address] [facility], [facility] [address], [place], [address], [facility] [employer] 03/03/2024 17:13:40 4 text/html Patient Name: Sky [...] Systemic Symptoms:none Medication Reconciliation: from medication list. [id number]: MRI of the brain with and without [...] below. Physical activity status unchanged. Followed by Traffic Incident Management Manager: Yes. Tolerating medications well. Medications currently consistent [...] COVID BOOSTER MODERNA( ) 2024-02 RSV Surgical Euiosce5440-03 Left CTS - Yhjugvtz9509-21 Lt. GYI1892-48 Rt. CVM5250-51 Left Ucljqlmw7453-29 Right Phhnpoqi4777-89 Lap Cholecystectomy Preventative Testing( ) 03/04/2024 Albumin [...] 67 0-130 MG/DL Dean Reyes MD [address] [facility] [address], [address], [place] [facility] 03/31/2024 16:37:24 5 text/html Patient Name: Sky [...] Systemic Symptoms:none Medication Reconciliation: from medication list. [id number]: MRI of the brain with and without [...] non healing lesions. The last HAIC was [facility] HA[facility]: 6.5 Calculated MB mg%. CGM: No. [...] offered to be evaluated and instructed by hydraulic spinner on weight loss diet. Active Medication ListEffexor [...] Off MarketCodeine Rash Vaccination and Immunization( ) 2023- INFLUENZA( ) 2009- H1N1( ) 2014- PREVNAR 13 GC(X) 2018-09 PNEUMOVAX PREVNAR 20 Needed( ) 2020- COVID MODERNA( ) 2024-02 COVID BOOSTER MODERNA( ) 2024-02 RSV Surgical Oinchkf6914-53 Left CTS - Fwdkxkjd4131-81 Lt. JNT3435-29 Rt. OCB8859-28 Left Juoysnkb9566-07 Right Dalxmhck0155-29 Lap Cholecystectomy Preventative Testing( ) 03/04/2024 Albumin [...] 67 0-130 MG/DL Dean Reyes MD [address] [facility], [facility] [address], [place], [address], [facility] 07/14/2024 16:59:43 5 text/html patient complains of having trouble cleaning up her anal area after bowel movement. has had. This issue for many many years . Denies pain, itching, burning. Rarely she has some bleeding if she becomes constipated. Gregorio Ibarra MD [address] [facility], [facility] [address], [place], [address], [employer] 07/29/2024 13:02:37 5 text/html Patient Name: Sky Regalado Of Service: Friday ( 11.03.2024 ): 1945 [...] Systemic Symptoms:none Medication Reconciliation: from medication list. [id number]: MRI of the brain with and without [...] offered to be evaluated and instructed by hydraulic spinner on weight loss diet. Active Medication ListEffexor [...] MarketCodeine Rash Vaccination and Immunization ( ) 2024-02 INFLUENZA( ) 2008- H1N1( ) 2014-09 PREVNAR 13 GC(X) 2018-09 PNEUMOVAX PREVNAR 20 Needed( ) 2020-08 COVID MODERNA( ) 2024-02 COVID BOOSTER MODERNA( ) 2024-02 RSVImmunizations and Vaccinations Discussed and Implemented if feasible In the Office. Else referred to pharmacies. Surgical History 2021-03 Left CTS - [id number] Lt. [id number] Rt. [id number] Left Nfjwjnek2417-48 Right Gwndkqjl5005-89 Lap Cholecystectomy Preventative Testing ( ) 07/23/2024 [...] 0.60-1.00 MG/DLEGFR 47 > OR = 60 ML/MIN/1.83Q8NJC 60 10-35 U/LALT 32 6-29 U/LALKALINE PHOSPHATASE 103 37-153 U/LHEMOGLOBIN A1C Date: 07/23/2024HEMOGLOBIN A1C 8.0 <5.7 % OF TOTAL HGBLIPID PANEL, STANDARD Date: 07/23/2024HOLESTEROL, TOTAL 157 <200 MG/DLHDL CHOLESTEROL 46 > OR = 50 MG/DLTRIGLYCERIDES 210 <150 MG/DLLDL-CHOLESTEROL 81 MG/DL (CALC)T4, FREE Date: 07/23/2024T4, FREE 1.0 0.8-1.8 NG/DLTSH Date: 07/23/2024TSH 1.07 0.40-4.50 MIU/L Dean Reyes MD [address] [facility], [facility] [address], [place], [address], [place] [facility] [place] [facility] 11/03/2024 17:17:32 OBGyn Episode No OBEpisode recorded.
--- OUTSIDE RECORDS SUMMARY | 2024-12-03 16:13 | XMS_ITS | Clinical Summary ---
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
--- OUTSIDE RECORDS SUMMARY | 2024-12-03 16:13 | XMS_ITS | Referral Summary ---
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
--- OUTSIDE RECORDS SUMMARY | 2024-12-03 16:14 | XMS_ITS | Clinical Summary ---
Author Organization [facility] Address [address] [place] [address] Care Team Providers Care Process Development Associate Name Role Phone Nick Reyes MD Primary Care Provider [phone] Source Comments [facility],non-owned Affiliates and Associated Physician Practices is amultiple site organization consisting of ambulatory clinics and hospital sitesin [place], [place], [place] and [place]. This disclosure is being madepursuant to the Care Everywhere program and may not contain all information available regarding this patient. 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ARE [facility] Care Teams Process Development Associate Relationship Specialty Start Date End Date Nick Reyes MD [address] [place] [address] [address] [place] [address] PCP - General 03/31/08
--- OUTSIDE RECORDS SUMMARY | 2024-12-03 16:14 | XMS_ITS | Data Portability ---
Author Organization [facility] Address [address] [place] [address] Care Team Providers Care Supervisor Order Takers Name Role Phone DEAN THOMPSON Primary Care Provider [phone] Assessment No assessment recorded. Plan of Treatment Reminders Order Date Submit Date Provider Last Modified By Organization Details Last Modified Time Details Appointments None recorded. Lab None recorded. Referral None recorded. Procedures None recorded. Surgeries None recorded. Imaging US, pelvis 2023 024 [email or web address] [facility], [place], [address], 21:01:04 US, transvagina l 2023 024 [email or web address] [facility], [address], [place], [address], 21:01:04 Medication Orders None recorded. Patient TargetsNo targets recorded. Patient InstructionsNo instructions recorded. Reason for Referral None Reported. Results Created Date Observation Date Name Description Value Unit Range Abnormal Flag Note LastModifiedBy Organization Detail LastModifiedTime 10/13/1910/13/2023 US, pelvi s No observ ation record ed. [email or web address] [facility] [address], [place], [address], 10/13/2023 18:14:33 10/13/19 24 10/13/2023 US, trans vagin al No observ ation record ed. [email or web address] [facility] [address], [place], [address], 10/13/2023 18:14:24 10/13/19 24 10/13/2023 US, angel s No observ ation record ed. [facility] [address], [place], [address], 10/16/2023 10:11:30 Result Notes None recorded. 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 LEUKOCYTOS IS NOS;Record ed Elsewhere: No Locatio n: [facility] rce: EHR Chroni c: N Practice ID: 0001 Billa ble Time: 01:00:00 PM Not Available [facility] 0 17:41:45 Pruritus of genital organs 954889666 Active 2014 Vaginal itching;Re corded Elsewhere: No Locatio n: [facility] rce: EHR Chroni c: N Practice ID: 0001 [place] Time: 10:45:00 AM Not Available [facility] 0 17:41:45 Vaginolab ial hernia Active 2016 Other specified noninflamm atory disorders of vagina;Rec orded Elsewhere: No Locatio n: [facility] rce: EHR Chroni c: N Practice ID: 0001 [place] ble Time: 09:00:00 AM Not Available [facility] 0 17:41:45 Specializ ed medical examinati on Active 2011 Gynecologi gurwinder Examinatio n;Recorded Elsewhere: No Locatio n: [facility] rce: EHR Chroni c: N Practice ID: 0001 Billa ble Time: 01:00:00 PM Not Available [facility] 0 17:41:45 Acute vaginitis 09398943 Active 2016 Acute vaginitis; Recorded Elsewhere: No Locatio n: [facility] rce: EHR Chroni c: N Practice ID: 0001 [place] ble Time: 09:00:00 AM Not Available [facility] 0 17:41:46 Screening for malignant neoplasm of rectum Active 2011 Screening for malignant neoplasms of the rectum;Rec orded Elsewhere: No Locatio n: [facility] rce: EHR Chroni c: N Practice ID: 0001 [place] ble Time: 01:00:00 PM Not Available [facility] 0 17:41:46 Increased frequency of urination 908693235 Active 2016 Frequency of micturitio n;Recorded Elsewhere: No Locatio n: [facility] rce: EHR Chroni c: N Practice ID: 0001 [place] Time: 09:00:00 AM Not Available [facility] 0 17:41:46 Urinary tract infectiou s disease 24704509 Active 2016 Urinary tract infection, site not specified; Recorded Elsewhere: No Locatio n: [facility] rce: EHR Chroni c: N Practice ID: 0001 [place] Time: 09:00:00 AM Not Available [facility] 0 17:41:46 Microscop ic hematuria 841982055 Active 2014 MICROSCOPI C HEMATURIA; Recorded Elsewhere: No Locatio n: [facility] rce: EHR Chroni c: N Practice ID: 0001 [place] Time: 10:45:00 AM Not Available [facility] 0 17:41:46 Problem Notes None recorded. Medical Equipment None Reported. Allergies Allergen ID Allergen Name Allergen Category Reaction Reaction Severity Criticality Documentation Date Start Date Code Code System Note Provider Name and Address Organization Details Recorded Time 05497 codeine medicatio n Not available Not available Not available 05/12/2020 5890 RxNorm Comme nt: [facility]at [facility]; Not Available [facility] 0 14:20:48 Medications Name Sig Start [...] e: Yes [facility] By: gabriel small DateTime : 12/13/19 [...] Prescrib ed Elsewher e: No [facility]at [facility] By: bennett petersen DateTime : 12/13/19 [...] Prescrib ed Elsewher e: No Locat ion: [facility] odify By: elise espinoza DateTime : 09/19/19 09:00:00 AM Not Available Not Available Not Available alprazola m 0.25 mg tablet active Not Available Not Available Not Available omeprazol e 10 mg capsule,d elayed release take 2 capsule (20MG) by oral route every day before a meal 2011 active Prescrib ed Elsewher e: No Locat ion: [facility]ify By: annie duke Encou nter DateTime : 09/22/19 12 06:44:01 PM Not Available Not Available Not Available Flagyl 500 mg tablet take 1 tablet by oral route every 12 hours 09/18 completed Prescrib ed Elsewher e: No Locat ion: [facility] odify By: terrence Sears ter [...] Elsewher e: Yes Loca tion: [facility]ify By: marcella aguilera DateTime : 09/22/19 [...] Elsewher e: Yes Loca tion: [facility]ify By: annie duke Encou nter DateTime : 09/22/19 12 06:44:01 PM Not Available Not Available Not Available omeprazol e 20 mg capsule,d elayed release active Not Available Not Available Not Available amiloride HCl (bulk) powder active Prescrib ed Elsewher e: Yes Loca tion: [facility]ify By: annie tz Encou nter DateTime : 09/22/19 12 06:44:01 PM Not Available Not Available Not Available Vitamin D2 1,250 mcg (50,000 unit) capsule take 1 capsule by oral route every week active Prescrib ed Elsewher e: Yes Loca tion: [facility] odify By: gabriel small DateTime : 12/13/19 15 10:45:00 AM Not Available Not Available Not Available escitalop daniela 10 mg tablet TAKE 1 TABLET BY MOUTH ONCE DAILY 10/07 completed Not Available Not Available Not Available Vytorin 10 mg-10 mg tablet take 1 tablet by oral route every day 09/23 completed Prescrib ed Elsewher e: Yes Loca tion: [facility] odify By: marcella aguilera DateTime : 09/22/19 12 06:44:01 PM Not Available Not Available Not Available Senior Moment 150 mg-50 mg capsule active Prescrib ed Elsewher e: Yes Loca tion: [facility] odify By: gabriel small DateTime [...] Updated DateTime 10/22/2023 160.02 cm 30.3 kg/m2 08774.3 g 109/74 mm[Hg] Imelda Glass [facility] 10/22/2023 14:53:55 Social History None recorded. [...] SNOMED-CT Code Diagnosis ICD10 Code Diagnosis Note [id number] DYAN ANN MD [facility] [address],[facility] [place] [address] 10/08/2023 13:52:28 10/09/2023 11:32:52 Pain in pelvis 66429300 R10.2 - pelvic pressure x2 months- midline, reproduced with suprapubic palpation- no inciting factors- will order pelvic US to r/o global supply chain director etiology, however patient reports supracervi gurwinder hysterecto my with likely BSO- if no etiology on pelvic US, recommend urology evaluation given suprapubic pain [id number] Shant Caba MD [facility] [address] [address] 10/13/2023 15:14:10 10/13/2023 16:06:37 Pain in pelvis 61453765 R10.2 [id number] DYAN ANN MD [facility] [address] [address] 10/22/2023 14:32:47 10/22/2023 15:46:25 Pain in pelvis 98906063 R10.2 - pelvic pressure x2 months, now [...] Qu[place]ga Member ID Guarantor Name 10/25/2024 2 [place] Dipti Wilton [id number] Dipti Wilton 10/25/2024 1 [place] Dipti Wilton [id number] Dipti Wilton 10/25/2024 2 [place] [id number] Dipti Wilton [id number] Dipti Wilton 10/08/2023 1 *SELF PAY* Pe ggy Wilton 10/25/2024 1 [place] Dipti J Wilton [id number] Dipti Wilton Notes Date Note Type Note [...] unsure. DYAN ANN MD [address], [place], [address], [facility] 10/09/2023 00:41:22 10/22/2023 text/html Patient presents for ultrasound follow up. Was previously seen for pelvic pressure. Now reports pressure is improved after second round of antibiotics for a UTI. No bleeding or other new symptoms. DYAN ANN MD [address], [place], [address], [facility] 10/22/2023 15:34:40 OBGyn Episode Ob Episode Information Episode Created Date Number of Fetuses Patient Bloodtype Patient rh Status Prepregnancy Weight lbs Domestic Partner Domestic Partner Phone Father Name Forester Silviculture Status 10/08/19 24 1 CLOSED Fetus Data First Name Last Name Admitted to NICU Weight (g) Sex Living Outcome Pediatric Complications Fetus ID Race Codes Race Delivery Type 2919.77 1704 Full Term 57645 Vaginal Delivery Frederick Calculation Initial Frederick Date [...] Domestic Partner Domestic Partner Phone Father Name Forester Silviculture Status 10/08/19 24 1 CLOSED Fetus Data First Name Last Name Admitted to NICU Weight (g) Sex Living Outcome Pediatric Complications Fetus ID Race Codes Race Delivery Type 6321.71 1704 Full Term 51805 Vaginal Delivery Frederick Calculation Initial Frederick Date [...] Domestic Partner Domestic Partner Phone Father Name Forester Silviculture Status 10/08/19 24 1 CLOSED Fetus Data First Name Last Name Admitted to NICU Weight (g) Sex Living Outcome Pediatric Complications Fetus ID Race Codes Race Delivery Type 3118.44 5 Full Term 64287 Vaginal Delivery Frederick Calculation Initial Frederick Date [...]
--- OUTSIDE RECORDS SUMMARY | 2024-12-03 16:14 | XMS_ITS | Encounter Summary ---
Author Organization [facility] Address [address] [place] [address] Care Team Providers Care Cable Assembler Name Role Phone Nick Reyes MD Primary Care Provider Encounter Details Date Type Department Care Team (Late st Contact Info) Description 02/06/2018 Lab Requisition [facility] Lab [address] [facility] [place] [address] [place]an [place] [address] Social History Tobacco Use Types Packs/Day Years Used Date Smoking Tobacco: Never Assessed Comments Unknown Sex and Gender Information Value Date Recorded Sex Assigned at Not on file 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 Jar 0. 3:52 PM CDT DERMATOPATHOLOGY LABORATORY [...] characteristic determined by the Dermatopathology Laboratory at [facility]. These tests need not be, and therefore are not, approved by the [place] Food and Drug Administration. The tests are used for clinical purposes. Billing Codes Specimen Charges Stain Charges 19351 1 8 3:52 PM CDT DERMATOPATHOLOGY LABORATORY Embedded Images 3:52 PM CDT DERMATOPATHOLOGY LABORATORY Pathology/Cytolog y TISSUE SPECIMEN FROM SKIN / Unknown 02/05/2018 02/06/2018 11:58 AM CDT us Twan Fox MD LAB - PATHOLOGY/CYTOLOGY ORD ERABLES Final Result DERMATOPATHOLOGY LABORATORY [facility] - Department of Dermatology [facility] [facility], [address]th [place] [address], [facility] [phone] documented in this encounter Visit Diagnoses Not on filedocumented in this encounter Care Teams Cable Assembler Relationship Specialty Start Date End Date Nick Reyes MD [address] [place] [address] [address] [place] [address] PCP - General 03/31/08 documented as of this encounter
--- OUTSIDE RECORDS SUMMARY | 2024-12-03 16:14 | XMS_ITS | Continuity of Care Document ---
Author Organization [facility] Address [address] [place] [address] Phone Care Team Providers Care Turbine Engine Assembler Name Role Phone Ashley Parisi Unavailable Unavailable [...] Diagnoses Date Provider Providers Copied on Encounter [facility], [address], [place], [place], [id number], [place] tel:[phone] [facility] No Information 0 Ailin Ramirez. [address] , [address], [place], [address], [place]. tel:[phone] [facility], [address], [place], [place], [id number], [place] tel:[phone] [facility] No Information Feb- 8-201 0 Simon Strong. [address] , [address], [place], [place], [facility], [facility], [place]. tel:[phone] [facility], [address], [place], [place], [id number], [place] tel:[phone] [facility] No Information Sep-2 3-201 0 Parisi Ashley. [address] , [address], [place], [facility], [facility] [place], [place]. tel:[phone] [facility], [address] [place] [address] [address], [place], [place], [id number], [place] tel:[phone] [facility] No Information Sep-0 2-201 0 Ailin Adairn. [address] , [address], [place], [facility], [facility] [place], [place]. tel:[phone] [facility], [address] [place] [address] [address], [place], [place], [address], [place] tel:[phone] [facility] No Information Dec-2 6-201 0 Ailin Adairn. [address] , [address], [place], [facility], [facility] [place], [place]. tel:[phone] [facility], [address] [place] [address] [address], [place], [place], [id number], [place] tel:[phone] [facility] No Information Dec-2 5-201 0 Ailin Adairn. [address] , [address], [place], [facility], [facility] [place], [place]. tel:[phone] Office/outpat ient Visit, Est [facility], [address] [place] [address] [address], [place], [place], [address], [place] tel:[phone] [facility] No Information 9-201 0 Ailin Adairn. [address] , [address], [place], [facility], [place], [place]. tel:[phone] Referring Provider: Ashley Morales, [address], [place], [facility], [facility]. tel:[phone] [facility], [address] [place] [address] [address], [place], [place], [address], [place] tel:[phone] [facility] No Information 6-200 9 Ailin Adairn. [address] , [address], [place], [facility], [facility] [place], [place]. tel:[phone] [facility], [address] [place] [address] [address], [place], [place], [address], [place] tel:[phone] [facility] No Information 6200 9 Ailin Ramirez. [address] , [address], [place], [facility], [place], [place]. tel:[phone] [facility], [address] [place] [address] [address], [place], [place], [address], [place] tel:[phone] [facility] No Information 0 9-200 9 Ailin Adairn. [address] , [address], [place], [facility], [place], [place]. tel:[phone] [facility], [address] [place] [address] [address], [place], [place], [address], [place] tel:[phone] [facility] No Information 0 8-200 9 Ailin Adairn. [address] , [address], [place], [facility], [place], [place]. tel:[phone] [facility], [address], [place], [place], [address], [place] tel:[phone] [facility] No Information Jose-0 8-200 9 Ailin Ramirez. [address] [facility] , [address], [place], [facility], [facility], . tel:[phone] Referring Provider: Isabel Miles [address], [place], [facility], [facility]. tel:[phone] [facility], [address] [place] [address] [address], [place], [place], [id number], tel:[phone] [facility] No Information Josesito-2 5-200 9 Ailin Ramirez. [address] [facility] [address], [place], [facility], [facility] [place], . tel:[phone] Referring Provider: Isabel Miles [facility] [address], [place], [facility], [facility] [place]. tel:[phone] [facility], [address] [place] [address] [address], [place], [place], [id number], tel:[phone] [facility] No Information Jul-0 6-200 8 Ailin Ramirez. [address] [place] [address] , [address], [place], [facility], [facility], . tel:[phone] Family History Family Member Type Diagnosis Age At Onset No Information Payers Payer name Insurance type Covered democrat ID Anthonya racheal(s) [facility] Commercial CI [id number] Social History Type Description Quantity Date Captured [...]
--- NOTE | 2024-12-03 18:00 | ED_ITS ---
HPI - Female Genitourinary General Chief complaint: Urogenital-Female <Aliya Rockwell PA-C - Last Filed: 12/03/24 18:03> Stated complaint: kidney stone <Aliya Rockwell PA-C - Last Filed: 12/03/24 18:03> Time Seen by Provider: 12/03/24 19:49 <Aliya Rockwell PA-C - Last Filed: 12/03/24 18:03> Focused HPI: 79-year-old female presents emergency department with concerns for a kidney stone. Patient is reporting left lower quadrant abdominal pain that radiates to the left flank for the past few days. She was evaluated in our ED on 12/01/2024 for left lower quadrant abdominal pain, weakness, shortness of breath, nausea. She states she had a left sided kidney stone. She was sent home with pain medications and Flomax which she has been taking without improvement. She went to outpatient Urology follow-up today and was sent back to the ED due to her pain. The patient denies nausea, vomiting, fevers, dysuria, hematuria. She is endorsing urinary frequency. Per chart review the CT scan on 12/01/2024 showed a right upper ureter stone with mild right hydronephrotic changes in tiny left kidney stone in the upper pole. GENERAL: Well-appearing, well-nourished, and in no acute distress. HEAD: Normocephalic, atraumatic. CHEST: Clear to auscultation. ?No respiratory distress. ABD: Tenderness to the left lower quadrant. No rebound, guarding or rigidity. Minimal left CVA tenderness. HEART: Regular rate and rhythm.? NEURO: ?Alert and oriented x3. Patient screened in triage and initial orders placed.? ?Additional care and disposition to be based upon?diagnostic testing and treatment. <Aliya Rockwell PA-C - Last Filed: 12/03/24 18:03> Focused HPI: 79-year-old female presents emergency department with concerns for a kidney stone. Patient is reporting left lower quadrant abdominal pain that radiates to the left flank for the past few days. She was evaluated in our ED on 12/01/2024 for left lower quadrant abdominal pain, weakness, shortness of breath, nausea. She states she had a left sided kidney stone. She was sent home with pain medications and Flomax which she has been taking without improvement. She went to outpatient Urology follow-up today and was sent back to the ED due to her pain. The patient denies nausea, vomiting, fevers, dysuria, hematuria. She is endorsing urinary frequency. Per chart review the CT scan on 12/01/2024 showed a right upper ureter stone with mild right hydronephrotic changes in tiny left kidney stone in the upper pole. GENERAL: Well-appearing, well-nourished, and in no acute distress. HEAD: Normocephalic, atraumatic. CHEST: Clear to auscultation. ?No respiratory distress. ABD: Tenderness to the left lower quadrant. No rebound, guarding or rigidity. Minimal left CVA tenderness. HEART: Regular rate and rhythm.? NEURO: ?Alert and oriented x3. Patient screened in triage and initial orders placed.? ?Additional care and disposition to be based upon?diagnostic testing and treatment. Agree with triage assessment. Patient states that the pain is only present when she is moving and walking that is completely gone when she is resting which does not resemble kidney stone. <Rachael Virgen MD - Last Filed: 12/03/24 22:38> Related Data Home medications: Home Medications ?Medication ?Instructions ?Recorded ?Confirmed ?Last Taken ?Type Lactobacills gasseri-Bifidobac 1 cap PO DAILY 08/25/20 11/21/21 05/14/21 History bifidum,longum 1.5 billion cell capsule (Pelikon) alprazolam 0.25 mg tablet 0.25 mg PO TID PRN Anxiety 08/25/20 11/21/21 05/17/21 History amiloride 5 mg-hydrochlorothiazide 1 tablet PO DAILY 08/25/20 11/21/21 05/14/21 History 50 mg tablet atorvastatin 80 mg tablet 40 mg PO BID 08/25/20 11/21/21 05/14/21 History bupropion HCl 300 mg 24 hr tablet, 300 mg PO DAILY 08/25/20 11/21/21 05/17/21 History extended release bwciezjqvpkw-Iu-frmu-minerals 18 1 tablet PO DAILY 08/25/20 11/21/21 05/14/21 History mg-0.4 mg tablet omeprazole 20 mg capsule,delayed 20 mg PO BID 08/25/20 11/21/21 05/17/21 History release cetirizine 10 mg capsule (All Day 10 mg PO DAILY PRN 11/21/21 11/21/21 Unknown History Allergy (cetirizine)) <Aliya Rockwell PA-C - Last Filed: 12/03/24 18:03> Allergies/Adverse reactions: Allergies Allergy/AdvReac Type Severity Reaction Status Date / Time adhesive tape Allergy Intermediate Rash Verified 12/03/24 16:16 <Aliya oRckwell PA-C - Last Filed: 12/03/24 18:03> Review of Systems 2 Review of Systems: All systems are reviewed and are negative unless stated otherwise in the HPI. <Rachael Virgen MD - Last Filed: 12/03/24 22:38> PMFSH Past Medical History Medical History: Medical History Obesity Osteoarthritis Ulcerative colitis Anxiety GERD (gastroesophageal reflux disease) CVA (cerebral vascular accident) no residual symptoms Hypertension Hyperlipidemia <Aliya Rockwell PA-C - Last Filed: 12/03/24 18:03> Family History Family History: Family History Grandparent Alcoholism Sibling Asthma Cancer Father Cancer Mother Cancer Hypertension <Aliya Rockwell PA-C - Last Filed: 12/03/24 18:03> Social History Social History: Social History Smoking status: Never smoker Second hand tobacco smoke exposure: No Alcohol intake: never Substance use: never Substance use type: does not use Living arrangements: with family Spiritual care concerns: No <Aliya Rockwell PA-C - Last Filed: 12/03/24 18:03> Exam 2 Narrative: General: Alert, awake, afebrile, in mild distress secondary to pain. HEENT: PERRL, no rhinorrhea, no post nasal drip, oropharynx clear. Neck: Trachea midline, no JVD, no lymphadenopathy. Cardiovascular: Regular rate and rhythm, no murmurs, rubs or gallops, no peripheral edema. Respiratory: Clear to auscultation bilaterally, no tachypnea, no wheezing, no rhonchi, no rubs, no respiratory distress. Abdomen: Soft, nontender, nondistended, no rebound, no guarding, no peritoneal signs. Musculoskeletal: No joint swelling or deformity, normal muscle tone. Skin: No rashes or petechia, no signs of infection. Psychiatric: Alert and oriented, normal behavior and judgment for situation. Neurological: Alert and oriented to person, place, and time. Follows all commands. No focal deficits, speech is clear and fluent. <Rachael Virgen MD - Last Filed: 12/03/24 22:38> Course Vital Signs Vital signs: Vital Signs Temperature 97.6 F 12/03/24 16:13 Pulse Rate 83 12/03/24 16:13 Respiratory Rate 16 12/03/24 16:13 Blood Pressure 108/49 L 12/03/24 16:13 Pulse Oximetry 100 12/03/24 16:13 Oxygen Delivery Room Air 12/03/24 16:13 Temperature 98.1 F 12/03/24 20:25 Pulse Rate 69 12/03/24 22:34 Respiratory Rate 17 12/03/24 22:34 Blood Pressure 136/63 12/03/24 22:34 Pulse Oximetry 97 12/03/24 22:34 Oxygen Delivery Room Air 12/03/24 20:25 <Aliya Rockwell PA-C - Last Filed: 12/03/24 18:03> Vital Signs Temperature 97.6 F 12/03/24 16:13 Pulse Rate 83 12/03/24 16:13 Respiratory Rate 16 12/03/24 16:13 Blood Pressure 108/49 L 12/03/24 16:13 Pulse Oximetry 100 12/03/24 16:13 Oxygen Delivery Room Air 12/03/24 16:13 Temperature 98.1 F 12/03/24 20:25 Pulse Rate 69 12/03/24 22:34 Respiratory Rate 17 12/03/24 22:34 Blood Pressure 136/63 12/03/24 22:34 Pulse Oximetry 97 12/03/24 22:34 Oxygen Delivery Room Air 12/03/24 20:25 <Rachael Virgen MD - Last Filed: 12/03/24 22:38> MDM - Female Genitourinary MDM Narrative Medical decision making narrative: The patient was evaluated by myself in the emergency department. History is obtained from patient who is an independent historian and physical exam was performed. External medical records were reviewed at this time. IV was established and pertinent tests were ordered. Patient was administered 1 L IV fluid bolus with normal saline, 15 mg of IV Toradol and 4 mg of IV Zofran. Laboratory results obtained revealing no acute process. Urinalysis did reveal urinary tract infection patient was informed that she will be placed on oral antibiotic. Imaging studies obtained included CT abdomen and pelvis without IV contrast which was independently interpreted by me revealing: IMPRESSION: 1. Stone in the right upper ureter with no significant hydronephrosis. 2. Bilateral kidney stones. 3. Hyperdense material in the urinary bladder which may be blood or residual contrast from previous study. Clinical correlation advised. 4. Sliding hiatus hernia. Case discussed with the on-call urologist Dr. Diego who did present to the emergency department and evaluated the patient, informing her he did not see any obstructive uropathy in her bilateral ureters. Informed patient differentials for her be musculoskeletal in such as muscle strain or could be left hip pain secondary to osteoarthritis. Patient states that she feels well now and would like to be discharged to follow-up with her primary care physician. Patient was in her is finding the bedside, she was confused as her pain is in the left lower quadrant radiating to her left flank. Patient also had a CT scan 2 days ago revealing a right upper pole kidney stone measuring at that time 4 mm. Today it is measuring 3 mm. Differential diagnosis considerations include kidney stones/nephrolithiasis, diverticulitis, pyelonephritis. Comorbidities impacting this visit include history of kidney stones. I have evaluated and discussed social determinants of health with the patient that could potentially impact subsequent diagnosis and treatment plans. On repeat assessment of the patient, reevaluation revealed that the patient is doing well and is in no acute distress. Patient symptoms have improved since she arrived to our emergency department. Repeat vital signs were all reviewed and noted to be stable. Differential diagnosis and treatment plan were discussed with the patient at bedside. Patient agrees with discussion and after shared medical decision making agrees with discharge. All questions were answered to the patient's satisfaction. Patient will follow-up with her primary care physician within the next 3-5 days. Instructed return to the ED if any new or worsening symptoms develop and provided with strict return precautions. Script for cephalexin was sent to patient's pharmacy to take as prescribed for her UTI. She was discharged home in stable condition. <Rachael Virgen MD - Last Filed: 12/03/24 22:38> Lab Data Result diagrams: 12/03/24 20:28 12/03/24 21:20 <Aliya Rockwell PA-C - Last Filed: 12/03/24 18:03> Labs: Lab Results 12/03/24 12/03/24 12/03/24 Range/Units 20:28 21:20 22:33 WBC 5.9 (4.5-10.0) K/mm3 RBC 4.29 (4.2-5.4) M/mm3 Hgb 13.7 (12.0-15.0) g/dL Hct 41.2 (37.0-47.0) % MCV 96.0 (80-100) fl MCH 31.9 (26-34) pg MCHC 33.3 (32-36) g/dl RDW 14.5 (11.5-14.5) % Plt Count 186 (150-375) k/mm3 MPV 11.5 H (7.4-10.4) fl Immature Gran % (Auto) 0.2 (0-0.5) % Neut % (Auto) 68.6 (45.5-73.1) % Lymph % (Auto) 22.1 (18.3-44.2) % [place] % (Auto) 7.4 (2.6-8.5) % Eos % (Auto) 1.2 (0-4.4) % Baso % (Auto) 0.5 (0.2-1.2) % Lymph # (Auto) 1.29 (0.9-3.2) K/mm3 [place] # (Auto) 0.4 (0.1-0.6) K/mm3 Eos # (Auto) 0.1 (0-0.3) K/mm3 Baso # (Auto) 0.0 (0.0-0.1) K/mm3 Abs Immat Gran (auto) 0.01 (0.00-0.031) K/mm3 Absolute Neuts (auto) 4.0 (1.3-6.7) K/mm3 Absolute Nucleated RBC 0.000 (0.0-0.012) K/mm3 Nucleated RBC % 0.0 (0.0-0.2) % Sodium 137 (137-145) mmol/L Potassium 3.1 L (3.4-5.0) mmol/L Chloride 104 (98-107) mmol/L Carbon Dioxide 24 (22-30) mmol/L Anion Gap 9 (4-12) mmol/L BUN 28 H (7-17) mg/dL Creatinine 1.15 H (0.7-1.0) mg/dL Estim Creat Clear Calc 33 ml/min Estimated GFR 46 L (59 - ) Glucose 46 L* (65-110) mg/dL POC Capillary Glucose Pending Calcium 9.1 (8.4-10.2) mg/dL Magnesium 1.9 (1.6-2.3) mg/dL Total Bilirubin 0.8 (0.2-1.3) mg/dL AST 73 H (14-36) U/L ALT 40 H (6-35) U/L Alkaline Phosphatase 80 (38-126) U/L Total Protein 6.8 (6.3-8.2) g/dL Albumin 3.8 (3.5-5.1) g/dL Lipase 73 (23-300) U/L Urine Color Dark yellow (Yellow) Urine Appearance Clear (Clear) Urine pH 5.5 (5.0-9.0) Ur Specific [place] 1.034 (1.001-1.035) Urine Protein Trace (Negative) mg/dL Urine Glucose (UA) Negative (Negative) mg/dL Urine Ketones Trace H (Negative) mg/dL Ur Blood (Man) Negative (Negative) Urine Nitrate Negative (Negative) Urine Bilirubin Negative (Negative) Urine Urobilinogen 1.0 (<2.0) mg/dL Add Ur Microanalysis Reviewed Leukocyte Esterase Rfl 1+ H (Negative) ADRIANA/UL Urine RBC 0-2 (0-2) /hpf Urine WBC 21-50 H (0-3) /hpf Ur Squamous Epith Cells Occasional (Few) /hpf Urine Bacteria None seen /hpf Urine Casts 11-20 <Aliya Rockwell PA-C - Last Filed: 12/03/24 18:03> Lab Results 12/03/24 12/03/24 12/03/24 Range/Units 20:28 21:20 22:33 WBC 5.9 (4.5-10.0) K/mm3 RBC 4.29 (4.2-5.4) M/mm3 Hgb 13.7 (12.0-15.0) g/dL Hct 41.2 (37.0-47.0) % MCV 96.0 (80-100) fl MCH 31.9 (26-34) pg MCHC 33.3 (32-36) g/dl RDW 14.5 (11.5-14.5) % Plt Count 186 (150-375) k/mm3 MPV 11.5 H (7.4-10.4) fl Immature Gran % (Auto) 0.2 (0-0.5) % Neut % (Auto) 68.6 (45.5-73.1) % Lymph % (Auto) 22.1 (18.3-44.2) % [place] % (Auto) 7.4 (2.6-8.5) % Eos % (Auto) 1.2 (0-4.4) % Baso % (Auto) 0.5 (0.2-1.2) % Lymph # (Auto) 1.29 (0.9-3.2) K/mm3 [place] # (Auto) 0.4 (0.1-0.6) K/mm3 Eos # (Auto) 0.1 (0-0.3) K/mm3 Baso # (Auto) 0.0 (0.0-0.1) K/mm3 Abs Immat Gran (auto) 0.01 (0.00-0.031) K/mm3 Absolute Neuts (auto) 4.0 (1.3-6.7) K/mm3 Absolute Nucleated RBC 0.000 (0.0-0.012) K/mm3 Nucleated RBC % 0.0 (0.0-0.2) % Sodium 137 (137-145) mmol/L Potassium 3.1 L (3.4-5.0) mmol/L Chloride 104 (98-107) mmol/L Carbon Dioxide 24 (22-30) mmol/L Anion Gap 9 (4-12) mmol/L BUN 28 H (7-17) mg/dL Creatinine 1.15 H (0.7-1.0) mg/dL Estim Creat Clear Calc 33 ml/min Estimated GFR 46 L (59 - ) Glucose 46 L* (65-110) mg/dL POC Capillary Glucose Pending Calcium 9.1 (8.4-10.2) mg/dL Magnesium 1.9 (1.6-2.3) mg/dL Total Bilirubin 0.8 (0.2-1.3) mg/dL AST 73 H (14-36) U/L ALT 40 H (6-35) U/L Alkaline Phosphatase 80 (38-126) U/L Total Protein 6.8 (6.3-8.2) g/dL Albumin 3.8 (3.5-5.1) g/dL Lipase 73 (23-300) U/L Urine Color Dark yellow (Yellow) Urine Appearance Clear (Clear) Urine pH 5.5 (5.0-9.0) Ur Specific [place] 1.034 (1.001-1.035) Urine Protein Trace (Negative) mg/dL Urine Glucose (UA) Negative (Negative) mg/dL Urine Ketones Trace H (Negative) mg/dL Ur Blood (Man) Negative (Negative) Urine Nitrate Negative (Negative) Urine Bilirubin Negative (Negative) Urine Urobilinogen 1.0 (<2.0) mg/dL Add Ur Microanalysis Reviewed Leukocyte Esterase Rfl 1+ H (Negative) ADRIANA/UL Urine RBC 0-2 (0-2) /hpf Urine WBC 21-50 H (0-3) /hpf Ur Squamous Epith Cells Occasional (Few) /hpf Urine Bacteria None seen /hpf Urine Casts 11-20 <Rachael Virgen MD - Last Filed: 12/03/24 22:38> Discharge Plan Discharge Clinical Impression: Abdominal pain, acute, left lower quadrant, Urinary tract infection <Aliya Rockwell PA-C - Last Filed: 12/03/24 18:03> Patient Disposition: Home <Aliya Rockwell PA-C - Last Filed: 12/03/24 18:03> Condition: Improved <Aliya Rockwell PA-C - Last Filed: 12/03/24 18:03> Instructions: Antibiotic Form, Urinary Tract Infection in Women (ED), Abdominal Pain (ED) <CHARLEY Gilbert Last Filed: 12/03/24 18:03> Additional Instructions: Please follow-up with the family doctor within the next 3-5 days. Take the prescribed antibiotic as instructed for UTI. Return to the ED if any new or worsening symptoms develop. <Aliya Rockwell PA-C - Last Filed: 12/03/24 18:03> Patient Language: Polish <Aliya Rockwell PA-C - Last Filed: 12/03/24 18:03> Prescriptions: New cephalexin 500 mg capsule 500 mg PO Q12H 5 Days Qty: 10 0RF No Action All Day Allergy (cetirizine) 10 mg capsule 10 mg PO DAILY PRN atorvastatin 80 mg tablet 40 mg PO BID amiloride-hydrochlorothiazide 5-50 mg tablet 1 tablet PO DAILY alprazolam 0.25 mg tablet 0.25 mg PO TID PRN (Reason: Anxiety) omeprazole 20 mg capsule,delayed release(DR/EC) 20 mg PO BID bupropion HCl 300 mg tablet extended release 24 hr 300 mg PO DAILY sauymbxhtgrz-Vi-lzbq-minerals 18-0.4 mg Tablet 1 tablet PO DAILY Pelikon 1.5 billion cell Capsule 1 cap PO DAILY sulfamethoxazole-trimethoprim [Bactrim DS] 800-160 mg tablet 1 tablet PO Q12H Qty: 6 0RF tramadol 50 mg tablet 50 mg PO Q6H PRN (Reason: pain) Qty: 20 0RF hydrocodone-acetaminophen 5-325 mg tablet 1 tablet PO Q12H PRN (Reason: pain) Qty: 14 0RF tamsulosin [Flomax] 0.4 mg capsule 0.4 mg PO DAILY 14 Days Qty: 14 0RF ondansetron 4 mg tablet,disintegrating 4 mg PO Q8H PRN (Reason: nausea and vomiting) Qty: 14 0RF <Aliya Rockwell PA-C - Last Filed: 12/03/24 18:03> Follow-up/Referrals: Lenny,Nick Jaime MD [Primary Care Provider] - 3 Days <CHARLEY Gilbert Last Filed: 12/03/24 18:03> Time of Disposition: 22:35 <CHARLEY Gilbert Last Filed: 07/11/25 18:03> 22:35 <Rachael Virgen MD - Last Filed: 12/03/24 22:38>
--- OUTSIDE RECORDS SUMMARY | 2024-12-03 20:14 | XMS_ITS | Referral Summary ---
Author Organization [facility] Address [address] [place] [address] Care Team Providers Care Sewing Machine Operator Zipper Name Role Phone Nick Reyes MD Primary [...] (01/11/2019): Added automatically from request for surgery [id number] 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 Overview (01/11/2019): Added automatically from request for surgery [id number] Cyclic edema 12/03/2016 Hypercholesteremia 12/03/2016 Gastroesophageal reflux [...] on file Medical Devices Implanted Type Area Best Second Jobs Device Identifier Shelf Expiration Date Model / Serial / Lot Total Joint Right: Knee Lens Bilateral: [place] [address] MEDICARE [employer] [place] [employer] [place] [facility] Care Teams Sewing Machine Operator Zipper Relationship Specialty Start Date End Date Nick Reyes MD PCP - General 09/02/16
--- OUTSIDE RECORDS SUMMARY | 2024-12-03 20:14 | XMS_ITS | Encounter Summary ---
Author Organization [facility] Address [address] [place] [address] Care Team Providers Care Rn Surgical Name Role Phone Nick Reyes MD Primary Care Provider Encounter Details Date Type Department Care Team (Late st Contact Info) Description 02/06/2018 Lab Requisition [facility] [address] [facility] [place] [id number] [place] [address] Social History Tobacco Use Types Packs/Day Years Used Date Smoking Tobacco: Never Assessed Comments Unknown Sex and Gender Information Value Date Recorded Sex Assigned at Not on file 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 Jar 0. 3:52 PM CDT DERMATOPATHOLOGY LABORATORY [...] determined by the Dermatopathology Laboratory at [facility]. These tests need not be, and therefore are not, approved by the [place] Food and Drug Administration. The tests are used for clinical purposes. Billing Codes Specimen Charges Stain Charges 47991 1 8 3:52 PM CDT DERMATOPATHOLOGY LABORATORY Embedded Images 3:52 PM CDT DERMATOPATHOLOGY LABORATORY Pathology/Cytolog y TISSUE SPECIMEN FROM SKIN / Unknown 02/05/2018 02/06/2018 11:58 AM CDT us Twan Fox MD LAB - PATHOLOGY/CYTOLOGY ORD ERABLES Final Result DERMATOPATHOLOGY LABORATORY [facility] - Department of Dermatology [facility] [facility] [place] [address], [facility] [phone] documented in this encounter Visit Diagnoses Not on filedocumented in this encounter Care Teams Rn Surgical Relationship Specialty Start Date End Date Nick Reyes MD [address] [place] [address] [address] [place] [address] PCP - General 03/31/08 documented as of this encounter
--- OUTSIDE RECORDS SUMMARY | 2024-12-03 20:14 | XMS_ITS | Clinical Summary ---
Author Organization [facility] Address [address] [place] [address] Care Team Providers Care Coupon Redemption Clerk Name Role Phone Nick Reyes MD [...] (01/11/2019): Added automatically from request for surgery [id number] 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 Overview (01/11/2019): Added automatically from request for surgery [id number] Cyclic edema 12/03/2016 Hypercholesteremia 12/03/2016 Gastroesophageal reflux [...] on file Medical Devices Implanted Type Area Cooling Machine Operator Device Identifier Shelf Expiration Date Model / Serial / Lot Total Joint Right: Knee Lens Bilateral: Eye Insurance [place] [employer] [place] [employer] [employer] [place] [facility] Care Teams Coupon Redemption Clerk Relationship Specialty Start Date End Date Nick Reyes MD PCP - General 09/02/16
--- OUTSIDE RECORDS SUMMARY | 2024-12-03 20:14 | XMS_ITS | Continuity of Care Document ---
Author Organization [facility] [place] [address] [place] [address] Phone Care Team Providers Care Induction Brazer Name Role Phone Ashley Parisi Unavailable Unavailable [...] Diagnoses Date Provider Providers Copied on Encounter [facility], [address], [place], [place], [id number], [place] tel:[phone] SEC [facility] No Information 0 Ailin Ramirez. [address] , [address], [place], [address], [place]. tel:[phone] [facility], [address], [place], [place], [address], [place] tel:[phone] SEC [facility] No Information Feb- 8-201 0 Simon Strong. [address] , [address], [place], [place], [facility], [place]. tel:[phone] [facility], [address], [place], [place], [address], [place] tel:[phone] SEC [facility] No Information Sep-2 3-201 0 Parisi Ashley. [address] , [address], [place], [place], [facility], [place]. tel:[phone] [facility], [address] [place] [address] [address], [place], [place], [address], [place] tel:[phone] SEC [facility] No Information Sep-0 2-201 0 Ailin Adairn. [address] , [address], [place], [place], [facility], [place]. tel:[phone] [facility], [address] [place] [address] [address], [place], [place], [id number], [place] tel:[phone] SEC [facility] No Information Dec-2 6-201 0 Ailin Adairn. [address] , [address], [place], [facility], [place]. tel:[phone] [facility], [address] [place] [address] [address], [place], [place], [id number], [place] tel:[phone] [facility] No Information Dec-2 5-201 0 Ailin Adairn. [address] , [address], [place], [place], [facility], [place]. tel:[phone] Office/outpat ient Visit, Est [facility], [address] [place] [address] [address], [place], [place], [address], [place] tel:[phone] SEC [facility] No Information 9-201 0 Ailin Adairn. [address] , [address], [place], [facility], [place]. tel:[phone] Referring Provider: Ashley Morales, [address], [place], [facility]. tel:[phone] [facility], [address] [place] [address] [address], [place], [place], [address], [place] tel:[phone] SEC [facility] No Information 6-200 9 Ailin Adairn. [address] , [address], [place], [facility], [place]. tel:[phone] [facility], [address] [place] [address] [address], [place], [place], [address], [place] tel:[phone] SEC [facility] No Information 6200 9 Ailin Ramirez. [address] , [address], [place], [facility], [place]. tel:[phone] [facility], [address] [place] [address] [address], [place], [place], [id number], [place] tel:[phone] [facility] [place] No Information 0 9-200 9 Ailin Adairn. [address] , [address], [place], [facility], [place]. tel:[phone] [facility], [address] [place] [address] [address], [place], [place], [address], [place] tel:[phone] [facility] No Information 0 8-200 9 Ailin Adairn. [address] , [address], [place], [facility], [place]. tel:[phone] [facility], [address], [place], [place], [address], [place] tel:[phone] SEC [facility] No Information Jose-0 8-200 9 Ailin Ramirez. [address] , [address], [place], [facility], . tel:[phone] Referring Provider: Isabel Miles [address] [place] [address], [place], [facility]. tel:[phone] [facility], [address] [place] [address] [address], [place], [place], [id number], tel:[phone] SEC [facility] No Information Josesito-2 5-200 9 Ailin Ramirez. [address], [place], [facility], . tel:[phone] Referring Provider: Isabel Miles [facility] [address], [place], [facility]. tel:[phone] [facility], [address] [place] [address] [address], [place], [place], [id number], tel:[phone] SEC [facility] No Information Jul-0 6-200 8 Ailin Ramirez. [address] [place] [address] , [address], [place], [facility], . tel:[phone] Family History Family Member Type Diagnosis Age At Onset No Information Payers Payer name Insurance type Covered democrat ID Anthonya racheal(s) [facility] Commercial CI [id number] Social History Type Description Quantity Date Captured [...]
--- OUTSIDE RECORDS SUMMARY | 2024-12-03 20:14 | XMS_ITS | Clinical Summary ---
Author Organization [facility] Address [address] [facility] [place] [address] Care Team Providers Care Thermodynamics Teacher Name Role Phone Nick Reyes MD Primary Care Provider [phone] Source Comments [facility],non-owned Affiliates and Associated Physician Practices is amultiple site organization consisting of ambulatory clinics and hospital sitesin [place], [place], [place] and [place]. This disclosure is being madepursuant to the Care Everywhere program and may not contain all information available regarding this patient. Last updated 18.[facility] Allergies Active Allergy Reactions Criticality Noted Date [...] (12/25/2021): Added automatically from request for surgery [id number] Right elbow pain 01/11/2019 Overview (12/25/2021): Added automatically from request for surgery [id number] Multiple joint pain 12/04/2016 Arthropathies in other [...] on file Legal Sex Female 6:41 PM [employer] Gender Identity Not on file Sexual Orientation [...] patient's age to complete [place] [address] MEDICARE [facility] MEDICARE [facility] Care Teams Thermodynamics Teacher Relationship Specialty Start Date End Date Nick Reyes MD [address] [place] [address] [address] [place] [address] PCP - General 03/31/08
--- OUTSIDE RECORDS SUMMARY | 2024-12-03 20:14 | XMS_ITS | Encounter Summary ---
Author Organization [facility] Address [address] [place] [address] Phone Care Team Providers Care Artist Relationship Manager Name Role Phone Nick Reyes MD Primary Care Provider Encounter Details Date Type Department Care Team (Late st Contact Info) Description 06/17/2019 Orders Only [facility] [phone] Scanning, Provider Social History Tobacco Use Types [...] on filedocumented in this encounter Care Teams Artist Relationship Manager Relationship Specialty Start Date End Date Nick Reyes MD PCP - General 09/02/16 documented as of this encounter
[2024-12-03] MEDS: SODIUM CHLORIDE 0.9% IV 1,000 ML 999 ML IV CONT (20:29)
[2024-12-03] MEDS: ONDANSETRON INJ 4 MG/2 ML VIAL IV PUSH (20:29)
[2024-12-03] MEDS: KETOROLAC 15 MG/ML VIAL (*BKC) IV PUSH (20:29)
[2024-12-03 20:38] LABS: Hematocrit 41.2 % (37.0-47.0); Hemoglobin 13.7 g/dL (12.0-15.0); Immature Granulocyte Percent A 0.2 % (0-0.5); Lymphocytes Absolute Auto 1.29 K/mm3 (0.9-3.2); Mean Corpuscular HGB Conc 33.3 g/dl (32-36); Mean Corpuscular Hemoglobin 31.9 pg (26-34); Mean Corpuscular Volume 96.0 fl (80-100); Nucleated Red Blood Cells Absolute Auto 0.000 K/mm3 (0.0-0.012); Nucleated Red Blood Cells Perc 0.0 % (0.0-0.2); Platelet Count Result 186 k/mm3 (150-375); Red Blood Count 4.29 M/mm3 (4.2-5.4); White Blood Count 5.9 K/mm3 (4.5-10.0)
[2024-12-03 20:52] LABS: Add Urine Microscopic? YES; Appearance Urine Clear (Clear); Glucose Urine UA Negative (Negative); Leukocyte Esterase Ur 1+ LEU/UL (Negative); Need Manual Microscopic Reviewed; Nitrate Urine Negative (Negative); Specific Grav Ur 1.034 (1.001-1.035)
[2024-12-03 21:51] LABS: Alanine Aminotransferase 40 U/L (6-35); Albumin Level 3.8 g/dL (3.5-5.1); Alkaline Phosphatase 80 U/L (38-126); Anion Gap 9 mmol/L (4-12); Aspartate Amino Transferase 73 U/L (14-36); Bilirubin,Total 0.8 mg/dL (0.2-1.3); Blood Urea Nitrogen 28 mg/dL (7-17); Calcium 9.1 mg/dL (8.4-10.2); Carbon Dioxide 24 mmol/L (22-30); Chloride 104 mmol/L (98-107); Estimated CRCL calculation 33 ml/min; Estimated Glomerular Filt Rate 46; Glucose 46 mg/dL (65-110); Lipase 73 U/L (23-300); Magnesium 1.9 mg/dL (1.6-2.3); Potassium 3.1 mmol/L (3.4-5.0); Sodium 137 mmol/L (137-145); Total Protein 6.8 g/dL (6.3-8.2)
[2024-12-03] MEDS: DEXTROSE 50% 25 GM/50 ML SYRINGE (21:54)
--- NOTE | 2024-12-03 22:33 | WPDURCON ---
Assessment and Plan Assessment and plan (1) Abdominal pain, acute, left lower quadrant: Code(s): R10.32 - Left lower quadrant pain Status: Acute Assessment and Plan: unlikely related to nephrolithiasis (2) Ureterolithiasis: Code(s): N20.1 - Calculus of ureter Status: Acute Assessment and Plan: nonobstructing and asymptomatic Plan f/u in 2-3 weeks with KUB increase po fluid consider Flom[facility] Consult Note HPI Date Seen: 12/03/24 Requesting Physician: ED Primary Care Provider: Nick Reyes, MD Consult Narrative Narrative: Dipti Núñez is a 79 year old woman with left lower quadrant pain. CT reveal nonobstructing right proximal ureteral stone 2.5mm. Pt had no right flank pain, no N/v, afeb Review of Systems Constitutional: Constitutional: Reports no additional constitutional complaints Cardiovascular: Cardiovascular: Reports no additional cardiovascular complaints Respiratory: Respiratory: Reports no additional respiratory complaints Gastrointestinal: Gastrointestinal: Reports abdominal pain (left lower quadrant) Genitourinary: Genitourinary: Reports no additional female genitourinary complaints PMFSH Past Medical History Medical History Obesity Osteoarthritis Ulcerative colitis Anxiety GERD (gastroesophageal reflux disease) CVA (cerebral vascular accident) no residual symptoms Hypertension Hyperlipidemia Family History Family History Grandparent Alcoholism Sibling Asthma Cancer Father Cancer Mother Cancer Hypertension Social History Social History Smoking status: Never smoker Second hand tobacco smoke exposure: No Alcohol intake: never Substance use: never Substance use type: does not use Living arrangements: with family Spiritual care concerns: No Meds Home Medications and Allergies Home Medications ?Medication ?Instructions ?Recorded ?Confirmed ?Type Lactobacills gasseri-Bifidobac 1 cap PO DAILY 08/25/20 11/21/21 History bifidum,longum 1.5 billion cell capsule ([employer]) alprazolam 0.25 mg tablet 0.25 mg PO TID PRN Anxiety 08/25/20 11/21/21 History amiloride 5 mg-hydrochlorothiazide 1 tablet PO DAILY 08/25/20 11/21/21 History 50 mg tablet atorvastatin 80 mg tablet 40 mg PO BID 08/25/20 11/21/21 History bupropion HCl 300 mg 24 hr tablet, 300 mg PO DAILY 08/25/20 11/21/21 History extended release tmcblapudgph-Lw-xrsa-minerals 18 1 tablet PO DAILY 08/25/20 11/21/21 History mg-0.4 mg tablet omeprazole 20 mg capsule,delayed 20 mg PO BID 08/25/20 11/21/21 History release cetirizine 10 mg capsule (All Day 10 mg PO DAILY PRN 11/21/21 11/21/21 History Allergy (cetirizine)) sulfamethoxazole 800 1 tablet PO Q12H #6 tabs 12/08/23 Rx mg-trimethoprim 160 mg tablet (Bactrim DS) tramadol 50 mg tablet 50 mg PO Q6H PRN pain #20 tabs 12/08/23 Rx hydrocodone 5 mg-acetaminophen 325 1 tablet PO Q12H PRN pain #14 tabs 12/01/24 Rx mg tablet ondansetron 4 mg disintegrating 4 mg PO Q8H PRN nausea and 12/01/24 Rx tablet vomiting #14 tabs tamsulosin 0.4 mg capsule (Flomax) 0.4 mg PO DAILY 14 days #14 caps 12/01/24 Rx cephalexin 500 mg capsule 500 mg PO Q12H 5 days #10 caps 12/03/24 Rx Allergies Allergy/AdvReac Type Severity Reaction Status Date / Time adhesive tape Allergy Intermediate Rash Verified 12/03/24 16:16 Vital Signs Vital Signs - 24 hr 12/03/24 16:13 12/03/24 18:39 12/03/24 20:25 Temperature 36.4 C 36.7 C 36.7 C Pulse Rate 83 70 69 Respiratory Rate 16 18 Blood Pressure 108/49 L 132/65 143/70 H Pulse Oximetry 100 99 100 Oxygen Delivery Room Air Room Air 12/03/24 21:21 Temperature Pulse Rate 72 Respiratory Rate 17 Blood Pressure 134/60 Pulse Oximetry 94 Oxygen Delivery Results Labs 12/03/24 20:28 12/03/24 21:20 Labs: Short CBC 12/03/24 Range/Units 20:28 WBC 5.9 (4.5-10.0) K/mm3 Hgb 13.7 (12.0-15.0) g/dL Hct 41.2 (37.0-47.0) % Plt Count 186 (150-375) k/mm3 BMP 12/03/24 21:20 Sodium 137 Potassium 3.1 L Chloride 104 Carbon Dioxide 24 BUN 28 H Creatinine 1.15 H Glucose 46 L* Calcium 9.1 Liver Function 12/03/24 Range/Units 21:20 Total Bilirubin 0.8 (0.2-1.3) mg/dL AST 73 H (14-36) U/L ALT 40 H (6-35) U/L Alkaline Phosphatase 80 (38-126) U/L Albumin 3.8 (3.5-5.1) g/dL Urine 12/03/24 Range/Units 20:28 Urine Color Dark yellow (Yellow) Urine Appearance Clear (Clear) Urine pH 5.5 (5.0-9.0) Ur Specific [place] 1.034 (1.001-1.035) Urine Protein Trace (Negative) mg/dL Urine Glucose (UA) Negative (Negative) mg/dL
== END 2024-12-03 22:53 | disposition home or self-care (01) ==
PROVIDERS: Physician Assistant; Emergency Provider Emergency Medicine; PCP Internal Medicine
DX: N20.1 Calculus of ureter (principal); N39.0 Urinary tract infection, site not specified; I10 Essential (primary) hypertension; E78.5 Hyperlipidemia, unspecified; M19.90 Unspecified osteoarthritis, unspecified site; K51.90 Ulcerative colitis, unspecified, without complications; K21.9 Gastro-esophageal reflux disease without esophagitis; Z86.73 Personal history of transient ischemic attack (TIA), and cerebral infarction without residual deficits; K44.9 Diaphragmatic hernia without obstruction or gangrene; Z79.899 Other long term (current) drug therapy
CPT/HCPCS: 36415; 74176; 80053; 81001; 82948; 83690; 83735; 85025; 87086; 96361; 96374; 96375; 99284; J1885; J2405; J7030